=== PATIENT | female | born 1940 | race Caucasian/White ===

== ENCOUNTER → 2020-08-30 | Outpatient (CLI) | payer MEDICARE ==
[~2020-08-30] MED LIST: ASP81CT PO; LISINOPRIL PO; LOVASTATIN PO; MECL25TA56 PO
[2020-08-30 10:16] LABS: BASOPHILS # (AUTO) 0.1 10^3/uL (0.0-0.1); BASOPHILS % (AUTO) 1 % (0-10); EOSINOPHILS # (AUTO) 0.1 10^3/uL (0.0-0.3); EOSINOPHILS % (AUTO) 1 % (0-10); HEMATOCRIT 40 % (35-52); LYMPHOCYTES # (AUTO) 1.8 10^3/uL (1.0-4.0); LYMPHOCYTES % (AUTO) 24 % (12-44); MEAN CORPUSCULAR HEMOGLOBIN 30 pg (25-34); MEAN CORPUSCULAR HGB CONC 33 g/dL (32-36); MEAN CORPUSCULAR VOLUME 93 fL (80-99); MONOCYTES # (AUTO) 0.5 10^3/uL (0.0-1.0); MONOCYTES % (AUTO) 6 % (0-12); NEUTROPHILS % (AUTO) 68 % (42-75); PLATELET COUNT 295 10^3/uL (130-400); WHITE BLOOD COUNT 7.3 10^3/uL (4.3-11.0)
[2020-08-30 10:37] LABS: ALANINE AMINOTRANSFERASE 23 U/L (0-55); ALKALINE PHOSPHATASE 72 U/L (40-136); BILIRUBIN,TOTAL 0.4 MG/DL (0.1-1.0); BUN/CREATININE RATIO 21; CALCIUM 8.8 MG/DL (8.5-10.1); CARBON DIOXIDE 22 MMOL/L (21-32); CHLORIDE 105 MMOL/L (98-107); CREATININE SERUM 0.73 MG/DL (0.60-1.30); GFR ESTIMATED > 60; GLUCOSE 97 MG/DL (70-105); POTASSIUM 4.2 MMOL/L (3.6-5.0); SODIUM 139 MMOL/L (135-145)
[2020-08-30 10:39] LABS: ERYTHROCYTE SEDIMENTATION RATE 16 MM/HR (0-30)
--- NOTE | 2020-08-30 10:45 | Diagnostic Imaging Report ---
INDICATION: SOB, DIZZINESS, LOCALIZED EDEMA, MITRAL VALVE DISORDERS, HUPERLIPIDEMIA COMPARISON: 04/19/2010 FINDINGS: Frontal, lateral, and apical lordotic views of the chest demonstrate normal heart size and pulmonary vascularity. The lungs are clear. There are no signs of infiltrate, pleural effusions or pneumothoraces. The visualized osseous structures show no acute abnormalities. IMPRESSION: 1. No acute process. No signs of infiltrates, effusions or pneumothoraces. Dictated by: Dictated on workstation # [id number]
== END ==
LOC: RAD 09:54
PROVIDERS: ATTEND Nurse Practitioner Family
DX: I34.1 Nonrheumatic mitral (valve) prolapse (principal); R63.5 Abnormal weight gain; I10 Essential (primary) hypertension; G60.3 Idiopathic progressive neuropathy; E78.49 Other hyperlipidemia; R60.0 Localized edema
CPT/HCPCS: 36415; 71047; 80053; 83880; 85025; 85652

== ENCOUNTER 2021-02-07 15:25 | Outpatient (RCR) | payer MEDICARE | END 2021-03-11 | disposition home or self-care (01) | PROVIDERS: ATTEND Internal Medicine | DX: R26.89 Other abnormalities of gait and mobility (principal); I11.9 Hypertensive heart disease without heart failure; G62.9 Polyneuropathy, unspecified; I10 Essential (primary) hypertension; H91.90 Unspecified hearing loss, unspecified ear ==

== ENCOUNTER 2021-05-03 16:13 | Emergency (ER) | payer MEDICARE ==
[~2021-05-03] VITALS: Ht 152.4 cm; Wt 63.9 kg
--- NOTE | 2021-05-03 16:34 | ED Respiratory ---
General Chief Complaint: Respiratory Problems Stated Complaint: TROUBLE BREATHING,POSS BLOOD CLOT Source: patient Exam Limitations: no limitations History of Present Illness Date Seen by Provider: May 03, 2021 Time Seen by Provider: 16:32 Initial Comments To ER by private vehicle by family with reports of shortness of breath for sever al months. She is had both Covid shots and a booster. No fevers or chills. No cough. 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 Mcduffie out of [facility] checked a D-dimer and found it to be high at 3.8 so referred her to the emergency room for angio chest. She has Lasix twice daily for her CHF. She has been compliant with this. Timing/Duration: constant Prior Episodes/Possible Cause: no prior episodes Associated Symptoms: shortness of breath Allergies and Home Medications Allergies Coded Allergies: metoclopramide (Unverified Allergy, Mild, 03/14/16) prochlorperazine (Unverified Allergy, Mild, 03/14/16) HIGH ANXIETY REACTION Patient Home Medication List Home Medication List Reviewed: Yes Aspirin (Aspirin 81 Mg Chew Tab) 81 Mg Chew, 81 MG PO DAILY, (Reported) Entered as Reported by: MICKEY ALMONTE on 04/19/101405 [Lisinopril] , 10 MG PO DAILY, (Reported) Entered as Reported by: MICKEY ALMONTE on 04/19/101405 [Lovastatin] , 80 MG PO HS, (Reported) Entered as Reported by: MICKEY ALMONTE on 04/19/101405 Review of Systems Review of Systems Constitutional: see HPI EENTM: see HPI Respiratory: see HPI, dyspnea on exertion, short of breath Genitourinary: no symptoms reported Musculoskeletal: no symptoms reported Past Kzvdvbv-Oqrred-Xdjrrs Hx Immunizations Up To Date Tetanus Booster (TDap): Unknown Past Medical History Hysterectomy, Orthopedic High Cholesterol, Hypertension Chronic Constipation Tinnitis Physical Exam Capillary Refill : Height: 5'2" Weight: 139lbs. oz. 63.139344ts; BMI Method:Stated General Appearance: WD/WN, no apparent distress Eyes: Bilateral Eye Normal Inspection, Bilateral Eye PERRL, Bilateral Eye EOMI Respiratory: lungs clear, normal breath sounds, no respiratory distress, no accessory muscle use, other (Lungs are clear with good air movement. No wheezing. Her oxygen is 97% on room air. Heart rate is 95.) Cardiovascular: regular rate, rhythm Gastrointestinal: normal bowel sounds, non tender Extremities: normal range of motion, non-tender Neurologic/Psychiatric: alert, normal mood/affect, oriented x 3 Skin: normal color, warm/dry Progress/Results/Core Measures Suspected Sepsis SIRS Temperature: Pulse: Respiratory Rate: Laboratory Tests 05/03/21 16:40: White Blood Count 9.0 Blood Pressure / Mean: Laboratory Tests 05/03/21 16:40: Creatinine 1.19, Platelet Count 374 Results/Orders Lab Results Laboratory Tests Test 05/03/21 16:40 Range/Units White Blood Count 9.0 4.3-11.0 10^3/uL Red Blood Count 4.19 3.80-5.11 10^6/uL Hemoglobin 12.8 11.5-16.0 g/dL Hematocrit 38 35-52 % Mean Corpuscular Volume 90 80-99 fL Mean Corpuscular Hemoglobin 31 25-34 pg Mean Corpuscular Hemoglobin Concent 34 32-36 g/dL Red Cell Distribution Width 14.2 10.0-14.5 % Platelet Count 374 130-400 10^3/uL Mean Platelet Volume 9.1 9.0-12.2 fL Immature Granulocyte % (Auto) 0 % Neutrophils (%) (Auto) 74 42-75 % Lymphocytes (%) (Auto) 20 12-44 % Monocytes (%) (Auto) 6 0-12 % Eosinophils (%) (Auto) 0 0-10 % Basophils (%) (Auto) 0 0-10 % Neutrophils # (Auto) 6.7 1.8-7.8 X 10^3 Lymphocytes # (Auto) 1.8 1.0-4.0 X 10^3 Monocytes # (Auto) 0.6 0.0-1.0 X 10^3 Eosinophils # (Auto) 0.0 0.0-0.3 10^3/uL Basophils # (Auto) 0.0 0.0-0.1 10^3/uL Immature Granulocyte # (Auto) 0.0 0.0-0.1 10^3/uL Sodium Level 138 135-145 MMOL/L Potassium Level 3.4 L 3.6-5.0 MMOL/L Chloride Level 101 98-107 MMOL/L Carbon Dioxide Level 20 L 21-32 MMOL/L Anion Gap 17 H 5-14 MMOL/L Blood Urea Nitrogen 32 H 7-18 MG/DL Creatinine 1.19 0.60-1.30 MG/DL Estimat Glomerular Filtration Rate 43 BUN/Creatinine Ratio 27 Glucose Level 162 H 70-105 MG/DL Calcium Level 9.4 8.5-10.1 MG/DL B-Type Natriuretic Peptide 15.9 <100.0 PG/ML My Orders Orders - LENO URBAN APRN Cbc With Automated Diff (05/03/21 16:20) Basic Metabolic Panel (05/03/21 16:20) Bnp Sabine (05/03/21 16:20) Ekg Tracing (05/03/21 16:20) Ct Angio Chest W (05/03/21 16:20) Iohexol Injection (Omnipaque 350 Mg/Ml 1 (05/03/21 17:15) Received Contrast (Hold Metformin- Contr (05/03/21 17:15) Ns (Ivpb) (Sodium Chloride 0.9% Ivpb Bag (05/03/21 17:15) Ns Iv 500 Ml (Sodium Chloride 0.9%) (05/03/21 17:30) Medications Given in ED Current Medications Medications Dose Ordered Sig/Heri Route Start Time Stop Time Status Last Admin Dose Admin Iohexol 100 ml ONCE ONCE IV 05/03/21 17:15 05/03/21 17:16 DC 05/03/21 17:27 60 ML Sodium Chloride 100 ml ONCE ONCE IV 05/03/21 17:15 05/03/21 17:16 DC 05/03/21 17:27 80 ML Vital Signs/I&O Capillary Refill : Departure Communication (Admissions) I did notify her packaging sales representative Dr. Jones that there was no pulmonary embolism. No further recommendations, he will see her in the clinic next week. Impression Primary Impression: Chronic dyspnea Disposition: 01 HOME, SELF-CARE Condition: Stable Departure-Patient Inst. Decision time for Depature: 17:49 Referrals: HAILEY GARCIA MD (PCP) Primary Care Physician AYLEEN URIARTE MD (Family) Primary Care Physician Patient Instructions: Shortness of Breath (Dyspnea) Add. Discharge Instructions: 1. Return to ER for any concerns. Follow-up with Dr. Mcduffie All discharge instructions reviewed with patient and/or family. Voiced und erstanding. LENO URBAN APRN May 03, 2021 16:34
[2021-05-03 16:51] LABS: BASOPHILS % (AUTO) 0 % (0-10); EOSINOPHILS % (AUTO) 0 % (0-10); HEMATOCRIT 38 % (35-52); HEMOGLOBIN 12.8 g/dL (11.5-16.0); LYMPHOCYTES # (AUTO) 1.8 X 10^3 (1.0-4.0); LYMPHOCYTES % (AUTO) 20 % (12-44); MEAN CORPUSCULAR HEMOGLOBIN 31 pg (25-34); MEAN CORPUSCULAR HGB CONC 34 g/dL (32-36); MEAN CORPUSCULAR VOLUME 90 fL (80-99); MEAN PLATELET VOLUME 9.1 fL (9.0-12.2); MONOCYTES # (AUTO) 0.6 X 10^3 (0.0-1.0); MONOCYTES % (AUTO) 6 % (0-12); NEUTROPHILS # (AUTO) 6.7 X 10^3 (1.8-7.8); NEUTROPHILS % (AUTO) 74 % (42-75); PLATELET COUNT 374 10^3/uL (130-400)
[2021-05-03 16:57] LABS: POTASSIUM 3.4 MMOL/L (3.6-5.0)
[2021-05-03 16:58] LABS: CALCIUM 9.4 MG/DL (8.5-10.1)
[2021-05-03 17:03] LABS: CREATININE SERUM 1.19 MG/DL (0.60-1.30)
[2021-05-03] MEDS ORDERED: NS 100 ML (IVPB) BAG IV ONE (17:15)
[2021-05-03] MEDS ORDERED: IOHEXOL 350 MG/ML 100 ML (OMNIPAQUE 350) VIAL IV ONE (17:15)
[2021-05-03] MEDS ORDERED: HOLD METFORMIN - RECEIVED CONTRAST 20 ML VIAL IV SCH (17:15)
[2021-05-03] MEDS ORDERED: NS IV 500 ML 500 ML IV SCH (17:30)
--- NOTE | 2021-05-03 17:45 | Diagnostic Imaging Report ---
EXAMINATION: CT angiography of the chest. TECHNIQUE: Contrast enhanced thin section helical images were obtained through the chest with intravenous contrast timed for the optimal opacification of the arterial structures per CTA protocol. Post-processing, reconstructions and interpretation of angiographic images of the vessels was performed. 3D MIP reconstructions were performed and reviewed. All CT scans use one or more of the following dose optimizing techniques: automated exposure control, MA and/or KvP adjustment based on patient size and exam type or iterative reconstruction. HISTORY: Shortness of breath. COMPARISON: None available. FINDINGS: Vascular: There are no filling defects seen within the pulmonary arteries. The thoracic aorta is normal in caliber. There are vascular calcifications of the aorta and coronary vessels. Thyroid: The thyroid is normal. Mediastinum: Heart size is normal without significant pericardial effusion. No suspicious lymphadenopathy. Lungs and airways: The lungs are clear without consolidation, pleural effusion, or pneumothorax. There are background emphysematous changes of the lungs. There is scarring within the lung apices. The airways are normal. Upper abdomen: The subphrenic structures are normal. Musculoskeletal: Degenerative changes of the spine without suspicious osseous lesion or compression fracture. IMPRESSION: 1. No findings of pulmonary embolus or other acute abnormality in the chest. 2. COPD. Dictated by: Dictated on workstation # [id number]
[2021-05-03 18:29] VITALS: BP 117/62
== END 2021-05-03 18:29 | disposition home or self-care (01) ==
LOC: EDUNIT# 16:13 → ER 16:17
DX: R06.00 Dyspnea, unspecified (principal); I10 Essential (primary) hypertension; E78.00 Pure hypercholesterolemia, unspecified; Z79.82 Long term (current) use of aspirin; Z79.899 Other long term (current) drug therapy
CPT/HCPCS: 36415; 71275; 80048; 83880; 85025; 93005

== ENCOUNTER 2021-05-30 11:49 | Emergency (ER) | payer MEDICARE ==
[2021-05-30 12:15] VITALS: BP 124/74
[2021-05-30] MEDS ORDERED: NS IV 1000 ML 1,000 ML IV SCH (12:15)
[2021-05-30] MEDS ORDERED: CEFEPIME INJECTION 1,000 MG in NS (IVPB) 50 ML IV ONE (12:15)
[2021-05-30] MEDS ORDERED: VANCOMYCIN INJECTION 1,000 MG in NS (IVPB) 250 ML IV ONE (12:15)
[2021-05-30] MEDS ORDERED: NS IV 500 ML 500 ML IV ONE (12:15)
--- NOTE | 2021-05-30 14:13 | ED Fall/Injury ---
General Chief Complaint: Trauma-Non Activation Stated Complaint: LOWER BACK PAIN, FELL Nursing Triage Note: PT AMB TO ER WITH WALKER WITH FAMILY WITH C/O A FALL LAST NIGHT AROUND 2200. PT WAS IN THE KITCHEN FIXING SOMETHING TO EAT WHEN SHE LOST HER BALANCE AND FELL STRAIGHT ON HER BACK. PT ALSO SAYING PAIN RADIATING TO R SIDE. PT STATES SHE HAS BAD BALANCE DUE TO NEUROPATHY Source: patient Exam Limitations: no limitations History of Present Illness Date Seen by Provider: May 30, 2021 Time Seen by Provider: 13:15 Initial Comments Patient to the ER by private conveyance with her qtsmcfzc-bl-ufz chief complaint that yesterday evening around 10 she had 1 hand on the bar and had let go of her walker and fell. She has bad neuropathy and cannot feel her legs very well at baseline. She says her caught her head and shoulder so she did not strike the floor with her head but she did strike the bottom of a trash can against her right ribs. She is having pain persist in her right ribs. She received 2 Tylenol last night by her uosxztqy-ye-dlr. She is not had anything since then. She has a history of heart disease and is on aspirin but no blood thinners. She is not on Plavix. 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 She is not having any pain in her head or neck. She is not having any dysuria or hematuria. She denies any recent illness. Allergies and Home Medications Allergies Coded Allergies: metoclopramide (Unverified Allergy, Mild, 03/14/16) prochlorperazine (Unverified Allergy, Mild, 03/14/16) HIGH ANXIETY REACTION Patient Home Medication List Home Medication List Reviewed: Yes Aspirin (Aspirin 81 Mg Chew Tab) 81 Mg Chew, 81 MG PO DAILY, (Reported) Entered as Reported by: MICKEY ALMONTE on 04/19/101405 [Lisinopril] , 10 MG PO DAILY, (Reported) Entered as Reported by: MICKEY ALMONTE on 04/19/101405 [Lovastatin] , 80 MG PO HS, (Reported) Entered as Reported by: MICKEY ALMONTE on 04/19/101405 Review of Systems Review of Systems Constitutional: No chills, No diaphoresis Eyes: Denies Blindness, Denies Blurred Vision Ears, Nose, Mouth, Throat: denies ear pain, denies ear discharge Respiratory: No cough, No short of breath Cardiovascular: No edema, No palpitations Musculoskeletal: No back pain, No joint pain Skin: see HPI; No pruritus, No rash All Other Systems Reviewed Negative Unless Noted: Yes Past Scsfhnt-Mpwbke-Ynjbxh Hx Patient Social History Tobacco Use?: No Smoking Status: Former Smoker Substance use?: No Alcohol Use?: No Pt feels they are or have been: No Immunizations Up To Date Tetanus Booster (TDap): Unknown Influenza Vaccine Up-to-Date: Yes; Up-to-Date First/Initial COVID19 Vaccinat: MAY 2020 Second COVID19 Vaccination Juan: JUN 2020 Past Medical History Hysterectomy, Orthopedic High Cholesterol, Hypertension Chronic Constipation Tinnitis Physical Exam Vital Signs Vital Signs - First Documented 05/30/21 12:15 Temp 36.1 Pulse 79 Resp 20 B/P (MAP) 124/74 (91) Pulse Ox 99 O2 Delivery Room Air Capillary Refill : Height, Weight, BMI Height: 5'2" Weight: 139lbs. oz. 63.081872cb; 27.00 BMI Method:Stated General Appearance: WD/WN, mild distress, other (Anxious) HEENT: PERRL/EOMI, TMs normal, pharynx normal Neck: full range of motion, supple, normal inspection Cardiovascular: normal peripheral pulses, regular rate, rhythm Respiratory: lungs clear, normal breath sounds, no respiratory distress, no accessory muscle use, other (Right mid axillary line radiating back to the posterior portion of the lower ribs are tender to palpation without step-off or crepitus. No ecchymoses or laceration.) Peripheral Pulses: 2+ Dorsalis Pedis (R), 2+ Left Dors-Pedis (L) Gastrointestinal: normal bowel sounds, non tender, soft Back: normal inspection, no vertebral tenderness (No step-off. She has scoliosis and kyphosis.) Extremities: normal inspection, normal capillary refill Neurologic/Psychiatric: roller man II-XII nml as tested, no motor/sensory deficits, alert, normal mood/affect, oriented x 3 Skin: normal color, warm/dry Progress/Results/Core Measures Results/Orders Lab Results Laboratory Tests Test 05/30/21 14:13 Range/Units Urine Color YELLOW Urine Clarity CLEAR Urine pH 8.0 5-9 Urine Specific Boyd 1.010 L 1.016-1.022 Urine Protein NEGATIVE NEGATIVE Urine Glucose (UA) NEGATIVE NEGATIVE Urine Ketones TRACE H NEGATIVE Urine Nitrite NEGATIVE NEGATIVE Urine Bilirubin NEGATIVE NEGATIVE Urine Urobilinogen 0.2 < = 1.0 MG/DL Urine Leukocyte Esterase 2+ H NEGATIVE Urine RBC (Auto) NEGATIVE NEGATIVE Urine RBC NONE /HPF Urine WBC 2-5 /HPF Urine Squamous Epithelial Cells 2-5 /HPF Urine Crystals NONE /LPF Urine Bacteria TRACE /HPF Urine Casts NONE /LPF Urine Mucus NEGATIVE /LPF Urine Culture Indicated NO My Orders Orders - MADHURI HERNANDEZ Ekg Tracing (05/30/21 12:09) Ns Iv 1000 Ml (Sodium Chloride 0.9%) (05/30/21 12:15) Cefepime Injection (Maxipime Injection) (05/30/21 12:15) Vancomycin Injection (Vancomycin Injecti (05/30/21 12:15) Ns Iv 500 Ml (Sodium Chloride 0.9%) (05/30/21 12:15) Ct Head/Cervical Spine Wo (05/30/21 13:21) Ribs, Right 2-3 Views (05/30/21 14:05) Hydrocodone/Apap 5/325 Tablet (Lortab 5 (05/30/21 14:15) Ua Culture If Indicated (05/30/21 14:07) Cbc With Automated Diff (05/30/21 14:07) Comprehensive Metabolic Panel (05/30/21 14:07) Medications Given in ED Current Medications Medications Dose Ordered Sig/Heri Route Start Time Stop Time Status Last Admin Dose Admin Acetaminophen/ Hydrocodone Bitart 1 ea ONCE ONCE PO 05/30/21 14:15 05/30/21 14:16 DC 05/30/21 14:15 1 EA Vital Signs/I&O 05/30/21 12:15 Temp 36.1 Pulse 79 Resp 20 B/P (MAP) 124/74 (91) Pulse Ox 99 O2 Delivery Room Air Blood Pressure Mean: 91 Progress Progress Note : Time: 14:11 Progress Note Right ribs [address] head and cervical spine. Initial ECG Impression Date: May 30, 2021 Initial ECG Impression Time: 13:47 Initial ECG Rate: 72 Initial ECG Rhythm: Normal Sinus Initial ECG Intervals: Normal Initial ECG Impression: Normal Comment Normal sinus rhythm without clinically relevant ST elevation or depression. Diagnostic Imaging Diagonstic Imaging: Xray Plain Films/CT/US/NM/MRI: chest (Right ribs) Comments [facility], [place] NAME: ASAD HARRELL [facility] REC#: [id number] PT STATUS: REG ER : 1940 PHYSICIAN: MADHURI HERNANDEZ MD ADMIT DATE: 05/30/21/ER Signed Date of Exam:05/30/21 RIBS, RIGHT 2-3 VIEWS INDICATION: Fall with right rib pain. TIME OF EXAM: 02:27 p.m. TECHNIQUE: Multiple views of the right ribs were obtained. FINDINGS: No displaced rib fracture is identified. No parenchymal contusion, effusion or pneumothorax is detected. IMPRESSION: No definite rib fracture identified. Dictated by: Dictated on workstation # [id number] Dict: 05/30/21 1426 Trans: 05/30/21 1600 [id number] [id number] Interpreted by: DEWAYNE HONG MD Electronically signed by: DEWAYNE OHNG MD 05/30/21 1600 Reviewed: Reviewed by Me Diagonstic Imaging: CT Plain Films/CT/US/NM/MRI: c-spine, head Comments [facility], [place] NAME: ASAD HARRELL [facility] REC#: [id number] PT STATUS: REG ER : 1940 PHYSICIAN: MADHURI HERNANDEZ MD ADMIT DATE: 05/30/21/ER Signed Date of Exam:05/30/21 CT HEAD/CERVICAL SPINE WO PROCEDURE: CT head and CT cervical spine without contrast. TECHNIQUE: Multiple contiguous axial images were obtained through the brain and cervical spine without the use of intravenous contrast. Sagittal and coronal reformations through the cervical spine were then performed. Auto Exposure Controls were utilized during the CT exam to meet ALARA standards for radiation dose reduction. INDICATION: Fall. COMPARISON: Correlation is made with head CT from 04/19/2010. CT HEAD: The ventricles and sulci are appropriate for the patient's age. No sulcal effacement or midline shift is identified. No acute intra-axial or extra-axial hemorrhage is detected. Cisterns are patent. Visualized paranasal sinuses are clear. IMPRESSION: No acute intracranial process is detected. CT CERVICAL SPINE: There is some straightening of the normal cervical lordotic curvature. Minimal retrolisthesis of C5 on C6 is noted. There is significant degenerative disc disease at C4-C5, C5-C6, and C6-C7 levels where there is marked disc space narrowing and marginal spurring. There is also multilevel facet arthropathy. Prevertebral tissues are within normal limits. No fractures are seen. Prevertebral tissues are within normal limits. Odontoid is intact. IMPRESSION: Cervical spondylosis. No acute bony abnormality is detected. Dictated by: Dictated on workstation # [id number] Dict: 05/30/21 1418 Trans: 05/30/21 1559 [id number] Interpreted by: DEWAYNE HNOG MD Electronically signed by: DEWAYNE HONG MD 05/30/21 1559 Reviewed: Reviewed by Me Departure Impression Primary Impression: Fall Qualified Codes: W19.XXXA - Unspecified fall, initial encounter Additional Impression: Traumatic ecchymosis of rib Qualified Codes: S20.20XA - Contusion of thorax, unspecified, initial encou nter Disposition: HOME, SELF-CARE Condition: Stable Departure-Patient Inst. Decision time for Depature: 16:35 Referrals: HAILEY GARCIA MD (PCP/Family) Primary Care Physician Patient Instructions: Bruised Rib Add. Discharge Instructions: Drink plenty fluids, Tylenol 1000 mg as necessary for pain. Hydrocodone 1 tablet every 6 hours necessary for severe breakthrough pain keeping her being functional. Hydrocodone will cause constipation as well as drowsiness and increased risk of falls. All discharge instructions reviewed with patient and/or family. Voiced understanding. Scripts Hydrocodone/Acetaminophen (Hydrocodone-Acetamin 5-325 mg) 1 Each Tablet 1 TAB PO Q6H PRN for PAIN-MODERATE (5-7), #12 TAB 0 Refills Prov: MADHURI HERNANDEZ 05/30/21 MADHURI HERNANDEZ May 30, 2021 14:13
[2021-05-30] MEDS ORDERED: HYDROcodone/APAP 5 MG/325 MG (LORTAB) TAB PO ONE (14:15)
[2021-05-30 14:17] LABS: BILIRUBIN,URINE NEGATIVE (NEGATIVE); CLARITY,URINE CLEAR; COLOR,URINE YELLOW; GLUCOSE, URINE (UA) NEGATIVE (NEGATIVE); KETONES,URINE TRACE (NEGATIVE); LEUKOCYTE ESTERASE ,URINE 2+ (NEGATIVE); NITRITE,URINE NEGATIVE (NEGATIVE); PROTEIN,URINE NEGATIVE (NEGATIVE)
[2021-05-30 14:27] LABS: BACTERIA,URINE TRACE /HPF
--- NOTE | 2021-05-30 14:28 | Diagnostic Imaging Report ---
PROCEDURE: CT head and CT cervical spine without contrast. TECHNIQUE: Multiple contiguous axial images were obtained through the brain and cervical spine without the use of intravenous contrast. Sagittal and coronal reformations through the cervical spine were then performed. Auto Exposure Controls were utilized during the CT exam to meet ALARA standards for radiation dose reduction. INDICATION: Fall. COMPARISON: Correlation is made with head CT from 04/19/2010. CT HEAD: The ventricles and sulci are appropriate for the patient's age. No sulcal effacement or midline shift is identified. No acute intra-axial or extra-axial hemorrhage is detected. Cisterns are patent. Visualized paranasal sinuses are clear. IMPRESSION: No acute intracranial process is detected. CT CERVICAL SPINE: There is some straightening of the normal cervical lordotic curvature. Minimal retrolisthesis of C5 on C6 is noted. There is significant degenerative disc disease at C4-C5, C5-C6, and C6-C7 levels where there is marked disc space narrowing and marginal spurring. There is also multilevel facet arthropathy. Prevertebral tissues are within normal limits. No fractures are seen. Prevertebral tissues are within normal limits. Odontoid is intact. IMPRESSION: Cervical spondylosis. No acute bony abnormality is detected. Dictated by: Dictated on workstation # [id number]
--- NOTE | 2021-05-30 14:31 | Diagnostic Imaging Report ---
INDICATION: Fall with right rib pain. TIME OF EXAM: 02:27 p.m. TECHNIQUE: Multiple views of the right ribs were obtained. FINDINGS: No displaced rib fracture is identified. No parenchymal contusion, effusion or pneumothorax is detected. IMPRESSION: No definite rib fracture identified. Dictated by: Dictated on workstation # [id number]
[2021-05-30] MEDS ORDERED: ACHD5005 PO (16:37)
== END 2021-05-30 17:05 | disposition home or self-care (01) ==
LOC: EDUNIT# 11:49 → ER 11:51
DX: S20.211A Contusion of right front wall of thorax, initial encounter (principal); I10 Essential (primary) hypertension; E78.00 Pure hypercholesterolemia, unspecified; Z87.891 Personal history of nicotine dependence; Z79.899 Other long term (current) drug therapy; Z86.79 Personal history of other diseases of the circulatory system; Z79.82 Long term (current) use of aspirin; W18.39XA Other fall on same level, initial encounter; Y92.89 Other specified places as the place of occurrence of the external cause
CPT/HCPCS: 70450; 71100; 72125; 81000

== ENCOUNTER 2022-03-02 13:05 | Observation (INO) | payer MEDICARE ==
[~2022-03-02] VITALS: Ht 152 cm; Wt 72.2 kg
[~2022-03-02 13:05] MED LIST changes: +ACHD5005 PO
--- NOTE | 2022-03-02 13:24 | ED General ---
General Chief Complaint: COVID19 Suspect/Confirmed Stated Complaint: AMS - COVID + Source of Information: Residential Records Exam Limitations: Other (dementia) History of Present Illness Date Seen by Provider: Mar 02, 2022 Time Seen by Provider: 13:18 Initial Comments Patient is an 81-year-old female who presents from a local long-term with a chief complaint of altered mental status. Patient reportedly has a history of dementia. Report from the long-term to ED RN is that the patient is "more altered" than normal. Patient herself can only state that she wants to "get up" and that she feels like she is falling. Otherwise she denies all review of systems. Patient was recently diagnosed with COVID on 02/26/2022. She was started on Paxlovid by her primary care physician. On my entry into the room the patient is resting comfortably no acute distress. Vital signs are stable. Room air oxygen saturations are 97%. Per review of medical record the patient has a history of hypertension, cardiovascular disease, hypercholesterolemia and depression/dementia. Review of systems unobtainable secondary to the patient's dementia. Timing/Duration: Other (Unknown onset of change in mental status) Allergies and Home Medications Allergies Coded Allergies: metoclopramide (Unverified Allergy, Mild, 03/14/16) prochlorperazine (Unverified Allergy, Mild, 03/14/16) HIGH ANXIETY REACTION Patient Home Medication List Home Medication List Reviewed: Yes Aspirin (Aspirin 81 Mg Chew Tab) 81 Mg Chew, 81 MG PO DAILY, (Reported) Entered as Reported by: MICKEY ALMONTE on 04/19/101405 Hydrocodone/Acetaminophen (Hydrocodone-Acetamin 5-325 mg) 1 Each Tablet, 1 TAB PO Q6H PRN for PAIN-MODERATE (5-7) Prescribed by: MADHURI HERNANDEZ on 05/30/21 1637 [Lisinopril] , 10 MG PO DAILY, (Reported) Entered as Reported by: MICKEY ALMONTE on 04/19/10 140 [Lovastatin] , 80 MG PO HS, (Reported) Entered as Reported by: MICKEY ALMONTE on 04/19/101405 Review of Systems Review of Systems Constitutional: see HPI Unable to obtain review of systems secondary to the patient's history of dementia and apparent worsening in her mental status Past Vvyhlxq-Btyujf-Kcuqbr Hx Patient Social History Tobacco Use?: No Use of E-Cig and/or Vaping dev: No Substance use?: No Alcohol Use?: No Pt feels they are or have been: No Immunizations Up To Date Tetanus Booster (TDap): Unknown Influenza Vaccine Up-to-Date: Yes; Up-to-Date First/Initial COVID19 Vaccinat: MAY 2020 Second COVID19 Vaccination Juan: JUN 2020 Third COVID19 Vaccination Date: APR 2021 COVID19 Vaccine Assembler For Puller Over Hand: ZAHEER Past Medical History Surgery/Hospitalization HX: DEMENTIA, HTN, HIGH CHOLESTEROLM, ANXIETY, DEPRESSION Hysterectomy, Orthopedic High Cholesterol, Hypertension Chronic Constipation Tinnitis Physical Exam Vital Signs Vital Signs - First Documented Capillary Refill : Height, Weight, BMI Height: 5'2" Weight: 139lbs. oz. 63.455317yw; 27.00 BMI Method:Stated General Appearance: No Apparent Distress, WD/WN Eyes: Bilateral Eye Normal Inspection, Bilateral Eye PERRL, Bilateral Eye EOMI HEENT: PERRL/EOMI, Other (dry oral mucosa) Neck: Normal Inspection Respiratory: Lungs Clear, Normal Breath Sounds, No Accessory Muscle Use, No Respiratory Distress, Other (97% on RA) Cardiovascular: Regular Rate, Rhythm, Normal Peripheral Pulses Gastrointestinal: Normal Bowel Sounds, Non Tender, Soft Extremity: Normal Capillary Refill, Normal Inspection, Normal Range of Motion, Non Tender, No Calf Tenderness Neurologic/Psychiatric: Alert, No Motor/Sensory Deficits, Normal Mood/Affect Skin: Normal Color, Warm/Dry Progress/Results/Core Measures Suspected Sepsis SIRS Temperature: Pulse: Respiratory Rate: Laboratory Tests 03/02/22 13:10: White Blood Count 10.5 Blood Pressure / Mean: Laboratory Tests 03/02/22 13:10: Creatinine 1.29, Platelet Count 365, Total Bilirubin 0.7 Results/Orders Lab Results Laboratory Tests Test 03/02/22 13:10 03/02/22 13:37 03/02/22 14:53 Range/Units White Blood Count 10.5 4.3-11.0 10^3/uL Red Blood Count 4.41 3.80-5.11 10^6/uL Hemoglobin 13.6 11.5-16.0 g/dL Hematocrit 41 35-52 % Mean Corpuscular Volume 92 80-99 fL Mean Corpuscular Hemoglobin 31 25-34 pg Mean Corpuscular Hemoglobin Concent 34 32-36 g/dL Red Cell Distribution Width 14.4 10.0-14.5 % Platelet Count 365 130-400 10^3/uL Mean Platelet Volume 9.4 9.0-12.2 fL Immature Granulocyte % (Auto) 0 % Neutrophils (%) (Auto) 86 H 42-75 % Lymphocytes (%) (Auto) 10 L 12-44 % Monocytes (%) (Auto) 4 0-12 % Eosinophils (%) (Auto) 0 0-10 % Basophils (%) (Auto) 0 0-10 % Neutrophils # (Auto) 9.1 H 1.8-7.8 10^3/uL Lymphocytes # (Auto) 1.0 1.0-4.0 10^3/uL Monocytes # (Auto) 0.4 0.0-1.0 10^3/uL Eosinophils # (Auto) 0.0 0.0-0.3 10^3/uL Basophils # (Auto) 0.0 0.0-0.1 10^3/uL Immature Granulocyte # (Auto) 0.0 0.0-0.1 10^3/uL Sodium Level 140 135-145 MMOL/L Potassium Level 4.9 3.6-5.0 MMOL/L Chloride Level 105 98-107 MMOL/L Carbon Dioxide Level 20 L 21-32 MMOL/L Anion Gap 15 H 5-14 MMOL/L Blood Urea Nitrogen 32 H 7-18 MG/DL Creatinine 1.29 0.60-1.30 MG/DL Estimat Glomerular Filtration Rate 41 BUN/Creatinine Ratio 25 Glucose Level 124 H 70-105 MG/DL Calcium Level 9.5 8.5-10.1 MG/DL Corrected Calcium 9.3 8.5-10.1 MG/DL Total Bilirubin 0.7 0.1-1.0 MG/DL Aspartate Amino Transf (AST/SGOT) 27 5-34 U/L Alanine Aminotransferase (ALT/SGPT) 21 0-55 U/L Alkaline Phosphatase 84 40-136 U/L Total Protein 7.5 6.4-8.2 GM/DL Albumin 4.3 3.2-4.5 GM/DL Urine Color YELLOW Urine Clarity CLEAR Urine pH 6.0 5-9 Urine Specific [place] >=1.030 1.016-1.022 Urine Protein NEGATIVE NEGATIVE Urine Glucose (UA) NEGATIVE NEGATIVE Urine Ketones TRACE H NEGATIVE Urine Nitrite NEGATIVE NEGATIVE Urine Bilirubin NEGATIVE NEGATIVE Urine Urobilinogen 0.2 < = 1.0 MG/DL Urine Leukocyte Esterase NEGATIVE NEGATIVE Urine RBC (Auto) TRACE-I H NEGATIVE Urine RBC 0-2 /HPF Urine WBC RARE /HPF Urine Squamous Epithelial Cells 0-2 /HPF Urine Crystals NONE /LPF Urine Bacteria TRACE /HPF Urine Casts PRESENT /LPF Urine Hyaline Casts 0-2 H /LPF Urine Mucus SMALL H /LPF Urine Culture Indicated NO SARS-CoV-2 RNA (RT-PCR) Detected H Not Detecte My Orders Orders - BIPIN BAHENA MD Ed Iv/Invasive Line Start (03/02/22 13:20) Cbc With Automated Diff (03/02/22 13:20) Comprehensive Metabolic Panel (03/02/22 13:20) Ua Culture If Indicated (03/02/22 13:20) Chest 1 View, Ap/Pa Only (03/02/22 13:20) Covid 19 Inhouse Test (03/02/22 14:53) Isolation Central Supply Req (03/02/22 14:53) Acetaminophen Tablet (Tylenol Tablet) (03/02/22 15:00) Medications Given in ED Current Medications Medications Dose Ordered Sig/Heri Route Start Time Stop Time Status Last Admin Dose Admin Acetaminophen 1,000 mg ONCE ONCE PO 03/02/22 15:00 03/02/22 15:01 DC 03/02/22 15:19 1,000 MG Vital Signs/I&O 03/02/22 03/02/22 13:11 13:11 Temp 38.0 Pulse 89 Resp 14 B/P (MAP) 137/71 (93) Pulse Ox 96 O2 Delivery Room Air Room Air Capillary Refill : Progress Note #1: Time: 14:57 Progress Note Further history from daughter who is at the bedside, her mother has fallen 2 or 3 times over the course of the last for 5 days. She was so weak last evening that it took 3 caregivers to try to get her up and into the bathroom. The daughter has been out of town but got back last evening and today she found her mother so weak that she could not get her up to the toilet either. She was so confused that she was telling the daughter she needed to go urinate and she was actually sitting on the toilet at the time. Daughter states that she is much more confused than usual I explained to the daughter that her labs were all very reassuring and within normal limits. Her vital signs have been perfect. She does not have a urinary tract infection and no concerns on basic laboratory studies. She is somewhat confused with a history of dementia. She has been on Paxlovid since last week. We will retest her for COVID today and if it appears that she is negative today then we may consider talking to Dr. Mera and putting her on ARU. Progress Note #2: Time: 15:28 Progress Note Discussed the case with Dr. Mera, she will consider an ARU admission tomorrow. We will put her in observation to Dr. Flores on fourth floor this afternoon. Generalized weakness and COVID. We will continue home meds. Departure Communication (Admissions) Time/Spoke to Admitting Phy: 15:[address] Flores Time/Spoke to Consulting Phy: 15:[address] Mera Impression Primary Impression: Generalized weakness Additional Impressions: Pneumonia due to COVID-19 virus Dementia Qualified Codes: F03.90 - Unspecified dementia, unspecified severity, without behavioral disturbance, psychotic disturbance, mood disturbance, and anxiety Disposition: ADMITTED INPATIENT Condition: Stable Admissions Decision to Admit Reason: Admit from ER (General) Decision to Admit/Date: Mar 02, 2022 Time/Decision to Admit Time: 15:30 Departure-Patient Inst. Referrals: HAILEY GARCIA MD (PCP/Family) Primary Care Physician BIPIN BAHENA MD Mar 02, 2022 13:24
[2022-03-02 13:36] LABS: BASOPHILS % (AUTO) 0 % (0-10); EOSINOPHILS % (AUTO) 0 % (0-10); HEMATOCRIT 41 % (35-52); HEMOGLOBIN 13.6 g/dL (11.5-16.0); LYMPHOCYTES % (AUTO) 10 % (12-44); MEAN CORPUSCULAR HEMOGLOBIN 31 pg (25-34); MEAN CORPUSCULAR HGB CONC 34 g/dL (32-36); MEAN CORPUSCULAR VOLUME 92 fL (80-99); MEAN PLATELET VOLUME 9.4 fL (9.0-12.2); MONOCYTES # (AUTO) 0.4 10^3/uL (0.0-1.0); MONOCYTES % (AUTO) 4 % (0-12); NEUTROPHILS # (AUTO) 9.1 10^3/uL (1.8-7.8); NEUTROPHILS % (AUTO) 86 % (42-75); PLATELET COUNT 365 10^3/uL (130-400); WHITE BLOOD COUNT 10.5 10^3/uL (4.3-11.0)
[2022-03-02 13:43] LABS: BILIRUBIN,URINE NEGATIVE (NEGATIVE); CLARITY,URINE CLEAR; COLOR,URINE YELLOW; GLUCOSE, URINE (UA) NEGATIVE (NEGATIVE); KETONES,URINE TRACE (NEGATIVE); LEUKOCYTE ESTERASE ,URINE NEGATIVE (NEGATIVE); NITRITE,URINE NEGATIVE (NEGATIVE); PROTEIN,URINE NEGATIVE (NEGATIVE)
[2022-03-02 13:49] LABS: BACTERIA,URINE TRACE /HPF; RBC,URINE 0-2 /HPF; SQUAMOUS EPITHELIAL CELL,UR 0-2 /HPF; WBC,URINE RARE /HPF
[2022-03-02 13:50] LABS: HYALINE CASTS, URINE 0-2 /LPF
[2022-03-02 14:04] LABS: ALBUMIN 4.3 GM/DL (3.2-4.5); POTASSIUM 4.9 MMOL/L (3.6-5.0)
[2022-03-02 14:05] LABS: CALCIUM 9.5 MG/DL (8.5-10.1)
[2022-03-02 14:06] LABS: TOTAL PROTEIN 7.5 GM/DL (6.4-8.2)
[2022-03-02 14:08] LABS: BILIRUBIN,TOTAL 0.7 MG/DL (0.1-1.0)
--- NOTE | 2022-03-02 14:08 | Diagnostic Imaging Report ---
EXAM: CHEST 1 VIEW, AP/PA ONLY INDICATION: Altered mental status. COVID. COMPARISON: None. FINDINGS: Normal heart size and central pulmonary vascularity. Subtle airspace opacity in the right lung base. No pleural effusion or pneumothorax. No acute osseous findings. IMPRESSION: Subtle airspace opacity in the right lung base suspicious for pneumonitis. Recommend followup to resolution. Dictated by: Dictated on workstation # [id number]
[2022-03-02 14:10] LABS: CREATININE SERUM 1.29 MG/DL (0.60-1.30)
[2022-03-02] MEDS ORDERED: ACETAMINOPHEN 500 MG TAB (TYLENOL) PO ONE (15:00)
[2022-03-02 17:00] VITALS: BP 167/80
[2022-03-02 17:10] VITALS: BP 137/71
[2022-03-02] MEDS ORDERED: RT-ALBUTEROL HFA 8.5 GM INHALER IH PRN (17:15)
[2022-03-02] MEDS ORDERED: LORazepam 0.5 MG (ATIVAN) TABLET PO PRN (18:15)
[2022-03-02] MEDS ORDERED: LORazepam 0.5 MG (ATIVAN) TABLET ONE (18:23)
[2022-03-02 19:16] VITALS: BP 177/82
[2022-03-02] MEDS: busPIRone 15 MG (BUSPAR) TABLET PO SCH (22:29)
[2022-03-02] MEDS: AtorvaSTATin TABLET 10 MG TABLET PO SCH (22:30)
[2022-03-02] MEDS: LORazepam 0.5 MG (ATIVAN) TABLET PO PRN (22:31)
[2022-03-02] MEDS: DONEPEZIL 10 MG (ARICEPT) TAB PO SCH (22:31)
[2022-03-02] MEDS: CATHETER FLUSH 10 ML SYR IVP SCH (22:31)
[2022-03-03 00:06] VITALS: BP 134/77
[2022-03-03 03:31] VITALS: BP 159/74
[2022-03-03] MEDS: CATHETER FLUSH 10 ML SYR IVP SCH ×3 (05:17→19:27)
[2022-03-03 08:44] VITALS: BP 124/71
[2022-03-03] MEDS: LOSARTAN 25 MG (COZAAR) TAB PO SCH (09:15)
[2022-03-03] MEDS: ASPIRIN E.C. 81 MG (ECOTRIN) TAB PO SCH (09:15)
[2022-03-03] MEDS: FLUoxetine HCL 20 MG (PROzac) CAP PO SCH (09:15)
[2022-03-03] MEDS: SPIRONOLACTONE 25 MG (ALDACTONE) TAB PO SCH (09:15)
[2022-03-03] MEDS: busPIRone 15 MG (BUSPAR) TABLET PO SCH ×3 (09:15→19:25)
[2022-03-03] MEDS ORDERED: NIRM1TAB PO (10:32)
[2022-03-03] MEDS ORDERED: LOSA25TA41 PO (10:33)
[2022-03-03] MEDS ORDERED: PRAV20TA3 PO (10:34)
[2022-03-03] MEDS ORDERED: DONE10TA41 PO (10:36)
[2022-03-03] MEDS ORDERED: FLUO20CA48 PO (10:36)
[2022-03-03] MEDS ORDERED: BUSP15TA60 PO (10:37)
[2022-03-03] MEDS ORDERED: SPIR25TA5 PO (10:37)
[2022-03-03] MEDS ORDERED: ASPI-1238 PO (10:38)
[2022-03-03] MEDS ORDERED: CHOL200052 PO (10:39)
[2022-03-03] MEDS ORDERED: MAGN250T13 PO (10:40)
[2022-03-03] MEDS ORDERED: MULT400T5 PO (10:41)
[2022-03-03] MEDS ORDERED: OMEG100032 PO (10:42)
[2022-03-03] MEDS ORDERED: MELA5TAB14 PO (10:42)
[2022-03-03] MEDS ORDERED: ACET325T38 PO ×2 (10:44→10:47)
[2022-03-03] MEDS ORDERED: CALC500T7 PO (10:45)
[2022-03-03] MEDS ORDERED: NITR0.4T39 SL (10:46)
[2022-03-03] MEDS ORDERED: POLY17PO6 PO (10:46)
[2022-03-03] MEDS ORDERED: FLUT9.9S NS (10:48)
--- NOTE | 2022-03-03 11:29 | Physical Therapy Evaluation ---
PT Evaluation-General Medical Diagnosis Admission Date Mar 02, 2022 at 13:28 Medical Diagnosis: covid, falls Onset Date: Mar 02, 2022 Therapy Diagnosis Therapy Diagnosis: impaired mobility Height/Weight Height (Feet): 5 Height (Inches): 2 Weight (Pounds): 139 Precautions Precautions/Isolations: Contact Isolation, Droplet Isolation, Fall Prevention Referral Physician: Mya Reason for Referral: Evaluation/Treatment Medical History Additional Medical History ast Medical History Surgery/Hospitalization HX: DEMENTIA, HTN, HIGH CHOLESTEROLM, ANXIETY, DEPRESSION Hysterectomy, Orthopedic High Cholesterol, Hypertension Chronic Constipation Tinnitis Reviewed History: Yes Social History Home: Snf Prior Prior Level of Function SCALE: Activities may be completed with or without assistive devices. 0-Tocpoptogw-xhknfhy completes the activity by him/herself with no assistance from a helper. 5-Set-up or Clean-up Assistance-helper sets up or cleans up; patient completes activity. Lane assists only prior to or following the activity. 4-Supervision or Touching Assistance-helper provides verbal cues and/or touching/steadying and/or contact guard assistance as patient completes activity. Assistance may be provided throughout the activity or intermittently. 3-Partial/Moderate Assistance-helper does LESS THAN HALF the effort. Lane lifts, holds or supports trunk or limbs, but provides less than half the effort. 2-Substantial/Maximal Assistance-helper does MORE THAN HALF the effort. Lane lifts or holds trunk or limbs and provides more than half the effort. 9-Sjwitekgy-fpvbjf does ALL the effort. Patient does none of the effort to complete the activity. Or, the assistance of 2 or more helpers is required for the patient to complete the activity. If activity was not attempted, code reason: 7-Patient Refused. 9-Not Applicable-not attempted and the patient did not perform the activity before the current illness, exacerbation or injury. 10-Not Attempted due to Environmental Limitations-(lack of equipment, weather restraints, etc.). 88-Not Attempted due to Medical Conditions or Safety Concerns. Bed Mobility: 3 Transfers (B,C,W/C): 3 Gait: 3 Indoor Mobility (Ambulation): Needed Some Help Prior Devices Use: Walker PT Evaluation-Current Subjective Patient in bed pre tx, agrees to PT, has no complaints of pain. Patient states she needs to use the commode. Pt/Family Goals none stated Objective Patient Orientation: Person, Confused ROM/Strength ROM Lower Extremities WNL Sensory Hearing: Functional Sensation Right Lower Extremit: Impaired Sensation Left Lower Extremity: Impaired Transfers Roll Left to Right (QC): 3 Lying to Sitting/Side of Bed(Q: 3 Sit to Stand (QC): 2 Chair/Nfw-bo-Wdawd Xfer(QC): 2 Patient sits to the side of the bed with mod assist, needs assist to maintain a sitting position, is retropulsive, stands with max assist, OT manages brief and patient is transferred to [facility]. She is retropulsive during transfer and she cannot take any steps even with cues for direction. When done, she stands with max assist, OT cleans and manages brief and patient is transferred to recliner, she is severely retropulsive even with sitting and assist of 2 is needed to get her to lean forward and assist of 2 to scoot patient back into recliner. Balance Sitting Static: Poor Sitting Dynamic: Poor Standing Static: Poor Standing Dynamic: Poor Assessment/Needs Patient in recliner post tx with nurse call, phone, tray, all needs met, legs on pillow for heel pressure relief. Patient has impaired mobility, strength, endurance, balance. Max assist for transfers and is retropulsive, high fall risk. Rehab Potential: Guarded PT Community Board Member Goals Community Board Member Goals PT Community Board Member Goals Time Frame: Mar 10, 2022 Roll Left & Right (QC): 4 Sit to Lying (QC): 4 Lying-Sitting on Side/Bed(QC): 4 Sit to Stand (QC): 3 Chair/Rnx-ke-Lklzd Xfer(QC): 3 Walk 10 feet (QC): 3 PT Plan Problem List Problem List: Activity Tolerance, Functional Strength, Safety, Balance, Gait, Transfer, Bed Mobility, ROM Treatment/Plan Treatment Plan: Continue Plan of Care Treatment Plan: Bed Mobility, Education, Functional Activity Alan, Functional Strength, Gait, Safety, Therapeutic Exercise, Transfers Treatment Duration: Mar 10, 2022 Frequency: 6 times per week Estimated Hrs Per Day: .25 hour per day Patient and/or Family Agrees t: Yes Safety Risks/Education Patient Education: Transfer Techniques, Correct Positioning, Safety Issues Teaching Recipient: Patient Teaching Methods: Demonstration, Discussion Response to Teaching: Reinforcement Needed Discharge Recommendations Plan Patient will perform bed mobility and transfer training, balance and endurance training, functional strengthening, stair training, gait training, and education, to improve functional mobility and independence at home. Therapy Discharge Recommendati: Other, See Comments (NH) Time/GCodes Time In: 1100 Time Out: 1115 Total Billed Treatment Time: 15 Total Billed Treatment 1 visit VIDYA Altman' HORTENCIA INFANTE PT Mar 03, 2022 11:29
--- NOTE | 2022-03-03 11:45 | Occupational Therapy Eval ---
OT Evaluation-General/PLF Medical Diagnosis Admission Date Mar 02, 2022 at 13:28 Medical Diagnosis: covid, falls Onset Date: Mar 02, 2022 Therapy Diagnosis Therapy Diagnosis: decreased ADL status Height/Weight Height (Feet): 5 Height (Inches): 2 Weight (Pounds): 139 Precautions Precautions/Isolations: Contact Isolation, Droplet Isolation, Fall Prevention Referral Physician: Mya Referral Reason: Evaluation/Treatment Medical History Additional Medical History DEMENTIA, HTN, HIGH CHOLESTEROLM, ANXIETY, DEPRESSION Hysterectomy, Orthopedic High Cholesterol, Hypertension Chronic Constipation Tinnitis Current History ED from [facility] c/o AMS. Pt recently tested positive for COVID-19 Social History Home: Long-Term ADL-Prior Level of Function SCALE: Activities may be completed with or without assistive devices. 1-Ubykbpqzwz-snaecym completes the activity by him/herself with no assistance from a helper. 5-Set-up or Clean-up Assistance-helper sets up or cleans up; patient completes activity. Canon assists only prior to or following the activity. 4-Supervision or Touching Assistance-helper provides verbal cues and/or touching/steadying and/or contact guard assistance as patient completes activity. Assistance may be provided throughout the activity or intermittently. 3-Partial/Moderate Assistance-helper does LESS THAN HALF the effort. Canon li fts, holds or supports trunk or limbs, but provides less than half the effort. 2-Substantial/Maximal Assistance-helper does MORE THAN HALF the effort. [place] lifts or holds trunk or limbs and provides more than half the effort. 5-Hzmldhhss-qfwgar does ALL the effort. Patient does none of the effort to complete the activity. Or, the assistance of 2 or more helpers is required for the patient to complete the activity. If activity was not attempted, code reason: 7-Patient Refused. 9-Not Applicable-not attempted and the patient did not perform the activity before the current illness, exacerbation or injury. 10-Not Attempted due to Environmental Limitations-(lack of equipment, weather restraints, etc.). 88-Not Attempted due to Medical Conditions or Safety Concerns. ADL PLOF Comments Per family report, pt required some assistance with mobility and ADLs at [facility]. Family reports someone typically assists pt with ambulating into bathroom and to/from dining room. Self Care: Needed Some Help Functional Cognition: Needed Some Help OT Current Status Subjective Pt in bed, agreeable to OT Tx. Pt requests to use toilet Mental Status/Objective Patient Orientation: Person, Confused Attachments: Other-See Comments (Hardik) Current Upper Extremity ROM WFL during ADLS Upper Extremity Strength grossly 3/5 ADL-Treatment Eating (QC): 7 (Pt declined eating breakfast.) Lower Body Dressing (QC): 1 (2 person assist required for pant hike) Toileting Hygiene (QC): 1 (2 person assist, and assist all parts.) Other Treatments Pt in bed, transferred supine to sit EOB, mod A. Pt required assistance to maintain sitting position, as she was retropulsive. Sit to stand with max A, assist x2 for toileting (1 for stand and 1 to manage clothes/hygiene). Pt retropulsive during transfer, unable to take any steps even with cues. Pt completed toileting, then sit to stand from [facility] with max A, SPT to recliner. Pt retropulsive sitting in recliner, assist x2 required to get pt to lean forward and assist x2 to scoot back in recliner. Post tx, pt in recliner, call light in reach and all needs met. Education OT Patient Education: Correct positioning, Modified ADL techniques, Progress toward Goal/Update tx plan, Purpose of tx/functional activities, Rehab process Teaching Recipient: Patient Teaching Methods: Discussion Response to Teaching: Reinforcement Needed OT Topology Professor Goals Longterm Goals Time Frame: Mar 14, 2022 Eating (QC): 4 Oral Hygiene (QC): 4 Toileting Hygiene (QC): 3 Shower/Bathe Self (QC): 3 Upper Body Dressing (QC): 3 Lower Body Dressing (QC): 2 On/Off Footwear (QC): 2 Additional Goals: 1-Demonstrate ADL Tasks, 2-Verbalize Understanding, 3- ImproveStrength/Alan 1=Demonstrate adherence to instructed precautions during ADL tasks. 2=Patient will verbalize/demonstrate understanding of assistive devices/ariela fications for ADL. 3=Patient will improve strength/tolerance for activity to enable patient to perform ADL's. OT Education/Plan Problem List/Assessment Assessment: Decreased Activ Tolerance, Decreased Safety Aware, Decreased UE Strength, Dependent Transfers, Impaired Bed Mobility, Impaired Cognition, Impaired Funct Balance, Impaired I ADL's, Impaired Self-Care Skills Discharge Recommendations Plan/Recommendations: Continue POC Treatment Plan/Plan of Care Patient would benefit from OT for education, treatment and training to promote independence in ADL's, mobility, safety and/or upper extremity function for ADL's. Plan of Care: ADL Retraining, Functional Mobility, Group Exercise/Act as Ind, UE Funct Exercise/Act Treatment Duration: Mar 14, 2022 Frequency: 3 times per week (3-5 times per week) Rehab Potential: Guarded Time/GCodes Start Time: 11:00 Stop Time: 11:16 Total Time Billed (hr/min): 16 Billed Treatment Time 1, SYDNEE HUYNH OT Mar 03, 2022 11:44
[2022-03-03 12:00] VITALS: BP 131/61
--- NOTE | 2022-03-03 15:19 | Diagnostic Imaging Report ---
INDICATION: Covid positive. Generalized weakness. EXAMINATION: CT brain without contrast on 03/03/2022. COMPARISON: 05/30/2021. FINDINGS: There is no hemorrhage or infarct. There is no mass, mass effect, or midline shift. No hydrocephalus. Minimal age-appropriate atrophy is noted. The calvarium is intact. 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 The mastoid air cells are clear. IMPRESSION: 1. Chronic findings with no superimposed acute intracranial process. 2. Not mentioned in the body of the report, there is a soft tissue prominence along the left lateral parietal scalp towards the vertex which is nonspecific but new since the previous imaging, possibly a hematoma. Correlate clinically. Dictated by: Dictated on workstation # [id number]
[2022-03-03] MEDS: LORazepam 0.5 MG (ATIVAN) TABLET PO PRN ×2 (15:22→19:25)
[2022-03-03 17:00] VITALS: BP 126/60
[2022-03-03] MEDS ORDERED: ENOXAPARIN 40 MG/0.4 ML (LOVENOX) SYR SC SCH (17:30)
--- NOTE | 2022-03-03 17:34 | History & Physical-Hospitalist ---
History of Present Illness HPI/Chief Complaint Juana Irvin is an 81 year old female with PMH HTN, HLD, dementia, anxiety, depression, who presented with weakness. She is a poor historian due to her dementia. She was recently diagnosed with COVID and received a course of Paxlovid. It is difficult to get information from her due to perseveration. She repeatedly tells me she is weak. She also asks for help moving up in the bed. Source: patient, RN/MD Exam Limitations: clinical condition Date Seen 03/03/22 Time Seen by a Provider: 10:55 Attending Physician Jake Arroyo MD PCP Admitting Physician: Usha Flores MD Attending Physician: Milagros Mcdonnell MD Referring Physician Date of Admission Mar 02, 2022 at 13:28 Home Medications & Allergies Home Medications Reviewed patient Home Medication Reconciliation performed by pharmacy medication reconciliations mix technician and/or nursing. Patients Allergies have been reviewed. Allergies Allergies Coded Allergies metoclopramide (Unverified Allergy, Mild, 03/14/16) prochlorperazine (Unverified Allergy, Mild, 03/14/16) HIGH ANXIETY REACTION Past Tmahpmm-Otxpiw-Igdgil Hx Patient Social History Tobacco Use?: No Smoking Status: Never a Smoker Use of E-Cig and/or Vaping dev: No Substance use?: No Alcohol Use?: No Pt feels they are or have been: Unable to obtain Immunizations Up To Date Date of Influenza Vaccine: Feb 06, 2022 First/Initial COVID19 Vaccinat: MAY 2020 Second COVID19 Vaccination Juan: JUN 2020 Tetanus Booster (TDap): Unknown Date of Pneumonia Vaccine: Mar 11, 2016 Current Status Advance Directives: Yes Advance Directive Location: Copy placed in chart Communicates: Verbally Primary Language: Andorran Preferred Spoken Language: Andorran Is interpretation needed?: No Sensory deficits: Vision impairment Past Medical History Surgeries: Hysterectomy, Orthopedic High Cholesterol, Hypertension Chronic Constipation Tinnitis Family Medical History No Pertinent Family Hx Review of Systems Constitutional: see HPI Physical Exam Physical Exam Vital Signs Vital Signs - First Documented 03/02/22 17:10 FiO2 21 Capillary Refill : Less Than 3 Seconds Height, Weight, BMI Height: 5'2" Weight: 139lbs. oz. [id number]; 31.25 BMI Method:Stated General Appearance: No Apparent Distress, Obese HEENT: PERRL/EOMI, Pharynx Normal Neck: Normal Inspection, Supple Respiratory: Lungs Clear, No Respiratory Distress Cardiovascular: Regular Rate, Rhythm, No Murmur Gastrointestinal: Normal Bowel Sounds, Non Tender, Soft Extremity: Normal Inspection, Pedal Edema Neurologic/Psychiatric: Alert, Disoriented (oriented to person, place, city, month, year), Motor Weakness Skin: Normal Color, Warm/Dry Results Results/Procedures Labs Laboratory Tests 03/02/22 13:10 Patient resulted labs reviewed. Imaging: Reviewed Imaging Films, Reviewed Imaging Report Assessment/Plan Admission Diagnosis COVID-19 Admission Status: Observation Assessment and Plan COVID-19 Fall Debility Dementia HTN HLD Anxiety Depression s/p Paxlovid PT/OT IRU evaluated, denied SW consulted, assisting with discharge planning CT head with no acute intracranial abnormalities, left parietal hematoma Continue home meds DVT prophylaxis: Lovenox Diagnosis/Problems Diagnosis/Problems (1) COVID-19 Status: Acute (2) Fall from ground level Status: Acute (3) Debility Status: Acute (4) HTN (hypertension) Status: Chronic (5) HLD (hyperlipidemia) Status: Chronic (6) Anxiety Status: Chronic (7) Depression Status: Chronic (8) Dementia Status: Chronic Qualifiers: Dementia type: unspecified type Dementia severity: unspecified severity Dementia behavioral or psychological symptom: without behavioral, psychotic, or mood disturbance or anxiety Qualified Codes: F03.90 - Unspecified dementia, unspecified severity, without behavioral disturbance, psychotic disturbance, mood disturbance, and anxiety MILAGROS MCDONNELL MD Mar 03, 2022 17:34
[2022-03-03] MEDS: ENOXAPARIN INJECTION 30 MG/0.3 ML SYR SC SCH (18:06)
[2022-03-03 19:11] VITALS: BP 137/62
[2022-03-03] MEDS: DONEPEZIL 10 MG (ARICEPT) TAB PO SCH (19:26)
[2022-03-03] MEDS: AtorvaSTATin TABLET 10 MG TABLET PO SCH (19:26)
[2022-03-04 00:37] VITALS: BP 121/57
[2022-03-04] MEDS: LORazepam 0.5 MG (ATIVAN) TABLET PO PRN (01:49)
[2022-03-04] MEDS: CATHETER FLUSH 10 ML SYR IVP SCH ×3 (04:41→19:50)
[2022-03-04 04:53] VITALS: BP 119/73
[2022-03-04 08:00] VITALS: BP 145/80
[2022-03-04] MEDS: ASPIRIN E.C. 81 MG (ECOTRIN) TAB PO SCH (08:28)
[2022-03-04] MEDS: busPIRone 15 MG (BUSPAR) TABLET PO SCH ×3 (08:28→19:49)
[2022-03-04] MEDS: SPIRONOLACTONE 25 MG (ALDACTONE) TAB PO SCH (08:28)
[2022-03-04] MEDS: LOSARTAN 25 MG (COZAAR) TAB PO SCH (08:28)
[2022-03-04] MEDS: FLUoxetine HCL 20 MG (PROzac) CAP PO SCH (08:29)
[2022-03-04] MEDS: LORazepam INJ 2 MG/ML (ATIVAN) VIAL IVP PRN ×3 (08:29→19:47)
[2022-03-04] MEDS: NS IV 1000 ML 1,000 ML IV SCH ×2 (08:40→18:00)
--- NOTE | 2022-03-04 08:40 | Occupational Ther Daily Note ---
OT Current Status-Daily Note Subjective Pt alert, lying in bed. Pt pleasantly confused. No c/o pain. Mental Status/Objective Patient Orientation: Person, Confused Attachments: IV ADL-Treatment Max A for supine to EOB. Min A to sit EOB due to retropulsion. Max A to don/ doff upper body clothing. Retropulsion with standing and ambulation. Max A to stand from EOB using FWW. Pt unable to motor plan SPT from EOB to BSC, assist given to complete SPT then physical/verbal cues to bend waist to sit onto BSC. Pt able to void on BSC. Assist x1 to stand while 2nd person assist to manipulate clothing and cleanse after voiding. Pt required assistance to advance R/L foot to ambulate to recliner while 2nd person assisted with wt shifting to allow B LE advancement. Pt then required physical/verbal cues to bend at waist to sit in recliner. After session, pt sitting in recliner with call light/phone in reach. Safety measures in place. All needs met. Therapy Code Descriptions/Definitions Functional [place] Measure: 0=Not Assessed/NA 4=Minimal Assistance 1=Total Assistance 5=Supervision or Setup 2=Maximal Assistance 6=Modified [place] 3=Moderate Assistance 7=Complete IndependenceSCALE: Activities may be completed with or without assistive devices. 3-Awvgztzbsz-qsrhfzk completes the activity by him/herself with no assistance from a helper. 5-Set-up or Clean-up Assistance-helper sets up or cleans up; patient completes activity. [place] assists only prior to or following the activity. 4-Supervision or Touching Assistance-helper provides verbal cues and/or touching/steadying and/or contact guard assistance as patient completes activity. Assistance may be provided throughout the activity or intermittently. 3-Partial/Moderate Assistance-helper does LESS THAN HALF the effort. [place] lifts, holds or supports trunk or limbs, but provides less than half the effort. 2-Substantial/Maximal Assistance-helper does MORE THAN HALF the effort. [place] lifts or holds trunk or limbs and provides more than half the effort. 2-Ypievwtpm-tnubaq does ALL the effort. Patient does none of the effort to complete the activity. Or, the assistance of 2 or more helpers is required for the patient to complete the activity. If activity was not attempted, code reason: 7-Patient Refused. 9-Not Applicable-not attempted and the patient did not perform the activity before the current illness, exacerbation or injury. 10-Not Attempted due to Environmental Limitations-(lack of equipment, weather restraints, etc.). 88-Not Attempted due to Medical Conditions or Safety Concerns. Upper Body Dressing (QC): 2 Lower Body Dressing (QC): 1 On/Off Footwear: 2 Toileting Hygiene (QC): 1 Toilet Transfer (QC): 2 OT Jail Goals Jail Goals Time Frame: Mar 14, 2022 Eating (QC): 4 Oral Hygiene (QC): 4 Toileting Hygiene (QC): 3 Shower/Bathe Self (QC): 3 Upper Body Dressing (QC): 3 Lower Body Dressing (QC): 2 On/Off Footwear (QC): 2 Additional Goals: 1-Demonstrate ADL Tasks, 2-Verbalize Understanding, 3-ImproveStrength/Alan 1=Demonstrate adherence to instructed precautions during ADL tasks. 2=Patient will verbalize/demonstrate understanding of assistive devices/modifications for ADL. 3=Patient will improve strength/tolerance for activity to enable patient to perform ADL's. OT Education/Plan Problem List/Assessment Assessment: Decreased Activ Tolerance, Decreased Safety Aware, Impaired Bed Mobility, Impaired Cognition, Impaired Coordination, Impaired Funct Balance, Impaired Self-Care Skills Discharge Recommendations Plan/Recommendations: Continue POC Treatment Plan/Plan of Care Patient would benefit from OT for education, treatment and training to promote independence in ADL's, mobility, safety and/or upper extremity function for ADL's. Plan of Care: ADL Retraining, Functional Mobility, Group Exercise/Act as Ind, UE Funct Exercise/Act Treatment Duration: Mar 14, 2022 Frequency: 3 times per week (3-5 times per week) Rehab Potential: Guarded Time/GCodes Start Time: 07:35 Stop Time: 08:00 Total Time Billed (hr/min): 25 Billed Treatment Time 1 visit-ADL 2 (25 min) GUSTABO RIVERO Mar 04, 2022 08:40
--- NOTE | 2022-03-04 10:16 | Physical Therapy Daily Note ---
PT Daily Note-Current Subjective Patient more alert on this date. Pain Section J - Health Conditions 1. Rarely or not at all 2. Occasionally 3. Frequently 4. Almost constantly 8. Unable to answer Pain Effect on Sleep: 1 Pain Interference with Therapy: 1 Pain Interference w/Day-to-Day: 1 Mental Status Patient Orientation: Confused Transfers SCALE: Activities may be completed with or without assistive devices. 5-Tfhujlnqpj-jjcfbsk completes the activity by him/herself with no assistance from a helper. 5-Set-up or Clean-up Assistance-helper sets up or cleans up; patient completes activity. [place] assists only prior to or following the activity. 4-Supervision or Touching Assistance-helper provides verbal cues and/or touching/steadying and/or contact guard assistance as patient completes activity. Assistance may be provided throughout the activity or intermittently. 3-Partial/Moderate Assistance-helper does LESS THAN HALF the effort. [place] lifts, holds or supports trunk or limbs, but provides less than half the effort. 2-Substantial/Maximal Assistance-helper does MORE THAN HALF the effort. [place] lifts or holds trunk or limbs and provides more than half the effort. 0-Nwondikif-nhrmws does ALL the effort. Patient does none of the effort to complete the activity. Or, the assistance of 2 or more helpers is required for the patient to complete the activity. If activity was not attempted, code reason: 7-Patient Refused. 9-Not Applicable-not attempted and the patient did not perform the activity before the current illness, exacerbation or injury. 10-Not Attempted due to Environmental Limitations-(lack of equipment, weather restraints, etc.). 88-Not Attempted due to Medical Conditions or Safety Concerns. Lying to Sitting/Side of Bed(Q: 3 Sit to Stand (QC): 3 Chair/Nkf-un-Kpewr Xfer(QC): 3 Toilet Transfer (QC): 3 patient unable to initiate bilateral LE movement to ambulate/dependent assist to cleanse and change patient. Assessment PT/OT assisted patient with toileting and ambulating due to patient not initiating bilateral LE movement requiring OT to move LE's as PT address balance and mobility with use of bait belt. PT Machine Operator Transplanter Goals Machine Operator Transplanter Goals PT Machine Operator Transplanter Goals Time Frame: Mar 10, 2022 Roll Left & Right (QC): 4 Sit to Lying (QC): 4 Lying-Sitting on Side/Bed(QC): 4 Sit to Stand (QC): 3 Chair/Wpf-rm-Dyzal Xfer(QC): 3 Walk 10 feet (QC): 3 PT Plan Treatment/Plan Treatment Plan: Continue Plan of Care Treatment Plan: Bed Mobility, Education, Functional Activity Alan, Functional Strength, Gait, Safety, Therapeutic Exercise, Transfers Treatment Duration: Mar 10, 2022 Frequency: 6 times per week Estimated Hrs Per Day: .25 hour per day Patient and/or Family Agrees t: Yes Time Time In: 735 Time Out: 758 Total Billed Treatment Time: 23 Total Billed Treatment 1 visit FA x 2 23 min ANNY VAZQUEZ PT Mar 04, 2022 10:16
[2022-03-04] MEDS ORDERED: morphine INJ 10 MG/ML 1ML (SYR OR VIAL) IVP PRN (11:15)
[2022-03-04 12:15] VITALS: BP 142/72
[2022-03-04] MEDS ORDERED: morphine INJ 4 MG/ML 1 ML (VIAL/SYRINGE) IV PRN (13:45)
[2022-03-04 16:11] VITALS: BP 137/73
[2022-03-04] MEDS: ENOXAPARIN INJECTION 30 MG/0.3 ML SYR SC SCH (18:00)
--- NOTE | 2022-03-04 19:17 | Progress Note - Hospitalist ---
Subjective HPI/CC On Admission Date Seen by Provider: Mar 04, 2022 Time Seen by Provider: 10:50 Juana Irvin is an 81 year old female with PMH HTN, HLD, dementia, anxiety, depression, who presented with weakness. She is a poor historian due to her dementia. She was recently diagnosed with COVID and received a course of Paxlovid. It is difficult to get information from her due to perseveration. She repeatedly tells me she is weak. She also asks for help moving up in the bed. Subjective/Events-last exam She is confused. Her daughter is present. We discussed her diagnosis and prognosis. We discussed her likely progression of dementia related to COVID infection. Objective Exam Vital Signs Vital Signs Date Time Temp Pulse Resp B/P (MAP) Pulse Ox O2 Delivery O2 Flow Rate FiO2 03/04/22 16:11 36.4 90 20 137/73 (94) Room Air 03/04/22 12:15 91 03/02/22 17:10 21 Capillary Refill : Less Than 3 Seconds General Appearance: Mild Distress (uncomfortable), Obese Respiratory: Lungs Clear, No Respiratory Distress Cardiovascular: Regular Rate, Rhythm, No Murmur Gastrointestinal: Normal Bowel Sounds, Soft Extremity: Normal Inspection, No Pedal Edema Neurologic/Psychiatric: Alert, Disoriented, Motor Weakness (moving all extremities, 4/5 strength upper extremities, 3/5 strength lower extremities) Results/Procedures Lab Patient resulted labs reviewed. Imaging: Reviewed Imaging Films, Reviewed Imaging Report Assessment/Plan Assessment and Plan Assess & Plan/Chief Complaint COVID-19 Fall Debility Advanced dementia HTN HLD Anxiety Depression Poor prognosis s/p Paxlovid CT head with no acute intracranial abnormalities, left parietal hematoma UA without evidence of UTI Continue home meds PT/OT SW sent referral to [facility], await response DVT prophylaxis: Lovenox Diagnosis/Problems Diagnosis/Problems (1) COVID-19 Status: Acute (2) Fall from ground level Status: Acute (3) Debility Status: Acute (4) HTN (hypertension) Status: Chronic (5) HLD (hyperlipidemia) Status: Chronic (6) Anxiety Status: Chronic (7) Depression Status: Chronic (8) Dementia Status: Chronic Qualifiers: Dementia type: unspecified type Dementia severity: unspecified severity Dementia behavioral or psychological symptom: without behavioral, psychotic, or mood disturbance or anxiety Qualified Codes: F03.90 - Unspecified dementia, unspecified severity, without behavioral disturbance, psychotic disturbance, mood disturbance, and anxiety (9) Obesity Status: Chronic (10) Poor prognosis Status: Acute MILAGROS MCDONNELL MD Mar 04, 2022 19:17
[2022-03-04] MEDS: AtorvaSTATin TABLET 10 MG TABLET PO SCH (19:48)
[2022-03-04 19:49] VITALS: BP 126/68
[2022-03-04] MEDS: DONEPEZIL 10 MG (ARICEPT) TAB PO SCH (19:49)
[2022-03-04] MEDS: WATER (STERILE) FOR INJ 10 ML BTL INJ SCH (22:02)
[2022-03-04] MEDS: ZIPRASIDONE 20 MG INJ (GEODON) VIAL IM PRN (22:02)
[2022-03-05 00:35] VITALS: BP 154/79
[2022-03-05] MEDS: CATHETER FLUSH 10 ML SYR IVP SCH ×3 (05:46→19:21)
[2022-03-05] MEDS: NS IV 1000 ML 1,000 ML IV SCH ×2 (06:42→19:17)
[2022-03-05 08:30] VITALS: BP 154/65
[2022-03-05] MEDS: ASPIRIN E.C. 81 MG (ECOTRIN) TAB PO SCH (08:32)
[2022-03-05] MEDS: LOSARTAN 25 MG (COZAAR) TAB PO SCH (08:32)
[2022-03-05] MEDS: SPIRONOLACTONE 25 MG (ALDACTONE) TAB PO SCH (08:32)
[2022-03-05] MEDS: busPIRone 15 MG (BUSPAR) TABLET PO SCH ×3 (08:32→19:18)
[2022-03-05] MEDS: FLUoxetine HCL 20 MG (PROzac) CAP PO SCH (08:32)
--- NOTE | 2022-03-05 09:07 | Occupational Ther Daily Note ---
OT Current Status-Daily Note Subjective Pt sleeping in bed. Woke easily to name. Pt oriented x1, is following simple 1-step directions. Mental Status/Objective Patient Orientation: Person, Confused Attachments: IV ADL-Treatment Pt stated that she needed to urinate. Mod A for supine to EOB. Mod A for sitting EOB due to retropulsion. Mod A for standing with FWW due to retropulsion. Max A for SPT from EOB to BSC using FWW. Max A for toileting. Max A for SPT from BSC to recliner. Pt able to initiate foot advancement with assist for wt shifting. After session, pt sitting in recliner with call light/phone in reach. Safety measures in place. All needs met. Reported position to nrsg. Therapy Code Descriptions/Definitions Functional [place] Measure: 0=Not Assessed/NA 4=Minimal Assistance 1=Total Assistance 5=Supervision or Setup 2=Maximal Assistance 6=Modified [place] 3=Moderate Assistance 7=Complete IndependenceSCALE: Activities may be completed with or without assistive devices. 8-Btuwytfvhn-hrolqht completes the activity by him/herself with no assistance from a helper. 5-Set-up or Clean-up Assistance-helper sets up or cleans up; patient completes activity. [place] assists only prior to or following the activity. 4-Supervision or Touching Assistance-helper provides verbal cues and/or touching/steadying and/or contact guard assistance as patient completes activity. Assistance may be provided throughout the activity or intermittently. 3-Partial/Moderate Assistance-helper does LESS THAN HALF the effort. [place] lifts, holds or supports trunk or limbs, but provides less than half the effort. 2-Substantial/Maximal Assistance-helper does MORE THAN HALF the effort. [place] lifts or holds trunk or limbs and provides more than half the effort. 4-Dmaoprive-cbqebs does ALL the effort. Patient does none of the effort to complete the activity. Or, the assistance of 2 or more helpers is required for the patient to complete the activity. If activity was not attempted, code reason: 7-Patient Refused. 9-Not Applicable-not attempted and the patient did not perform the activity before the current illness, exacerbation or injury. 10-Not Attempted due to Environmental Limitations-(lack of equipment, weather restraints, etc.). 88-Not Attempted due to Medical Conditions or Safety Concerns. OT Contact Officer Goals Contact Officer Goals Time Frame: Mar 14, 2022 Eating (QC): 4 Oral Hygiene (QC): 4 Toileting Hygiene (QC): 3 Shower/Bathe Self (QC): 3 Upper Body Dressing (QC): 3 Lower Body Dressing (QC): 2 On/Off Footwear (QC): 2 Additional Goals: 1-Demonstrate ADL Tasks, 2-Verbalize Understanding, 3- ImproveStrength/Alan 1=Demonstrate adherence to instructed precautions during ADL tasks. 2=Patient will verbalize/demonstrate understanding of assistive devices/modifications for ADL. 3=Patient will improve strength/tolerance for activity to enable patient to perform ADL's. OT Education/Plan Problem List/Assessment Assessment: Decreased Activ Tolerance, Decreased Safety Aware, Decreased UE Strength, Dependent Transfers, Impaired Bed Mobility, Impaired Cognition, Impaired Coordination, Impaired Funct Balance, Impaired I ADL's, Impaired Self- Care Skills Discharge Recommendations Plan/Recommendations: Continue POC Treatment Plan/Plan of Care Patient would benefit from OT for education, treatment and training to promote independence in ADL's, mobility, safety and/or upper extremity function for ADL's. Plan of Care: ADL Retraining, Functional Mobility, Group Exercise/Act as Ind, UE Funct Exercise/Act Treatment Duration: Mar 14, 2022 Frequency: 3 times per week (3-5 times per week) Rehab Potential: Guarded Time/GCodes Start Time: 07:25 Stop Time: 08:00 Total Time Billed (hr/min): 35 Billed Treatment Time 1 visit-ADL 2 (35 min) GUSTABO RIVERO Mar 05, 2022 09:07
[2022-03-05 11:18] VITALS: BP 154/65
[2022-03-05] MEDS: ACETAMINOPHEN 325 MG TABLET PO PRN (12:45)
[2022-03-05] MEDS: LORazepam 0.5 MG (ATIVAN) TABLET PO PRN (13:51)
--- NOTE | 2022-03-05 14:04 | Physical Therapy Daily Note ---
PT Daily Note-Current Subjective Pt slightly L sidelying on pillow upon arrival. Daughter is presnt and pt reports needing to move due to feeling uncomfortable. Pain Comment: Pt reports feeling generally uncomfortable but doesn't rate or specify. Section J - Health Conditions 1. Rarely or not at all 2. Occasionally 3. Frequently 4. Almost constantly 8. Unable to answer Pain Effect on Sleep: 1 Pain Interference with Therapy: 1 Pain Interference w/Day-to-Day: 1 Mental Status Patient Orientation: Person, Confused Attachments: IV Transfers SCALE: Activities may be completed with or without assistive devices. 0-Xnypdvwzub-isfvtsd completes the activity by him/herself with no assistance from a helper. 5-Set-up or Clean-up Assistance-helper sets up or cleans up; patient completes activity. [place] assists only prior to or following the activity. 4-Supervision or Touching Assistance-helper provides verbal cues and/or touching/steadying and/or contact guard assistance as patient completes activity. Assistance may be provided throughout the activity or intermittently. 3-Partial/Moderate Assistance-helper does LESS THAN HALF the effort. [place] lifts, holds or supports trunk or limbs, but provides less than half the effort. 2-Substantial/Maximal Assistance-helper does MORE THAN HALF the effort. [place] lifts or holds trunk or limbs and provides more than half the effort. 4-Edocgwhqj-kzwmiw does ALL the effort. Patient does none of the effort to complete the activity. Or, the assistance of 2 or more helpers is required for the patient to complete the activity. If activity was not attempted, code reason: 7-Patient Refused. 9-Not Applicable-not attempted and the patient did not perform the activity before the current illness, exacerbation or injury. 10-Not Attempted due to Environmental Limitations-(lack of equipment, weather restraints, etc.). 88-Not Attempted due to Medical Conditions or Safety Concerns. Lying to Sitting/Side of Bed(Q: 3 Sit to Stand (QC): 3 Weight Bearing Full Weight Bearing Full Weight Bearing Treatments [employer] ASSOCIATE attempts to reposition pt by rolling and increasing pillow under pt. Pt reports continued discomfort. [employer]ATE suggests TF to recliner. Pt attempts to TF to EOB and needs assist as well as standing. Pt is not able to lift B LE. Pt sits back at EOB and Nurse assists [employer] ASS[employer]IATE w/TF to recliner. Pt is repositioned to comfort with call light in hand. Assessment Current Status: Poor Progress Pt is confused and decreased activity tolerance. Daughter advises pt reports needing to change position constantly. PT [place] Goals [place] Goals PT Senior Care Goals Time Frame: Mar 10, 2022 Roll Left & Right (QC): 4 Sit to Lying (QC): 4 Lying-Sitting on Side/Bed(QC): 4 Sit to Stand (QC): 3 Chair/Bvw-rm-Ezzxo Xfer(QC): 3 Walk 10 feet (QC): 3 PT Plan Problem List Problem List: Activity Tolerance, Functional Strength, Safety, Balance, Gait, Transfer Treatment/Plan Treatment Plan: Continue Plan of Care Treatment Plan: Bed Mobility, Education, Functional Activity Alan, Functional Strength, Gait, Safety, Therapeutic Exercise, Transfers Treatment Duration: Mar 10, 2022 Frequency: 6 times per week Estimated Hrs Per Day: .25 hour per day Patient and/or Family Agrees t: Yes Safety Risks/Education Patient Education: Gait Training, Transfer Techniques, Correct Positioning, Sa fety Issues Teaching Recipient: Patient, Family Teaching Methods: Discussion Response to Teaching: Reinforcement Needed Time Time In: 1325 Time Out: 1350 Total Billed Treatment Time: 25 Total Billed Treatment 1, FA x2 (25m) MIKAYLA GONZALES PTA Mar 05, 2022 14:04
[2022-03-05 15:47] VITALS: BP 151/73
--- NOTE | 2022-03-05 16:54 | Progress Note - Hospitalist ---
Subjective HPI/CC On Admission Date Seen by Provider: Mar 05, 2022 Time Seen by Provider: 10:20 Juana Irvin is an 81 year old female with PMH HTN, HLD, dementia, anxiety, depression, who presented with weakness. She is a poor historian due to her dementia. She was recently diagnosed with COVID and received a course of Paxlovid. It is difficult to get information from her due to perseveration. She repeatedly tells me she is weak. She also asks for help moving up in the bed. Subjective/Events-last exam She remains confused. She appears uncomfortable. Objective Exam Vital Signs Vital Signs Date Time Temp Pulse Resp B/P (MAP) Pulse Ox O2 Delivery O2 Flow Rate FiO2 03/05/22 15:47 36.8 71 20 151/73 (99) 96 Room Air 03/05/22 11:18 21 Capillary Refill : Less Than 3 Seconds General Appearance: Chronically ill, Mild Distress (uncomfortable) Respiratory: Lungs Clear, No Respiratory Distress Cardiovascular: Regular Rate, Rhythm, No Murmur Gastrointestinal: Normal Bowel Sounds, Soft Extremity: Normal Inspection, No Pedal Edema Neurologic/Psychiatric: Alert, Disoriented Results/Procedures Lab Patient resulted labs reviewed. Assessment/Plan Assessment and Plan Assess & Plan/Chief Complaint COVID-19 Fall Debility Advanced dementia HTN HLD Anxiety Depression Poor prognosis s/p Paxlovid CT head with no acute intracranial abnormalities, left parietal hematoma UA without evidence of UTI Continue home meds PT/OT SW sent referral to [facility], likely discharge on Thursday DVT prophylaxis: Lovenox Diagnosis/Problems Diagnosis/Problems (1) COVID-19 Status: Acute (2) Fall from ground level Status: Acute (3) Debility Status: Acute (4) HTN (hypertension) Status: Chronic (5) HLD (hyperlipidemia) Status: Chronic (6) Anxiety Status: Chronic (7) Depression Status: Chronic (8) Dementia Status: Chronic Qualifiers: Dementia type: unspecified type Dementia severity: unspecified severity Dementia behavioral or psychological symptom: without behavioral, psychotic, or mood disturbance or anxiety Qualified Codes: F03.90 - Unspecified dementia, unspecified severity, without behavioral disturbance, psychotic disturbance, mood disturbance, and anxiety (9) Obesity Status: Chronic (10) Poor prognosis Status: Acute MILAGROS MCDONNELL MD Mar 05, 2022 16:54
[2022-03-05] MEDS: ENOXAPARIN INJECTION 30 MG/0.3 ML SYR SC SCH (17:12)
[2022-03-05] MEDS: AtorvaSTATin TABLET 10 MG TABLET PO SCH (19:17)
[2022-03-05] MEDS: LORazepam INJ 2 MG/ML (ATIVAN) VIAL IVP PRN (19:18)
[2022-03-05] MEDS: DONEPEZIL 10 MG (ARICEPT) TAB PO SCH (19:18)
[2022-03-05] MEDS: WATER (STERILE) FOR INJ 10 ML BTL INJ SCH (21:18)
[2022-03-05] MEDS: ZIPRASIDONE 20 MG INJ (GEODON) VIAL IM PRN (21:18)
[2022-03-06] VITALS: BP 150/77
[2022-03-06] MEDS: CATHETER FLUSH 10 ML SYR IVP SCH ×3 (06:51→20:16)
[2022-03-06] MEDS: NS IV 1000 ML 1,000 ML IV SCH ×2 (06:58→20:15)
[2022-03-06 08:00] VITALS: BP 169/71
--- NOTE | 2022-03-06 08:21 | Occupational Ther Daily Note ---
OT Current Status-Daily Note Subjective Pt alert, lying in bed. Pt agrees to therapy. Pt oriented to person. No c/o pain. Mental Status/Objective Patient Orientation: Person, Confused Attachments: IV ADL-Treatment Max A for supine to EOB. MaxA initially to sit EOB due to retropulsion then after multiple attempts pt able to sit EOB SBA. Retropulsion with standing and ambulation. Max A to stand from EOB using FWW. Pt unable to motor plan SPT from EOB to BSC, assist given to complete SPT then physical/verbal cues to bend waist to sit onto BSC. Pt able to void on BSC. Assist x1 to stand while 2nd person assist to manipulate clothing and cleanse after voiding. Pt required assistance to advance R/L foot to ambulate to recliner while 2nd person assisted with wt shifting to allow B LE advancement. Pt then required physical/verbal cues to bend at waist to sit in recliner. After session, pt sitting in recliner with call light/phone in reach. Safety measures in place. All needs met. Therapy Code Descriptions/Definitions Functional Nance Measure: 0=Not Assessed/NA 4=Minimal Assistance 1=Total Assistance 5=Supervision or Setup 2=Maximal Assistance 6=Modified Nance 3=Moderate Assistance 7=Complete IndependenceSCALE: Activities may be completed with or without assistive devices. 8-Tdvwozzwnm-qqcwxmt completes the activity by him/herself with no assistance from a helper. 5-Set-up or Clean-up Assistance-helper sets up or cleans up; patient completes activity. [place] assists only prior to or following the activity. 4-Supervision or Touching Assistance-helper provides verbal cues and/or touching/steadying and/or contact guard assistance as patient completes activity. Assistance may be provided throughout the activity or intermittently. 3-Partial/Moderate Assistance-helper does LESS THAN HALF the effort. [place] lifts, holds or supports trunk or limbs, but provides less than half the effort. 2-Substantial/Maximal Assistance-helper does MORE THAN HALF the effort. [place] lifts or holds trunk or limbs and provides more than half the effort. 0-Flpcfcxtj-ucpghp does ALL the effort. Patient does none of the effort to complete the activity. Or, the assistance of 2 or more helpers is required for the patient to complete the activity. If activity was not attempted, code reason: 7-Patient Refused. 9-Not Applicable-not attempted and the patient did not perform the activity before the current illness, exacerbation or injury. 10-Not Attempted due to Environmental Limitations-(lack of equipment, weather restraints, etc.). 88-Not Attempted due to Medical Conditions or Safety Concerns. Lower Body Dressing (QC): 1 On/Off Footwear: 2 (Pt able to follow simple directions to lift feet while FRANCISCO donned/doffed socks.) Toileting Hygiene (QC): 1 OT Care Home Goals Care Home Goals Time Frame: Mar 14, 2022 Eating (QC): 4 Oral Hygiene (QC): 4 Toileting Hygiene (QC): 3 Shower/Bathe Self (QC): 3 Upper Body Dressing (QC): 3 Lower Body Dressing (QC): 2 On/Off Footwear (QC): 2 Additional Goals: 1-Demonstrate ADL Tasks, 2-Verbalize Understanding, 3- ImproveStrength/Alan 1=Demonstrate adherence to instructed precautions during ADL tasks. 2=Patient will verbalize/demonstrate understanding of assistive devices/modifications for ADL. 3=Patient will improve strength/tolerance for activity to enable patient to perform ADL's. OT Education/Plan Problem List/Assessment Assessment: Decreased Activ Tolerance, Decreased Safety Aware, Impaired Bed Mobility, Impaired Cognition, Impaired Coordination, Impaired Funct Balance, Impaired I ADL's, Impaired Self-Care Skills Discharge Recommendations Plan/Recommendations: Continue POC Treatment Plan/Plan of Care Patient would benefit from OT for education, treatment and training to promote independence in ADL's, mobility, safety and/or upper extremity function for ADL's. Plan of Care: ADL Retraining, Functional Mobility, Group Exercise/Act as Ind, UE Funct Exercise/Act Treatment Duration: Mar 14, 2022 Frequency: 3 times per week (3-5 times per week) Rehab Potential: Guarded Time/GCodes Start Time: 07:25 Stop Time: 07:50 Total Time Billed (hr/min): 25 Billed Treatment Time 1 visit-ADL 2 (25 min) GUSTABO RIVERO Mar 06, 2022 08:21
[2022-03-06] MEDS: FLUoxetine HCL 20 MG (PROzac) CAP PO SCH (08:52)
[2022-03-06] MEDS: LOSARTAN 25 MG (COZAAR) TAB PO SCH (08:52)
[2022-03-06] MEDS: SPIRONOLACTONE 25 MG (ALDACTONE) TAB PO SCH (08:52)
[2022-03-06] MEDS: ASPIRIN E.C. 81 MG (ECOTRIN) TAB PO SCH (08:52)
[2022-03-06] MEDS: busPIRone 15 MG (BUSPAR) TABLET PO SCH ×3 (08:52→20:16)
--- NOTE | 2022-03-06 09:32 | Physical Therapy Daily Note ---
PT Daily Note-Current Subjective Patient agrees to PT. States she needs to use the restroom. Patient was shivering due to having a sheet only on with no blanket on bed. Nursing notified. Pain Section J - Health Conditions 1. Rarely or not at all 2. Occasionally 3. Frequently 4. Almost constantly 8. Unable to answer Pain Effect on Sleep: 1 Pain Interference with Therapy: 1 Pain Interference w/Day-to-Day: 1 Mental Status Patient Orientation: Confused Transfers SCALE: Activities may be completed with or without assistive devices. 4-Yqmhhnvwsw-qwoywrn completes the activity by him/herself with no assistance from a helper. 5-Set-up or Clean-up Assistance-helper sets up or cleans up; patient completes activity. [place] assists only prior to or following the activity. 4-Supervision or Touching Assistance-helper provides verbal cues and/or touching/steadying and/or contact guard assistance as patient completes activity. Assistance may be provided throughout the activity or intermittently. 3-Partial/Moderate Assistance-helper does LESS THAN HALF the effort. [place] lift s, holds or supports trunk or limbs, but provides less than half the effort. 2-Substantial/Maximal Assistance-helper does MORE THAN HALF the effort. [place] lifts or holds trunk or limbs and provides more than half the effort. 5-Kifudkvqh-dtjxky does ALL the effort. Patient does none of the effort to complete the activity. Or, the assistance of 2 or more helpers is required for the patient to complete the activity. If activity was not attempted, code reason: 7-Patient Refused. 9-Not Applicable-not attempted and the patient did not perform the activity before the current illness, exacerbation or injury. 10-Not Attempted due to Environmental Limitations-(lack of equipment, weather restraints, etc.). 88-Not Attempted due to Medical Conditions or Safety Concerns. Lying to Sitting/Side of Bed(Q: 1 Sit to Stand (QC): 2 Chair/Rmi-qb-Mtbfd Xfer(QC): 2 Toilet Transfer (QC): 2 (dependent assist to stand and cleanse patient.) Patient had difficulty with maintaining sitting EOB due to confusion/weakness requiring dependent assist. After several minutes, patient was able to maintain sitting EOB SBA Weight Bearing Full Weight Bearing Full Weight Bearing Exercises Seated Therapy Exercises: Ankle pumps, Long arc quads Seated Reps: 12 Assessment Patient is up in recliner with chair alarm activated. PT to continue to increase activity as tolerated by patient. PT Correction Goals Correction Goals PT Singer Back Tender Goals Time Frame: Mar 10, 2022 Roll Left & Right (QC): 4 Sit to Lying (QC): 4 Lying-Sitting on Side/Bed(QC): 4 Sit to Stand (QC): 3 Chair/Xrr-zk-Vmvqd Xfer(QC): 3 Walk 10 feet (QC): 3 PT Plan Treatment/Plan Treatment Plan: Continue Plan of Care Treatment Plan: Bed Mobility, Education, Functional Activity Alan, Functional Strength, Gait, Safety, Therapeutic Exercise, Transfers Treatment Duration: Mar 10, 2022 Frequency: 6 times per week Estimated Hrs Per Day: .25 hour per day Patient and/or Family Agrees t: Yes Time Time In: 725 Time Out: 750 Total Billed Treatment Time: 25 Total Billed Treatment 1 visit FA x 2 25 min ANNY VAZQUEZ PT Mar 06, 2022 09:32
--- NOTE | 2022-03-06 15:05 | Progress Note - Hospitalist ---
Subjective HPI/CC On Admission Date Seen by Provider: Mar 06, 2022 Time Seen by Provider: 09:50 Juana Irvin is an 81 year old female with PMH HTN, HLD, dementia, anxiety, depression, who presented with weakness. She is a poor historian due to her dementia. She was recently diagnosed with COVID and received a course of Paxlovid. It is difficult to get information from her due to perseveration. She repeatedly tells me she is weak. She also asks for help moving up in the bed. Subjective/Events-last exam She is sitting in her chair. She already worked with therapy. She denies pain. She is not short of breath. She has no complaints. Objective Exam Vital Signs Vital Signs Date Time Temp Pulse Resp B/P (MAP) Pulse Ox O2 Delivery O2 Flow Rate FiO2 03/06/22 08:00 Room Air 03/06/22 08:00 36.4 73 18 169/71 (103) 95 03/05/22 11:18 21 Capillary Refill : Less Than 3 Seconds General Appearance: No Apparent Distress, Obese Respiratory: Lungs Clear, No Respiratory Distress Cardiovascular: Regular Rate, Rhythm, No Murmur Gastrointestinal: Normal Bowel Sounds, Soft Extremity: Normal Inspection, No Pedal Edema Neurologic/Psychiatric: Alert, Disoriented Results/Procedures Lab Patient resulted labs reviewed. Assessment/Plan Assessment and Plan Assess & Plan/Chief Complaint COVID-19 Fall Debility Advanced dementia HTN HLD Anxiety Depression Poor prognosis s/p Paxlovid, out of isolation today CT head with no acute intracranial abnormalities, left parietal hematoma UA without evidence of UTI Continue home meds PT/OT SW sent referral to [facility], likely discharge on Thursday DVT prophylaxis: Lovenox Diagnosis/Problems Diagnosis/Problems (1) COVID-19 Status: Acute (2) Fall from ground level Status: Acute (3) Debility Status: Acute (4) HTN (hypertension) Status: Chronic (5) HLD (hyperlipidemia) Status: Chronic (6) Anxiety Status: Chronic (7) Depression Status: Chronic (8) Dementia Status: Chronic Qualifiers: Dementia type: unspecified type Dementia severity: unspecified severity Dementia behavioral or psychological symptom: without behavioral, psychotic, or mood disturbance or anxiety Qualified Codes: F03.90 - Unspecified dementia, unspecified severity, without behavioral disturbance, psychotic disturbance, mood disturbance, and anxiety (9) Obesity Status: Chronic (10) Poor prognosis Status: Acute MILAGROS MCDONNELL MD Mar 06, 2022 15:05
[2022-03-06 16:11] VITALS: BP 149/76
[2022-03-06] MEDS: ENOXAPARIN INJECTION 30 MG/0.3 ML SYR SC SCH (17:17)
[2022-03-06] MEDS: DONEPEZIL 10 MG (ARICEPT) TAB PO SCH (20:16)
[2022-03-06] MEDS: AtorvaSTATin TABLET 10 MG TABLET PO SCH (20:16)
[2022-03-06 23:07] VITALS: BP 164/72
[2022-03-06] MEDS: LORazepam 0.5 MG (ATIVAN) TABLET PO PRN (23:57)
[2022-03-07] MEDS: CATHETER FLUSH 10 ML SYR IVP SCH ×2 (04:05→12:19)
[2022-03-07 08:18] VITALS: BP 172/79
[2022-03-07 08:27] VITALS: BP 169/77
[2022-03-07] MEDS: busPIRone 15 MG (BUSPAR) TABLET PO SCH ×2 (08:28→12:18)
[2022-03-07] MEDS: ASPIRIN E.C. 81 MG (ECOTRIN) TAB PO SCH (08:28)
[2022-03-07] MEDS: LOSARTAN 25 MG (COZAAR) TAB PO SCH (08:29)
[2022-03-07] MEDS: FLUoxetine HCL 20 MG (PROzac) CAP PO SCH (08:29)
[2022-03-07] MEDS: SPIRONOLACTONE 25 MG (ALDACTONE) TAB PO SCH (08:29)
[2022-03-07] MEDS: ACETAMINOPHEN 325 MG TABLET PO PRN (08:33)
[2022-03-07] MEDS: LORazepam 0.5 MG (ATIVAN) TABLET PO PRN (08:33)
[2022-03-07] MEDS ORDERED: MELA5TAB14 PO (10:13)
[2022-03-07] MEDS ORDERED: DONE10TA41 PO (10:13)
[2022-03-07] MEDS ORDERED: SPIR25TA5 PO (10:13)
[2022-03-07] MEDS ORDERED: NITR0.4T39 SL (10:13)
[2022-03-07] MEDS ORDERED: CALC500T7 PO (10:13)
[2022-03-07] MEDS ORDERED: BUSP15TA60 PO (10:13)
[2022-03-07] MEDS ORDERED: POLY17PO6 PO (10:13)
[2022-03-07] MEDS ORDERED: ASPI-1238 PO (10:13)
[2022-03-07] MEDS ORDERED: MAGN250T13 PO (10:13)
[2022-03-07] MEDS ORDERED: MULT400T5 PO (10:13)
[2022-03-07] MEDS ORDERED: FLUT9.9S NS (10:13)
[2022-03-07] MEDS ORDERED: FLUO20CA48 PO (10:13)
[2022-03-07] MEDS ORDERED: LOSA25TA41 PO (10:13)
[2022-03-07] MEDS ORDERED: OMEG100032 PO (10:13)
[2022-03-07] MEDS ORDERED: CHOL200052 PO (10:13)
[2022-03-07] MEDS ORDERED: ACET325T38 PO ×2 (10:13)
[2022-03-07] MEDS ORDERED: PRAV20TA3 PO (10:13)
--- NOTE | 2022-03-07 10:15 | Discharge Inst-Skilled Nursing ---
Discharge Inst-Skilled NF Reconcile Patient Problems Problems Reviewed?: Yes Patient Instructions Patient Instructions: Take medications as prescribed. You are being set up with therapy. Follow up with Dr. Land. Return with worsening weakness, shortness of breath, or if you feel like you are getting worse. Consult/Follow Up/Orders Follow Up Appt.: next longterm rounds Skilled NF Admit to: [facility] Certification (SNF) I certify that SNF services are required to be given on an inpatient basis because of the above named patient's need for care home care on a continuing basis for the conditions(s) for which he/she was receiving inpatient hospital services prior to his/her transfer to the SNF. [facility] Facility Order: Nursing Services, Field Administrative Assistant-Evaluate & Treat, Physical Therapy-Evaluate & Treat, Speech Language-Evaluate & Treat Oxygen Delivery Method: Room Air Discharge Diet: No Restrictions Daily Activity as Tolerated: Yes Resuscitation Status: Do Not Resuscitate New & Resume Previous Orders Aida Mcdonnell Mar 07, 2022 10:13 AIDA MCDONNELL MD Mar 07, 2022 10:15
[2022-03-07] MEDS: NS IV 1000 ML 1,000 ML IV SCH (12:19)
[2022-03-07] MEDS: ENOXAPARIN INJECTION 30 MG/0.3 ML SYR SC SCH (12:19)
[2022-03-07 13:40] VITALS: BP 169/77
== END 2022-03-07 10:15 ==
LOC: EDUNIT# 13:05 → ER 13:05 → 4TH 13:28 → UNDOADMOB 13:28 → 4TH 16:45 → UNDODISOB 03-07 10:15
PROVIDERS: ADMIT Family Medicine; ATTEND Internal Medicine
DX: U07.1 COVID-19 (principal); J18.9 Pneumonia, unspecified organism; Z66 Do not resuscitate; Z91.81 History of falling; E78.00 Pure hypercholesterolemia, unspecified; F32.A Depression, unspecified; F41.9 Anxiety disorder, unspecified; F03.90 Unspecified dementia, unspecified severity, without behavioral disturbance, psychotic disturbance, mood disturbance, and anxiety; H54.7 Unspecified visual loss; E66.9 Obesity, unspecified; Z68.31 Body mass index [BMI] 31.0-31.9, adult; Z79.82 Long term (current) use of aspirin; Z88.8 Allergy status to other drugs, medicaments and biological substances
CPT/HCPCS: 36415; 70450; 71045; 80053; 81000; 85025; 87636; 96361; 96372; 96375; 96376; G0378

== ENCOUNTER → 2022-04-02 | Outpatient (CLI) | payer MEDICARE ==
[~2022-04-02] MED LIST changes: +ACET325T38 PO; +ASPI-1238 PO; +BUSP15TA60 PO; +CALC500T7 PO; +CHOL200052 PO; +DONE10TA41 PO; +FLUO20CA48 PO; +FLUT9.9S NS; +LOSA25TA41 PO; +MAGN250T13 PO; +MELA5TAB14 PO; +MULT400T5 PO; +NIRM1TAB PO; +NITR0.4T39 SL; +OMEG100032 PO; +POLY17PO6 PO; +PRAV20TA3 PO; +SPIR25TA5 PO
[2022-04-02 18:06] LABS: HEMATOCRIT 27 % (35-52); HEMOGLOBIN 8.9 g/dL (11.5-16.0); MEAN CORPUSCULAR HEMOGLOBIN 31 pg (25-34); MEAN CORPUSCULAR HGB CONC 33 g/dL (32-36); MEAN CORPUSCULAR VOLUME 95 fL (80-99); MEAN PLATELET VOLUME 9.3 fL (9.0-12.2); PLATELET COUNT 346 10^3/uL (130-400)
[2022-04-02 18:34] LABS: BUN/CREATININE RATIO 26; CARBON DIOXIDE 18 MMOL/L (21-32); CHLORIDE 108 MMOL/L (98-107); CREATININE SERUM 0.94 MG/DL (0.60-1.30); GFR ESTIMATED 60; POTASSIUM 4.4 MMOL/L (3.6-5.0); SODIUM 140 MMOL/L (135-145)
[2022-04-02 18:35] LABS: ALANINE AMINOTRANSFERASE 19 U/L (0-55); ALBUMIN 3.6 GM/DL (3.2-4.5); ALKALINE PHOSPHATASE 81 U/L (40-136); BILIRUBIN,TOTAL < 0.2 MG/DL (0.1-1.0); CALCIUM 8.7 MG/DL (8.5-10.1); GLUCOSE 164 MG/DL (70-105)
== END ==
PROVIDERS: ATTEND Family Medicine
DX: I25.9 Chronic ischemic heart disease, unspecified (principal)
CPT/HCPCS: 80053; 85027

== ENCOUNTER 2022-04-06 15:09 | Emergency (ER) | payer MEDICARE ==
[~2022-04-06] VITALS: Ht 152.4 cm; Wt 65.8 kg
--- NOTE | 2022-04-06 15:25 | ED General ---
General Chief Complaint: Abdominal/GI Problems Stated Complaint: ABD PAIN Nursing Triage Note: Patient brought to the ED via EMS from [facility] for chief complaint of abdominal/epigastric pain, leaning to the right, and altered mental status. Source of Information: Patient, EMS History of Present Illness Date Seen by Provider: Apr 06, 2022 Time Seen by Provider: 15:09 Initial Comments 82-year-old female brought in by EMS from [facility] due to complaint of left lower chest wall pain and they felt she was more confused than usual. Patient denies having any fever, chills, nausea, vomiting, headache, abdominal pain. She denies any fall. She is slow to answer questions. Family reports she has been more weak in the last few days so they thought she was bleeding internally because she had recent drop in hemoglobin from 11 to 8. She had Covid 19 infection about 1 month ago and then had UTI a few weeks ago. She was admitted to [facility] for Covid and for the UTI she went to [place]. When her medical issues were addressed for UTI at [place] she was admitted to behavioral health unit to help with her medications. Family reports she has been more weak in last few days and they have been having to hold her up on the toilet because she leans over so badly. Timing/Duration: 3-4 Days Severity: Moderate Associated Systoms: Chest Pain (left anterior lower chest wall pain), Cough; No Diaphoresis, No Fever/Chills, No Headaches; Loss of Appetite, Malaise; No Nausea/Vomiting, No Rash, No Seizure, No Shortness of Air, No Syncope; Weakness (general) Allergies and Home Medications Allergies Coded Allergies: metoclopramide (Unverified Allergy, Mild, 03/14/16) prochlorperazine (Unverified Allergy, Mild, 03/14/16) HIGH ANXIETY REACTION Patient Home Medication List Home Medication List Reviewed: Yes Acetaminophen (Tylenol) 325 Mg Tablet, 650 MG PO HS Prescribed by: MILAGROS MCDONNELL on 03/07/22 1013 Acetaminophen (Tylenol) 325 Mg Tablet, 650 MG PO Q6H PRN for PAIN-MILD (1-4) Prescribed by: MILAGROS MCDONNELL on 03/07/22 1013 Aspirin (Aspirin EC) 81 Mg Tablet.dr, 81 MG PO DAILY Prescribed by: MILAGROS MCDONNELL on 03/07/22 1013 Buspirone HCl (Buspirone HCl) 15 Mg Tablet, 15 MG PO TID Prescribed by: MILAGROS MCDONNELL on 03/07/22 1013 Calcium Carbonate (Tums) 200 Mg Calcium (500 Mg) Tab.chew, 200 MG PO UD PRN for HEART BURN Prescribed by: MILAGROS MCDONNELL on 03/07/22 1013 Cephalexin (Cephalexin) 500 Mg Capsule, 500 MG PO TID Prescribed by: JAYDEN TORRE on 04/06/22 1647 Cholecalciferol (Vitamin D3) (Vitamin D3) 50 Mcg (2000 Unit) Tablet, 50 MCG PO DAILY Prescribed by: MILAGROS MCDONNELL on 03/07/22 1013 Donepezil HCl (Donepezil HCl) 10 Mg Tablet, 10 MG PO DAILY Prescribed by: MILAGROS MCDONNELL on 03/07/22 1013 Fluoxetine HCl (Fluoxetine HCl) 20 Mg Capsule, 20 MG PO DAILY Prescribed by: MILAGROS MCDONNELL on 03/07/22 1013 Fluticasone Propionate (Flonase Allergy Relief) 50 Mcg/Actuation [place].susp, 2 SPRAY NS DAILY PRN for ALLERGIES Prescribed by: MILAGROS MCDONNELL on 03/07/22 1013 Losartan Potassium (Losartan Potassium) 25 Mg Tablet, 12.5 MG PO DAILY Prescribed by: MILAGROS MCDONNELL on 03/07/22 1013 Magnesium Oxide (Magnesium) 250 Mg Tablet, 250 MG PO DAILY Prescribed by: MILAGROS MCDONNELL on 03/07/22 1013 Melatonin (Melatonin) 5 Mg Tablet, 5 MG PO HS Prescribed by: MILAGROS MCDONNELL on 03/07/22 1013 Multivitamin with Folic Acid (One Daily Multivitamin Tablet) 400 Mcg Tablet, 400 MCG PO DAILY Prescribed by: MILAGROS MCDONNELL on 03/07/22 1013 Nitroglycerin (Nitroglycerin) 0.4 Mg Tab.subl, 0.4 MG SL UD PRN for CHEST PAIN Prescribed by: MILAGROS MCDONNELL on 03/07/22 1013 [place]-3/Dha/Epa/Fish Oil (Fish Oil 1,000 mg Softgel) 1,000 Mg (120 Mg-180 Mg) Capsule, 1,000 MG PO DAILY Prescribed by: MILAGROS MCDONNELL on 03/07/22 1013 Polyethylene Glycol 3350 (Miralax) 17 Gram Powd.pack, 17 GM PO DAILY PRN for CONSTIPATION-1ST LINE Prescribed by: MILAGROS MCDONNELL on 03/07/22 1013 Pravastatin Sodium (Pravastatin Sodium) 20 Mg Tablet, 20 MG PO DAILY Prescribed by: MILAGROS MCDONNELL on 03/07/22 1013 Spironolactone (Spironolactone) 25 Mg Tablet, 25 MG PO DAILY Prescribed by: MILAGROS MCDONNELL on 03/07/22 1013 Discontinued Medications Cephalexin (Cephalexin) 500 Mg Tablet, 500 MG PO QID Prescribed by: JAYDEN TORRE on 04/06/22 1647 Review of Systems Review of Systems Constitutional: No chills, No fever EENTM: no symptoms reported Respiratory: see HPI Cardiovascular: see HPI Gastrointestinal: No nausea, No vomiting Genitourinary: No dysuria Musculoskeletal: no symptoms reported Skin: No rash Psychiatric/Neurological: See HPI; Denies Headache Past Lyvrbex-Pugrit-Kpmbvq Hx Patient Social History Tobacco Use?: No Use of E-Cig and/or Vaping dev: No Substance use?: No Alcohol Use?: No Immunizations Up To Date Tetanus Booster (TDap): Unknown First/Initial COVID19 Vaccinat: MAY 2020 Second COVID19 Vaccination Juan: JUN 2020 Third COVID19 Vaccination Date: APR 2021 Past Medical History Surgery/Hospitalization HX: DEMENTIA, HTN, HIGH CHOLESTEROLM, ANXIETY, DEPRESSION Hysterectomy, Orthopedic High Cholesterol, Hypertension Chronic Constipation Tinnitis Family Medical History No Pertinent Family Hx Physical Exam Vital Signs Vital Signs - First Documented 04/06/22 15:20 Temp 36.7 Pulse 84 Resp 17 B/P (MAP) 149/50 (83) Pulse Ox 94 O2 Delivery Room Air Capillary Refill : Less Than 3 Seconds Height, Weight, BMI Height: 5'2" Weight: 139lbs. oz. [id number]; 28.00 BMI Method:Stated General Appearance: No Apparent Distress, Chronically ill HEENT: PERRL/EOMI; No Moist Mucous Membranes (slightly dry mucus membranes) Neck: Full Range of Motion, Normal Inspection, Non Tender, Supple Respiratory: No Chest Non Tender (tender to palpation left lower anterior ribs. 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 Norm as Tested Skin: Normal Color, Warm/Dry Progress/Results/Core Measures Suspected Sepsis SIRS Temperature: Pulse: 84 Respiratory Rate: 17 Laboratory Tests 04/06/22 15:15: White Blood Count 8.7 Blood Pressure 149 /50 Mean: 83 Laboratory Tests 04/06/22 15:15: Creatinine 0.91, INR Comment 1.0, Platelet Count 309, Total Bilirubin 0.2 Results/Orders Lab Results Laboratory Tests Test 04/06/22 15:15 04/06/22 15:50 Range/Units White Blood Count 8.7 4.3-11.0 10^3/uL Red Blood Count 3.00 L 3.80-5.11 10^6/uL Hemoglobin 9.3 L 11.5-16.0 g/dL Hematocrit 29 L 35-52 % Mean Corpuscular Volume 96 80-99 fL Mean Corpuscular Hemoglobin 31 25-34 pg Mean Corpuscular Hemoglobin Concent 32 32-36 g/dL Red Cell Distribution Width 15.5 H 10.0-14.5 % Platelet Count 309 130-400 10^3/uL Mean Platelet Volume 8.7 L 9.0-12.2 fL Immature Granulocyte % (Auto) 1 % Neutrophils (%) (Auto) 72 42-75 % Lymphocytes (%) (Auto) 17 12-44 % Monocytes (%) (Auto) 7 0-12 % Eosinophils (%) (Auto) 3 0-10 % Basophils (%) (Auto) 1 0-10 % Neutrophils # (Auto) 6.2 1.8-7.8 10^3/uL Lymphocytes # (Auto) 1.5 1.0-4.0 10^3/uL Monocytes # (Auto) 0.6 0.0-1.0 10^3/uL Eosinophils # (Auto) 0.2 0.0-0.3 10^3/uL Basophils # (Auto) 0.0 0.0-0.1 10^3/uL Immature Granulocyte # (Auto) 0.1 0.0-0.1 10^3/uL Prothrombin Time 14.0 12.2-14.7 SEC INR Comment 1.0 0.8-1.4 Activated Partial Thromboplast Time 26 24-35 SEC Sodium Level 143 135-145 MMOL/L Potassium Level 3.8 3.6-5.0 MMOL/L Chloride Level 110 H 98-107 MMOL/L Carbon Dioxide Level 18 L 21-32 MMOL/L Anion Gap 15 H 5-14 MMOL/L Blood Urea Nitrogen 21 H 7-18 MG/DL Creatinine 0.91 0.60-1.30 MG/DL Estimat Glomerular Filtration Rate 62 BUN/Creatinine Ratio 23 Glucose Level 150 H 70-105 MG/DL Calcium Level 8.7 8.5-10.1 MG/DL Corrected Calcium 8.9 8.5-10.1 MG/DL Magnesium Level 2.0 1.6-2.4 MG/DL Total Bilirubin 0.2 0.1-1.0 MG/DL Aspartate Amino Transf (AST/SGOT) 17 5-34 U/L Alanine Aminotransferase (ALT/SGPT) 20 0-55 U/L Alkaline Phosphatase 97 40-136 U/L Troponin I < 0.30 <0.30 NG/ML Pro-B-Type Natriuretic Peptide 141.6 <450.0 PG/ML Total Protein 7.1 6.4-8.2 GM/DL Albumin 3.8 3.2-4.5 GM/DL Lipase 48 8-78 U/L Influenza Type A (RT-PCR) Not Detected Not Detecte Influenza Type B (RT-PCR) Not Detected Not Detecte SARS-CoV-2 RNA (RT-PCR) Not Detected Not Detecte Urine Color YELLOW Urine Clarity CLEAR Urine pH 6.0 5-9 Urine Specific Jesse 1.015 L 1.016-1.022 Urine Protein NEGATIVE NEGATIVE Urine Glucose (UA) NEGATIVE NEGATIVE Urine Ketones NEGATIVE NEGATIVE Urine Nitrite NEGATIVE NEGATIVE Urine Bilirubin NEGATIVE NEGATIVE Urine Urobilinogen 0.2 < = 1.0 MG/DL Urine Leukocyte Esterase NEGATIVE NEGATIVE Urine RBC (Auto) TRACE-I H NEGATIVE Urine RBC 2-5 H /HPF Urine WBC 0-2 /HPF Urine Squamous Epithelial Cells NONE /HPF Urine Crystals NONE /LPF Urine Bacteria FEW H /HPF Urine Casts NONE /LPF Urine Mucus LARGE H /LPF Urine Yeast FEW H /HPF Urine Culture Indicated YES My Orders Orders - JAYDEN TORRE MD Cbc With Automated Diff (04/06/22 15:21) Magnesium (04/06/22 15:21) Chest 1 View Ap/Pa Only (04/06/22 15:21) Ekg Tracing (04/06/22 15:21) Comprehensive Metabolic Panel (04/06/22 15:21) Protime With Inr (04/06/22 15:21) Partial Thromboplastin Time (04/06/22 15:21) O2 (04/06/22 15:21) Monitor-Rhythm Ecg Trace Only (04/06/22 15:21) Ed Iv/Invasive Line Start (04/06/22 15:21) Lipase (04/06/22 15:21) Troponin I Fs (04/06/22 15:21) Probnp Fs (04/06/22 15:21) Ua Culture If Indicated (04/06/22 15:21) Covid 19 Inhouse Test (04/06/22 15:21) Ct Head Wo (04/06/22 15:21) Influenza A And B By Pcr (04/06/22 15:21) Straight Cath For Spec.-Adult (04/06/22 15:48) Urine Culture (04/06/22 15:50) Ceftriaxone 1 Gm Pre-Mix (Rocephin 1 Gm (04/06/22 16:45) Vital Signs/I&O 04/06/22 04/06/22 15:20 17:00 Temp 36.7 Pulse 84 88 Resp 17 24 B/P (MAP) 149/50 (83) 120/57 Pulse Ox 94 95 O2 Delivery Room Air Room Air Capillary Refill : Less Than 3 Seconds Blood Pressure Mean: 83 Progress Note #1: Progress Note Obtain basic labs and urine to look for infection or electrolyte imbalance. Nasal swab for Covid and Inflenza testing. CXR to look for infection, rib injury, effusion, mass. CT head to look for stroke, bleeding, mass. Progress Note #2: Time: 15:53 Progress Note CBC shows chronic anemia with hemoglobin of 9.3. The family reports that aside from 8 that she was most recently checked out. Chemistry panel does not show acute significant abnormality. Glucose is slightly elevated to 150. Her swab to check for COVID and influenza were both negative. Troponin I is less than 0.3. Electrocardiogram does not show any acute ischemic changes and appears stable from May 2021. Obtain UA with straight cath. Awaiting radiology testing. Progress Note #3: Time: 16:[address] head without contrast shows no acute process. No intracranial hemorrhage, mass, midline shift. She has diffuse atrophy. CXR shows raised right hemidiaphragm but no acute infiltrate or effusion. Awaiting UA obtained by straight cath. Progress Note #4: Time: 16:27 Progress Note UA has some bacteria and mucus present. Culture was reflexed. Will order antibiotics and have the medical lodge encourage fluids. Check with pcp if not improving. Chest wall pain may be from her leaning to side. No definite injury or effusion or infiltrate on imaging. Stressed importance of working with pcp ECG Initial ECG Impression Date: Apr 06, 2022 Initial ECG Impression Time: 15:29 Initial ECG Rate: 88 Initial ECG Rhythm: Normal Sinus Initial ECG Comparisson: Unchanged (May 2021) Comment On my independent review and interpretation her electrocardiogram shows sinus rhythm with a heart rate of 88 bpm. SC interval 124 ms. There is a left axis deviation. QT interval 403 ms with a QTc interval 448 ms. There is no acute ST elevation. Overall appears similar to tracing from May 2021. Diagnostic Imaging Diagonstic Imaging: Xray Plain Films/CT/US/NM/MRI: chest Comments NAME: ASAD HARRELL MED REC#: [id number] PT STATUS: REG ER : 1940 PHYSICIAN: JAYDEN TORRE MD ADMIT DATE: 04/06/22/ER FS Signed Date of Exam:04/06/22 CHEST 1 VIEW AP/PA ONLY EXAMINATION: Chest 1 view. HISTORY: Cough, left chest wall pain. COMPARISON: None available. FINDINGS: Heart size and pulmonary vasculature are normal. There is elevation of the right hemidiaphragm. Mild bibasilar atelectasis. No focal consolidation, pleural effusion or pneumothorax. The osseous structures are intact. IMPRESSION: No acute radiographic abnormality in the chest. Dictated by: Dictated on workstation # [id number] Dict: 04/06/22 1553 Trans: 04/06/22 1602 [facility] [id number] Interpreted by: MARIA ELENA KING DO Electronically signed by: MARIA ELENA KIGN DO 04/06/221601 Reviewed: Reviewed by Me Diagonstic Imaging: CT Plain Films/CT/US/NM/MRI: head Comments [facility], [place] NAME: ASAD HARRELL [facility] REC#: [id number] PT STATUS: REG ER : 1940 PHYSICIAN: JAYDEN TORRE MD ADMIT DATE: 04/06/22/ER FS Signed Date of Exam:04/06/22 CT HEAD WO EXAMINATION: CT head without contrast. TECHNIQUE: Multiple contiguous axial images were obtained through the brain without the use of intravenous contrast. All CT scans use one or more of the following dose optimizing techniques: automated exposure control, MA and/or KvP adjustment based on patient size and exam type or iterative reconstruction. HISTORY: Altered mental status. COMPARISON: 03/03/2022. FINDINGS: The recio-white matter differentiation is normal. No mass effect or midline shift. The ventricles are normal in size and configuration. Basilar cisterns are patent. There is no intra-axial or extra-axial fluid collection. There is no intracranial hemorrhage. The orbits are normal. There is bilateral paranasal sinus mucosal disease. Mastoid air cells are clear. No soft tissue abnormality is seen. No osseus lesion or fracture is seen. IMPRESSION: No acute intracranial abnormality. Dictated by: Dictated on workstation # [id number] Dict: 04/06/22 1553 Trans: 04/06/22 1601 [facility] [id number] Interpreted by: MARYBETH MARIEE MD Electronically signed by: MARYBETH MARIEE MD 04/06/22 1601 Reviewed: Reviewed by Me Departure Impression Primary Impression: Cystitis without hematuria Additional Impressions: General weakness Chronic anemia Left-sided chest wall pain Disposition: HOME, SELF-CARE Condition: Stable Departure-Patient Inst. Decision time for Depature: 16:28 Referrals: MARILIN TERRY MD (PCP/Family) Primary Care Physician Patient Instructions: Weakness ED, Urinary Tract Infection, Adult ED Add. Discharge Instructions: Encourage fluids and hydration. Take antibiotic for UTI. Check with clinic if not improving in next few days. All discharge instructions reviewed with patient and/or family. Voiced understanding. Scripts Cephalexin (Cephalexin) 500 Mg Capsule 500 MG PO TID for UTI for 7 Days, #21 CAP 0 Refills Prov: JAYDEN TORRE MD 04/06/22 JAYDEN TORRE MD Apr 06, 2022 15:25
[2022-04-06 15:27] LABS: BASOPHILS % (AUTO) 1 % (0-10); EOSINOPHILS # (AUTO) 0.2 10^3/uL (0.0-0.3); EOSINOPHILS % (AUTO) 3 % (0-10); HEMATOCRIT 29 % (35-52); HEMOGLOBIN 9.3 g/dL (11.5-16.0); LYMPHOCYTES # (AUTO) 1.5 10^3/uL (1.0-4.0); LYMPHOCYTES % (AUTO) 17 % (12-44); MEAN CORPUSCULAR HEMOGLOBIN 31 pg (25-34); MEAN CORPUSCULAR HGB CONC 32 g/dL (32-36); MEAN CORPUSCULAR VOLUME 96 fL (80-99); MEAN PLATELET VOLUME 8.7 fL (9.0-12.2); MONOCYTES # (AUTO) 0.6 10^3/uL (0.0-1.0); MONOCYTES % (AUTO) 7 % (0-12); NEUTROPHILS # (AUTO) 6.2 10^3/uL (1.8-7.8); NEUTROPHILS % (AUTO) 72 % (42-75); PLATELET COUNT 309 10^3/uL (130-400); WHITE BLOOD COUNT 8.7 10^3/uL (4.3-11.0)
[2022-04-06 15:48] LABS: ALBUMIN 3.8 GM/DL (3.2-4.5); BILIRUBIN,TOTAL 0.2 MG/DL (0.1-1.0); CALCIUM 8.7 MG/DL (8.5-10.1); CREATININE SERUM 0.91 MG/DL (0.60-1.30); POTASSIUM 3.8 MMOL/L (3.6-5.0); TOTAL PROTEIN 7.1 GM/DL (6.4-8.2)
--- NOTE | 2022-04-06 15:58 | Diagnostic Imaging Report ---
EXAMINATION: Chest 1 view. HISTORY: Cough, left chest wall pain. COMPARISON: None available. FINDINGS: Heart size and pulmonary vasculature are normal. There is elevation of the right hemidiaphragm. Mild bibasilar atelectasis. No focal consolidation, pleural effusion or pneumothorax. The osseous structures are intact. IMPRESSION: No acute radiographic abnormality in the chest. Dictated by: Dictated on workstation # [id number]
--- NOTE | 2022-04-06 16:00 | Diagnostic Imaging Report ---
EXAMINATION: CT head without contrast. TECHNIQUE: Multiple contiguous axial images were obtained through the brain without the use of intravenous contrast. All CT scans use one or more of the following dose optimizing techniques: automated exposure control, MA and/or KvP adjustment based on patient size and exam type or iterative reconstruction. HISTORY: Altered mental status. COMPARISON: 03/03/2022. FINDINGS: The recio-white matter differentiation is normal. No mass effect or midline shift. The ventricles are normal in size and configuration. Basilar cisterns are patent. There is no intra-axial or extra-axial fluid collection. There is no intracranial hemorrhage. The orbits are normal. There is bilateral paranasal sinus mucosal disease. Mastoid air cells are clear. No soft tissue abnormality is seen. No osseus lesion or fracture is seen. IMPRESSION: No acute intracranial abnormality. Dictated by: Dictated on workstation # [id number]
[2022-04-06 16:01] LABS: BILIRUBIN,URINE NEGATIVE (NEGATIVE); CLARITY,URINE CLEAR; COLOR,URINE YELLOW; GLUCOSE, URINE (UA) NEGATIVE (NEGATIVE); KETONES,URINE NEGATIVE (NEGATIVE); LEUKOCYTE ESTERASE ,URINE NEGATIVE (NEGATIVE); NITRITE,URINE NEGATIVE (NEGATIVE); PROTEIN,URINE NEGATIVE (NEGATIVE)
[2022-04-06 16:06] LABS: WBC,URINE 0-2 /HPF
[2022-04-06 16:07] LABS: BACTERIA,URINE FEW /HPF; YEAST,URINE FEW /HPF
[2022-04-06] MEDS ORDERED: cefTRIAXone 1 GM PRE-MIX 50 ML IV STA (16:45)
[2022-04-06] MEDS ORDERED: CEPH500C PO (16:47)
[2022-04-06] MEDS ORDERED: CEPH500T PO (16:47)
[2022-04-06 17:00] VITALS: BP 120/57
== END 2022-04-06 17:00 | disposition home or self-care (01) ==
LOC: EDUNIT# 15:09 → ER FS 15:10
DX: R07.89 Other chest pain (principal); N30.90 Cystitis, unspecified without hematuria; D64.9 Anemia, unspecified; R53.1 Weakness; R60.0 Localized edema; Z20.822 Contact with and (suspected) exposure to COVID-19; Z86.16 Personal history of COVID-19
CPT/HCPCS: 36415; 51701; 70450; 71045; 80053; 81000; 83690; 83735; 83880; 84484; 85025; 85610; 85730; 87088; 87636; 93005; 93041

== ENCOUNTER 2022-04-07 13:18 | Inpatient (IN) | payer MEDICARE ==
[~2022-04-07] VITALS: Ht 152.4 cm; Wt 83.6 kg
[~2022-04-07 13:18] MED LIST changes: +CEPH500C PO; +CEPH500T PO
--- NOTE | 2022-04-07 13:54 | Diagnostic Imaging Report ---
INDICATION: Shortness of breath. COMPARISON: 04/06/2022 and 03/02/2022. FINDINGS: Unchanged from the most recent exam is elevation of the right diaphragm, patchy nodular interstitial type infiltrates involving the right greater than left lung, and right medial basilar infrahilar atelectasis. These findings are all new from the radiograph of one month ago. IMPRESSION: Unchanged right greater than left nodular interstitial infiltrates and basilar atelectasis when compared to yesterday's study. Dictated by: Dictated on workstation # [id number]
--- NOTE | 2022-04-07 14:09 | ED Cough/URI ---
General Chief Complaint: Respiratory Problems Stated Complaint: LOW O2; AMS Nursing Triage Note: Patient presents to the ED via EMS from [facility] with c/o shortness of breath. Patient was seen in the ED yesterday and treated for UTI. [facility] staff report that patient was c/o shortness of breath and had oxygen saturation of 91%. EMS report patient O2 sat at 98% on room air after duoneb treatment. Upon arrival patient appears anxious and states, "I can't catch my breath." Source: patient Exam Limitations: no limitations History of Present Illness Date Seen by Provider: Apr 07, 2022 Time Seen by Provider: 13:00 Initial Comments Patient is a 83 yo halfway female who presents with SOB and hypoxia with O2 saturation of 80's who improved to 99 percent. No fever, chills, cough, sore throat or chest pain. No leg pain or swelling. Timing/Duration: just prior to arrival Severity/Quality: dry cough Prior Episodes/Possible Cause: other Modifying Factors: Improves With Other Associated Symptoms: other Allergies and Home Medications Allergies Coded Allergies: metoclopramide (Unverified Allergy, Mild, 03/14/16) prochlorperazine (Unverified Allergy, Mild, 03/14/16) HIGH ANXIETY REACTION Patient Home Medication List Home Medication List Reviewed: Yes Acetaminophen (Tylenol) 325 Mg Tablet, 650 MG PO HS Prescribed by: MILAGROS MCDONNELL on 03/07/22 1013 Acetaminophen (Tylenol) 325 Mg Tablet, 650 MG PO Q6H PRN for PAIN-MILD (1-4) Prescribed by: MILAGROS MCDONNELL on 03/07/22 1013 Aspirin (Aspirin EC) 81 Mg Tablet.dr, 81 MG PO DAILY Prescribed by: MILAGROS MCDONNELL on 03/07/22 1013 Buspirone HCl (Buspirone HCl) 15 Mg Tablet, 15 MG PO TID Prescribed by: MILAGROS MCDONNELL on 03/07/22 1013 Calcium Carbonate (Tums) 200 Mg Calcium (500 Mg) Tab.chew, 200 MG PO UD PRN for HEART BURN Prescribed by: MILAGROS MCDONNELL on 03/07/22 1013 Cephalexin (Cephalexin) 500 Mg Capsule, 500 MG PO TID Prescribed by: JAYDEN TORRE on 04/06/22 7203 Cholecalciferol (Vitamin D3) (Vitamin D3) 50 Mcg (2000 Unit) Tablet, 50 MCG PO DAILY Prescribed by: MILAGROS MCDONNELL on 03/07/22 1013 Donepezil HCl (Donepezil HCl) 10 Mg Tablet, 10 MG PO DAILY Prescribed by: MILAGROS MCDONNELL on 03/07/22 101 Fluoxetine HCl (Fluoxetine HCl) 20 Mg Capsule, 20 MG PO DAILY Prescribed by: MILAGROS MCDONNELL on 03/07/22 101 Fluticasone Propionate (Flonase Allergy Relief) 50 Mcg/Actuation [place].susp, 2 SPRAY NS DAILY PRN for ALLERGIES Prescribed by: MILAGROS MCDONNELL on 03/07/22 101 Losartan Potassium (Losartan Potassium) 25 Mg Tablet, 12.5 MG PO DAILY Prescribed by: MILAGROS MCDONNELL on 03/07/22 101 Magnesium Oxide (Magnesium) 250 Mg Tablet, 250 MG PO DAILY Prescribed by: MILAGROS MCDONNELL on 03/07/22 101 Melatonin (Melatonin) 5 Mg Tablet, 5 MG PO HS Prescribed by: MILAGROS MCDONNELL on 03/07/22 101 Multivitamin with Folic Acid (One Daily Multivitamin Tablet) 400 Mcg Tablet, 400 MCG PO DAILY Prescribed by: MILAGROS MCDONNELL on 03/07/22 101 Nitroglycerin (Nitroglycerin) 0.4 Mg Tab.subl, 0.4 MG SL UD PRN for CHEST PAIN Prescribed by: MILAGROS MCDONNELL on 03/07/22 101 [place]-3/Dha/Epa/Fish Oil (Fish Oil 1,000 mg Softgel) 1,000 Mg (120 Mg-180 Mg) Capsule, 1,000 MG PO DAILY Prescribed by: MILAGROS MCDONNELL on 03/07/22 101 Polyethylene Glycol 3350 (Miralax) 17 Gram Powd.pack, 17 GM PO DAILY PRN for CONSTIPATION-1ST LINE Prescribed by: MILAGROS MCDONNELL on 03/07/22 101 Pravastatin Sodium (Pravastatin Sodium) 20 Mg Tablet, 20 MG PO DAILY Prescribed by: MILAGROS MCDONNELL on 03/07/22 101 Spironolactone (Spironolactone) 25 Mg Tablet, 25 MG PO DAILY Prescribed by: MILAGROS MCDONNELL on 03/07/22 1013 Discontinued Medications Cephalexin (Cephalexin) 500 Mg Tablet, 500 MG PO QID Prescribed by: JAYDEN TORRE on 04/06/22 1647 Review of Systems Review of Systems Constitutional: see HPI EENTM: see HPI Respiratory: see HPI Cardiovascular: see HPI Gastrointestinal: see HPI Genitourinary: see HPI : No Musculoskeletal: see HPI Skin: see HPI Psychiatric/Neurological: See HPI Hematologic/Lymphatic: See HPI Immunological/Allergic: see HPI All Other Systems Reviewed Negative Unless Noted: No Past Fffbdzj-Nexqem-Cduefv Hx Patient Social History Tobacco Use?: No Use of E-Cig and/or Vaping dev: No Substance use?: No Alcohol Use?: No Immunizations Up To Date Tetanus Booster (TDap): Unknown First/Initial COVID19 Vaccinat: MAY 2020 Second COVID19 Vaccination Juan: JUN 2020 Third COVID19 Vaccination Date: APR 2021 Past Medical History Surgery/Hospitalization HX: DEMENTIA, HTN, HIGH CHOLESTEROLM, ANXIETY, DEPRESSION Hysterectomy, Orthopedic High Cholesterol, Hypertension Chronic Constipation Tinnitis Family Medical History No Pertinent Family Hx Physical Exam Vital Signs - First Documented 04/07/22 13:20 Temp 36.7 Pulse 105 Resp 22 B/P (MAP) 145/58 (87) Pulse Ox 97 O2 Delivery Room Air Capillary Refill : Less Than 3 Seconds Height: 5'2" Weight: 139lbs. oz. 63.919079gg; 28.00 BMI Method:Stated General Appearance: WD/WN, no apparent distress Eyes: Bilateral Eye Normal Inspection, Bilateral Eye PERRL, Bilateral Eye EOMI HEENT: PERRL/EOMI, TMs normal, pharynx normal Neck: full range of motion, supple Respiratory: decreased breath sounds, wheezing Cardiovascular: normal peripheral pulses, regular rate, rhythm, no edema Gastrointestinal: soft Extremities: no pedal edema, no calf tenderness Neurologic/Psychiatric: normal mood/affect, oriented x 3 Skin: warm/dry Focused Exam Sepsis Stage: Ruled Out Lactate Level 04/07/22 14:00: Lactic Acid Level 2.44*H 04/07/22 16:24: Lactic Acid Level 2.98*H 04/07/22 18:20: Lactic Acid Level 2.03*H Lactic Acid Level Laboratory Tests Test 04/07/22 14:00 04/07/22 16:24 04/07/22 18:20 Lactic Acid Level 2.44 MMOL/L (0.50-2.00) *H 2.98 MMOL/L (0.50-2.00) *H 2.03 MMOL/L (0.50-2.00) *H Progress/Results/Core Measures Suspected Sepsis SIRS Temperature: Pulse: 105 Respiratory Rate: 22 Laboratory Tests 04/07/22 14:19: White Blood Count 10.5 Blood Pressure 145 /58 Mean: 87 04/07/22 14:00: Lactic Acid Level 2.44*H 04/07/22 16:24: Lactic Acid Level 2.98*H 04/07/22 18:20: Lactic Acid Level 2.03*H Laboratory Tests 04/07/22 14:00: Creatinine 0.83, Total Bilirubin 0.2 04/07/22 14:19: Platelet Count 305 04/07/22 14:37: INR Comment 1.0 Results/Orders Lab Results Laboratory Tests Test 04/07/22 14:00 04/07/22 14:03 04/07/22 14:19 04/07/22 14:37 Range/Units Sodium Level 143 135-145 MMOL/L Potassium Level 4.0 3.6-5.0 MMOL/L Chloride Level 110 H 98-107 MMOL/L Carbon Dioxide Level 17 L 21-32 MMOL/L Anion Gap 16 H 5-14 MMOL/L Blood Urea Nitrogen 17 7-18 MG/DL Creatinine 0.83 0.60-1.30 MG/DL Estimat Glomerular Filtration Rate 69 BUN/Creatinine Ratio 20 Glucose Level 112 H 70-105 MG/DL Lactic Acid Level 2.44 *H 0.50-2.00 MMOL/L Calcium Level 8.6 8.5-10.1 MG/DL Corrected Calcium 8.6 8.5-10.1 MG/DL Total Bilirubin 0.2 0.1-1.0 MG/DL Aspartate Amino Transf (AST/SGOT) 20 5-34 U/L Alanine Aminotransferase (ALT/SGPT) 21 0-55 U/L Alkaline Phosphatase 91 40-136 U/L Pro-B-Type Natriuretic Peptide 284.0 <450.0 PG/ML Total Protein 7.0 6.4-8.2 GM/DL Albumin 4.0 3.2-4.5 GM/DL Influenza Type A (RT-PCR) Not Detected Not Detecte Influenza Type B (RT-PCR) Not Detected Not Detecte SARS-CoV-2 RNA (RT-PCR) Not Detected Not Detecte White Blood Count 10.5 4.3-11.0 10^3/uL Red Blood Count 2.93 L 3.80-5.11 10^6/uL Hemoglobin 9.2 L 11.5-16.0 g/dL Hematocrit 28 L 35-52 % Mean Corpuscular Volume 97 80-99 fL Mean Corpuscular Hemoglobin 31 25-34 pg Mean Corpuscular Hemoglobin Concent 32 32-36 g/dL Red Cell Distribution Width 15.7 H 10.0-14.5 % Platelet Count 305 130-400 10^3/uL Mean Platelet Volume 8.7 L 9.0-12.2 fL Immature Granulocyte % (Auto) 1 % Neutrophils (%) (Auto) 75 42-75 % Lymphocytes (%) (Auto) 14 12-44 % Monocytes (%) (Auto) 8 0-12 % Eosinophils (%) (Auto) 2 0-10 % Basophils (%) (Auto) 0 0-10 % Neutrophils # (Auto) 7.9 H 1.8-7.8 10^3/uL Lymphocytes # (Auto) 1.5 1.0-4.0 10^3/uL Monocytes # (Auto) 0.9 0.0-1.0 10^3/uL Eosinophils # (Auto) 0.2 0.0-0.3 10^3/uL Basophils # (Auto) 0.0 0.0-0.1 10^3/uL Immature Granulocyte # (Auto) 0.1 0.0-0.1 10^3/uL Prothrombin Time 13.8 12.2-14.7 SEC INR Comment 1.0 0.8-1.4 Activated Partial Thromboplast Time 28 24-35 SEC D-Dimer >= 20.00 H 0.00-0.49 UG/ML Test 04/07/22 16:14 04/07/22 16:24 04/07/22 18:20 Range/Units Urine Color YELLOW Urine Clarity CLEAR Urine pH 6.0 5-9 Urine Specific [place] 1.010 L 1.016-1.022 Urine Protein NEGATIVE NEGATIVE Urine Glucose (UA) NEGATIVE NEGATIVE Urine Ketones NEGATIVE NEGATIVE Urine Nitrite NEGATIVE NEGATIVE Urine Bilirubin NEGATIVE NEGATIVE Urine Urobilinogen 0.2 < = 1.0 MG/DL Urine Leukocyte Esterase TRACE H NEGATIVE Urine RBC (Auto) TRACE-I H NEGATIVE Urine RBC 0-2 /HPF Urine WBC 5-10 H /HPF Urine Squamous Epithelial Cells 0-2 /HPF Urine Crystals NONE /LPF Urine Bacteria TRACE /HPF Urine Casts NONE /LPF Urine Mucus NEGATIVE /LPF Urine Culture Indicated CULTURE PENDING Lactic Acid Level 2.98 *H 2.03 *H 0.50-2.00 MMOL/L My Orders Orders - LC DE LOS SANTOS DO Cbc With Automated Diff (04/07/22 13:29) Comprehensive Metabolic Panel (04/07/22 13:29) Blood Culture (04/07/22 13:29) Sputum Culture (04/07/22 13:29) Urinalysis (04/07/22 13:29) Urine Culture (04/07/22 13:29) Protime With Inr (04/07/22 13:29) Partial Thromboplastin Time (04/07/22 13:29) Chest 1 View Ap/Pa Only (04/07/22 13:29) Ed Iv/Invasive Line Start (04/07/22 13:29) Ed Iv/Invasive Line Start (04/07/22 13:29) Vital Signs Adult Sepsis Patie Q15M (04/07/22 13:29) O2 (04/07/22 13:29) Remove Rings In Anticipation O (04/07/22 13:29) Lactic Acid Analyzer (04/07/22 13:29) Fibrin Degradation Products (04/07/22 13:29) Probnp Fs (04/07/22 13:29) Covid 19 Inhouse Test (04/07/22 13:29) Influenza A And B By Pcr (04/07/22 13:29) Isolation Central Supply Req (04/07/22 13:29) Ns Iv 1000 Ml (Sodium Chloride 0.9%) (04/07/22 15:15) Iohexol Injection (Omnipaque 350 Mg/Ml 1 (04/07/22 17:30) Received Contrast (Hold Metformin- Contr (04/07/22 17:30) Sodium Chloride Flush (Catheter Flush Sy (04/07/22 17:30) Ns (Ivpb) (Sodium Chloride 0.9% Ivpb Bag (04/07/22 17:30) Ct Tami Chest/Noang Abd-Pelv W (04/07/22 17:03) Heparin Drip Full (04/07/22 19:00) Heparin Bolus Full 80 Units/Kg (04/07/22 19:00) Medications Given in ED Current Medications Medications Dose Ordered Sig/Heri Route Start Time Stop Time Status Last Admin Dose Admin Iohexol 150 ml ONCE ONCE IV 04/07/22 17:30 04/07/22 17:31 DC 04/07/22 18:06 100 ML Sodium Chloride 10 ml NEEDED PRN IV 04/07/22 17:30 04/07/22 18:07 10 ML Sodium Chloride 100 ml ONCE ONCE IV 04/07/22 17:30 04/07/22 17:31 DC 04/07/22 18:07 100 ML Vital Signs/I&O 04/07/22 13:20 Temp 36.7 Pulse 105 Resp 22 B/P (MAP) 145/58 (87) Pulse Ox 97 O2 Delivery Room Air Capillary Refill : Less Than 3 Seconds Blood Pressure Mean: 87 Departure Communication (Admissions) CAR: NAD per radiology report. CTA chest: Moderate to high clot burden in lobar pulmonary arteries with findings of right heart strain per radiology report Patient with findings of moderate to large burden pulmonary emboli with heart strain. Dr. Mera to admit. Case discussed in detail with Dr. Crawford on-call for e-ICU. Recommendations for full heparinization without current indication for thrombolytic use and ICU admission Impression Primary Impression: Acute hypoxemic respiratory failure Additional Impressions: Pulmonary emboli Right-sided heart failure Disposition: ADMITTED INPATIENT Condition: Critical Admissions Decision to Admit Reason: Admit from ER (General) Decision to Admit/Date: Apr 07, 2022 Time/Decision to Admit Time: 18:58 Transfer Method of Transfer: EMS Departure-Patient Inst. Referrals: MARILIN TERRY MD (PCP) Primary Care Physician LC DE LOS SANTOS DO Apr 07, 2022 14:09
[2022-04-07 14:39] LABS: BASOPHILS % (AUTO) 0 % (0-10); EOSINOPHILS # (AUTO) 0.2 10^3/uL (0.0-0.3); EOSINOPHILS % (AUTO) 2 % (0-10); HEMATOCRIT 28 % (35-52); HEMOGLOBIN 9.2 g/dL (11.5-16.0); LYMPHOCYTES # (AUTO) 1.5 10^3/uL (1.0-4.0); LYMPHOCYTES % (AUTO) 14 % (12-44); MEAN CORPUSCULAR HEMOGLOBIN 31 pg (25-34); MEAN CORPUSCULAR HGB CONC 32 g/dL (32-36); MEAN CORPUSCULAR VOLUME 97 fL (80-99); MEAN PLATELET VOLUME 8.7 fL (9.0-12.2); MONOCYTES # (AUTO) 0.9 10^3/uL (0.0-1.0); MONOCYTES % (AUTO) 8 % (0-12); NEUTROPHILS # (AUTO) 7.9 10^3/uL (1.8-7.8); NEUTROPHILS % (AUTO) 75 % (42-75); PLATELET COUNT 305 10^3/uL (130-400); WHITE BLOOD COUNT 10.5 10^3/uL (4.3-11.0)
[2022-04-07 14:55] LABS: BILIRUBIN,TOTAL 0.2 MG/DL (0.1-1.0); CALCIUM 8.6 MG/DL (8.5-10.1); CREATININE SERUM 0.83 MG/DL (0.60-1.30)
[2022-04-07] MEDS ORDERED: NS IV 1000 ML 1,000 ML IV SCH ×2 (15:15→19:00)
[2022-04-07 15:31] LABS: PARTIAL THROMBOPLASTIN TIME 28 SEC (24-35); PROTHROMBIN TIME PATIENT 13.8 SEC (12.2-14.7)
[2022-04-07 15:55] LABS: FIBRIN DEGRADATION PRODUCTS >= 20.00 UG/ML (0.00-0.49)
[2022-04-07 16:46] LABS: BILIRUBIN,URINE NEGATIVE (NEGATIVE); CLARITY,URINE CLEAR; COLOR,URINE YELLOW; GLUCOSE, URINE (UA) NEGATIVE (NEGATIVE); KETONES,URINE NEGATIVE (NEGATIVE); LEUKOCYTE ESTERASE ,URINE TRACE (NEGATIVE); NITRITE,URINE NEGATIVE (NEGATIVE); PROTEIN,URINE NEGATIVE (NEGATIVE)
[2022-04-07 17:06] LABS: RBC,URINE 0-2 /HPF
[2022-04-07 17:07] LABS: BACTERIA,URINE TRACE /HPF; SQUAMOUS EPITHELIAL CELL,UR 0-2 /HPF
[2022-04-07] MEDS ORDERED: NS 100 ML (IVPB) BAG IV ONE (17:30)
[2022-04-07] MEDS ORDERED: IOHEXOL 350 MG/ML 150 ML (OMNIPAQUE 350) VIAL IV ONE (17:30)
[2022-04-07] MEDS ORDERED: HOLD METFORMIN - RECEIVED CONTRAST 20 ML VIAL IV SCH (17:30)
[2022-04-07] MEDS ORDERED: CATHETER FLUSH 10 ML SYR IV PRN (17:30)
--- NOTE | 2022-04-07 18:43 | Diagnostic Imaging Report ---
INDICATION: Left upper quadrant pain and shortness of air. EXAM: CTA chest, abdomen and pelvis TECHNIQUE: Thin axial sections through the chest, abdomen and pelvis are obtained following intravenous contrast bolus. Multiplanar MIP images were reconstructed and reviewed. All CT scans use one or more of the following dose optimizing techniques: automated exposure control, MA and/or KvP adjustment based on patient size and exam type or iterative reconstruction. FINDINGS: CTA CHEST: There is a moderate burden of acute pulmonary emboli involving both the right and left lungs. The pulmonary emboli are most abundant at the distal branch point of the left main pulmonary artery extending into the left upper and lower lobar and segmental pulmonary arteries. Right lower lobe segmental pulmonary emboli are present. Mild flattening of the intraventricular septum and dilation of the right ventricle raise the possibility of right ventricular strain. Normal-caliber thoracic aorta without dissection. No intrathoracic lymphadenopathy. Thyroid is normal. Mild centrilobular and paraseptal emphysema. No pneumonia or edema. There are no suspicious pulmonary nodules. No worrisome focal osseous lesions in the chest. CT ABDOMEN AND PELVIS: No free intraperitoneal air or fluid. The liver and spleen are normal. Cholelithiasis without features of acute cholecystitis. Pancreas is normal. No adrenal mass. Kidneys enhance normally without mass lesion or obstruction. Urinary bladder is normally filled. Hysterectomy. No adnexal mass. Colonic diverticulosis without diverticulitis. Normal-caliber abdominal aorta without dissection. Large paraesophageal hiatal hernia is noted. No abdominal or pelvic lymphadenopathy. No worrisome focal osseous lesions. IMPRESSION: 1. Zfcwxopk-to-egxkw burden of acute bilateral pulmonary emboli. There is suggestion of right ventricular strain. 2. No pulmonary infarct. 3. No acute abnormality in the abdomen or pelvis 4. No features of malignancy in the chest, abdomen or pelvis. Findings of pulmonary emboli were called to Dr. Serrano by Dr. Cohen at 06:30 p.m. on 04/07/2022. Dictated by: Dictated on workstation # [id number]
[2022-04-07] MEDS ORDERED: HEParin DRIP 25000 UNIT/500ML 500 ML IV ONE ×2 (19:00→22:34)
[2022-04-07] MEDS ORDERED: HEParin 1000 UNIT/ML (10ML VIAL) FOR BOLUS IV ONE (19:00)
[2022-04-07] MEDS ORDERED: LORazepam INJ 2 MG/ML (ATIVAN) VIAL ONE (19:56)
[2022-04-07] MEDS ORDERED: LORazepam INJ 2 MG/ML (ATIVAN) VIAL IVP ONE (20:00)
--- NOTE | 2022-04-07 22:00 | Tele-ICU Consult ---
History of Present Illness History of Present Illness Date Seen by Provider: Apr 07, 2022 Time Seen by Provider: 21:54 History of Present Illness 82 yo come to ED with drop in SpO2 to 80's, increased HR, RR and CTA which showed "There is a moderate burden of acute pulmonary emboli involving both the right and left lungs. The pulmonary emboli are most abundant at the distal branch point of the left main pulmonary artery extending into the left upper and lower lobar and segmental pulmonary arteries. Right lower lobe segmental pulmonary emboli are present. Mild flattening of the intraventricular septum and dilation of the right ventricle raise the possibility of right ventricular strain. d dimer is > 20 The patient is not hypotensive, After I spoke to ED attending we made plan to start on pt on IV heparin as BP was ok Allergies and Home Medications Allergies Coded Allergies: metoclopramide (Unverified Allergy, Mild, 03/14/16) prochlorperazine (Unverified Allergy, Mild, 03/14/16) HIGH ANXIETY REACTION Home Medications Acetaminophen 325 Mg Tablet, 650 MG PO HS TAKES 2 (325MG) TAB Prescribed by: MILAGROS MCDONNELL on 03/07/22 1013 Acetaminophen 325 Mg Tablet, 650 MG PO Q6H PRN for PAIN-MILD (1-4) TAKES 2 (325MG) TAB Prescribed by: MILAGROS MCDONNELL on 03/07/22 1013 Aspirin 81 Mg Tablet.dr, 81 MG PO DAILY Prescribed by: MILAGROS MCDONNELL on 03/07/22 1013 Buspirone HCl 15 Mg Tablet, 15 MG PO TID Prescribed by: MILAGROS MCDONNELL on 03/07/22 1013 Calcium Carbonate 200 Mg Calcium (500 Mg) Tab.chew, 200 MG PO UD PRN for HEART BURN Prescribed by: MILAGROS MCDONNELL on 03/07/22 1013 Cephalexin 500 Mg Capsule, 500 MG PO TID Prescribed by: JAYDEN TORRE on 04/06/22 1647 Cholecalciferol (Vitamin D3) 50 Mcg (2000 Unit) Tablet, 50 MCG PO DAILY Prescribed by: MILAGROS MCDONNELL on 03/07/22 1013 Donepezil HCl 10 Mg Tablet, 10 MG PO DAILY Prescribed by: MILAGROS MCDONNELL on 03/07/22 1013 Fluoxetine HCl 20 Mg Capsule, 20 MG PO DAILY Prescribed by: MILAGROS MCDONNELL on 03/07/22 1013 Fluticasone Propionate 50 Mcg/Actuation [place].susp, 2 SPRAY NS DAILY PRN for ALLERGIES Prescribed by: MILAGROS MCDONNELL on 03/07/22 1013 Losartan Potassium 25 Mg Tablet, 12.5 MG PO DAILY TAKES 1/2 OF (25MG) TAB Prescribed by: MILAGROS MCDONNELL on 03/07/22 101 Magnesium Oxide 250 Mg Tablet, 250 MG PO DAILY Prescribed by: MILAGROS MCDONNELL on 03/07/22 1013 Melatonin 5 Mg Tablet, 5 MG PO HS Prescribed by: MILAGROS MCDONNELL on 03/07/22 1013 Multivitamin with Folic Acid 400 Mcg Tablet, 400 MCG PO DAILY Prescribed by: MILAGROS MCDONNELL on 03/07/22 1013 Nitroglycerin 0.4 Mg Tab.subl, 0.4 MG SL UD PRN for CHEST PAIN Prescribed by: MILAGROS MCDONNELL on 03/07/22 1013 [place]-3/Dha/Epa/Fish Oil 1,000 Mg (120 Mg-180 Mg) Capsule, 1,000 MG PO DAILY Prescribed by: MILAGROS MCDONNELL on 03/07/22 101 Polyethylene Glycol 3350 17 Gram Powd.pack, 17 GM PO DAILY PRN for CONSTIPATION- 1ST LINE Prescribed by: MILAGROS MCDONNELL on 03/07/22 1013 Pravastatin Sodium 20 Mg Tablet, 20 MG PO DAILY Prescribed by: MILAGROS MCDONNELL on 03/07/22 1013 Spironolactone 25 Mg Tablet, 25 MG PO DAILY Prescribed by: MILAGROS MCDONNELL on 03/07/22 1013 Past Medical/Social/Family Hx Patient Social History Tobacco Use?: No Use of E-Cig and/or Vaping dev: No Substance use?: No Alcohol Use?: No Immunizations Up To Date First/Initial COVID19 Vaccinat: MAY 2020 Second COVID19 Vaccination Juan: JUN 2020 Tetanus Booster (TDap): Unknown Date of Pneumonia Vaccine: Mar 11, 2016 Current Status Advance Directives: Yes Primary Language: Haitian Preferred Spoken Language: Haitian Review of Systems Constitutional: see HPI Respiratory: see HPI, wheezing Focused Exam Lactate Level 04/07/22 14:00: Lactic Acid Level 2.44*H 04/07/22 16:24: Lactic Acid Level 2.98*H 04/07/22 18:20: Lactic Acid Level 2.03*H Height, Weight, BMI Height: 5'2" Weight: 139lbs. oz. 63.260048rw; 28.00 BMI Method:Stated Lactic Acid Level Laboratory Tests Test 04/07/22 18:20 Lactic Acid Level 2.03 MMOL/L (0.50-2.00) *H Exam Exam Patient acknowledged, consented, and participated in this virtual visit which was conducted using real time audio/video Vital Signs Date Time Temp Pulse Resp B/P (MAP) Pulse Ox O2 Delivery O2 Flow Rate FiO2 04/07/22 20:45 36.2 120 28 129/80 93 Nasal Cannula 5.00 5.00 04/07/22 13:20 89 Nasal Cannula 5.00 04/07/22 13:20 36.7 105 22 145/58 (87) 97 Room Air Height & Weight Height: 5'2" Weight: 139lbs. oz. 63.161706vj; 28.00 BMI Method:Stated General Appearance: Anxious, Moderate Distress Respiratory: Decreased Breath Sounds, Wheezing Cardiovascular: Tachycardia Capillary Refill: Less Than 3 Seconds Gastrointestinal: normal bowel sounds, non tender, soft Extremity: Pedal Edema (+2 leg edema) Neurologic/Psychiatric: Alert, Oriented x3 Results Lab Laboratory Tests 04/07/22 14:00 04/07/22 14:19 Assessment/Plan Assessment/Plan Large clot burden, with suggestion of RV strain but BP is good, will continue on IV heparin, rather than lytic therapy, check PTT @ 1 am, Pt is full code after discussion with family, If mental status changes, SpO2 < 90, BP drops, would intubate, spoke at length with project inspector: Critically Ill Patient Time spent with patient (mins): 25 AMBER SANTANA MD Apr 07, 2022 22:00
[2022-04-07] MEDS ORDERED: HYDROmorphone 2 MG/ML VIAL (DILAUDID) IV PRN (22:30)
[2022-04-07] MEDS ORDERED: MELATONIN 3 MG TABLET PO PRN (22:30)
[2022-04-07] MEDS ORDERED: BISACODYL 10 MG SUPP (DULCOLAX) PR PRN (22:30)
[2022-04-07] MEDS ORDERED: polyethylene glycoL POWDER 17 GM (MIRALAX) PACK PO PRN (22:30)
[2022-04-07] MEDS ORDERED: diphenhydrAMINE 50 MG/ML INJ (BENADRYL) IVP PRN (22:30)
[2022-04-07] MEDS ORDERED: NS IV 500 ML 500 ML IV PRN (22:30)
[2022-04-07] MEDS ORDERED: ACETAMINOPHEN 325 MG TABLET PO PRN (22:30)
[2022-04-07] MEDS ORDERED: ONDANSETRON 4 MG/2 ML (SDV) Z0FRAN IV PRN (22:30)
[2022-04-07] MEDS ORDERED: diphenhydrAMINE 25 MG TAB (BENADRYL) PO PRN (22:30)
[2022-04-07] MEDS ORDERED: ONDANSETRON 4 MG (ZOFRAN) ORAL DISSOLVE TAB PO PRN (22:30)
[2022-04-07] MEDS ORDERED: ANTACID SUSP 30 ML UDC (MYLANTA) PO PRN (22:30)
[2022-04-07 22:56] VITALS: BP 145/58
[2022-04-07] MEDS: HEParin DRIP 25000 UNIT/500ML 500 ML IV SCH (23:00)
[2022-04-07] MEDS ORDERED: RT-ALBUTEROL SULF 2.5 MG/3 ML PRE-MIX VIAL INH SCH (23:15)
[2022-04-07] MEDS ORDERED: NS IV 1000 ML 1,000 ML ONE (23:29)
[2022-04-07] MEDS: NS IV 1000 ML 1,000 ML IV SCH (23:31)
[2022-04-07] MEDS: NOREPINEPHRINE 8 MG/250 ML 250 ML IV SCH (23:51)
[2022-04-08 04:36] LABS: ABG OXYGEN SATURATION 47 % (94-100); ABG PCO2 34 MMHG (35-45); ABG PH 7.37 (7.37-7.43); ABG TCO2 20.3 MMOL/L (21.0-31.0)
[2022-04-08 04:37] LABS: ALLENS TEST YES-POS; INSPIRED O2 5L; PATIENT TEMP 37; VENTILATOR NO
[2022-04-08 04:42] LABS: ABG PO2 28 MMHG (79-93)
[2022-04-08 05:00] LABS: BASOPHILS % (AUTO) 0 % (0-10); EOSINOPHILS # (AUTO) 0.2 10^3/uL (0.0-0.3); EOSINOPHILS % (AUTO) 2 % (0-10); HEMATOCRIT 25 % (35-52); HEMOGLOBIN 7.8 g/dL (11.5-16.0); LYMPHOCYTES # (AUTO) 1.7 10^3/uL (1.0-4.0); LYMPHOCYTES % (AUTO) 18 % (12-44); MEAN CORPUSCULAR HEMOGLOBIN 31 pg (25-34); MEAN CORPUSCULAR HGB CONC 32 g/dL (32-36); MEAN CORPUSCULAR VOLUME 97 fL (80-99); MONOCYTES # (AUTO) 0.8 10^3/uL (0.0-1.0); MONOCYTES % (AUTO) 8 % (0-12); NEUTROPHILS # (AUTO) 6.8 10^3/uL (1.8-7.8); NEUTROPHILS % (AUTO) 71 % (42-75); PLATELET COUNT 297 10^3/uL (130-400); WHITE BLOOD COUNT 9.6 10^3/uL (4.3-11.0)
[2022-04-08 05:16] LABS: ALBUMIN 3.2 GM/DL (3.2-4.5); BILIRUBIN,TOTAL 0.4 MG/DL (0.1-1.0); CALCIUM 8.3 MG/DL (8.5-10.1); CREATININE SERUM 0.72 MG/DL (0.60-1.30); MAGNESIUM 1.9 MG/DL (1.6-2.4); PHOSPHORUS 3.4 MG/DL (2.3-4.7); POTASSIUM 3.9 MMOL/L (3.6-5.0)
[2022-04-08] MEDS: MAGNESIUM 1 GM/100 ML IVPB 100 ML IV SCH (05:39)
[2022-04-08] MEDS: POTASSIUM CL 10MEQ/50ML IVPB 50 ML IV SCH (05:39)
[2022-04-08] MEDS: KCL 20 MEQ TAB (K-DUR) PO SCH (05:40)
[2022-04-08] MEDS: inSUlin ASPART (NovoLOG) 1 UNIT/0.01 ML (CHARGE PER UNIT) SC SCH ×4 (06:18→20:41)
[2022-04-08] MEDS: RT-ALBUTEROL SULF 2.5 MG/3 ML PRE-MIX VIAL INH SCH ×4 (07:53→18:37)
--- NOTE | 2022-04-08 08:43 | Tele-ICU Progress Note ---
Subjective Date Seen by a Provider: Apr 08, 2022 Subjective/Events-last exam This virtual visit was conducted using real time audio/video. Thank you for asking us to see this patient for respiratory insufficiency due to B PEs Recent events: PMH: htn., HL., Dem., Covid 02/2022. PE: VSS. O2 sat 95% on 5 LPM. HEENT: No obvious masses, adenopathy or JVD. Chest: clear to auscultation, diminished. CV: RRR S1 S2 No murmur or added sounds. Abd: Non-tender. Bowel sounds Y. : Unremarkable. [place] Y. 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 No obvious focal findings. Extremities: 102+ edema. Capillary refill < 3 seconds. Skin: unremarkable. Results: Elevated lact 2.03, better, PTT 88. Decreased Hb 7.8.. B.37/34/28? on 5 L.. CXR: Poor quality. Available chart/ vitals / labs / images reviewed. Video assessment done using teleICU camera, rest of exam as per RN. A/P: Respiratory insufficiency: Continue present management with Heparin, O2, PRN albut. Monitor for increasing oxygenation needs and/or need for intubation. Critical Care: critically ill patient. Cont. SSI Discussed with RN Jacquie. Asked RN to reach out to eICU if any questions or concerns later. Time spent with patient/coordination of care with other health professionals (mins): 20 Sepsis Event Evaluation Height, Weight, BMI Height: 5'2" Weight: 139lbs. oz. 63.539312ox; 32.80 BMI Method:Stated Focused Exam Lactate Level 04/07/22 14:00: Lactic Acid Level 2.44*H 04/07/22 16:24: Lactic Acid Level 2.98*H 04/07/22 18:20: Lactic Acid Level 2.03*H Exam Exam Patient acknowledged, consented, and participated in this virtual visit which was conducted using real time audio/video Vital Signs Date Time Temp Pulse Resp B/P (MAP) Pulse Ox O2 Delivery O2 Flow Rate FiO2 04/08/22 08:00 98 21 129/72 (91) 93 Nasal Cannula 6.00 04/08/22 07:53 94 Nasal Cannula 6.00 04/08/22 07:00 98 29 130/69 (89) 94 Nasal Cannula 6.00 11/29/22 07:00 98 04/08/22 06:00 99 26 123/71 (88) 93 Nasal Cannula 6.00 04/08/22 05:00 93 28 115/67 (83) 95 Nasal Cannula 6.00 04/08/22 04:00 102 31 123/73 (90) 98 Nasal Cannula 6.00 04/08/22 04:00 95 Nasal Cannula 6.00 04/08/22 04:00 36.4 95 Nasal Cannula 6.00 04/08/22 03:00 102 24 92/53 (66) 96 Nasal Cannula 6.00 04/08/22 02:00 102 26 119/58 (78) 96 Nasal Cannula 6.00 04/08/22 01:00 105 04/08/22 01:00 105 14 140/67 (91) 93 Nasal Cannula 6.00 04/08/22 00:00 107 28 120/82 (95) 95 Nasal Cannula 6.00 04/08/22 00:00 36.8 96 Nasal Cannula 6.00 04/08/22 00:00 96 Nasal Cannula 6.00 04/07/22 23:51 105 145/58 04/07/22 23:00 106 25 125/73 (90) 96 Nasal Cannula 6.00 04/07/22 22:56 36.7 105 97 21 04/07/22 22:45 106 117/74 (88) 97 Nasal Cannula 6.00 04/07/22 22:30 108 20 126/95 (105) 95 Nasal Cannula 6.00 04/07/22 22:15 107 123/82 (96) 96 Nasal Cannula 6.00 04/07/22 22:00 92 Nasal Cannula 6.00 04/07/22 22:00 105 12 118/67 (84) 95 Nasal Cannula 6.00 04/07/22 21:45 109 26 120/75 (90) 94 Nasal Cannula 6.00 04/07/22 21:38 111 04/07/22 20:45 36.2 120 28 129/80 93 Nasal Cannula 5.00 5.00 04/07/22 13:20 89 Nasal Cannula 5.00 04/07/22 13:20 36.7 105 22 145/58 (87) 97 Room Air I & O 04/08/22 07:00 Intake Total 1232 ml Output Total 450 ml Balance 782 ml Height & Weight Height: 5'2" Weight: 139lbs. oz. 63.393326ut; 32.80 BMI Method:Stated General Appearance: Anxious, Moderate Distress Respiratory: Decreased Breath Sounds, Wheezing Cardiovascular: Tachycardia Capillary Refill: Less Than 3 Seconds Gastrointestinal: normal bowel sounds, non tender, soft Extremity: Pedal Edema (+2 leg edema) Neurologic/Psychiatric: Alert, Oriented x3 Results Lab Laboratory Tests 04/07/22 14:00 04/07/22 14:19 04/08/22 04:33 Assessment/Plan Assessment/Plan See free text. Critical Care: Critically Ill Patient JULIAN BAIRES MD Apr 08, 2022 08:43
[2022-04-08] MEDS: DOCUSATE SODIUM 100 MG (COLACE) CAP PO SCH ×2 (09:00→20:51)
[2022-04-08 09:47] LABS: ABG OXYGEN SATURATION 96 % (94-100); ABG PCO2 25 MMHG (35-45); ABG PH 7.43 (7.37-7.43); ABG PO2 74 MMHG (79-93); ABG TCO2 17.3 MMOL/L (21.0-31.0)
[2022-04-08 09:52] LABS: ALLENS TEST POSITIVE; INSPIRED O2 5 L; PATIENT TEMP 36.7; VENTILATOR NO
--- NOTE | 2022-04-08 10:50 | History & Physical-Hospitalist ---
MATAWEN 04/08/22 1050: History of Present Illness HPI/Chief Complaint Patient is an 82-year-old female with a history of HTN, HLD, and dementia who presented to the ED on 04/07 with chief complaint of shortness of breath. Patient was seen the day before in the ED and treated for a UTI. Staff at [facility] report that the patient was complaining of not being able to catch her breath and that her O2 saturation was at 91%. Per EMS, this improved to 98% after receiving a breathing treatment. D-Dimer was measured at over 20. CT showed a moderate to large burden of acute b/l pulmonary emboli with right ventricular strain. The patient was started on heparin and admitted to the ICU. The patient has maintained oxygen saturation in the 90s with 6L via NC. During the encounter, the patient was anxious and stated that she felt like she could not catch her breath. The patient also states that she feels very weak and that she has had difficulty moving around due to this weakness. The patient also reports having an intermittent sharp pain in her left flank that she states has been going on for some time. She has b/l lower extremity edema which she says has been occurring over the past five months. The patient has no other complaints. Source: patient, RN/MD, RN notes reviewed Exam Limitations: no limitations Date Seen 04/08/22 Attending Physician Junior Nayak MD PCP Admitting Physician: Deborah Mera DO Attending Physician: Deborah Mera DO Referring Physician Date of Admission Apr 07, 2022 at 21:27 Home Medications & Allergies Home Medications Reviewed patient Home Medication Reconciliation performed by pharmacy medication reconciliations inorganic chemical technician and/or nursing. Patients Allergies have been reviewed. Allergies Allergies Coded Allergies metoclopramide (Unverified Allergy, Mild, 03/14/16) prochlorperazine (Unverified Allergy, Mild, 03/14/16) HIGH ANXIETY REACTION Past Qvvttzq-Ujsqei-Hfphfe Hx Patient Social History Tobacco Use?: No Smoking Status: Former Smoker Use of E-Cig and/or Vaping dev: No Substance use?: No Alcohol Use?: No Pt feels they are or have been: No Immunizations Up To Date Date of Influenza Vaccine: Feb 06, 2022 First/Initial COVID19 Vaccinat: MAY 2020 Second COVID19 Vaccination Juan: JUN 2020 Tetanus Booster (TDap): Unknown Date of Pneumonia Vaccine: Mar 11, 2016 Current Status Advance Directives: Yes Advance Directive Location: Family to bring in copy Primary Language: Tuvaluan Preferred Spoken Language: Tuvaluan Is interpretation needed?: No Sensory deficits: Vision impairment Implanted or Applied Medical D: Stents Past Medical History Surgeries: Hysterectomy, Orthopedic High Cholesterol, Hypertension Chronic Constipation Tinnitis Family Medical History No Pertinent Family Hx Review of Systems Constitutional: No chills, No fever; weakness EENTM: No hearing loss, No blurred vision, No double vision, No vision loss Respiratory: cough (dry); No hemoptysis, No phlegm; short of breath Cardiovascular: No chest pain, No palpitations Gastrointestinal: No abdominal pain, No nausea, No vomiting Genitourinary: No discharge, No hematuria Musculoskeletal: No back pain, No joint swelling Skin: No change in color, No change in hair/nails Psychiatric/Neurological: Anxiety, Depressed Physical Exam Physical Exam Vital Signs Vital Signs - First Documented 04/07/22 04/07/22 13:20 22:56 Temp 36.7 Pulse 105 Resp 22 B/P (MAP) 145/58 (87) Pulse Ox 97 O2 Delivery Room Air O2 Flow Rate 5.00 FiO2 21 Capillary Refill : Less Than 3 Seconds Height, Weight, BMI Height: 5'2" Weight: 139lbs. oz. [id number]; 32.80 BMI Method:Stated General Appearance: No Apparent Distress, WD/WN, Anxious HEENT: PERRL/EOMI Neck: Non Tender, Supple Respiratory: No Accessory Muscle Use, No Respiratory Distress, Decreased Breath Sounds Cardiovascular: Regular Rate, Rhythm, No Murmur, Normal Peripheral Pulses Gastrointestinal: Non Tender, Soft Rectal: Deferred Back: No CVA Tenderness, No Vertebral Tenderness Extremity: Non Tender, No Calf Tenderness, Pedal Edema (b/l) Neurologic/Psychiatric: Alert, Oriented x3 Skin: Normal Color, Warm/Dry Lymphatic: No Adenopathy Results Results/Procedures Labs Laboratory Tests 04/07/22 14:00 04/07/22 14:19 04/08/22 04:33 Patient resulted labs reviewed. Assessment/Plan Admission Diagnosis Acute respiratory failure Admission Status: Inpatient Order (span 2 midnights) Reason for Inpatient Admission: Acute respiratory failure Assessment and Plan Acute respiratory failure with hypoxia Pulmonary embolism HTN HLD Dementia Anxiety Depression Anemia UTI Continue oxygen Continue heparin Monitor hg, transfuse if needed Continue IV fluids Continue albuterol Start home meds Continue antibiotics Clinical Quality Measures DVT/VTE Risk/Contraindication: Contraindications-Mechi: Other *list below* Other: possible DVT [place] DEBORAH MERA DO 04/09/22 0458: History of Present Illness HPI/Chief Complaint CC: Acute respiratory failure due to saddle pulmonary emboli HPI: This is an 82 yr old female jail pt who is known to me from the [facility] unit. She presented to the ICU after [place] ER evaluation found to have saddle pulmonary emboli in need of Heparin drip with right heart strain so an echocardiogram was ordered. She does have significant dementia and anxiety so we'll restart her home medication once reconciled. She is requiring oxygen. Source: patient, RN/MD, RN notes reviewed Exam Limitations: no limitations Time Seen by a Provider: 10:00 Past Rdlvdwe-Ggipni-Zcrdlp Hx Patient Social History Marrital Status: single Employed/Student: retired Review of Systems Constitutional: see HPI Respiratory: dyspnea on exertion Cardiovascular: chest pain Physical Exam Physical Exam General Appearance: No Apparent Distress, Anxious, Chronically ill Respiratory: No Accessory Muscle Use, No Respiratory Distress, Decreased Breath Sounds Neurologic/Psychiatric: Alert, Disoriented Assessment/Plan Admission Diagnosis Acute respiratory failure Saddle PE Dementia plan: Hep gtts Home meds Admission Status: Inpatient Order (span 2 midnights) Reason for Inpatient Admission: saddle pe Supervisory-Addendum Brief Verification & Attestation Participated in pt care: history, MDM, physical Personally performed: exam, history, MDM, supervision of care Care discussed with: Medical Student Procedures: n/a Results interpretation: Verified all documentation Verification and Attestation of Medical Student E/M Service A medical student performed and documented this service in my presence. I reviewed and verified all information documented by the medical student and made modifications to such information, when appropriate. I personally performed the physical exam and medical decision making. Deborah Mera, Apr 09, 2022,04:58 WEN AUGUST Apr 08, 2022 10:50 DEBORAH MERA DO Apr 09, 2022 04:58
[2022-04-08] MEDS ORDERED: QUET25TA PO (15:21)
[2022-04-08] MEDS ORDERED: MELA3TAB39 PO (15:21)
[2022-04-08] MEDS ORDERED: SPIR25TA PO (15:21)
[2022-04-08] MEDS ORDERED: ACET-2267 PO (15:21)
[2022-04-08] MEDS ORDERED: LOSA25TA41 PO (15:21)
[2022-04-08] MEDS ORDERED: PRAV20TA3 PO (15:21)
[2022-04-08] MEDS ORDERED: FLUO20TA28 PO (15:21)
[2022-04-08] MEDS ORDERED: GABA-486 PO (15:21)
[2022-04-08] MEDS ORDERED: BUSP15TA60 PO (15:21)
[2022-04-08] MEDS ORDERED: ASPI-999 PO (15:21)
[2022-04-08] MEDS: NOREPINEPHRINE 8 MG/250 ML 250 ML IV SCH (16:37)
[2022-04-08] MEDS: NS IV 1000 ML 1,000 ML IV SCH (16:37)
[2022-04-08] MEDS: DexMEDEtomidine 250 ML DRIP 250 ML IV SCH (19:22)
[2022-04-08] MEDS: AtorvaSTATin TABLET 10 MG TABLET PO SCH (20:51)
[2022-04-08] MEDS: ACETAMINOPHEN 500 MG TAB (TYLENOL) PO SCH (20:51)
[2022-04-08] MEDS: QUEtiapine 25 MG (SEROquel) TAB IMMEDIATE RELEASE PO SCH (20:51)
[2022-04-08] MEDS: busPIRone 15 MG (BUSPAR) TABLET PO SCH (20:52)
[2022-04-08] MEDS: MELATONIN 3 MG TABLET PO SCH (20:52)
[2022-04-08] MEDS: GABAPENTIN 100 MG (NEURONTIN) CAP PO SCH (20:52)
[2022-04-08] MEDS ORDERED: NON-FORMULARY MEDICATION 1 EA EA (Pravastatin Sodium 20 MG) PO SCH (21:00)
[2022-04-09] MEDS ORDERED: NS IV 1000 ML 1,000 ML IV SCH (00:45)
[2022-04-09] MEDS ORDERED: NS IV 500 ML 500 ML IV SCH ×2 (00:45→04:15)
[2022-04-09] MEDS ORDERED: NS IV 1000 ML 1,000 ML ONE (01:07)
[2022-04-09] MEDS ORDERED: NS IV 500 ML 500 ML ONE (04:19)
[2022-04-09] MEDS: RT-ALBUTEROL SULF 2.5 MG/3 ML PRE-MIX VIAL INH PRN (04:23)
[2022-04-09 05:35] LABS: BASOPHILS % (AUTO) 0 % (0-10); EOSINOPHILS # (AUTO) 0.4 10^3/uL (0.0-0.3); EOSINOPHILS % (AUTO) 4 % (0-10); HEMATOCRIT 24 % (35-52); HEMOGLOBIN 7.7 g/dL (11.5-16.0); LYMPHOCYTES # (AUTO) 1.4 10^3/uL (1.0-4.0); LYMPHOCYTES % (AUTO) 15 % (12-44); MEAN CORPUSCULAR HEMOGLOBIN 31 pg (25-34); MEAN CORPUSCULAR HGB CONC 32 g/dL (32-36); MEAN CORPUSCULAR VOLUME 98 fL (80-99); MEAN PLATELET VOLUME 9.2 fL (9.0-12.2); MONOCYTES # (AUTO) 0.8 10^3/uL (0.0-1.0); MONOCYTES % (AUTO) 8 % (0-12); NEUTROPHILS % (AUTO) 73 % (42-75); PLATELET COUNT 286 10^3/uL (130-400); WHITE BLOOD COUNT 9.6 10^3/uL (4.3-11.0)
[2022-04-09 06:02] LABS: ALBUMIN 3.1 GM/DL (3.2-4.5); BILIRUBIN,TOTAL 0.4 MG/DL (0.1-1.0); CREATININE SERUM 0.68 MG/DL (0.60-1.30); MAGNESIUM 1.9 MG/DL (1.6-2.4); PHOSPHORUS 4.2 MG/DL (2.3-4.7); POTASSIUM 3.8 MMOL/L (3.6-5.0); TOTAL PROTEIN 5.8 GM/DL (6.4-8.2)
[2022-04-09] MEDS: KCL 20 MEQ TAB (K-DUR) PO SCH (06:43)
[2022-04-09] MEDS: POTASSIUM CL 10MEQ/50ML IVPB 50 ML IV SCH (06:43)
[2022-04-09] MEDS: MAGNESIUM 1 GM/100 ML IVPB 100 ML IV SCH (06:43)
[2022-04-09] MEDS: inSUlin ASPART (NovoLOG) 1 UNIT/0.01 ML (CHARGE PER UNIT) SC SCH ×4 (06:44→20:33)
[2022-04-09] MEDS: RT-ALBUTEROL SULF 2.5 MG/3 ML PRE-MIX VIAL INH SCH ×3 (07:52→20:50)
--- NOTE | 2022-04-09 08:31 | Tele-ICU Progress Note ---
Subjective Date Seen by a Provider: Apr 09, 2022 Subjective/Events-last exam This virtual visit was conducted using real time audio/video. Thank you for asking us to see this patient for respiratory insufficiency due to B PEs Recent events: on Precedex briefly. PMH: htn., HL., Dem., Covid 02/2022. PE: Comfortable. VSS. O2 sat 98% on 5 LPM. HEENT: No obvious masses, adenopathy or JVD. Chest: clear to auscultation, diminished. CV: RRR S1 S2 No murmur or added sounds. Abd: Non-tender. Bowel sounds Y. : Unremarkable. Whyte Y. TECHNICAL INSPECTOR/psychiatric: Grossly intact. No obvious focal findings. Extremities: 102+ edema. Capillary refill < 3 seconds. Skin: unremarkable. Results: Elevated lact 2.03, better. PTT 88. Decreased Hb 7.7. B.43 /25/74 on 5 L.. CXR: Poor quality. Available chart/ vitals / labs / images reviewed. Video assessment done using teleICU camera, rest of exam as per RN. A/P: Respiratory insufficiency: Continue present management with Heparin, O2, PRN albut.PRN Precedex. Monitor for increasing oxygenation needs and/or need for intubation. Critical Care: critically ill patient. Cont. SSI Heparin, ASA, buspar, neurontin, cozaar, statin,aldact. Discussed with RN CJ. Asked RN to reach out to eICU if any questions or concerns later. Time spent with patient/coordination of care with other health professionals (mins):18 Sepsis Event Sepsis Event Evaluation Height, Weight, BMI Height: 5'2" Weight: 139lbs. oz. 63.587210io; 32.80 BMI Method:Stated Focused Exam Lactate Level 04/07/22 14:00: Lactic Acid Level 2.44*H 04/07/22 16:24: Lactic Acid Level 2.98*H 04/07/22 18:20: Lactic Acid Level 2.03*H Exam Exam Patient acknowledged, consented, and participated in this virtual visit which was conducted using real time audio/video Vital Signs Date Time Temp Pulse Resp B/P (MAP) Pulse Ox O2 Delivery O2 Flow Rate FiO2 04/09/22 07:58 36.9 04/09/22 07:53 97 Nasal Cannula 5.00 04/09/22 07:00 87 04/09/22 06:00 79 27 107/61 (76) 100 Nasal Cannula 5.00 04/09/22 05:00 90 62 105/49 (67) 99 Nasal Cannula 5.00 04/09/22 04:23 99 Nasal Cannula 6.00 04/09/22 04:18 36.5 04/09/22 04:00 85 45 83/51 (62) 100 Nasal Cannula 5.00 04/09/22 04:00 100 Nasal Cannula 5.00 04/09/22 03:00 78 19 83/45 (58) 100 Nasal Cannula 5.00 04/09/22 02:00 83 28 115/60 (78) 97 Nasal Cannula 5.00 04/09/22 01:00 92 113/63 (80) 99 Nasal Cannula 5.00 04/09/22 01:00 81 04/09/22 00:00 95 Nasal Cannula 5.00 04/09/22 00:00 74 92/56 (68) 97 Nasal Cannula 5.00 04/08/22 23:56 80 89/56 04/08/22 23:42 36.2 04/08/22 23:00 79 89/56 (67) 98 Nasal Cannula 5.00 04/08/22 22:00 81 91/56 (68) 90 Nasal Cannula 5.00 04/08/22 21:00 85 97 Nasal Cannula 5.00 04/08/22 20:00 98 104/57 (73) 100 Nasal Cannula 5.00 04/08/22 20:00 93 Nasal Cannula 5.00 04/08/22 19:46 36.7 04/08/22 19:22 116 176/101 04/08/22 19:00 102 55 111/50 (70) 91 Nasal Cannula 5.00 04/08/22 19:00 104 04/08/22 18:50 96 Nasal Cannula 4.00 04/08/22 18:37 99 Nasal Cannula 6.00 04/08/22 18:00 99 22 118/83 (95) 95 Nasal Cannula 5.00 04/08/22 17:00 94 27 116/68 (84) 99 Nasal Cannula 5.00 04/08/22 16:00 36.7 04/08/22 16:00 93 25 116/60 (78) 96 Nasal Cannula 5.00 04/08/22 15:00 96 21 104/91 (95) 98 Nasal Cannula 5.00 04/08/22 15:00 Nasal Cannula 5.00 04/08/22 14:59 Nasal Cannula 5.00 04/08/22 14:48 98 Nasal Cannula 10.00 04/08/22 14:20 Nasal Cannula 10.00 04/08/22 14:00 93 29 100/50 (67) 97 Nasal Cannula 4.00 04/08/22 13:00 102 29 121/60 (80) 96 Nasal Cannula 4.00 04/08/22 13:00 90 04/08/22 12:00 36.5 04/08/22 12:00 94 25 100/59 (73) 95 Nasal Cannula 6.00 04/08/22 11:30 Nasal Cannula 4.00 04/08/22 11:08 94 Nasal Cannula 4.00 04/08/22 11:01 96 Nasal Cannula 6.00 04/08/22 11:00 91 22 111/65 (80) 95 Nasal Cannula 6.00 04/08/22 10:00 98 13 114/56 (75) 96 Nasal Cannula 6.00 04/08/22 09:00 107 22 140/65 (90) 94 Nasal Cannula 6.00 I & O 04/09/22 07:00 Intake Total 2530 ml Output Total 1175 ml Balance 1355 ml Height & Weight Height: 5'2" Weight: 139lbs. oz. 63.360351yv; 32.80 BMI Method:Stated General Appearance: No Apparent Distress, Anxious, Chronically ill HEENT: PERRL/EOMI Neck: Non Tender, Supple Respiratory: No Accessory Muscle Use, No Respiratory Distress, Decreased Breath Sounds Cardiovascular: Regular Rate, Rhythm, No Murmur, Normal Peripheral Pulses Capillary Refill: Less Than 3 Seconds Gastrointestinal: normal bowel sounds, non tender, soft Extremity: Non Tender, No Calf Tenderness, Pedal Edema (b/l) Neurologic/Psychiatric: Alert, Disoriented Skin: Normal Color, Warm/Dry Lymphatic: No Adenopathy Results Lab Laboratory Tests 04/07/22 14:00 04/07/22 14:19 04/08/22 04:33 04/09/22 04:39 Assessment/Plan Assessment/Plan See free text Critical Care: Critically Ill Patient JULIAN BAIRES MD Apr 09, 2022 08:31
--- NOTE | 2022-04-09 08:39 | Diagnostic Imaging Report ---
PROCEDURE: US Venous Lower Ext Yuri. TECHNIQUE: Multiple real-time grayscale images were obtained over the lower extremities in various projections, bilaterally. Additional duplex Doppler and color Doppler images were also obtained. INDICATION: Lower extremity swelling. COMPARISON: None. FINDINGS: Partially occlusive thrombus is visualized within the right common femoral artery, which demonstrates partial compressibility. The right profunda femoris and superficial femoral veins demonstrate normal compressibility and color Doppler filling. Partially occlusive deep vein thrombus is seen in the right popliteal vein and calf vessels of the right lower extremity. The left common femoral, profunda femoris, and proximal portions of the left superficial femoral veins are patent with normal compressibility and color Doppler filling. There is occlusive deep vein thrombus within the distal left superficial femoral vein with extension into the left popliteal vein and calf vessels of the left lower extremity. IMPRESSION: 1. Occlusive deep vein thrombus within the distal left superficial femoral vein with extension into the left popliteal vein and calf vessels of the left lower extremity. 2. Partially occlusive deep vein thrombus within the right common femoral vein, right popliteal vein, and calf vessels of the right lower extremity. Results were given to the patient's nurse by the white work cleaner immediately following the exam. Dictated by: Dictated on workstation # [id number]
[2022-04-09 09:10] LABS: ABG OXYGEN SATURATION 97 % (94-100); ABG PCO2 28 MMHG (35-45); ABG PH 7.38 (7.37-7.43); ABG PO2 73 MMHG (79-93)
[2022-04-09] MEDS: NS IV 1000 ML 1,000 ML IV SCH (09:14)
[2022-04-09] MEDS: DOCUSATE SODIUM 100 MG (COLACE) CAP PO SCH ×2 (09:15→20:28)
[2022-04-09] MEDS: ACETAMINOPHEN 500 MG TAB (TYLENOL) PO SCH ×3 (09:15→20:28)
[2022-04-09] MEDS: FLUoxetine HCL 20 MG (PROzac) CAP PO SCH (09:15)
[2022-04-09] MEDS: QUEtiapine 25 MG (SEROquel) TAB IMMEDIATE RELEASE PO SCH ×3 (09:15→20:28)
[2022-04-09] MEDS: SPIRONOLACTONE 25 MG (ALDACTONE) TAB PO SCH (09:15)
[2022-04-09] MEDS: ASPIRIN 81 MG CHEW (CHILDREN'S ASA) PO SCH (09:15)
[2022-04-09] MEDS: LOSARTAN 25 MG (COZAAR) TAB PO SCH (09:15)
[2022-04-09] MEDS: busPIRone 15 MG (BUSPAR) TABLET PO SCH ×3 (09:15→20:28)
[2022-04-09] MEDS: GABAPENTIN 100 MG (NEURONTIN) CAP PO SCH ×3 (09:15→20:28)
[2022-04-09 09:18] LABS: ALLENS TEST YES-POS; INSPIRED O2 5L; PATIENT TEMP 36.9; VENTILATOR NO
--- NOTE | 2022-04-09 09:28 | Progress Note - Hospitalist ---
Subjective HPI/CC On Admission Date Seen by Provider: Apr 09, 2022 Time Seen by Provider: 09:30 CC: Acute respiratory failure due to saddle pulmonary emboli HPI: This is an 82 yr old female [facility] pt who is known to me from the [facility] unit. She presented to the ICU after [place] ER evaluation found to have saddle pulmonary emboli in need of Heparin drip with right heart strain so an echocardiogram was ordered. She does have significant dementia and anxiety so we'll restart her home medication once reconciled. She is requiring oxygen. Subjective/Events-last exam Pt is doing about the same Wheezing is noted PT and OT will be ordered Bilateral DVT confirmed on venous ultrasound Checked meds and labs Review of Systems General: Fatigue, Malaise Pulmonary: Dyspnea Neurological: Confusion Focused Exam Lactate Level 04/07/22 14:00: Lactic Acid Level 2.44*H 04/07/22 16:24: Lactic Acid Level 2.98*H 04/07/22 18:20: Lactic Acid Level 2.03*H Objective Exam Vital Signs Vital Signs Date Time Temp Pulse Resp B/P (MAP) Pulse Ox O2 Delivery O2 Flow Rate FiO2 04/10/22 04:00 99 Nasal Cannula 5.00 04/10/22 02:02 82 107/55 04/10/22 00:54 37.1 04/09/22 20:00 26 04/07/22 22:56 21 Capillary Refill : Less Than 3 Seconds General Appearance: No Apparent Distress, WD/WN, Chronically ill Respiratory: No Accessory Muscle Use, No Respiratory Distress, Decreased Breath Sounds, Wheezing Cardiovascular: Regular Rate, Rhythm Neurologic/Psychiatric: Alert, Oriented x3, Disoriented Results/Procedures Lab Laboratory Tests 04/10/22 04:30 Patient resulted labs reviewed. Assessment/Plan Assessment and Plan Assess & Plan/Chief Complaint Acute respiratory failure with hypoxia Pulmonary embolism saddle type remains on hep gtts Bilateral lower extremity DVT's HTN HLD Dementia Anxiety Depression Anemia Continue oxygen Continue heparin Monitor hg, transfuse if needed Continue IV fluids Continue albuterol Start home meds Critical Care Critically Ill Patient Clinical Quality Measures DVT/VTE Risk/Contraindication: Contraindications-Mechi: Other *list below* Other: possible DVT SMITA MONTES DO Apr 09, 2022 09:28
[2022-04-09] MEDS: NOREPINEPHRINE 8 MG/250 ML 250 ML IV SCH (09:30)
--- NOTE | 2022-04-09 09:58 | Consultation-Cardiology ---
HPI-Cardiology Cardiology Consultation: Date of Consultation 04/09/22 Time Seen by a Provider: 10:00 Date of Admission 04-07-22 Attending Physician Junior Nayak MD Admitting Physician Admitting Physician: Deborah Crane DO Attending Physician: Deborah Crane DO Consulting Physician Monet Pa MD HPI: Chief Complaint: Pulmonary Embolism Ms. Irvin is an 82 yr old female admitted to ICU 1 from the ED with pulmonary embolism. She is unable to provide any information. She is lethargic this morning and has dementia. She awakens easily, but does not answer any questions. Information has been obtained from a review of the chart. Review of Systems-Cardiology Review of Systems : No Other comments Unable to obtain All Other Systems Reviewed Negative Unless Noted: No [id number]-[id number]-[id number] Hx Patient Social History Marrital Status: single Employed/Student: retired Smoking Status: Former Smoker Have you traveled recently?: No Alcohol Use?: No Pt feels they are or have been: No Immunizations Up To Date Tetanus Booster (TDap): Unknown Date of Pneumonia Vaccine: Mar 11, 2016 Date of Influenza Vaccine: Feb 06, 2022 Past Medical History PMH As described under Assessment. Family Medical History Family Medical History: Unable to obtain Allergies and Home Medications Allergies Coded Allergies: metoclopramide (Unverified Allergy, Mild, 03/14/16) prochlorperazine (Unverified Allergy, Mild, 03/14/16) HIGH ANXIETY REACTION Patient Home Medication List Acetaminophen (Tylenol Extra Strength) 500 Mg Tablet, 500 MG PO TID, (Reported) Entered as Reported by: ABDIRASHID PICHARDO on 04/08/221520 Last Action: Continued Aspirin (Aspirin) 81 Mg Tab.chew, 81 MG PO DAILY, (Reported) Entered as Reported by: ABDIRASHID PICHARDO on 04/08/221520 Last Action: Continued Buspirone HCl (Buspirone HCl) 15 Mg Tablet, 15 MG PO TID, (Reported) Entered as Reported by: ABDIRASHID PICHARDO on 04/08/221520 Last Action: Continued Fluoxetine HCl (Fluoxetine HCl) 20 Mg Tablet, 20 MG PO DAILY, (Reported) Entered as Reported by: ABDIRASHID PICHARDO on 04/08/221520 Last Action: Continued Gabapentin (Gabapentin) 100 Mg Capsule, 100 MG PO TID, (Reported) Entered as Reported by: ABDIRASHID PICHARDO on 04/08/221520 Last Action: Continued Losartan Potassium (Losartan Potassium) 25 Mg Tablet, 25 MG PO DAILY, (Reported) Entered as Reported by: ABDIRASHID PICHARDO on 04/08/221520 Last Action: Continued Melatonin (Melatonin) 3 Mg Tablet, 6 MG PO HS, (Reported) Entered as Reported by: ABDIRASHID PICHARDO on 04/08/221520 Last Action: Continued Pravastatin Sodium (Pravastatin Sodium) 20 Mg Tablet, 20 MG PO HS, (Reported) Entered as Reported by: ABDIRASHID PICHARDO on 04/08/221520 Last Action: Converted Quetiapine Fumarate (Seroquel) 25 Mg Tablet, 50 MG PO TID, (Reported) Entered as Reported by: ABDIRASHID PICHARDO on 04/08/221520 Last Action: Continued Spironolactone (Aldactone) 25 Mg Tablet, 25 MG PO DAILY, (Reported) Entered as Reported by: ABDIRASHID PICHARDO on 04/08/221520 Last Action: Continued Discontinued Medications Acetaminophen (Tylenol) 325 Mg Tablet, 650 MG PO HS Discontinued Reason: No Longer Taking Prescribed by: MILAGROS MCDONNELL on 03/07/221012 Last Action: Discontinued Aspirin (Aspirin EC) 81 Mg Tablet.dr, 81 MG PO DAILY Discontinued Reason: No Longer Taking Prescribed by: MILAGROS MCDONNELL on 03/07/221012 Last Action: Discontinued Buspirone HCl (Buspirone HCl) 15 Mg Tablet, 15 MG PO TID Discontinued Reason: No Longer Taking Prescribed by: MILAGROS MCDONNELL on 03/07/221012 Last Action: Discontinued Calcium Carbonate (Tums) 200 Mg Calcium (500 Mg) Tab.chew, 200 MG PO UD PRN for HEART BURN Discontinued Reason: No Longer Taking Prescribed by: MILAGROS MCDONNELL on 03/07/221012 Last Action: Discontinued Cephalexin (Cephalexin) 500 Mg Tablet, 500 MG PO QID Prescribed by: JAYDEN TORRE on 04/06/221646 Cephalexin (Cephalexin) 500 Mg Capsule, 500 MG PO TID Discontinued Reason: No Longer Taking Prescribed by: JAYDEN TORRE on 04/06/221646 Last Action: Discontinued Cholecalciferol (Vitamin D3) (Vitamin D3) 50 Mcg (2000 Unit) Tablet, 50 MCG PO DAILY Discontinued Reason: No Longer Taking Prescribed by: MILAGROS MCDONNELL on 03/07/221012 Last Action: Discontinued Donepezil HCl (Donepezil HCl) 10 Mg Tablet, 10 MG PO DAILY Discontinued Reason: No Longer Taking Prescribed by: MILAGROS MCDONNELL on 03/07/221012 Last Action: Discontinued Fluoxetine HCl (Fluoxetine HCl) 20 Mg Capsule, 20 MG PO DAILY Discontinued Reason: No Longer Taking Prescribed by: MILAGROS MCDONNELL on 03/07/221012 Last Action: Discontinued Fluticasone Propionate (Flonase Allergy Relief) 50 Mcg/Actuation [place].susp, 2 SPRAY NS DAILY PRN for ALLERGIES Discontinued Reason: No Longer Taking Prescribed by: MILAGROS MCDONNELL on 03/07/221012 Last Action: Discontinued Losartan Potassium (Losartan Potassium) 25 Mg Tablet, 12.5 MG PO DAILY Discontinued Reason: No Longer Taking Prescribed by: MILAGROS MCDONNELL on 03/07/221012 Last Action: Discontinued Magnesium Oxide (Magnesium) 250 Mg Tablet, 250 MG PO DAILY Discontinued Reason: No Longer Taking Prescribed by: MILAGROS MCDONNELL on 03/07/221012 Last Action: Discontinued Melatonin (Melatonin) 5 Mg Tablet, 5 MG PO HS Discontinued Reason: No Longer Taking Prescribed by: MILAGROS MCDONNELL on 03/07/221012 Last Action: Discontinued Multivitamin with Folic Acid (One Daily Multivitamin Tablet) 400 Mcg Tablet, 400 MCG PO DAILY Discontinued Reason: No Longer Taking Prescribed by: MILAGROS MCDONNELL on 03/07/221012 Last Action: Discontinued Nitroglycerin (Nitroglycerin) 0.4 Mg Tab.subl, 0.4 MG SL UD PRN for CHEST PAIN Discontinued Reason: No Longer Taking Prescribed by: MILAGROS MCDONNELL on 03/07/221012 Last Action: Discontinued [place]-3/Dha/Epa/Fish Oil (Fish Oil 1,000 mg Softgel) 1,000 Mg (120 Mg-180 Mg) Capsule, 1,000 MG PO DAILY Discontinued Reason: No Longer Taking Prescribed by: MILAGROS MCDONNELL on 03/07/221012 Last Action: Discontinued Polyethylene Glycol 3350 (Miralax) 17 Gram Powd.pack, 17 GM PO DAILY PRN for CONSTIPATION-1ST LINE Discontinued Reason: No Longer Taking Prescribed by: MILAGROS MCDONNELL on 03/07/221012 Last Action: Discontinued Pravastatin Sodium (Pravastatin Sodium) 20 Mg Tablet, 20 MG PO DAILY Discontinued Reason: No Longer Taking Prescribed by: MILAGROS MCDONNELL on 03/07/22 1013 Last Action: Discontinued Spironolactone (Spironolactone) 25 Mg Tablet, 25 MG PO DAILY Discontinued Reason: No Longer Taking Prescribed by: MILAGROS MCDONNELL on 03/07/22 1013 Last Action: Discontinued Physical Exam-Cardiology Physical Exam Vital Signs/I&O 04/09/22 04/09/22 04/09/22 04/09/22 20:00 20:00 20:50 21:00 Pulse 93 99 Resp 26 B/P (MAP) 126/67 (86) 130/52 (78) Pulse Ox 99 99 97 97 O2 Delivery Nasal Cannula Nasal Cannula Nasal Cannula Nasal Cannula O2 Flow Rate 5.00 5.00 5.00 5.00 04/09/22 04/09/22 04/10/22 04/10/22 22:00 23:00 00:00 00:00 Pulse 96 90 91 B/P (MAP) 94/49 (64) 103/57 (72) 96/52 (67) Pulse Ox 98 98 98 98 O2 Delivery Nasal Cannula Nasal Cannula Nasal Cannula Nasal Cannula O2 Flow Rate 5.00 5.00 5.00 5.00 04/10/22 04/10/22 04/10/22 04/10/22 00:54 01:00 01:00 02:00 Temp 37.1 Pulse 86 90 86 B/P (MAP) 104/65 (78) 107/55 (72) Pulse Ox 98 98 O2 Delivery Nasal Cannula Nasal Cannula O2 Flow Rate 5.00 5.00 04/10/22 04/10/22 04/10/22 04/10/22 02:02 03:00 04:00 04:00 Temp 37.0 Pulse 82 85 B/P (MAP) 107/55 112/62 (79) Pulse Ox 97 99 O2 Delivery Nasal Cannula Nasal Cannula O2 Flow Rate 5.00 5.00 04/10/22 04/10/22 04/10/22 04:00 05:00 06:00 Pulse 89 95 80 Resp 33 B/P (MAP) 101/59 (73) 109/54 (72) 107/64 (78) Pulse Ox 99 97 100 O2 Delivery Nasal Cannula Nasal Cannula Nasal Cannula O2 Flow Rate 5.00 5.00 5.00 04/10/22 00:00 Intake Total 640 ml Output Total 2025 ml Balance -1385 ml Capillary Refill : Less Than 3 Seconds Constitutional: other (Lethargic; opens eyes to coversation, but does not answer questions) HEENT: hard of hearing Neck: No carotid bruit; carotid pulses are 2 + bilaterally Respiratory: No accessory muscle use, No respiratory distress; chest expansion is symmetric, chest is bilaterally symmetric, other (fair air entry) Cardiovascular: regular rate-rhythm; No JVD; S1 and S2 Gastrointestinal: soft; No guarding; audible bowel sounds Extremities: other (mild bilat LE swelling) Neurologic/Psychiatric: other (moves extremities) Skin: No rash on exposed areas, No ulcerations on exposed areas Data Review Labs Laboratory Tests 04/09/22 09:07: Blood Gas Puncture Site RT RAD, Blood Gas Patient Temperature 36.9, Arterial Blood pH 7.38, Arterial Blood Partial Pressure CO2 28L, Arterial Blood Partial Pressure O2 73L, Arterial Blood HCO3 16*L, Arterial Blood Total CO2 17.0L, Arterial Blood Oxygen Saturation 97, Arterial Blood Base Excess -8.0L, Dae Test YES-POS, Blood Gas Ventilator Setting NO, Blood Gas Inspired Oxygen 5L 04/09/22 10:47: Glucometer 132H 04/09/22 16:53: Glucometer 108 04/09/22 20:32: Glucometer 87 04/10/22 04:30: White Blood Count 8.5, Red Blood Count 2.37L, Hemoglobin 7.3L, Hematocrit 23L, Mean Corpuscular Volume 98, Mean Corpuscular Hemoglobin 31, Mean Corpuscular Hemoglobin Concent 32, Red Cell Distribution Width 15.5H, Platelet Count 329, Mean Platelet Volume 8.9L, Immature Granulocyte % (Auto) 0, Neutrophils (%) (Auto) 70, Lymphocytes (%) (Auto) 17, Monocytes (%) (Auto) 8, Eosinophils (%) (Auto) 4, Basophils (%) (Auto) 0, Neutrophils # (Auto) 5.9, Lymphocytes # (Auto) 1.5, Monocytes # (Auto) 0.7, Eosinophils # (Auto) 0.4H, Basophils # (Auto) 0.0, Immature Granulocyte # (Auto) 0.0, Prothrombin Time 14.8H, INR Comment 1.1, Activated Partial Thromboplast Time 64H, Sodium Level 141, Potassium Level 3.9, Chloride Level 117H, Carbon Dioxide Level 14L, Anion Gap 10, Blood Urea Nitrogen 12, Creatinine 0.71, Estimat Glomerular Filtration Rate 84, BUN/Creatinine Ratio 17, Glucose Level 100, Calcium Level 8.4L, Corrected Calcium 9.3, Phosphorus Level 4.1, Magnesium Level 1.8, Total Bilirubin 0.3, Aspartate Amino Transf (AST/SGOT) 24, Alanine Aminotransferase (ALT/SGPT) 29, Alkaline Phosphatase 62, Total Protein 5.7L, Albumin 2.9L Microbiology 04/08/22 MRSA Screen - Final, Complete MRSA not isolated 04/07/22 Urine Culture - Final, Complete NO GROWTH 04/07/22 Blood Culture - Preliminary, Resulted Staphylococcus aureus Radiology NAME: ASAD IRVIN [facility] REC#: [id number] PT STATUS: ADM IN : 1940 PHYSICIAN: DEBORAH CRANE DO ADMIT DATE: 04/07/22/ICU Signed Date of Exam:04/09/22 US VENOUS LOWER EXT KELLEY PROCEDURE: US Venous Lower Ext Kelley. TECHNIQUE: Multiple real-time grayscale images were obtained over the lower extremities in various projections, bilaterally. Additional duplex Doppler and color Doppler images were also obtained. INDICATION: Lower extremity swelling. COMPARISON: None. FINDINGS: Partially occlusive thrombus is visualized within the right common femoral artery, which demonstrates partial compressibility. The right profunda femoris and superficial femoral veins demonstrate normal compressibility and color Doppler filling. Partially occlusive deep vein thrombus is seen in the right popliteal vein and calf vessels of the right lower extremity. The left common femoral, profunda femoris, and proximal portions of the left superficial femoral veins are patent with normal compressibility and color Doppler filling. There is occlusive deep vein thrombus within the distal left superficial femoral vein with extension into the left popliteal vein and calf vessels of the left lower extremity. IMPRESSION: 1. Occlusive deep vein thrombus within the distal left superficial femoral vein with extension into the left popliteal vein and calf vessels of the left lower extremity. 2. Partially occlusive deep vein thrombus within the right common femoral vein, right popliteal vein, and calf vessels of the right lower extremity. Results were given to the patient's nurse by the paper and pulp [employer] worker immediately following the exam. Dictated by: Dictated on workstation # [id number] NAME: ASAD IRVIN [facility] REC#: [id number] PT STATUS: REG ER : 1940 PHYSICIAN: LC SERRANO DO ADMIT DATE: 04/07/22/ER FS Signed Date of Exam:04/07/22 CT CONNIE CHEST/NOANG ABD-PELV W INDICATION: Left upper quadrant pain and shortness of air. EXAM: CTA chest, abdomen and pelvis TECHNIQUE: Thin axial sections through the chest, abdomen and pelvis are obtained following intravenous contrast bolus. Multiplanar MIP images were reconstructed and reviewed. All CT scans use one or more of the following dose optimizing techniques: automated exposure control, MA and/or KvP adjustment based on patient size and exam type or iterative reconstruction. FINDINGS: CTA CHEST: There is a moderate burden of acute pulmonary emboli involving both the right and left lungs. The pulmonary emboli are most abundant at the distal branch point of the left main pulmonary artery extending into the left upper and lower lobar and segmental pulmonary arteries. Right lower lobe segmental pulmonary emboli are present. Mild flattening of the intraventricular septum and dilation of the right ventricle raise the possibility of right ventricular strain. Normal-caliber thoracic aorta without dissection. No intrathoracic lymphadenopathy. Thyroid is normal. Mild centrilobular and paraseptal emphysema. No pneumonia or edema. There are no suspicious pulmonary nodules. No worrisome focal osseous lesions in the chest. CT ABDOMEN AND PELVIS: No free intraperitoneal air or fluid. The liver and spleen are normal. Cholelithiasis without features of acute cholecystitis. Pancreas is normal. No adrenal mass. Kidneys enhance normally without mass lesion or obstruction. Urinary bladder is normally filled. Hysterectomy. No adnexal mass. Colonic diverticulosis without diverticulitis. Normal-caliber abdominal aorta without dissection. Large paraesophageal hiatal hernia is noted. No abdominal or pelvic lymphadenopathy. No worrisome focal osseous lesions. IMPRESSION: 1. Lspnolfx-xx-xjrxv burden of acute bilateral pulmonary emboli. There is suggestion of right ventricular strain. 2. No pulmonary infarct. 3. No acute abnormality in the abdomen or pelvis 4. No features of malignancy in the chest, abdomen or pelvis. Findings of pulmonary emboli were called to Dr. Serrano by Dr. Cross at 06:30 p.m. on 04/07/2022. Dictated by: Dictated on workstation # [id number] Dict: 04/07/221823 Trans: 04/07/221927 [id number] Interpreted by: CAT CROSS MD Electronically signed by: CAT CROSS MD 04/07/221927 ECG Impression ECG Initial ECG Rhythm: Normal Sinus A/P-Cardiology Assessment/Admission Diagnosis Pulmonary embolism - Hhazhwiy-ab-ukkhb burden of acute bilateral pulmonary emboli. Evidence of right heart strain DVT - Occlusive deep vein thrombus within the distal left superficial femoral vein with extension into the left popliteal vein and calf vessels of the left lower extremity. Partially occlusive deep vein thrombus within the right common femoral vein, right popliteal vein, and calf vessels of the right lower extremity UTI with sepsis - management per medical services Echocardiogram of 04-08-22 showed LVEF 60-65%. AoV sclerosis. Mod TR. PASP 50-55 mmHg HTN HLD Dementia Discussion and Recomendations Pulmonary embolism with extensive DVT - currently on anticoagulation with Heparin Managment of UTI with sepsis is per medical sevices CT reports right heart strain - Echocardiogram has been done Anemia - management per medical services Monitor lab Replace electrolytes Further recs will be based on her hospital course Clinical Quality Measures DVT/VTE Risk/Contraindication: Contraindications-Mechi: Other *list below* Other: possible DVT ELIU HILARIO Apr 09, 2022 09:58
--- NOTE | 2022-04-09 11:32 | Physical Therapy Evaluation ---
PT Evaluation-General Medical Diagnosis Admission Date Apr 07, 2022 at 21:27 Medical Diagnosis: acute hypoxemic respiratory failure Onset Date: Apr 07, 2022 Therapy Diagnosis Therapy Diagnosis: Debility Height/Weight Height (Feet): 5 Height (Inches): 2 Weight (Pounds): 139 Precautions Precautions/Isolations: Fall Prevention, Standard Precautions Referral Physician: Samaria Reason for Referral: Evaluation/Treatment Medical History Pertinent Medical History: Dementia, HTN Additional Medical History Surgery/Hospitalization HX: DEMENTIA, HTN, HIGH CHOLESTEROLM, ANXIETY, DEPRESSION Hysterectomy, Orthopedic High Cholesterol, Hypertension Chronic Constipation Tinnitis Current History Pulmonary emboli Right-sided heart failure Reviewed History: Yes Social History Home: Assisted Living Entry Into Home: Level Entry Prior Prior Level of Function SCALE: Activities may be completed with or without assistive devices. 4-Pqdkwuraju-ncdlmvl completes the activity by him/herself with no assistance from a helper. 5-Set-up or Clean-up Assistance-helper sets up or cleans up; patient completes activity. Somers assists only prior to or following the activity. 4-Supervision or Touching Assistance-helper provides verbal cues and/or touching/steadying and/or contact guard assistance as patient completes activity. Assistance may be provided throughout the activity or intermittently. 3-Partial/Moderate Assistance-helper does LESS THAN HALF the effort. Somers lifts, holds or supports trunk or limbs, but provides less than half the effort. 2-Substantial/Maximal Assistance-helper does MORE THAN HALF the effort. Somers lifts or holds trunk or limbs and provides more than half the effort. 6-Wbjwikwqt-ykknms does ALL the effort. Patient does none of the effort to complete the activity. Or, the assistance of 2 or more helpers is required for the patient to complete the activity. If activity was not attempted, code reason: 7-Patient Refused. 9-Not Applicable-not attempted and the patient did not perform the activity before the current illness, exacerbation or injury. 10-Not Attempted due to Environmental Limitations-(lack of equipment, weather restraints, etc.). 88-Not Attempted due to Medical Conditions or Safety Concerns. Bed Mobility: 3 Transfers (B,C,W/C): 3 Gait: 3 Indoor Mobility (Ambulation): Needed Some Help Prior Devices Use: Walker PT Evaluation-Current Subjective Patient in bed pre-tx with family in room, reports pain in LLQ abdomen, agrees to PT. Pt/Family Goals none stated Objective Patient Orientation: Person, Place Attachments: Oxygen, Whyte Catheter, IV patient very tired ROM/Strength ROM Lower Extremities WNL Integumentary/Posture Bladder Incontinence: Whyte Cath Sensory Vision: Functional Hearing: Functional Transfers Roll Left to Right (QC): 1 Sit to Lying (QC): 1 Lying to Sitting/Side of Bed(Q: 1 Patient extremely sleep/ drowsy and is dependent with bed mobility requiring 2 therapists Balance Sitting Static: Poor (patient unable to remain sitting upright without full support from therapist) Sitting Dynamic: Poor (patient unable to remain sitting upright without full support from therapist) Assessment/Needs Patient extremely sleepy/drowsy, was able to sit patient at EOB but needed verbal cueing to take deep breaths in order to get her O2 back into the 90s as it dropped into low 80s going lying<->sitting. Patient in bed post-tx with family in room, tray, nurse call, phone, all needs met. Patient could only tolerate about 3 min of sitting before needing to lay back down. Rehab Potential: Fair PT Skilled Nursing Goals Membership Solicitor Goals PT Skilled Nursing Goals Time Frame: Apr 16, 2022 Roll Left & Right (QC): 3 (Zachariah) Sit to Lying (QC): 3 (Zachariah) Lying-Sitting on Side/Bed(QC): 3 (Zachariah) Sit to Stand (QC): 3 (Mod A) Chair/Jyt-bj-Uqdth Xfer(QC): 3 (Mod A) Toilet Transfer (QC): 3 (Mod A) PT Plan Problem List Problem List: Activity Tolerance, Functional Strength, Safety, Balance, Gait, Transfer, Bed Mobility, ROM Treatment/Plan Treatment Plan: Continue Plan of Care Treatment Plan: Bed Mobility, Education, Functional Activity Alan, Functional Strength, Gait, Safety, Therapeutic Exercise, Transfers Treatment Duration: Apr 16, 2022 Frequency: 6 times per week Estimated Hrs Per Day: .25 hour per day Patient and/or Family Agrees t: Yes Safety Risks/Education Patient Education: Correct Positioning, Safety Issues Teaching Recipient: Patient Teaching Methods: Demonstration, Discussion Response to Teaching: Reinforcement Needed Discharge Recommendations Plan Patient will perform bed mobility and transfer training, balance and functional strengthening in order to return to assisted living safely. Therapy Discharge Recommendati: Scheduled Assistance, Assisted Living, Other, See Comments (NH), Home & Family, Post Acute PT Time Time In: 1058 Time Out: 1108 DATE: Apr 09, 2022 Total Billed Treatment Time: 10 Total Billed Treatment 1 visit [facility] PT Apr 09, 2022 11:32
--- NOTE | 2022-04-09 11:37 | Occupational Therapy Eval ---
OT Evaluation-General/PLF Medical Diagnosis Admission Date Apr 07, 2022 at 21:27 Medical Diagnosis: Acute hypoxemic respiratory failure Onset Date: Apr 07, 2022 Therapy Diagnosis Therapy Diagnosis: reduced adl status Height/Weight Height (Feet): 5 Height (Inches): 2 Weight (Pounds): 139 Precautions Precautions/Isolations: Fall Prevention, Standard Precautions Referral Physician: Samaria Referral Reason: Evaluation/Treatment Medical History Pertinent Medical History: Dementia, HTN Current History Pt presents from [facility] w/AMS. Found to have bilateral pulmonary emboli and R sided heart failure. Per son, pt recently had Covid 19 ~1 month ago and has continued to decline quickly since. Prior to covid, pt was still needing assistance with all adls and transfers. She ambulated only short distances within room/bathroom with walker, shuffle type gait and hand held assist from spouse. Reviewed History: Yes Social History Home: Longterm ADL-Prior Level of Function SCALE: Activities may be completed with or without assistive devices. 0-Yzewvfgwpp-mxgespz completes the activity by him/herself with no assistance from a helper. 5-Set-up or Clean-up Assistance-helper sets up or cleans up; patient completes activity. Perkins assists only prior to or following the activity. 4-Supervision or Touching Assistance-helper provides verbal cues and/or touching/steadying and/or contact guard assistance as patient completes activity. Assistance may be provided throughout the activity or intermittently. 3-Partial/Moderate Assistance-helper does LESS THAN HALF the effort. Perkins lifts, holds or supports trunk or limbs, but provides less than half the effort. 2-Substantial/Maximal Assistance-helper does MORE THAN HALF the effort. Perkins lifts or holds trunk or limbs and provides more than half the effort. 1-Zjuzvzijh-wnoudr does ALL the effort. Patient does none of the effort to complete the activity. Or, the assistance of 2 or more helpers is required for the patient to complete the activity. If activity was not attempted, code reason: 7-Patient Refused. 9-Not Applicable-not attempted and the patient did not perform the activity before the current illness, exacerbation or injury. 10-Not Attempted due to Environmental Limitations-(lack of equipment, weather restraints, etc.). 88-Not Attempted due to Medical Conditions or Safety Concerns. OT Current Status Subjective Pt pointed to abdomen and reports pain, unable to give numerical value. Appearance Pt returned to supine in bed, all needs within reach, family in the room. Mental Status/Objective Patient Orientation: Person, Confused Attachments: Whyte Catheter, IV, SCD's, Telemetry Current Hand Dominance: Right Upper Extremity ROM Bilateral shoulders ~150 degrees, secondary to weakness. Upper Extremity Strength Very debilitated ADL-Treatment Lower Body Dressing (QC): 1 On/Off Footwear (QC): 1 Toileting Hygiene (QC): 1 Pt requires assist x2 to sit EOB. Oxygen desat to 78% once in sitting, improves quickly post cues for PLB. Mod a to maintain upright posture in sitting. Pt only able to tolerate sitting for a few minutes before needing to return to supine. At this time, pt would be dependent for LB dressing/footwear/bathing due to poor sitting balance and endurance. Education OT Patient Education: Correct positioning, Purpose of tx/functional activities, Safety issues, Transfer techniques Teaching Recipient: Patient, Family Teaching Methods: Discussion Response to Teaching: Verbalize Understanding, Reinforcement Needed OT [facility] Manager Goals Penitentiary Goals Time Frame: Apr 30, 2022 Eating (QC): 5 Oral Hygiene (QC): 4 Toileting Hygiene (QC): 3 Shower/Bathe Self (QC): 3 Upper Body Dressing (QC): 3 Lower Body Dressing (QC): 3 On/Off Footwear (QC): 3 Additional Goals: 1-Demonstrate ADL Tasks, 2-Verbalize Understanding, 3-ImproveStrength/Alan 1=Demonstrate adherence to instructed precautions during ADL tasks. 2=Patient will verbalize/demonstrate understanding of assistive devices/modifications for ADL. 3=Patient will improve strength/tolerance for activity to enable patient to perform ADL's. OT Education/Plan Problem List/Assessment Assessment: Decreased Activ Tolerance, Decreased Safety Aware, Decreased UE Strength, Dependent Transfers, Edema, Impaired Bed Mobility, Impaired Cognition, Impaired Funct Balance, Impaired I ADL's, Impaired Self-Care Skills, Restricted Funct UE ROM Discharge Recommendations Plan/Recommendations: Continue POC Target Placement return to assisted living with continued assistance Treatment Plan/Plan of Care Treatment,Training & Education: Yes Patient would benefit from OT for education, treatment and training to promote independence in ADL's, mobility, safety and/or upper extremity function for ADL's. Plan of Care: ADL Retraining, Caregiver Training, Cognitive Retraining, Functional Mobility, Group Exercise/Act as Ind, UE Funct Exercise/Act, W/C Management Training Treatment Duration: Apr 30, 2022 Frequency: 3 times per week (3-5x/week ) Estimated Hrs Per Day: .25 hour per day Agreement: Yes Rehab Potential: Poor Time Start Time: 10:57 Stop Time: 11:08 DATE: Apr 09, 2022 Total Time Billed (hr/min): 11 Billed Treatment Time 1 visit Romelia De La Torre OT Apr 09, 2022 11:37
[2022-04-09] MEDS: HEParin DRIP 25000 UNIT/500ML 500 ML IV SCH (16:40)
--- NOTE | 2022-04-09 17:12 | Consultation-Cardiology ---
HPI-Cardiology Cardiology Consultation: Date of Consultation 04/09/22 Time Seen by a Provider: 13:10 Date of Admission Attending Physician Junior Nayak MD Admitting Physician Admitting Physician: Deborah Mera DO Attending Physician: Deborah Mera DO Consulting Physician BRI BEARDEN MD, MA, FACP, FACC, FSCAI, CCDS HPI: Chief Complaint: Pulmonary Embolism Ms. Irvin is an 82 yr old female admitted to ICU 1 from the ED with pulmonary embolism. She is unable to provide any information. She is lethargic this morning and has dementia. She awakens easily, but does not answer any questions. Information has been obtained from a review of the chart. Review of Systems-Cardiology Review of Systems Constitutional: other (She is verbally unresponsive and unable to provide any ROS) : No All Other Systems Reviewed Negative Unless Noted: No MDG-Gwipqi-Hrdmui Hx Patient Social History Marrital Status: single Employed/Student: retired Smoking Status: Former Smoker Have you traveled recently?: No Alcohol Use?: No Pt feels they are or have been: No Immunizations Up To Date Tetanus Booster (TDap): Unknown Date of Pneumonia Vaccine: Mar 11, 2016 Date of Influenza Vaccine: Feb 06, 2022 Past Medical History PMH As described under Assessment. Family Medical History Family Medical History: Unable to obtain Allergies and Home Medications Allergies Coded Allergies: metoclopramide (Unverified Allergy, Mild, 03/14/16) prochlorperazine (Unverified Allergy, Mild, 03/14/16) HIGH ANXIETY REACTION Patient Home Medication List Home Medication List Reviewed: Yes Acetaminophen (Tylenol Extra Strength) 500 Mg Tablet, 500 MG PO TID, (Reported) Entered as Reported by: ABDIRASHID PICHARDO on 04/08/221520 Last Action: Continued Aspirin (Aspirin) 81 Mg Tab.chew, 81 MG PO DAILY, (Reported) Entered as Reported by: ABDIRASHID PICHARDO on 04/08/221520 Last Action: Continued Buspirone HCl (Buspirone HCl) 15 Mg Tablet, 15 MG PO TID, (Reported) Entered as Reported by: ABDIRASHID PICHARDO on 04/08/221520 Last Action: Continued Fluoxetine HCl (Fluoxetine HCl) 20 Mg Tablet, 20 MG PO DAILY, (Reported) Entered as Reported by: ABDIRASHID PICHARDO on 04/08/221520 Last Action: Continued Gabapentin (Gabapentin) 100 Mg Capsule, 100 MG PO TID, (Reported) Entered as Reported by: ABDIRASHID PICHARDO on 04/08/221520 Last Action: Continued Losartan Potassium (Losartan Potassium) 25 Mg Tablet, 25 MG PO DAILY, (Reported) Entered as Reported by: ABDIRASHID PICHARDO on 04/08/221520 Last Action: Continued Melatonin (Melatonin) 3 Mg Tablet, 6 MG PO HS, (Reported) Entered as Reported by: ABDIRASHID PICHARDO on 04/08/221520 Last Action: Continued Pravastatin Sodium (Pravastatin Sodium) 20 Mg Tablet, 20 MG PO HS, (Reported) Entered as Reported by: ABDIRASHID PICHARDO on 04/08/221520 Last Action: Converted Quetiapine Fumarate (Seroquel) 25 Mg Tablet, 50 MG PO TID, (Reported) Entered as Reported by: ABDIRASHID PICHARDO on 04/08/221520 Last Action: Continued Spironolactone (Aldactone) 25 Mg Tablet, 25 MG PO DAILY, (Reported) Entered as Reported by: ABDIRASHID PICHARDO on 04/08/221520 Last Action: Continued Discontinued Medications Acetaminophen (Tylenol) 325 Mg Tablet, 650 MG PO HS Discontinued Reason: No Longer Taking Prescribed by: MILAGROS MCDONNELL on 03/07/221012 Last Action: Discontinued Aspirin (Aspirin EC) 81 Mg Tablet.dr, 81 MG PO DAILY Discontinued Reason: No Longer Taking Prescribed by: MILAGROS MCDONNELL on 03/07/221012 Last Action: Discontinued Buspirone HCl (Buspirone HCl) 15 Mg Tablet, 15 MG PO TID Discontinued Reason: No Longer Taking Prescribed by: MILAGROS MCDONNELL on 03/07/221012 Last Action: Discontinued Calcium Carbonate (Tums) 200 Mg Calcium (500 Mg) Tab.chew, 200 MG PO UD PRN for HEART BURN Discontinued Reason: No Longer Taking Prescribed by: MILAGROS MCDONNELL on 03/07/221012 Last Action: Discontinued Cephalexin (Cephalexin) 500 Mg Tablet, 500 MG PO QID Prescribed by: JAYDEN TORRE on 04/06/221646 Cephalexin (Cephalexin) 500 Mg Capsule, 500 MG PO TID Discontinued Reason: No Longer Taking Prescribed by: JAYDEN TORRE on 11/27/22 1647 Last Action: Discontinued Cholecalciferol (Vitamin D3) (Vitamin D3) 50 Mcg (2000 Unit) Tablet, 50 MCG PO DAILY Discontinued Reason: No Longer Taking Prescribed by: MILAGROS MCDONNELL on 03/07/221012 Last Action: Discontinued Donepezil HCl (Donepezil HCl) 10 Mg Tablet, 10 MG PO DAILY Discontinued Reason: No Longer Taking Prescribed by: MILAGROS MCDONNELL on 03/07/221012 Last Action: Discontinued Fluoxetine HCl (Fluoxetine HCl) 20 Mg Capsule, 20 MG PO DAILY Discontinued Reason: No Longer Taking Prescribed by: MILAGROS MCDONNELL on 03/07/221012 Last Action: Discontinued Fluticasone Propionate (Flonase Allergy Relief) 50 Mcg/Actuation Jackson.susp, 2 SPRAY NS DAILY PRN for ALLERGIES Discontinued Reason: No Longer Taking Prescribed by: MILAGROS MCDONNELL on 03/07/221012 Last Action: Discontinued Losartan Potassium (Losartan Potassium) 25 Mg Tablet, 12.5 MG PO DAILY Discontinued Reason: No Longer Taking Prescribed by: MILAGROS MCDONNELL on 03/07/221012 Last Action: Discontinued Magnesium Oxide (Magnesium) 250 Mg Tablet, 250 MG PO DAILY Discontinued Reason: No Longer Taking Prescribed by: MILAGROS MCDONNELL on 03/07/221012 Last Action: Discontinued Melatonin (Melatonin) 5 Mg Tablet, 5 MG PO HS Discontinued Reason: No Longer Taking Prescribed by: MILAGROS MCDONNELL on 03/07/221012 Last Action: Discontinued Multivitamin with Folic Acid (One Daily Multivitamin Tablet) 400 Mcg Tablet, 400 MCG PO DAILY Discontinued Reason: No Longer Taking Prescribed by: MILAGROS MCDONNELL on 03/07/221012 Last Action: Discontinued Nitroglycerin (Nitroglycerin) 0.4 Mg Tab.subl, 0.4 MG SL UD PRN for CHEST PAIN Discontinued Reason: No Longer Taking Prescribed by: MILAGROS MCDONNELL on 03/07/221012 Last Action: Discontinued Jackson-3/Dha/Epa/Fish Oil (Fish Oil 1,000 mg Softgel) 1,000 Mg (120 Mg-180 Mg) Capsule, 1,000 MG PO DAILY Discontinued Reason: No Longer Taking Prescribed by: MILAGROS MCDONNELL on 03/07/221012 Last Action: Discontinued Polyethylene Glycol 3350 (Miralax) 17 Gram Powd.pack, 17 GM PO DAILY PRN for CONSTIPATION-1ST LINE Discontinued Reason: No Longer Taking Prescribed by: MILAGROS MCDONNELL on 03/07/221012 Last Action: Discontinued Pravastatin Sodium (Pravastatin Sodium) 20 Mg Tablet, 20 MG PO DAILY Discontinued Reason: No Longer Taking Prescribed by: MILAGROS MCDONNELL on 03/07/223 Last Action: Discontinued Spironolactone (Spironolactone) 25 Mg Tablet, 25 MG PO DAILY Discontinued Reason: No Longer Taking Prescribed by: MILAGROS MCDONNELL on 03/07/221012 Last Action: Discontinued Physical Exam-Cardiology Physical Exam Vital Signs/I&O 04/09/22 04/09/22 04/09/22 04/09/22 06:00 07:00 07:00 07:53 Pulse 79 80 87 Resp 27 27 B/P (MAP) 107/61 (76) 112/67 (82) Pulse Ox 100 97 97 O2 Delivery Nasal Cannula Nasal Cannula Nasal Cannula O2 Flow Rate 5.00 5.00 5.00 04/09/22 04/09/22 04/09/22 04/09/22 07:58 08:00 08:00 09:00 Temp 36.9 Pulse 74 84 Resp 33 45 B/P (MAP) 124/71 (88) 123/70 (87) Pulse Ox 100 98 98 O2 Delivery Nasal Cannula Nasal Cannula Nasal Cannula O2 Flow Rate 5.00 5.00 5.00 04/09/22 04/09/22 04/09/22 04/09/22 10:00 11:00 12:00 12:00 Pulse 92 86 80 Resp 39 30 25 B/P (MAP) 105/65 (78) 102/59 (73) 110/64 (79) Pulse Ox 98 98 100 100 O2 Delivery Nasal Cannula Nasal Cannula Nasal Cannula Nasal Cannula O2 Flow Rate 5.00 5.00 5.00 5.00 04/09/22 04/09/22 04/09/22 04/09/22 13:00 13:00 14:00 15:00 Pulse 78 84 79 80 Resp 46 46 B/P (MAP) 103/64 (77) 107/71 (83) 100/56 (71) Pulse Ox 99 100 100 O2 Delivery Nasal Cannula Nasal Cannula Nasal Cannula O2 Flow Rate 5.00 5.00 5.00 04/09/22 04/09/22 15:38 16:00 Pulse 97 B/P (MAP) 130/67 (88) Pulse Ox 98 97 O2 Delivery Nasal Cannula Nasal Cannula O2 Flow Rate 5.00 5.00 04/09/22 00:00 Intake Total 940 ml Output Total 1000 ml Balance -60 ml Capillary Refill : Less Than 3 Seconds Constitutional: other (Lethargic; opens eyes to coversation, but does not answer questions) HEENT: hard of hearing Neck: No carotid bruit; carotid pulses are 2 + bilaterally Respiratory: No accessory muscle use, No respiratory distress; chest expansion is symmetric, chest is bilaterally symmetric, other (fair air entry) Cardiovascular: regular rate-rhythm; No JVD; S1 and S2 Gastrointestinal: soft; No guarding; audible bowel sounds Extremities: other (mild bilat LE swelling) Neurologic/Psychiatric: other (moves extremities) Skin: No rash on exposed areas, No ulcerations on exposed areas Data Review Labs Laboratory Tests 04/08/22 20:09: Glucometer 119H 04/09/22 04:39: White Blood Count 9.6, Red Blood Count 2.48L, Hemoglobin 7.7L, Hematocrit 24L, Mean Corpuscular Volume 98, Mean Corpuscular Hemoglobin 31, Mean Corpuscular Hemoglobin Concent 32, Red Cell Distribution Width 15.5H, Platelet Count 286, Mean Platelet Volume 9.2, Immature Granulocyte % (Auto) 0, Neutrophils (%) (Auto) 73, Lymphocytes (%) (Auto) 15, Monocytes (%) (Auto) 8, Eosinophils (%) (Auto) 4, Basophils (%) (Auto) 0, Neutrophils # (Auto) 7.0, Lymphocytes # (Auto) 1.4, Monocytes # (Auto) 0.8, Eosinophils # (Auto) 0.4H, Basophils # (Auto) 0.0, Immature Granulocyte # (Auto) 0.0, Activated Partial Thromboplast Time 80H, Sodium Level 141, Potassium Level 3.8, Chloride Level 115H, Carbon Dioxide Level 14L, Anion Gap 12, Blood Urea Nitrogen 10, Creatinine 0.68, Estimat Glomerular Filtration Rate 86, BUN/Creatinine Ratio 15, Glucose Level 97, Calcium Level 8.0L, Corrected Calcium 8.7, Phosphorus Level 4.2, Magnesium Level 1.9, Total Bilirubin 0.4, Aspartate Amino Transf (AST/SGOT) 25, Alanine Aminotransferase (ALT/SGPT) 27, Alkaline Phosphatase 68, Total Protein 5.8L, Albumin 3.1L 04/09/22 09:07: Blood Gas Puncture Site RT RAD, Blood Gas Patient Temperature 36.9, Arterial Blood pH 7.38, Arterial Blood Partial Pressure CO2 28L, Arterial Blood Partial Pressure O2 73L, Arterial Blood HCO3 16*L, Arterial Blood Total CO2 17.0L, Arterial Blood Oxygen Saturation 97, Arterial Blood Base Excess -8.0L, Dae Test YES-POS, Blood Gas Ventilator Setting NO, Blood Gas Inspired Oxygen 5L 04/09/22 10:47: Glucometer 132H 04/09/22 16:53: Glucometer 108 Microbiology 04/08/22 MRSA Screen - Final, Complete MRSA not isolated 04/07/22 Urine Culture - Final, Complete NO GROWTH 04/07/22 Blood Culture - Preliminary, Resulted Staphylococcus aureus A/P-Cardiology Assessment/Admission Diagnosis Pulmonary embolism - Sxhpxljk-fx-xtldo burden of acute bilateral pulmonary emboli. Evidence of right heart strain DVT - Occlusive deep vein thrombus within the distal left superficial femoral vein with extension into the left popliteal vein and calf vessels of the left lower extremity. Partially occlusive deep vein thrombus within the right common femoral vein, right popliteal vein, and calf vessels of the right lower extremity UTI with sepsis - management per medical services Echocardiogram of 04-08-22 showed LVEF 60-65%. AoV sclerosis. Mod TR. PASP 50-55 mmHg HTN HLD Dementia Discussion and Recomendations Pulmonary embolism with extensive DVT - currently on anticoagulation with Heparin Managment of UTI with sepsis is per medical sevices CT reports right heart strain - Echocardiogram has been done Anemia - management per medical services Monitor lab Replace electrolytes Further recs will be based on her hospital course Clinical Quality Measures DVT/VTE Risk/Contraindication: Contraindications-Mechi: Other *list below* Other: possible DVT BRI PINZON MD FACP [facility] CCDS Apr 09, 2022 17:12
[2022-04-09] MEDS: MELATONIN 3 MG TABLET PO SCH (20:28)
[2022-04-09] MEDS: AtorvaSTATin TABLET 10 MG TABLET PO SCH (20:29)
[2022-04-10] MEDS: NS IV 1000 ML 1,000 ML IV SCH ×2 (02:01→17:10)
[2022-04-10] MEDS: NOREPINEPHRINE 8 MG/250 ML 250 ML IV SCH ×2 (02:02→20:30)
[2022-04-10 04:36] LABS: BASOPHILS % (AUTO) 0 % (0-10); EOSINOPHILS # (AUTO) 0.4 10^3/uL (0.0-0.3); EOSINOPHILS % (AUTO) 4 % (0-10); HEMATOCRIT 23 % (35-52); HEMOGLOBIN 7.3 g/dL (11.5-16.0); LYMPHOCYTES # (AUTO) 1.5 10^3/uL (1.0-4.0); LYMPHOCYTES % (AUTO) 17 % (12-44); MEAN CORPUSCULAR HEMOGLOBIN 31 pg (25-34); MEAN CORPUSCULAR HGB CONC 32 g/dL (32-36); MEAN CORPUSCULAR VOLUME 98 fL (80-99); MEAN PLATELET VOLUME 8.9 fL (9.0-12.2); MONOCYTES # (AUTO) 0.7 10^3/uL (0.0-1.0); MONOCYTES % (AUTO) 8 % (0-12); NEUTROPHILS # (AUTO) 5.9 10^3/uL (1.8-7.8); NEUTROPHILS % (AUTO) 70 % (42-75); PLATELET COUNT 329 10^3/uL (130-400); WHITE BLOOD COUNT 8.5 10^3/uL (4.3-11.0)
[2022-04-10 04:53] LABS: INR 1.1 (0.8-1.4); PROTHROMBIN TIME PATIENT 14.8 SEC (12.2-14.7)
[2022-04-10 04:58] LABS: ALBUMIN 2.9 GM/DL (3.2-4.5); POTASSIUM 3.9 MMOL/L (3.6-5.0)
[2022-04-10 05:00] LABS: CALCIUM 8.4 MG/DL (8.5-10.1)
[2022-04-10 05:01] LABS: TOTAL PROTEIN 5.7 GM/DL (6.4-8.2)
[2022-04-10 05:02] LABS: BILIRUBIN,TOTAL 0.3 MG/DL (0.1-1.0)
[2022-04-10 05:04] LABS: CREATININE SERUM 0.71 MG/DL (0.60-1.30); PHOSPHORUS 4.1 MG/DL (2.3-4.7)
[2022-04-10 05:07] LABS: MAGNESIUM 1.8 MG/DL (1.6-2.4)
[2022-04-10] MEDS: HEParin 1000 UNIT/ML (10ML VIAL) FOR BOLUS IV SCH ×2 (05:28→12:49)
[2022-04-10] MEDS: MAGNESIUM 1 GM/100 ML IVPB 100 ML IV SCH (05:41)
[2022-04-10] MEDS: POTASSIUM CL 10MEQ/50ML IVPB 50 ML IV SCH (05:41)
[2022-04-10] MEDS: KCL 20 MEQ TAB (K-DUR) PO SCH (05:42)
[2022-04-10] MEDS: inSUlin ASPART (NovoLOG) 1 UNIT/0.01 ML (CHARGE PER UNIT) SC SCH ×4 (05:43→20:40)
[2022-04-10] MEDS ORDERED: NS IV 500 ML 500 ML IV SCH (07:00)
[2022-04-10] MEDS: GABAPENTIN 100 MG (NEURONTIN) CAP PO SCH ×3 (08:00→20:48)
[2022-04-10] MEDS: ASPIRIN 81 MG CHEW (CHILDREN'S ASA) PO SCH (08:00)
[2022-04-10] MEDS: DOCUSATE SODIUM 100 MG (COLACE) CAP PO SCH ×2 (08:00→20:48)
[2022-04-10] MEDS: busPIRone 15 MG (BUSPAR) TABLET PO SCH ×3 (08:00→20:48)
[2022-04-10] MEDS: LOSARTAN 25 MG (COZAAR) TAB PO SCH (08:01)
[2022-04-10] MEDS: ACETAMINOPHEN 500 MG TAB (TYLENOL) PO SCH ×3 (08:01→20:48)
[2022-04-10] MEDS: SPIRONOLACTONE 25 MG (ALDACTONE) TAB PO SCH (08:01)
[2022-04-10] MEDS: FLUoxetine HCL 20 MG (PROzac) CAP PO SCH (08:01)
[2022-04-10] MEDS: QUEtiapine 25 MG (SEROquel) TAB IMMEDIATE RELEASE PO SCH ×3 (08:01→20:47)
--- NOTE | 2022-04-10 08:34 | Progress Note - Cardiology ---
Cardiology SOAP Progress Note Subjective: Sitting up at the [facility] Confused Objective: I&O/Vital Signs 04/10/22 04/10/22 04/10/22 04/11/22 23:00 23:44 23:50 00:00 Temp 36.7 Pulse 81 79 Resp 20 19 B/P (MAP) 95/54 (68) 99/56 (70) Pulse Ox 94 94 94 O2 Delivery Nasal Cannula Nasal Cannula Nasal Cannula O2 Flow Rate 2.00 2.00 2.00 04/11/22 04/11/22 04/11/22 04/11/22 01:00 01:00 02:00 03:00 Pulse 76 80 76 78 Resp 19 26 18 B/P (MAP) 96/61 (73) 106/78 (87) Pulse Ox 94 96 96 O2 Delivery Nasal Cannula Nasal Cannula Nasal Cannula O2 Flow Rate 2.00 2.00 2.00 04/11/22 04/11/22 04/11/22 04/11/22 04:00 04:00 05:00 06:00 Pulse 85 85 85 Resp 18 B/P (MAP) 124/74 (91) 119/68 (85) Pulse Ox 94 96 96 92 O2 Delivery Nasal Cannula Nasal Cannula Nasal Cannula Nasal Cannula O2 Flow Rate 2.00 2.00 2.00 2.00 04/11/22 04/11/22 04/11/22 04/11/22 07:00 07:00 08:00 08:00 Pulse 86 85 92 B/P (MAP) 134/80 (98) Pulse Ox 92 93 94 O2 Delivery Nasal Cannula Nasal Cannula Nasal Cannula O2 Flow Rate 2.00 2.00 2.00 04/11/22 04/11/22 09:00 10:00 Pulse 80 83 Resp 24 25 B/P (MAP) Pulse Ox 93 95 O2 Delivery Nasal Cannula Nasal Cannula O2 Flow Rate 2.00 2.00 04/10/22 23:59 Intake Total 1470 ml Output Total 2550 ml Balance -1080 ml Weight (Pounds): 139 Weight (Calculated Kilograms): 63.442505 Constitutional: other (Lethargic; opens eyes to coversation, but does not answer questions) Respiratory: No accessory muscle use, No respiratory distress; chest expansion is symmetric, chest is bilaterally symmetric, other (fair air entry) Cardiovascular: regular rate-rhythm; No JVD; S1 and S2 Gastrointestional: soft; No guarding; audible bowel sounds Extremities: other (mild bilat LE swelling) Neurologic/Psychiatric: other (moves extremities) Skin: No rash on exposed areas, No ulcerations on exposed areas Results/Procedures: Labs Laboratory Tests 04/10/22 11:36: Activated Partial Thromboplast Time 62H 04/10/22 15:16: Glucometer 89 04/10/22 19:27: Activated Partial Thromboplast Time 161*H, Hemoglobin 8.6L, Hematocrit 26L 04/10/22 20:12: Glucometer 112H 04/11/22 02:22: White Blood Count 7.9, Red Blood Count 2.69L, Hemoglobin 8.2L, Hematocrit 25L, Mean Corpuscular Volume 94, Mean Corpuscular Hemoglobin 31, Mean Corpuscular Hemoglobin Concent 33, Red Cell Distribution Width 16.6H, Platelet Count 328, Mean Platelet Volume 8.8L, Immature Granulocyte % (Auto) 1, Neutrophils (%) (Auto) 59, Lymphocytes (%) (Auto) 28, Monocytes (%) (Auto) 8, Eosinophils (%) (Auto) 4, Basophils (%) (Auto) 0, Neutrophils # (Auto) 4.7, Lymphocytes # (Auto) 2.2, Monocytes # (Auto) 0.6, Eosinophils # (Auto) 0.4H, Basophils # (Auto) 0.0, Immature Granulocyte # (Auto) 0.0, Prothrombin Time 14.7, INR Comment 1.1, Activated Partial Thromboplast Time 97H, Sodium Level 145, Potassium Level 3.8, Chloride Level 117H, Carbon Dioxide Level 15L, Anion Gap 13, Blood Urea Nitrogen 11, Creatinine 0.72, Estimat Glomerular Filtration Rate 82, BUN/Creatinine Ratio 15, Glucose Level 95, Calcium Level 8.3L, Corrected Calcium 9.3, Phosphorus Level 4.5, Magnesium Level 1.8, Total Bilirubin 0.5, Aspartate Amino Transf (AST/SGOT) 20, Alanine Aminotransferase (ALT/SGPT) 30, Alkaline Phosphatase 60, Total Protein 5.3L, Albumin 2.8L 04/11/22 03:55: Blood Gas Puncture Site LEFT RADIAL, Blood Gas Patient Temperature 37.0, Arterial Blood pH 7.41, Arterial Blood Partial Pressure CO2 28L, Arterial Blood Partial Pressure O2 62L, Arterial Blood HCO3 17*L, Arterial Blood Total CO2 18.2L, Arterial Blood Oxygen Saturation 94, Arterial Blood Base Excess -6.3L, Dae Test YES-POS, Blood Gas Ventilator Setting NO, Blood Gas Inspired Oxygen NA 04/11/22 08:25: Activated Partial Thromboplast Time 88H Microbiology 04/08/22 MRSA Screen - Final, Complete MRSA not isolated 04/07/22 Urine Culture - Final, Complete NO GROWTH 04/07/22 Blood Culture - Final, Complete Staphylococcus aureus A/P: Assessment: Pulmonary embolism - Asobugld-qz-wwukh burden of acute bilateral pulmonary emboli. Evidence of right heart strain - Echocardiogram of 04-08-22 showed LVEF 60-65%. AoV sclerosis. Mod TR. PASP 50-55 mmHg DVT - Occlusive deep vein thrombus within the distal left superficial femoral vein with extension into the left popliteal vein and calf vessels of the left lower extremity. Partially occlusive deep vein thrombus within the right common femoral vein, right popliteal vein, and calf vessels of the right lower extremity UTI with sepsis - management per medical services HTN HLD Dementia Plan: Pulmonary embolism with extensive DVT - currently on anticoagulation with Heparin - management per medical/eICU services Managment of UTI with sepsis is per medical sevices Anemia - management per medical services Monitor lab Replace electrolytes ELIU WHATLEY Apr 10, 2022 08:34
--- NOTE | 2022-04-10 09:08 | Tele-ICU Progress Note ---
Subjective Date Seen by a Provider: Apr 10, 2022 Subjective/Events-last exam This virtual visit was conducted using real time audio/video. Thank you for asking us to see this patient for respiratory insufficiency due to B PEs. Also B DVTs. Recent events:Lethargic without focal signs. PMH: htn., HL., Dem., Covid 02/2022. PE: Comfortable. VSS. O2 sat 98% on 5 LPM. HEENT: No obvious masses, adenopathy or JVD. Chest: clear to auscultation, diminished. CV: RRR S1 S2 No murmur or added sounds. Abd: Non-tender. Bowel sounds Y. : Unremarkable. Whyte Y. TELECOMMUNICATIONS PROFESSIONAL/psychiatric: Grossly intact. No obvious focal findings. Extremities: 102+ edema. Capillary refill < 3 seconds. Skin: unremarkable. Results: Elevated lact 2.03, better. PTT 64. Decreased Hb 7.3. B.38/28/73 on 5 L.. CXR: Poor quality. Available chart/ vitals / labs / images reviewed. Video assessment done using teleICU camera, rest of exam as per RN. A/P: Respiratory insufficiency: Continue present management with O2, PRN albut., PRN Precedex. Monitor for increasing oxygenation needs and/or need for intubation. ABG rechecking w leth. Critical Care: critically ill patient. Cont. SSI Heparin( dose increased), ASA, buspar, neurontin, cozaar, statin,aldact. To receive 1 Unit PRBCs. Discussed with RN CJ. Asked RN to reach out to eICU if any questions or concerns later. Time spent with patient/coordination of care with other health professionals (mins):18 Sepsis Event Evaluation Height, Weight, BMI Height: 5'2" Weight: 139lbs. oz. 63.459643jg; 32.80 BMI Method:Stated Focused Exam Lactate Level 04/07/22 14:00: Lactic Acid Level 2.44*H 04/07/22 16:24: Lactic Acid Level 2.98*H 04/07/22 18:20: Lactic Acid Level 2.03*H Exam Exam Patient acknowledged, consented, and participated in this virtual visit which was conducted using real time audio/video Vital Signs Date Time Temp Pulse Resp B/P (MAP) Pulse Ox O2 Delivery O2 Flow Rate FiO2 04/10/22 08:00 86 117/59 (78) 98 Nasal Cannula 5.00 04/10/22 08:00 36.9 04/10/22 07:00 85 04/10/22 07:00 80 103/73 (83) 99 Nasal Cannula 5.00 04/10/22 06:00 80 33 107/64 (78) 100 Nasal Cannula 5.00 04/10/22 05:00 95 109/54 (72) 97 Nasal Cannula 5.00 04/10/22 04:00 89 101/59 (73) 99 Nasal Cannula 5.00 04/10/22 04:00 37.0 04/10/22 04:00 99 Nasal Cannula 5.00 04/10/22 03:00 85 112/62 (79) 97 Nasal Cannula 5.00 04/10/22 02:02 82 107/55 04/10/22 02:00 86 107/55 (72) 98 Nasal Cannula 5.00 04/10/22 01:00 90 04/10/22 01:00 86 104/65 (78) 98 Nasal Cannula 5.00 04/10/22 00:54 37.1 04/10/22 00:00 91 96/52 (67) 98 Nasal Cannula 5.00 04/10/22 00:00 98 Nasal Cannula 5.00 04/09/22 23:00 90 103/57 (72) 98 Nasal Cannula 5.00 04/09/22 22:00 96 94/49 (64) 98 Nasal Cannula 5.00 04/09/22 21:00 99 130/52 (78) 97 Nasal Cannula 5.00 04/09/22 20:50 97 Nasal Cannula 5.00 04/09/22 20:00 99 Nasal Cannula 5.00 04/09/22 20:00 93 26 126/67 (86) 99 Nasal Cannula 5.00 04/09/22 19:29 36.5 04/09/22 19:00 90 04/09/22 19:00 97 114/61 (78) 99 Nasal Cannula 5.00 04/09/22 18:00 93 125/51 (75) 98 Nasal Cannula 5.00 04/09/22 17:00 93 103/73 (83) 98 Nasal Cannula 5.00 04/09/22 16:00 100 Nasal Cannula 5.00 04/09/22 16:00 36.6 04/09/22 16:00 97 130/67 (88) 97 Nasal Cannula 5.00 04/09/22 15:38 98 Nasal Cannula 5.00 04/09/22 15:00 80 100/56 (71) 100 Nasal Cannula 5.00 04/09/22 14:00 79 46 107/71 (83) 100 Nasal Cannula 5.00 04/09/22 13:00 84 46 103/64 (77) 99 Nasal Cannula 5.00 04/09/22 13:00 78 04/09/22 12:00 80 25 110/64 (79) 100 Nasal Cannula 5.00 04/09/22 12:00 100 Nasal Cannula 5.00 04/09/22 11:00 86 30 102/59 (73) 98 Nasal Cannula 5.00 04/09/22 10:00 92 39 105/65 (78) 98 Nasal Cannula 5.00 I & O 04/10/22 07:00 Intake Total 2340 ml Output Total 3075 ml Balance -735 ml Height & Weight Height: 5'2" Weight: 139lbs. oz. 63.253105cq; 32.80 BMI Method:Stated General Appearance: No Apparent Distress, WD/WN, Chronically ill HEENT: PERRL/EOMI Neck: Non Tender, Supple Respiratory: No Accessory Muscle Use, No Respiratory Distress, Decreased Breath Sounds, Wheezing Cardiovascular: Regular Rate, Rhythm Capillary Refill: Less Than 3 Seconds Gastrointestinal: normal bowel sounds, non tender, soft Extremity: Non Tender, No Calf Tenderness, Pedal Edema (b/l) Neurologic/Psychiatric: Alert, Oriented x3, Disoriented Skin: Normal Color, Warm/Dry Lymphatic: No Adenopathy Results Lab Laboratory Tests 04/09/22 04:39 04/10/22 04:30 Assessment/Plan Assessment/Plan See free text. Critical Care: Critically Ill Patient JULIAN BAIRES MD Apr 10, 2022 09:08
[2022-04-10 09:10] LABS: ABG BASE EXCESS -7.8 MMOL/L (-2.5-2.5); ABG OXYGEN SATURATION 98 % (94-100); ABG PCO2 26 MMHG (35-45); ABG PO2 71 MMHG (79-93); ABG TCO2 17.2 MMOL/L (21.0-31.0)
[2022-04-10 09:12] LABS: ALLENS TEST YES-POS
[2022-04-10 09:13] LABS: INSPIRED O2 5%; PATIENT TEMP 35.6; VENTILATOR NO
[2022-04-10] MEDS: RT-ALBUTEROL SULF 2.5 MG/3 ML PRE-MIX VIAL INH SCH (10:24)
--- NOTE | 2022-04-10 10:25 | Occupational Ther Daily Note ---
OT Current Status-Daily Note Subjective Pt on BSC on arrival with nurse and 2 techs. Pt very lethargic. Mental Status/Objective Patient Orientation: Confused, Eyes Open, Mumbles Attachments: Whyte Catheter, IV ADL-Treatment Pt on BSC on arrival. Assisted nursing staff with transferring pt from BSC to EOB. 2 person max assist for toilet hygiene and transfer. Dependent for bed mobility. Pt very lethargic. Opens eyes when addressed by name. In bed post tx. Phone/call light in reach. All needs met. Therapy Code Descriptions/Definitions Functional [place] Measure: 0=Not Assessed/NA 4=Minimal Assistance 1=Total Assistance 5=Supervision or Setup 2=Maximal Assistance 6=Modified [place] 3=Moderate Assistance 7=Complete IndependenceSCALE: Activities may be completed with or without assistive devices. 8-Luprubzmzb-kvnsbow completes the activity by him/herself with no assistance from a helper. 5-Set-up or Clean-up Assistance-helper sets up or cleans up; patient completes activity. [place] assists only prior to or following the activity. 4-Supervision or Touching Assistance-helper provides verbal cues and/or touching/steadying and/or contact guard assistance as patient completes activity. Assistance may be provided throughout the activity or intermittently. 3-Partial/Moderate Assistance-helper does LESS THAN HALF the effort. [place] lifts, holds or supports trunk or limbs, but provides less than half the effort. 2-Substantial/Maximal Assistance-helper does MORE THAN HALF the effort. [place] lifts or holds trunk or limbs and provides more than half the effort. 3-Quhejpebi-bueahw does ALL the effort. Patient does none of the effort to complete the activity. Or, the assistance of 2 or more helpers is required for the patient to complete the activity. If activity was not attempted, code reason: 7-Patient Refused. 9-Not Applicable-not attempted and the patient did not perform the activity before the current illness, exacerbation or injury. 10-Not Attempted due to Environmental Limitations-(lack of equipment, weather restraints, etc.). 88-Not Attempted due to Medical Conditions or Safety Concerns. Toileting Hygiene (QC): 1 Toilet Transfer (QC): 1 OT Chcf Goals Piano Case Maker Goals Time Frame: Apr 30, 2022 Eating (QC): 5 Oral Hygiene (QC): 4 Toileting Hygiene (QC): 3 Shower/Bathe Self (QC): 3 Upper Body Dressing (QC): 3 Lower Body Dressing (QC): 3 On/Off Footwear (QC): 3 Additional Goals: 1-Demonstrate ADL Tasks, 2-Verbalize Understanding, 3- ImproveStrength/Alan 1=Demonstrate adherence to instructed precautions during ADL tasks. 2=Patient will verbalize/demonstrate understanding of assistive devices/modifications for ADL. 3=Patient will improve strength/tolerance for activity to enable patient to perform ADL's. OT Education/Plan Problem List/Assessment Assessment: Decreased Activ Tolerance, Dependent Transfers, Impaired Bed Mobility, Impaired Cognition, Impaired I ADL's, Impaired Self-Care Skills Discharge Recommendations Plan/Recommendations: Continue POC Treatment Plan/Plan of Care Patient would benefit from OT for education, treatment and training to promote independence in ADL's, mobility, safety and/or upper extremity function for ADL's. Plan of Care: ADL Retraining, Caregiver Training, Cognitive Retraining, Functional Mobility, Group Exercise/Act as Ind, UE Funct Exercise/Act, W/C Management Training Treatment Duration: Apr 30, 2022 Frequency: 3 times per week (3-5x/week ) Estimated Hrs Per Day: .25 hour per day Agreement: Yes Rehab Potential: Poor Time Start Time: 08:38 Stop Time: 08:46 DATE: Apr 10, 2022 Total Time Billed (hr/min): 8 Billed Treatment Time 1 visit ADL (8 min) GUSTABO RIVERO Apr 10, 2022 10:25
--- NOTE | 2022-04-10 10:52 | Physical Therapy Daily Note ---
PT Daily Note-Current Subjective Patient agrees to PT. Pain Section J - Health Conditions 1. Rarely or not at all 2. Occasionally 3. Frequently 4. Almost constantly 8. Unable to answer Pain Effect on Sleep: 8 Pain Interference with Therapy: 8 Pain Interference w/Day-to-Day: 8 Mental Status Patient Orientation: Person Attachments: Oxygen, Whyte Catheter, IV Transfers SCALE: Activities may be completed with or without assistive devices. 4-Rdtpfrashy-mhypvst completes the activity by him/herself with no assistance from a helper. 5-Set-up or Clean-up Assistance-helper sets up or cleans up; patient completes activity. [place] assists only prior to or following the activity. 4-Supervision or Touching Assistance-helper provides verbal cues and/or touching/steadying and/or contact guard assistance as patient completes activity. Assistance may be provided throughout the activity or intermittently. 3-Partial/Moderate Assistance-helper does LESS THAN HALF the effort. [place] lifts, holds or supports trunk or limbs, but provides less than half the effort. 2-Substantial/Maximal Assistance-helper does MORE THAN HALF the effort. [place] lifts or holds trunk or limbs and provides more than half the effort. 2-Xehmfngdk-xpersr does ALL the effort. Patient does none of the effort to complete the activity. Or, the assistance of 2 or more helpers is required for the patient to complete the activity. If activity was not attempted, code reason: 7-Patient Refused. 9-Not Applicable-not attempted and the patient did not perform the activity before the current illness, exacerbation or injury. 10-Not Attempted due to Environmental Limitations-(lack of equipment, weather restraints, etc.). 88-Not Attempted due to Medical Conditions or Safety Concerns. Lying to Sitting/Side of Bed(Q: 3 Sit to Stand (QC): 3 Chair/Gbn-kz-Oydkf Xfer(QC): 3 Gait Training Distance: 10' Walk 10 feet (QC): 3 Gait Assistive Device: FWW Exercises Supine Ex: Ankle pumps, Quad Set, Heel Slides, Straight leg raise Supine Reps: 12 (AAROM) Seated Therapy Exercises: Long arc quads Seated Reps: 15 Assessment Patient up in recliner with needs met. Patient progressing with treatment plan and able to tolerate increase in activity on this date. PT Certified Pathology Assistant Goals Certified Pathology Assistant Goals PT Residential Goals Time Frame: Apr 16, 2022 Roll Left & Right (QC): 3 (Zachariah) Sit to Lying (QC): 3 (Zachariah) Lying-Sitting on Side/Bed(QC): 3 (Zachariah) Sit to Stand (QC): 3 (Mod A) Chair/Aiq-dk-Pfxzz Xfer(QC): 3 (Mod A) Toilet Transfer (QC): 3 (Mod A) PT Plan Treatment/Plan Treatment Plan: Continue Plan of Care Treatment Plan: Bed Mobility, Education, Functional Activity Alan, Functional Strength, Gait, Safety, Therapeutic Exercise, Transfers Treatment Duration: Apr 16, 2022 Frequency: 6 times per week Estimated Hrs Per Day: .25 hour per day Patient and/or Family Agrees t: Yes Time Time In: 735 Time Out: 759 DATE: Apr 10, 2022 Total Billed Treatment Time: 24 Total Billed Treatment 1 visit FA 10 min EX 14 min ANNY VAZQUEZ PT Apr 10, 2022 10:51
[2022-04-10 12:15] VITALS: BP 132/65
[2022-04-10] MEDS: HEParin DRIP 25000 UNIT/500ML 500 ML IV SCH (12:24)
[2022-04-10 12:30] VITALS: BP 105/43
--- NOTE | 2022-04-10 13:47 | Progress Note - Hospitalist ---
[facility] 04/10/22 1347: Subjective HPI/CC On Admission CC: Acute respiratory failure due to saddle pulmonary emboli HPI: This is an 82 yr old female detention pt who is known to me from the [facility] unit. She presented to the ICU after [place] ER evaluation found to have saddle pulmonary emboli in need of Heparin drip with right heart strain so an echocardiogram was ordered. She does have significant dementia and anxiety so we'll restart her home medication once reconciled. She is requiring oxygen. Subjective/Events-last exam 1 unit PRBC transfused this morning as hgb was 7.3 and she has multiple cardiac risk factors. Pt presents lying in bed comfortably, reportedly was sitting in chair this morning but became lethargic and moved back to bed. She reports feeling well without any pain today, denies SOB, CP. She has a wolff in place that is draining urine, denies BM but is passing gas. Seen by PT and OT today. Stool occult was negative. Review of Systems General: No Chills, No Night Sweats HEENT: No Head Aches, No Visual Changes Pulmonary: No Dyspnea, No Cough Cardiovascular: No: Chest Pain, Palpitations Gastrointestinal: No: Nausea, Vomiting Genitourinary: No Dysuria, No Frequency Musculoskeletal: No: neck pain, shoulder pain Neurological: No: Weakness, Numbness Focused Exam Lactate Level 04/07/22 14:00: Lactic Acid Level 2.44*H 04/07/22 16:24: Lactic Acid Level 2.98*H 04/07/22 18:20: Lactic Acid Level 2.03*H Objective Exam Vital Signs Vital Signs Date Time Temp Pulse Resp B/P (MAP) Pulse Ox O2 Delivery O2 Flow Rate FiO2 04/10/22 12:30 36.6 100 24 105/43 94 Nasal Cannula 2.00 04/07/22 22:56 21 Capillary Refill : Less Than 3 Seconds General Appearance: Anxious, Chronically ill HEENT: PERRL/EOMI, Pharynx Normal, Moist Mucous Membranes Neck: Non Tender, Supple Respiratory: Chest Non Tender, No Accessory Muscle Use, No Respiratory Distress, Wheezing (diffuse) Cardiovascular: Regular Rate, Rhythm, No Edema, No JVD Gastrointestinal: Normal Bowel Sounds, Non Tender, Soft Back: Normal Inspection, No CVA Tenderness Extremity: Normal Inspection, Non Tender Neurologic/Psychiatric: Alert, Oriented x3 Skin: Normal Color, Warm/Dry Results/Procedures Lab Laboratory Tests 04/10/22 04:30 Patient resulted labs reviewed. Assessment/Plan Assessment and Plan Assess & Plan/Chief Complaint Acute respiratory failure Saddle type pulmonary embolism Bilateral lower extremity DVT's HTN HLD Dementia Anxiety Anemia Continue oxygen Continue heparin drip Track and trend hgb, transfuse as needed to keep hgb above 8 given cardiac risk factors - 1 unit PRBC given today Continue albuterol, IVF and home meds Clinical Quality Measures DVT/VTE Risk/Contraindication: Contraindications-Mechi: Other *list below* Other: possible DVT DEBORAH MONTES DO 04/11/22 0449: Subjective HPI/CC On Admission Date Seen by Provider: Apr 10, 2022 Time Seen by Provider: 09:00 Subjective/Events-last exam Transfuse Keep in ICU due to wheezing Assessment/Plan Assessment and Plan Assess & Plan/Chief Complaint Supportive care Supervisory-Addendum Brief Verification & Attestation Participated in pt care: history, MDM, physical Personally performed: exam, history, MDM, supervision of care Care discussed with: Medical Student Procedures: n/a Results interpretation: Verified all documentation Verification and Attestation of Medical Student E/M Service A medical student performed and documented this service in my presence. I reviewed and verified all information documented by the medical student and made modifications to such information, when appropriate. I personally performed the physical exam and medical decision making. Deborah Crane Apr 11, 2022,04:48 ERENDIRA TRUONG Apr 10, 2022 13:47 DEBORAH CRANE DO Apr 11, 2022 04:49
[2022-04-10 14:10] VITALS: BP 97/40
[2022-04-10 14:33] VITALS: BP 100/69
[2022-04-10] MEDS: DexMEDEtomidine 250 ML DRIP 250 ML IV SCH (15:27)
--- NOTE | 2022-04-10 17:05 | Progress Note - Cardiology ---
Cardiology SOAP Progress Note Subjective: More responsive today Does not report cp or palp or shortness breath or n/v/d. Has gen weakness Objective: I&O/Vital Signs 04/10/22 04/10/22 04/10/22 04/10/22 06:00 07:00 07:00 08:00 Temp 36.9 Pulse 80 80 85 Resp 33 B/P (MAP) 107/64 (78) 103/73 (83) Pulse Ox 100 99 O2 Delivery Nasal Cannula Nasal Cannula O2 Flow Rate 5.00 5.00 04/10/22 04/10/22 04/10/22 04/10/22 08:00 09:00 10:00 10:24 Pulse 86 85 76 Resp 20 B/P (MAP) 117/59 (78) 117/53 (74) 96/62 (73) Pulse Ox 98 100 100 100 O2 Delivery Nasal Cannula Nasal Cannula Nasal Cannula Nasal Cannula O2 Flow Rate 5.00 5.00 5.00 5.00 04/10/22 04/10/22 04/10/22 04/10/22 10:26 11:00 12:00 12:08 Temp 36.6 Pulse 80 93 Resp 17 24 B/P (MAP) 108/43 (64) 132/65 (87) Pulse Ox 96 95 O2 Delivery Nasal Cannula Nasal Cannula Nasal Cannula O2 Flow Rate 2.00 2.00 2.00 04/10/22 04/10/22 04/10/22 04/10/22 12:15 12:30 13:00 13:00 Temp 36.5 36.6 Pulse 97 100 96 97 Resp 22 24 B/P (MAP) 132/65 105/43 86/34 (51) Pulse Ox 95 94 95 O2 Delivery Nasal Cannula Nasal Cannula Nasal Cannula O2 Flow Rate 2.00 2.00 2.00 04/10/22 04/10/22 04/10/22 04/10/22 14:00 14:10 14:33 15:00 Temp 36.6 36.2 Pulse 90 90 85 90 Resp 20 B/P (MAP) 97/40 (59) 100/69 132/69 (90) Pulse Ox 97 97 93 O2 Delivery Nasal Cannula Nasal Cannula Nasal Cannula O2 Flow Rate 2.00 2.00 2.00 04/10/22 04/10/22 04/10/22 15:27 15:48 16:00 Temp 36.7 Pulse 84 72 Resp 17 B/P (MAP) 132/69 81/45 (57) Pulse Ox 96 O2 Delivery Nasal Cannula O2 Flow Rate 2.00 04/10/22 00:00 Intake Total 640 ml Output Total 2025 ml Balance -1385 ml Weight (Pounds): 139 Weight (Calculated Kilograms): 63.924443 Constitutional: other (Ox2, more responsive today) Respiratory: No accessory muscle use, No respiratory distress; chest expansion is symmetric, chest is bilaterally symmetric, other (fair air entry) Cardiovascular: regular rate-rhythm; No JVD; S1 and S2 Gastrointestional: soft; No guarding; audible bowel sounds Extremities: other (mild bilat LE swelling) Neurologic/Psychiatric: other (moves extremities) Skin: No rash on exposed areas, No ulcerations on exposed areas Results/Procedures: Labs Laboratory Tests 04/09/22 20:32: Glucometer 87 04/10/22 04:30: White Blood Count 8.5, Red Blood Count 2.37L, Hemoglobin 7.3L, Hematocrit 23L, Mean Corpuscular Volume 98, Mean Corpuscular Hemoglobin 31, Mean Corpuscular Hemoglobin Concent 32, Red Cell Distribution Width 15.5H, Platelet Count 329, Mean Platelet Volume 8.9L, Immature Granulocyte % (Auto) 0, Neutrophils (%) (Auto) 70, Lymphocytes (%) (Auto) 17, Monocytes (%) (Auto) 8, Eosinophils (%) (Auto) 4, Basophils (%) (Auto) 0, Neutrophils # (Auto) 5.9, Lymphocytes # (Auto) 1.5, Monocytes # (Auto) 0.7, Eosinophils # (Auto) 0.4H, Basophils # (Auto) 0.0, Immature Granulocyte # (Auto) 0.0, Prothrombin Time 14.8H, INR Comment 1.1, Activated Partial Thromboplast Time 64H, Sodium Level 141, Potassium Level 3.9, Chloride Level 117H, Carbon Dioxide Level 14L, Anion Gap 10, Blood Urea Nitrogen 12, Creatinine 0.71, Estimat Glomerular Filtration Rate 84, BUN/Creatinine Ratio 17, Glucose Level 100, Calcium Level 8.4L, Corrected Calcium 9.3, Phosphorus Level 4.1, Magnesium Level 1.8, Total Bilirubin 0.3, Aspartate Amino Transf (AST/SGOT) 24, Alanine Aminotransferase (ALT/SGPT) 29, Alkaline Phosphatase 62, Total Protein 5.7L, Albumin 2.9L 04/10/22 08:44: Stool Occult Blood Immunoassay NEGATIVE 04/10/22 09:00: Blood Gas Puncture Site L RAD, Blood Gas Patient Temperature 35.6, Arterial Blood pH 7.40, Arterial Blood Partial Pressure CO2 26L, Arterial Blood Partial Pressure O2 71L, Arterial Blood HCO3 16*L, Arterial Blood Total CO2 17.2L, Arterial Blood Oxygen Saturation 98, Arterial Blood Base Excess -7.8L, Dae Test YES-POS, Blood Gas Ventilator Setting NO, Blood Gas Inspired Oxygen 5% 04/10/22 11:36: Activated Partial Thromboplast Time 62H 04/10/22 15:16: Glucometer 89 Microbiology 04/08/22 MRSA Screen - Final, Complete MRSA not isolated 04/07/22 Urine Culture - Final, Complete NO GROWTH 04/07/22 Blood Culture - Final, Complete Staphylococcus aureus Laboratory Tests 04/09/22 04:39 04/10/22 04:30 A/P: Assessment: Pulmonary embolism - [id number] burden of acute bilateral pulmonary emboli. Evidence of right heart strain - Echocardiogram of 04-08-22 showed LVEF 60-65%. AoV sclerosis. Mod TR. PASP 50-55 mmHg DVT - Occlusive deep vein thrombus within the distal left superficial femoral vein with extension into the left popliteal vein and calf vessels of the left lower extremity. Partially occlusive deep vein thrombus within the right common femoral vein, right popliteal vein, and calf vessels of the right lower extremity UTI with sepsis - management per medical services HTN HLD Dementia Plan: Pulmonary embolism with extensive DVT - currently on anticoagulation with Heparin - management per medical/eICU services Managment of UTI with sepsis is per Dr Mera Anemia - management per Dr Mera Monitor lab Replace electrolytes [facility] Apr 10, 2022 17:05
[2022-04-10] MEDS: RT-ALBUTEROL SULF 2.5 MG/3 ML PRE-MIX VIAL INH PRN (19:18)
[2022-04-10 19:37] LABS: HEMOGLOBIN 8.6 g/dL (11.5-16.0)
[2022-04-10] MEDS: AtorvaSTATin TABLET 10 MG TABLET PO SCH (20:47)
[2022-04-10] MEDS: MELATONIN 3 MG TABLET PO SCH (20:48)
[2022-04-11] MEDS: NS IV 1000 ML 1,000 ML IV SCH (00:58)
[2022-04-11 02:29] LABS: BASOPHILS % (AUTO) 0 % (0-10); EOSINOPHILS # (AUTO) 0.4 10^3/uL (0.0-0.3); EOSINOPHILS % (AUTO) 4 % (0-10); HEMATOCRIT 25 % (35-52); HEMOGLOBIN 8.2 g/dL (11.5-16.0); LYMPHOCYTES # (AUTO) 2.2 10^3/uL (1.0-4.0); LYMPHOCYTES % (AUTO) 28 % (12-44); MEAN CORPUSCULAR HEMOGLOBIN 31 pg (25-34); MEAN CORPUSCULAR HGB CONC 33 g/dL (32-36); MEAN CORPUSCULAR VOLUME 94 fL (80-99); MEAN PLATELET VOLUME 8.8 fL (9.0-12.2); MONOCYTES # (AUTO) 0.6 10^3/uL (0.0-1.0); MONOCYTES % (AUTO) 8 % (0-12); NEUTROPHILS # (AUTO) 4.7 10^3/uL (1.8-7.8); NEUTROPHILS % (AUTO) 59 % (42-75); PLATELET COUNT 328 10^3/uL (130-400); WHITE BLOOD COUNT 7.9 10^3/uL (4.3-11.0)
[2022-04-11 02:44] LABS: INR 1.1 (0.8-1.4); PROTHROMBIN TIME PATIENT 14.7 SEC (12.2-14.7)
[2022-04-11 02:52] LABS: ALBUMIN 2.8 GM/DL (3.2-4.5); BILIRUBIN,TOTAL 0.5 MG/DL (0.1-1.0); CALCIUM 8.3 MG/DL (8.5-10.1); CREATININE SERUM 0.72 MG/DL (0.60-1.30); MAGNESIUM 1.8 MG/DL (1.6-2.4); PHOSPHORUS 4.5 MG/DL (2.3-4.7); POTASSIUM 3.8 MMOL/L (3.6-5.0); TOTAL PROTEIN 5.3 GM/DL (6.4-8.2)
[2022-04-11 04:35] LABS: ABG BASE EXCESS -6.3 MMOL/L (-2.5-2.5); ABG OXYGEN SATURATION 94 % (94-100); ABG PCO2 28 MMHG (35-45); ABG PH 7.41 (7.37-7.43); ABG PO2 62 MMHG (79-93); ABG TCO2 18.2 MMOL/L (21.0-31.0)
[2022-04-11 04:38] LABS: ALLENS TEST YES-POS; VENTILATOR NO
[2022-04-11] MEDS: inSUlin ASPART (NovoLOG) 1 UNIT/0.01 ML (CHARGE PER UNIT) SC SCH ×4 (05:27→22:01)
[2022-04-11] MEDS: POTASSIUM CL 10MEQ/50ML IVPB 50 ML IV SCH (05:27)
[2022-04-11] MEDS: MAGNESIUM 1 GM/100 ML IVPB 100 ML IV SCH (05:27)
[2022-04-11] MEDS: KCL 20 MEQ TAB (K-DUR) PO SCH (05:27)
[2022-04-11] MEDS: ACETAMINOPHEN 500 MG TAB (TYLENOL) PO SCH ×3 (08:16→22:00)
[2022-04-11] MEDS: SPIRONOLACTONE 25 MG (ALDACTONE) TAB PO SCH (08:16)
[2022-04-11] MEDS: QUEtiapine 25 MG (SEROquel) TAB IMMEDIATE RELEASE PO SCH ×3 (08:17→22:00)
[2022-04-11] MEDS: busPIRone 15 MG (BUSPAR) TABLET PO SCH ×3 (08:17→22:01)
[2022-04-11] MEDS: ASPIRIN 81 MG CHEW (CHILDREN'S ASA) PO SCH (08:17)
[2022-04-11] MEDS: LOSARTAN 25 MG (COZAAR) TAB PO SCH (08:17)
[2022-04-11] MEDS: GABAPENTIN 100 MG (NEURONTIN) CAP PO SCH ×3 (08:17→22:01)
[2022-04-11] MEDS: FLUoxetine HCL 20 MG (PROzac) CAP PO SCH (08:17)
[2022-04-11] MEDS: DOCUSATE SODIUM 100 MG (COLACE) CAP PO SCH ×2 (08:17→22:01)
--- NOTE | 2022-04-11 08:30 | Tele-ICU Progress Note ---
Subjective Date Seen by a Provider: Apr 11, 2022 Time Seen by a Provider: 08:29 Subjective/Events-last exam On iv heparin for multiple pul emb, DVT in left SFV and right CFV, PTT today 88 No CP, some SOB and responded to Seroquel-more likely anxiety No bleeding Sepsis Event Evaluation Height, Weight, BMI Height: 5'2" Weight: 139lbs. oz. 63.680784zl; 35.99 BMI Method:Stated Exam Exam Patient acknowledged, consented, and participated in this virtual visit which was conducted using real time audio/video Vital Signs Date Time Temp Pulse Resp B/P (MAP) Pulse Ox O2 Delivery O2 Flow Rate FiO2 04/11/22 08:00 92 94 Nasal Cannula 2.00 04/11/22 07:00 85 04/11/22 07:00 86 134/80 (98) 92 Nasal Cannula 2.00 04/11/22 06:00 85 119/68 (85) 92 Nasal Cannula 2.00 04/11/22 05:00 85 124/74 (91) 96 Nasal Cannula 2.00 04/11/22 04:00 85 18 96 Nasal Cannula 2.00 04/11/22 04:00 94 Nasal Cannula 2.00 04/11/22 03:00 78 18 96 Nasal Cannula 2.00 04/11/22 02:00 76 26 106/78 (87) 96 Nasal Cannula 2.00 04/11/22 01:00 80 04/11/22 01:00 76 19 96/61 (73) 94 Nasal Cannula 2.00 04/11/22 00:00 79 19 99/56 (70) 94 Nasal Cannula 2.00 04/10/22 23:50 94 Nasal Cannula 2.00 04/10/22 23:44 36.7 04/10/22 23:00 81 20 95/54 (68) 94 Nasal Cannula 2.00 04/10/22 22:00 83 24 100/53 (69) 93 Nasal Cannula 2.00 04/10/22 21:00 84 26 114/67 (83) 96 Nasal Cannula 2.00 04/10/22 20:30 88 91/52 04/10/22 20:00 87 31 131/70 (90) 96 Nasal Cannula 2.00 04/10/22 20:00 96 Nasal Cannula 2.00 04/10/22 20:00 37.2 04/10/22 19:18 96 Nasal Cannula 2.00 04/10/22 19:00 88 04/10/22 19:00 92 31 136/68 (90) 97 Nasal Cannula 2.00 04/10/22 18:00 75 31 91/52 (65) 98 Nasal Cannula 2.00 04/10/22 17:00 64 17 69/35 (46) 96 Nasal Cannula 2.00 04/10/22 17:00 64 69/35 04/10/22 16:45 74 81/45 04/10/22 16:00 96 Nasal Cannula 2.00 04/10/22 16:00 72 83/38 04/10/22 16:00 72 17 81/45 (57) 96 Nasal Cannula 2.00 04/10/22 15:48 36.7 04/10/22 15:45 81 122/66 04/10/22 15:27 84 132/69 04/10/22 15:00 90 132/69 (90) 93 Nasal Cannula 2.00 04/10/22 14:33 36.2 85 20 100/69 Nasal Cannula 2.00 04/10/22 14:10 36.6 90 97 04/10/22 14:00 90 97/40 (59) 97 Nasal Cannula 2.00 04/10/22 13:00 97 04/10/22 13:00 96 86/34 (51) 95 Nasal Cannula 2.00 04/10/22 12:30 36.6 100 24 105/43 94 Nasal Cannula 2.00 04/10/22 12:15 36.5 97 22 132/65 95 Nasal Cannula 2.00 04/10/22 12:08 36.6 04/10/22 12:00 100 Nasal Cannula 2.00 04/10/22 12:00 93 24 132/65 (87) 95 Nasal Cannula 2.00 04/10/22 11:00 80 17 108/43 (64) 96 Nasal Cannula 2.00 04/10/22 10:26 Nasal Cannula 2.00 04/10/22 10:24 100 Nasal Cannula 5.00 04/10/22 10:00 76 20 96/62 (73) 100 Nasal Cannula 5.00 04/10/22 09:00 85 117/53 (74) 100 Nasal Cannula 5.00 I & O 04/11/22 07:00 Intake Total 2870 ml Output Total 3275 ml Balance -405 ml Height & Weight Height: 5'2" Weight: 139lbs. oz. 63.839433ti; 35.99 BMI Method:Stated General Appearance: Anxious, Chronically ill HEENT: PERRL/EOMI, Pharynx Normal, Moist Mucous Membranes Neck: Non Tender, Supple Respiratory: Chest Non Tender, No Accessory Muscle Use, No Respiratory Distress, Decreased Breath Sounds, Wheezing (diffuse) Cardiovascular: Regular Rate, Rhythm, No JVD Capillary Refill: Less Than 3 Seconds Gastrointestinal: normal bowel sounds, non tender, soft, other (no melena) Extremity: Normal Inspection, Non Tender, Pedal Edema (+2 leg edema in both legs) Neurologic/Psychiatric: Alert, Oriented x3 Skin: Normal Color, Warm/Dry Lymphatic: No Adenopathy Results Lab Laboratory Tests 04/10/22 04:30 04/10/22 19:27 04/11/22 02:22 Assessment/Plan Assessment/Plan Multiple pul emb with large clot burden, so for doing ok, will change advisor to OAC Critical Care: Critically Ill Patient Time spent with patient (mins): 25 AMBER SANTANA MD Apr 11, 2022 08:30
--- NOTE | 2022-04-11 10:14 | Physical Therapy Daily Note ---
PT Daily Note-Current Subjective Patient appears very anxious. Family present. Pain Section J - Health Conditions 1. Rarely or not at all 2. Occasionally 3. Frequently 4. Almost constantly 8. Unable to answer Pain Effect on Sleep: 8 Pain Interference with Therapy: 8 Pain Interference w/Day-to-Day: 8 Mental Status Patient Orientation: Confused Attachments: Oxygen, Ventilator, IV Transfers SCALE: Activities may be completed with or without assistive devices. 1-Foxxdelxdi-tvdgfqv completes the activity by him/herself with no assistance from a helper. 5-Set-up or Clean-up Assistance-helper sets up or cleans up; patient completes activity. [place] assists only prior to or following the activity. 4-Supervision or Touching Assistance-helper provides verbal cues and/or touching/steadying and/or contact guard assistance as patient completes activity. Assistance may be provided throughout the activity or intermittently. 3-Partial/Moderate Assistance-helper does LESS THAN HALF the effort. [place] lifts, holds or supports trunk or limbs, but provides less than half the effort. 2-Substantial/Maximal Assistance-helper does MORE THAN HALF the effort. [place] lifts or holds trunk or limbs and provides more than half the effort. 7-Vkvaxsvvu-vffbha does ALL the effort. Patient does none of the effort to complete the activity. Or, the assistance of 2 or more helpers is required for the patient to complete the activity. If activity was not attempted, code reason: 7-Patient Refused. 9-Not Applicable-not attempted and the patient did not perform the activity b efore the current illness, exacerbation or injury. 10-Not Attempted due to Environmental Limitations-(lack of equipment, weather restraints, etc.). 88-Not Attempted due to Medical Conditions or Safety Concerns. Lying to Sitting/Side of Bed(Q: 3 Sit to Stand (QC): 3 Chair/Tml-qn-Dlhew Xfer(QC): 3 Exercises Supine Ex: Heel Slides, Straight leg raise, Hip abd/add Supine Reps: 12 (AAROM) Seated Therapy Exercises: Ankle pumps, Long arc quads, Hip flexion Seated Reps: 12 (AAROM) Assessment Patient requires time to complete all functional tasks safely. Patient is up in recliner with needs met and family present. PT Global President Goals Retirement Goals PT Retirement Goals Time Frame: Apr 16, 2022 Roll Left & Right (QC): 3 (Zachariah) Sit to Lying (QC): 3 (Zachariah) Lying-Sitting on Side/Bed(QC): 3 (Zachariah) Sit to Stand (QC): 3 (Mod A) Chair/Ktp-wn-Liqvg Xfer(QC): 3 (Mod A) Toilet Transfer (QC): 3 (Mod A) PT Plan Treatment/Plan Treatment Plan: Continue Plan of Care Treatment Plan: Bed Mobility, Education, Functional Activity Alan, Functional Strength, Gait, Safety, Therapeutic Exercise, Transfers Treatment Duration: Apr 16, 2022 Frequency: 6 times per week Estimated Hrs Per Day: .25 hour per day Patient and/or Family Agrees t: Yes Time Time In: 830 Time Out: 853 DATE: Apr 11, 2022 Total Billed Treatment Time: 23 Total Billed Treatment 1 visit EX 12 min FA 11 min ANNY VAZQUEZ PT Apr 11, 2022 10:14
--- NOTE | 2022-04-11 10:42 | Progress Note - Cardiology ---
Cardiology SOAP Progress Note Subjective: Sitting up in a recliner at the bedside Confusion has improved No c/o CP or palpitations SOB has improved Objective: I&O/Vital Signs 04/13/22 04/14/22 04/14/22 04/14/22 23:46 03:39 04:19 08:00 Temp 36.5 36.6 36.6 Pulse 94 97 97 Resp 18 16 B/P (MAP) 106/55 (72) 132/64 (86) Pulse Ox 93 93 93 O2 Delivery Nasal Cannula Nasal Cannula Nasal Cannula O2 Flow Rate 2.50 2.50 2.00 04/14/22 08:00 Temp 37.0 Pulse 86 Resp 16 B/P (MAP) 140/71 (94) Pulse Ox 94 O2 Delivery Nasal Cannula O2 Flow Rate 3.00 04/14/22 00:00 Intake Total 810 ml Output Total 750 ml Balance 60 ml Weight (Pounds): 139 Weight (Calculated Kilograms): 63.642024 Constitutional: other (Ox2, more responsive today) Respiratory: No accessory muscle use, No respiratory distress; chest expansion is symmetric, chest is bilaterally symmetric, other (fair air entry) Cardiovascular: regular rate-rhythm; No JVD; S1 and S2 Gastrointestional: soft; No guarding; audible bowel sounds Extremities: other (mild bilat LE swelling) Neurologic/Psychiatric: other (moves extremities) Skin: No rash on exposed areas, No ulcerations on exposed areas Results/Procedures: Labs Laboratory Tests 04/13/22 11:06: Glucometer 127H 04/13/22 15:16: Glucometer 108 04/13/22 19:21: Glucometer 115H 04/14/22 05:20: White Blood Count 8.4, Red Blood Count 2.95L, Hemoglobin 8.9L, Hematocrit 28L, Mean Corpuscular Volume 95, Mean Corpuscular Hemoglobin 30, Mean Corpuscular Hemoglobin Concent 32, Red Cell Distribution Width 15.1H, Platelet Count 464H, Mean Platelet Volume 9.0, Immature Granulocyte % (Auto) 0, Neutrophils (%) (Auto) 69, Lymphocytes (%) (Auto) 18, Monocytes (%) (Auto) 8, Eosinophils (%) (Auto) 4, Basophils (%) (Auto) 0, Neutrophils # (Auto) 5.8, Lymphocytes # (Auto) 1.5, Monocytes # (Auto) 0.7, Eosinophils # (Auto) 0.4H, Basophils # (Auto) 0.0, Immature Granulocyte # (Auto) 0.0, Sodium Level 140, Potassium Level 4.0, Chloride Level 110H, Carbon Dioxide Level 19L, Anion Gap 11, Blood Urea Nitrogen 20H, Creatinine 0.83, Estimat Glomerular Filtration Rate 69, BUN/Creatinine Ratio 24, Glucose Level 98, Calcium Level 9.1, Corrected Calcium 9.8, Magnesium Level 1.8, Total Bilirubin 0.4, Aspartate Amino Transf (AST/SGOT) 30, Alanine Aminotransferase (ALT/SGPT) 43, Alkaline Phosphatase 78, Total Protein 6.3L, Albumin 3.1L 04/14/22 05:42: Glucometer 99 Microbiology 04/08/22 MRSA Screen - Final, Complete MRSA not isolated 04/07/22 Urine Culture - Final, Complete NO GROWTH 04/07/22 Blood Culture - Final, Complete Staphylococcus aureus A/P: Assessment: Pulmonary embolism - Hlmijrlh-ah-ciiov burden of acute bilateral pulmonary emboli. Evidence of right heart strain - Echocardiogram of 04-08-22 showed LVEF 60-65%. AoV sclerosis. Mod TR. PASP 50-55 mmHg DVT - Occlusive deep vein thrombus within the distal left superficial femoral vein with extension into the left popliteal vein and calf vessels of the left lower extremity. Partially occlusive deep vein thrombus within the right common femoral vein, right popliteal vein, and calf vessels of the right lower extremity UTI with sepsis - management per medical services HTN HLD Dementia Plan: Pulmonary embolism with extensive DVT - currently on anticoagulation with Heparin - management per medical/eICU services Managment of UTI with sepsis is per Dr Mera Anemia - management per Dr Mera Monitor lab Replace electrolytes ELIU WHATLEY Apr 11, 2022 10:42
[2022-04-11] MEDS ORDERED: ZIPRASIDONE 20 MG INJ (GEODON) VIAL IM PRN (11:00)
[2022-04-11] MEDS ORDERED: LORazepam INJ 2 MG/ML (ATIVAN) VIAL IVP PRN (11:00)
[2022-04-11] MEDS ORDERED: WATER (STERILE) FOR INJ 10 ML BTL INJ SCH (11:00)
[2022-04-11] MEDS: APIXABAN 5 MG (ELIQUIS) TABLET PO SCH ×2 (12:10→22:00)
--- NOTE | 2022-04-11 13:03 | Occupational Ther Daily Note ---
OT Current Status-Daily Note Subjective Pt in bed on arrival, alert. Agrees to therapy. c/o no pain. Pt appears more alert today. Mental Status/Objective Patient Orientation: Person, Place, Time, Situation Attachments: IV, Telemetry ADL-Treatment Pt agrees to complete oral care in bed. Pt requires set up/clean up and assistance to open toothpaste due to weakness. Pt cleans face by self with provided warm cloth. Pt adjusted in bed and made comfortable. Phone/call light in reach. All needs met. Therapy Code Descriptions/Definitions Functional [place] Measure: 0=Not Assessed/NA 4=Minimal Assistance 1=Total Assistance 5=Supervision or Setup 2=Maximal Assistance 6=Modified [place] 3=Moderate Assistance 7=Complete IndependenceSCALE: Activities may be completed with or without assistive devices. 2-Lhjfqiymyg-dljzbad completes the activity by him/herself with no assistance from a helper. 5-Set-up or Clean-up Assistance-helper sets up or cleans up; patient completes activity. [place] assists only prior to or following the activity. 4-Supervision or Touching Assistance-helper provides verbal cues and/or touching/steadying and/or contact guard assistance as patient completes activity. Assistance may be provided throughout the activity or intermittently. 3-Partial/Moderate Assistance-helper does LESS THAN HALF the effort. [place] lifts, holds or supports trunk or limbs, but provides less than half the effort. 2-Substantial/Maximal Assistance-helper does MORE THAN HALF the effort. [place] lifts or holds trunk or limbs and provides more than half the effort. 5-Onbglshaq-ocajzd does ALL the effort. Patient does none of the effort to complete the activity. Or, the assistance of 2 or more helpers is required for the patient to complete the activity. If activity was not attempted, code reason: 7-Patient Refused. 9-Not Applicable-not attempted and the patient did not perform the activity before the current illness, exacerbation or injury. 10-Not Attempted due to Environmental Limitations-(lack of equipment, weather restraints, etc.). 88-Not Attempted due to Medical Conditions or Safety Concerns. OT Clay Hoister Goals Nursing Home Goals Time Frame: Apr 30, 2022 Eating (QC): 5 Oral Hygiene (QC): 4 Toileting Hygiene (QC): 3 Shower/Bathe Self (QC): 3 Upper Body Dressing (QC): 3 Lower Body Dressing (QC): 3 On/Off Footwear (QC): 3 Additional Goals: 1-Demonstrate ADL Tasks, 2-Verbalize Understanding, 3- ImproveStrength/Alan 1=Demonstrate adherence to instructed precautions during ADL tasks. 2=Patient will verbalize/demonstrate understanding of assistive devices/modifications for ADL. 3=Patient will improve strength/tolerance for activity to enable patient to perform ADL's. OT Education/Plan Problem List/Assessment Assessment: Decreased Activ Tolerance, Impaired I ADL's, Impaired Self-Care Skills Discharge Recommendations Plan/Recommendations: Continue POC Treatment Plan/Plan of Care Patient would benefit from OT for education, treatment and training to promote independence in ADL's, mobility, safety and/or upper extremity function for ADL's. Plan of Care: ADL Retraining, Caregiver Training, Cognitive Retraining, Functional Mobility, Group Exercise/Act as Ind, UE Funct Exercise/Act, W/C Management Training Treatment Duration: Apr 30, 2022 Frequency: 3 times per week (3-5x/week ) Estimated Hrs Per Day: .25 hour per day Agreement: Yes Rehab Potential: Poor Time Start Time: 11:30 Stop Time: 11:44 DATE: Apr 11, 2022 Total Time Billed (hr/min): 14 Billed Treatment Time 1 visit ADL (14 min) GUSTABO RIVERO Apr 11, 2022 13:03
--- NOTE | 2022-04-11 13:29 | Progress Note - Hospitalist ---
[facility] 04/11/22 1329: Subjective HPI/CC On Admission CC: Acute respiratory failure due to saddle pulmonary emboli HPI: This is an 82 yr old female assisted pt who is known to me from the [facility] unit. She presented to the ICU after [place] [facility] evaluation found to have saddle pulmonary emboli in need of Heparin drip with right heart strain so an echocardiogram was ordered. She does have significant dementia and anxiety so we'll restart her home medication once reconciled. She is requiring oxygen. Subjective/Events-last exam Today she has no new complaints. Nurses report pt was agitated overnight and given medication to help with anxiety this morning. Pt is lethargic in the morning after being moved between bed and chair. Her qxpirtqv-rs-ent, Silvia, is at her bedside and Dr. Mera speaks with her extensively about patient for 15 minutes. A bed is open at [facility] in [place] and her family is preparing her room for pt arrival upon discharge. Review of Systems General: No Chills, No Night Sweats; Fatigue HEENT: No Head Aches, No Visual Changes Pulmonary: No Cough, No Pleuritic Chest Pain Cardiovascular: No: Chest Pain, Palpitations Gastrointestinal: No: Nausea, Vomiting, Abdominal Pain Genitourinary: No Dysuria, No Frequency Musculoskeletal: No: neck pain, shoulder pain Neurological: No: Numbness, Incoordination Objective Exam Vital Signs Vital Signs Date Time Temp Pulse Resp B/P (MAP) Pulse Ox O2 Delivery O2 Flow Rate FiO2 04/11/22 12:00 36.8 04/11/22 11:00 85 96 Nasal Cannula 2.00 04/11/22 10:00 25 04/07/22 22:56 21 Capillary Refill : Less Than 3 Seconds General Appearance: No Apparent Distress, WD/WN HEENT: PERRL/EOMI, Pharynx Normal, Moist Mucous Membranes Neck: Full Range of Motion, Normal Inspection, Non Tender, Supple Respiratory: Chest Non Tender, Normal Breath Sounds, No Accessory Muscle Use, No Respiratory Distress, Wheezing (improved ) Cardiovascular: Regular Rate, Rhythm, No Edema, No Gallop, No JVD, No Murmur, Normal Peripheral Pulses Gastrointestinal: Normal Bowel Sounds, Non Tender, Soft Rectal: Deferred Back: Normal Inspection, No CVA Tenderness Extremity: Normal Capillary Refill, Normal Inspection, Non Tender, No Calf Tenderness, Swelling (1+ pitting edema b/l lower extremities) Neurologic/Psychiatric: Alert, Oriented x3, No Motor/Sensory Deficits, Normal Mood/Affect Skin: Normal Color, Warm/Dry Lymphatic: No Adenopathy Results/Procedures Lab Laboratory Tests 04/10/22 19:27 04/11/22 02:22 Patient resulted labs reviewed. Assessment/Plan Assessment and Plan Assess & Plan/Chief Complaint Acute respiratory failure Saddle type pulmonary embolism Bilateral lower extremity DVT's HTN HLD Dementia Anxiety Anemia Stop heparin drip and start OAC- Eliquis 10 mg BID for one week then plan to decrease to 5mg BID Track and trend hgb, transfuse as needed to keep hgb above 8 given cardiac risk factors - 1 unit PRBC given yesterday Continue albuterol, IVF and home meds Transfer to 4th floor given improved status and exam Room at /[facility] upon discharge Clinical Quality Measures DVT/VTE Risk/Contraindication: Contraindications-Mechi: Other *list below* Other: possible DVT B.L SMITA MERA DO 04/12/22 0625: Subjective HPI/CC On Admission Date Seen by Provider: Apr 11, 2022 Time Seen by Provider: 10:00 Subjective/Events-last exam Pt is doing a lot better Eliquis will be started at 10 mg BID and Heparin drip will be stopped Transferring to 4th floor Supervisory-Addendum Brief Verification & Attestation Participated in pt care: history, MDM, physical Personally performed: exam, history, MDM, supervision of care Care discussed with: Medical Student Procedures: n/a Results interpretation: Verified all documentation Verification and Attestation of Medical Student E/M Service A medical student performed and documented this service in my presence. I reviewed and verified all information documented by the medical student and made modifications to such information, when appropriate. I personally performed the physical exam and medical decision making. Smita Mera Apr 12, 2022,06:24 ERENDIRA TRUONG Apr 11, 2022 13:29 SMITA MERA DO Apr 12, 2022 06:25
[2022-04-11 14:40] VITALS: BP 136/72
[2022-04-11 15:16] VITALS: BP 162/70
--- NOTE | 2022-04-11 16:28 | Progress Note - Cardiology ---
Cardiology SOAP Progress Note Subjective: No cp or palp or syncope Mod shortness of breath Gen weakness and malaise No n/v/d Objective: I&O/Vital Signs 04/11/22 04/11/22 04/11/22 04/11/22 05:00 06:00 07:00 07:00 Pulse 85 85 86 85 B/P (MAP) 124/74 (91) 119/68 (85) 134/80 (98) Pulse Ox 96 92 92 O2 Delivery Nasal Cannula Nasal Cannula Nasal Cannula O2 Flow Rate 2.00 2.00 2.00 04/11/22 04/11/22 04/11/22 04/11/22 08:00 08:00 08:00 09:00 Temp 37.1 Pulse 92 80 Resp 24 B/P (MAP) Pulse Ox 93 94 93 O2 Delivery Nasal Cannula Nasal Cannula Nasal Cannula O2 Flow Rate 2.00 2.00 2.00 04/11/22 04/11/22 04/11/22 04/11/22 10:00 11:00 12:00 13:00 Temp 36.8 Pulse 83 85 94 Resp 25 B/P (MAP) Pulse Ox 95 96 O2 Delivery Nasal Cannula Nasal Cannula O2 Flow Rate 2.00 2.00 04/11/22 04/11/22 14:40 15:16 Temp 36.4 36.3 Pulse 94 93 Resp 18 22 B/P (MAP) 136/72 (93) 162/70 (100) Pulse Ox 92 88 O2 Delivery Nasal Cannula Nasal Cannula O2 Flow Rate 2.00 2.00 2.00 04/11/22 00:00 Intake Total 1470 ml Output Total 2550 ml Balance -1080 ml Weight (Pounds): 139 Weight (Calculated Kilograms): 63.990004 Constitutional: AAO x 3, other (appropriately responsive) Respiratory: No accessory muscle use, No respiratory distress; chest expansion is symmetric, chest is bilaterally symmetric, other (fair air entry) Cardiovascular: regular rate-rhythm; No JVD; S1 and S2 Gastrointestional: soft; No guarding; audible bowel sounds Extremities: other (mild bilat LE swelling) Neurologic/Psychiatric: other (moves extremities equally) Skin: No rash on exposed areas, No ulcerations on exposed areas Results/Procedures: Labs Laboratory Tests 04/10/22 19:27: Hemoglobin 8.6L, Hematocrit 26L, Activated Partial Thromboplast Time 161*H 04/10/22 20:12: Glucometer 112H 04/11/22 02:22: Hemoglobin 8.2L, Hematocrit 25L, Activated Partial Thromboplast Time 97H, White Blood Count 7.9, Red Blood Count 2.69L, Mean Corpuscular Volume 94, Mean Corpuscular Hemoglobin 31, Mean Corpuscular Hemoglobin Concent 33, Red Cell Distribution Width 16.6H, Platelet Count 328, Mean Platelet Volume 8.8L, Immature Granulocyte % (Auto) 1, Neutrophils (%) (Auto) 59, Lymphocytes (%) (Auto) 28, Monocytes (%) (Auto) 8, Eosinophils (%) (Auto) 4, Basophils (%) (Auto) 0, Neutrophils # (Auto) 4.7, Lymphocytes # (Auto) 2.2, Monocytes # (Auto) 0.6, Eosinophils # (Auto) 0.4H, Basophils # (Auto) 0.0, Immature Granulocyte # (Auto) 0.0, Prothrombin Time 14.7, INR Comment 1.1, Sodium Level 145, Potassium Level 3.8, Chloride Level 117H, Carbon Dioxide Level 15L, Anion Gap 13, Blood Urea Nitrogen 11, Creatinine 0.72, Estimat Glomerular Filtration Rate 82, BUN/Creatinine Ratio 15, Glucose Level 95, Calcium Level 8.3L, Corrected Calcium 9.3, Phosphorus Level 4.5, Magnesium Level 1.8, Total Bilirubin 0.5, Aspartate Amino Transf (AST/SGOT) 20, Alanine Aminotransferase (ALT/SGPT) 30, Alkaline P hosphatase 60, Total Protein 5.3L, Albumin 2.8L 04/11/22 03:55: Blood Gas Puncture Site LEFT RADIAL, Blood Gas Patient Temperature 37.0, Arterial Blood pH 7.41, Arterial Blood Partial Pressure CO2 28L, Arterial Blood Partial Pressure O2 62L, Arterial Blood HCO3 17*L, Arterial Blood Total CO2 18.2L, Arterial Blood Oxygen Saturation 94, Arterial Blood Base Excess -6.3L, Dae Test YES-POS, Blood Gas Ventilator Setting NO, Blood Gas Inspired Oxygen NA 04/11/22 08:25: Activated Partial Thromboplast Time 88H 04/11/22 11:19: Glucometer 88 04/11/22 13:11: Lab Scanned Report Transfusion Reaction Form 04/11/22 16:07: Glucometer 81 Microbiology 04/08/22 MRSA Screen - Final, Complete MRSA not isolated 04/07/22 Urine Culture - Final, Complete NO GROWTH 04/07/22 Blood Culture - Final, Complete Staphylococcus aureus Laboratory Tests 04/10/22 04:30 04/10/22 19:27 04/11/22 02:22 A/P: Assessment: Pulmonary embolism - Esygosdq-fo-cstut burden of acute bilateral pulmonary emboli. Evidence of right heart strain - Echocardiogram of 04-08-22 showed LVEF 60-65%. AoV sclerosis. Mod TR. PASP 50-55 mmHg DVT - Occlusive deep vein thrombus within the distal left superficial femoral vein with extension into the left popliteal vein and calf vessels of the left lower extremity. Partially occlusive deep vein thrombus within the right common fem oral vein, right popliteal vein, and calf vessels of the right lower extremity UTI with sepsis - management per medical services HTN HLD Dementia Plan: Pulmonary embolism with extensive DVT - currently on anticoagulation with apixaban - management per medical/eICU services Managment of UTI with sepsis is per Dr Mera Anemia - management per Dr Mera Monitor lab Replace electrolytes BRI BEARDEN MD FACP [facility] Apr 11, 2022 16:28
[2022-04-11 19:04] VITALS: BP 154/66
[2022-04-11] MEDS: AtorvaSTATin TABLET 10 MG TABLET PO SCH (22:00)
[2022-04-11] MEDS: MELATONIN 3 MG TABLET PO SCH (22:01)
[2022-04-11 23:44] VITALS: BP 152/69
[2022-04-12 03:50] VITALS: BP 164/81
[2022-04-12] MEDS: RT-ALBUTEROL SULF 2.5 MG/3 ML PRE-MIX VIAL INH PRN ×2 (04:10→20:12)
[2022-04-12] MEDS: inSUlin ASPART (NovoLOG) 1 UNIT/0.01 ML (CHARGE PER UNIT) SC SCH ×4 (05:39→21:00)
[2022-04-12 06:35] LABS: BASOPHILS % (AUTO) 0 % (0-10); EOSINOPHILS # (AUTO) 0.3 10^3/uL (0.0-0.3); EOSINOPHILS % (AUTO) 3 % (0-10); HEMATOCRIT 26 % (35-52); HEMOGLOBIN 8.4 g/dL (11.5-16.0); LYMPHOCYTES # (AUTO) 1.4 10^3/uL (1.0-4.0); LYMPHOCYTES % (AUTO) 15 % (12-44); MEAN CORPUSCULAR HEMOGLOBIN 31 pg (25-34); MEAN CORPUSCULAR HGB CONC 33 g/dL (32-36); MEAN CORPUSCULAR VOLUME 94 fL (80-99); MEAN PLATELET VOLUME 9.2 fL (9.0-12.2); MONOCYTES # (AUTO) 0.7 10^3/uL (0.0-1.0); MONOCYTES % (AUTO) 8 % (0-12); NEUTROPHILS # (AUTO) 6.8 10^3/uL (1.8-7.8); NEUTROPHILS % (AUTO) 74 % (42-75); PLATELET COUNT 435 10^3/uL (130-400); WHITE BLOOD COUNT 9.2 10^3/uL (4.3-11.0)
--- NOTE | 2022-04-12 06:40 | Progress Note - Hospitalist ---
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 She presented to the ICU after [place] ER evaluation found to have saddle pulmonary emboli in need of Heparin drip with right heart strain so an echocardiogram was ordered. She does have significant dementia and anxiety so we'll restart her home medication once reconciled. She is requiring oxygen. Subjective/Events-last exam Patient doing about the same Currently sleeping Appears to be very chronically ill Prognosis appears to be very poor Taking Eliquis 10 mg twice daily Review of Systems General: Fatigue Neurological: Confusion Objective Exam Vital Signs Vital Signs Date Time Temp Pulse Resp B/P (MAP) Pulse Ox O2 Delivery O2 Flow Rate FiO2 04/13/22 04:03 37.0 85 20 148/83 (104) 94 Nasal Cannula 2.00 04/07/22 22:56 21 Capillary Refill : Less Than 3 Seconds General Appearance: No Apparent Distress, Chronically ill Respiratory: Lungs Clear, Normal Breath Sounds Cardiovascular: Regular Rate, Rhythm Results/Procedures Lab Laboratory Tests 04/12/22 05:36 Patient resulted labs reviewed. Assessment/Plan Assessment and Plan Assess & Plan/Chief Complaint Supportive care Acute respiratory failure Saddle type pulmonary embolism Bilateral lower extremity DVT's HTN HLD Dementia Anxiety Anemia StartedOAC- Eliquis 10 mg BID for one week then plan to decrease to 5mg BID Track and trend hgb, transfuse as needed to keep hgb above 8 given cardiac risk factors - 1 unit PRBC given Thur Continue albuterol, Hep-Lock IVF and home meds Transferred to 4th floor given improved status and exam Room at /[facility] upon discharge Critical Care Critically Ill Patient Clinical Quality Measures DVT/VTE Risk/Contraindication: Contraindications-Mechi: Other *list below* Other: possible DVT SMITA MONTES DO Apr 12, 2022 06:39
[2022-04-12 07:00] LABS: ALBUMIN 3.1 GM/DL (3.2-4.5); BILIRUBIN,TOTAL 0.4 MG/DL (0.1-1.0); CREATININE SERUM 0.7 MG/DL (0.60-1.30); MAGNESIUM 1.8 MG/DL (1.6-2.4); POTASSIUM 3.6 MMOL/L (3.6-5.0); TOTAL PROTEIN 6.2 GM/DL (6.4-8.2)
[2022-04-12 07:03] VITALS: BP 124/65
[2022-04-12] MEDS: SPIRONOLACTONE 25 MG (ALDACTONE) TAB PO SCH (08:55)
[2022-04-12] MEDS: busPIRone 15 MG (BUSPAR) TABLET PO SCH ×3 (08:56→20:07)
[2022-04-12] MEDS: GABAPENTIN 100 MG (NEURONTIN) CAP PO SCH ×3 (08:56→20:07)
[2022-04-12] MEDS: ASPIRIN 81 MG CHEW (CHILDREN'S ASA) PO SCH (08:56)
[2022-04-12] MEDS: ACETAMINOPHEN 500 MG TAB (TYLENOL) PO SCH ×3 (08:56→20:07)
[2022-04-12] MEDS: QUEtiapine 25 MG (SEROquel) TAB IMMEDIATE RELEASE PO SCH ×3 (08:56→20:06)
[2022-04-12] MEDS: DOCUSATE SODIUM 100 MG (COLACE) CAP PO SCH ×2 (08:56→20:07)
[2022-04-12] MEDS: FLUoxetine HCL 20 MG (PROzac) CAP PO SCH (08:56)
[2022-04-12] MEDS: LOSARTAN 25 MG (COZAAR) TAB PO SCH (08:56)
[2022-04-12] MEDS: APIXABAN 5 MG (ELIQUIS) TABLET PO SCH ×2 (08:56→20:06)
[2022-04-12 11:12] VITALS: BP 135/74
--- NOTE | 2022-04-12 12:12 | Physical Therapy Daily Note ---
PT Daily Note-Current Subjective Pt agreeable to exercise. When asked about out of bed activity she declined reporting she does not walk at home. Pain Section J - Health Conditions 1. Rarely or not at all 2. Occasionally 3. Frequently 4. Almost constantly 8. Unable to answer Pain Effect on Sleep: 8 Pain Interference with Therapy: 8 Pain Interference w/Day-to-Day: 8 Transfers SCALE: Activities may be completed with or without assistive devices. 1-Btalknkslo-hmzrztn completes the activity by him/herself with no assistance from a helper. 5-Set-up or Clean-up Assistance-helper sets up or cleans up; patient completes activity. [place] assists only prior to or following the activity. 4-Supervision or Touching Assistance-helper provides verbal cues and/or touching/steadying and/or contact guard assistance as patient completes activity. Assistance may be provided throughout the activity or intermittently. 3-Partial/Moderate Assistance-helper does LESS THAN HALF the effort. [place] lifts, holds or supports trunk or limbs, but provides less than half the effort. 2-Substantial/Maximal Assistance-helper does MORE THAN HALF the effort. [place] lifts or holds trunk or limbs and provides more than half the effort. 6-Rlmectodi-mjancd does ALL the effort. Patient does none of the effort to complete the activity. Or, the assistance of 2 or more helpers is required for the patient to complete the activity. If activity was not attempted, code reason: 7-Patient Refused. 9-Not Applicable-not attempted and the patient did not perform the activity before the current illness, exacerbation or injury. 10-Not Attempted due to Environmental Limitations-(lack of equipment, weather restraints, etc.). 88-Not Attempted due to Medical Conditions or Safety Concerns. Exercises Supine Ex: Ankle pumps, Quad Set, Glut sets, Heel Slides, Short Arc Quads, Hip abd/add Supine Reps: 15 Assessment Current Status: Fair Progress Pt has limited LE mobility and strength, which per subjective report is long standing. PT Emt I/85 Goals Retirement Goals PT Emt I/85 Goals Time Frame: Apr 16, 2022 Roll Left & Right (QC): 3 (Zachariah) Sit to Lying (QC): 3 (Zachariah) Lying-Sitting on Side/Bed(QC): 3 (Zachariah) Sit to Stand (QC): 3 (Mod A) Chair/Yyr-zh-Arujo Xfer(QC): 3 (Mod A) Toilet Transfer (QC): 3 (Mod A) PT Plan Treatment/Plan Treatment Plan: Continue Plan of Care Treatment Plan: Bed Mobility, Education, Functional Activity Alan, Functional Strength, Gait, Safety, Therapeutic Exercise, Transfers Treatment Duration: Apr 16, 2022 Frequency: 6 times per week Estimated Hrs Per Day: .25 hour per day Patient and/or Family Agrees t: Yes Time Time In: 955 Time Out: 1005 DATE: Apr 12, 2022 Total Billed Treatment Time: 10 Total Billed Treatment visit, exercise 10 min JACINTA GARCIA PT Apr 12, 2022 12:12
--- NOTE | 2022-04-12 13:14 | Progress Note - Cardiology ---
Cardiology SOAP Progress Note Subjective: Notes gen malaise but improving No focal weakness No cp or palp or syncope No swelling No n/v/d Objective: I&O/Vital Signs 04/12/22 04/12/22 04/12/22 04/12/22 03:50 07:03 08:00 08:48 Temp 37.2 36.6 Pulse 96 98 Resp 20 20 B/P (MAP) 164/81 (108) 124/65 (84) Pulse Ox 94 94 94 O2 Delivery Nasal Cannula Nasal Cannula Nasal Cannula Nasal Cannula O2 Flow Rate 2.00 2.00 2.00 2.00 2.00 04/12/22 11:12 Temp 36.6 Pulse 103 Resp 18 B/P (MAP) 135/74 (94) Pulse Ox 94 O2 Delivery Nasal Cannula O2 Flow Rate 2.00 04/12/22 00:00 Intake Total 440 ml Output Total 1725 ml Balance -1285 ml Weight (Pounds): 139 Weight (Calculated Kilograms): 63.661385 Constitutional: AAO x 3, other (appropriately responsive) Respiratory: No accessory muscle use, No respiratory distress; chest expansion is symmetric, chest is bilaterally symmetric, other (fair air entry) Cardiovascular: regular rate-rhythm; No JVD; S1 and S2 Gastrointestional: soft; No guarding; audible bowel sounds Extremities: other (mild bilat LE swelling) Neurologic/Psychiatric: other (moves extremities equally) Skin: No rash on exposed areas, No ulcerations on exposed areas Results/Procedures: Labs Laboratory Tests 04/11/22 13:11: Lab Scanned Report Transfusion Reaction Form 04/11/22 16:07: Glucometer 81 04/12/22 05:36: Glucometer 98, White Blood Count 9.2, Red Blood Count 2.73L, Hemoglobin 8.4L, Hematocrit 26L, Mean Corpuscular Volume 94, Mean Corpuscular Hemoglobin 31, Mean Corpuscular Hemoglobin Concent 33, Red Cell Distribution Width 15.9H, Platelet Count 435H, Mean Platelet Volume 9.2, Immature Granulocyte % (Auto) 0, Neutrophils (%) (Auto) 74, Lymphocytes (%) (Auto) 15, Monocytes (%) (Auto) 8, Eosinophils (%) (Auto) 3, Basophils (%) (Auto) 0, Neutrophils # (Auto) 6.8, Lymphocytes # (Auto) 1.4, Monocytes # (Auto) 0.7, Eosinophils # (Auto) 0.3, Basophils # (Auto) 0.0, Immature Granulocyte # (Auto) 0.0, Sodium Level 142, Potassium Level 3.6, Chloride Level 113H, Carbon Dioxide Level 18L, Anion Gap 11, Blood Urea Nitrogen 10, Creatinine 0.70, Estimat Glomerular Filtration Rate 85, BUN/Creatinine Ratio 14, Glucose Level 93, Calcium Level 9.0, Corrected Calcium 9.7, Magnesium Level 1.8, Total Bilirubin 0.4, Aspartate Amino Transf (AST/SGOT) 24, Alanine Aminotransferase (ALT/SGPT) 34, Alkaline Phosphatase 72, Total Protein 6.2L, Albumin 3.1L 04/12/22 10:53: Glucometer 101 Microbiology 04/08/22 MRSA Screen - Final, Complete MRSA not isolated 04/07/22 Urine Culture - Final, Complete NO GROWTH 04/07/22 Blood Culture - Final, Complete Staphylococcus aureus Laboratory Tests 04/10/22 19:27 04/11/22 02:22 04/12/22 05:36 Procedures Laboratory Tests 04/10/22 19:27 04/11/22 02:22 04/12/22 05:36 A/P: Assessment: Pulmonary embolism - Gilycrsj-wr-pdhog burden of acute bilateral pulmonary emboli. Evidence of right heart strain - Echocardiogram of 04-08-22 showed LVEF 60-65%. AoV sclerosis. Mod TR. PASP 50-55 mmHg DVT - Occlusive deep vein thrombus within the distal left superficial femoral vein with extension into the left popliteal vein and calf vessels of the left lower extremity. Partially occlusive deep vein thrombus within the right common femoral vein, right popliteal vein, and calf vessels of the right lower extremity UTI with sepsis - management per medical services HTN HLD Dementia Plan: Pulmonary embolism with extensive DVT - currently on anticoagulation with apixaban - management per medical/eICU services Managment of UTI with sepsis is per Dr Mera Anemia - management per Dr Mera Monitor BRI De La Paz MD [facility] CCDS Apr 12, 2022 13:14
[2022-04-12 16:00] VITALS: BP 137/75
[2022-04-12 19:55] VITALS: BP 144/83
[2022-04-12] MEDS: AtorvaSTATin TABLET 10 MG TABLET PO SCH (20:06)
[2022-04-12] MEDS: MELATONIN 3 MG TABLET PO SCH (20:07)
[2022-04-13] VITALS (7 sets, daily range): BP systolic 100–148; BP diastolic 55–84
[2022-04-13] MEDS: inSUlin ASPART (NovoLOG) 1 UNIT/0.01 ML (CHARGE PER UNIT) SC SCH ×4 (06:00→21:18)
--- NOTE | 2022-04-13 06:05 | Progress Note - Hospitalist ---
Subjective HPI/CC On Admission Date Seen by Provider: Apr 13, 2022 Time Seen by Provider: 11:30 CC: Acute respiratory failure due to saddle pulmonary emboli HPI: This is an 82 yr old female detention pt who is known to me from the [facility] unit. She presented to the ICU after [place] ER evaluation found to have saddle pulmonary emboli in need of Heparin drip with right heart strain so an echocardiogram was ordered. She does have significant dementia and anxiety so we'll restart her home medication once reconciled. She is requiring oxygen. Subjective/Events-last exam Doing well Alert today Very declined and son at bedside. Review of Systems General: Fatigue, Malaise Neurological: Confusion Objective Exam Vital Signs Vital Signs Date Time Temp Pulse Resp B/P (MAP) Pulse Ox O2 Delivery O2 Flow Rate FiO2 04/13/22 15:42 36.6 96 19 125/84 (98) 93 Nasal Cannula 2.00 04/07/22 22:56 21 Capillary Refill : Less Than 3 Seconds General Appearance: No Apparent Distress, WD/WN, Chronically ill Respiratory: Lungs Clear, Normal Breath Sounds Cardiovascular: Regular Rate, Rhythm Neurologic/Psychiatric: Alert, Disoriented Results/Procedures Lab Laboratory Tests 04/13/22 05:30 Patient resulted labs reviewed. Assessment/Plan Assessment and Plan Assess & Plan/Chief Complaint Supportive care Acute respiratory failure Saddle type pulmonary embolism Bilateral lower extremity DVT's HTN HLD Dementia Anxiety Anemia StartedOAC- Eliquis 10 mg BID for one week then plan to decrease to 5mg BID Track and trend hgb, transfuse as needed to keep hgb above 8 given cardiac risk factors - 1 unit PRBC given Thur Continue albuterol, Hep-Lock IVF and home meds Transferred to 4th floor given improved status and exam Room at /[facility] upon discharge Critical Care Critically Ill Patient Clinical Quality Measures DVT/VTE Risk/Contraindication: Contraindications-Mechi: Other *list below* Other: possible DVT SMITA MONTES DO Apr 13, 2022 06:05
[2022-04-13 06:51] LABS: BASOPHILS % (AUTO) 0 % (0-10); EOSINOPHILS # (AUTO) 0.4 10^3/uL (0.0-0.3); EOSINOPHILS % (AUTO) 4 % (0-10); HEMATOCRIT 29 % (35-52); HEMOGLOBIN 9.4 g/dL (11.5-16.0); LYMPHOCYTES # (AUTO) 1.3 10^3/uL (1.0-4.0); LYMPHOCYTES % (AUTO) 15 % (12-44); MEAN CORPUSCULAR HEMOGLOBIN 31 pg (25-34); MEAN CORPUSCULAR HGB CONC 33 g/dL (32-36); MEAN CORPUSCULAR VOLUME 94 fL (80-99); MEAN PLATELET VOLUME 9.1 fL (9.0-12.2); MONOCYTES # (AUTO) 0.8 10^3/uL (0.0-1.0); MONOCYTES % (AUTO) 8 % (0-12); NEUTROPHILS # (AUTO) 6.5 10^3/uL (1.8-7.8); NEUTROPHILS % (AUTO) 72 % (42-75); PLATELET COUNT 440 10^3/uL (130-400)
[2022-04-13 06:52] LABS: ALBUMIN 3.1 GM/DL (3.2-4.5)
[2022-04-13 06:53] LABS: CALCIUM 8.8 MG/DL (8.5-10.1)
[2022-04-13 06:55] LABS: TOTAL PROTEIN 6.3 GM/DL (6.4-8.2)
[2022-04-13 06:56] LABS: BILIRUBIN,TOTAL 0.5 MG/DL (0.1-1.0)
[2022-04-13 06:58] LABS: CREATININE SERUM 0.68 MG/DL (0.60-1.30)
[2022-04-13 07:01] LABS: MAGNESIUM 1.7 MG/DL (1.6-2.4)
[2022-04-13] MEDS: DOCUSATE SODIUM 100 MG (COLACE) CAP PO SCH ×2 (08:50→21:18)
[2022-04-13] MEDS: GABAPENTIN 100 MG (NEURONTIN) CAP PO SCH ×3 (08:50→21:17)
[2022-04-13] MEDS: ASPIRIN 81 MG CHEW (CHILDREN'S ASA) PO SCH (08:50)
[2022-04-13] MEDS: ACETAMINOPHEN 500 MG TAB (TYLENOL) PO SCH ×3 (08:51→21:18)
[2022-04-13] MEDS: busPIRone 15 MG (BUSPAR) TABLET PO SCH ×3 (08:51→22:11)
[2022-04-13] MEDS: QUEtiapine 25 MG (SEROquel) TAB IMMEDIATE RELEASE PO SCH ×3 (08:51→22:11)
[2022-04-13] MEDS: SODIUM BICARBONATE 650 MG TABLET PO SCH ×3 (08:51→21:18)
[2022-04-13] MEDS: LOSARTAN 25 MG (COZAAR) TAB PO SCH (08:51)
[2022-04-13] MEDS: SPIRONOLACTONE 25 MG (ALDACTONE) TAB PO SCH (08:51)
[2022-04-13] MEDS: APIXABAN 5 MG (ELIQUIS) TABLET PO SCH ×2 (08:51→21:18)
[2022-04-13] MEDS: FLUoxetine HCL 20 MG (PROzac) CAP PO SCH (08:51)
--- NOTE | 2022-04-13 19:07 | Progress Note - Cardiology ---
Cardiology SOAP Progress Note Subjective: No cp or palp or syncope No shortness of breath at rest Gen weakness improving No n/v/d Does not report any focal weakness Objective: I&O/Vital Signs 04/13/22 04/13/22 04/13/22 04/13/22 07:27 08:00 10:48 11:39 Temp 36.6 36.8 Pulse 76 80 Resp 18 18 B/P (MAP) 143/71 (95) 100/56 (71) Pulse Ox 95 95 95 95 O2 Delivery Nasal Cannula Nasal Cannula Nasal Cannula Nasal Cannula O2 Flow Rate 2.00 2.00 2.00 2.00 04/13/22 15:42 Temp 36.6 Pulse 96 Resp 19 B/P (MAP) 125/84 (98) Pulse Ox 93 O2 Delivery Nasal Cannula O2 Flow Rate 2.00 04/13/22 00:00 Intake Total 1540 ml Output Total 1560 ml Balance -20 ml Weight (Pounds): 139 Weight (Calculated Kilograms): 63.019403 Constitutional: AAO x 3, other (appropriately responsive) Respiratory: No accessory muscle use, No respiratory distress; chest expansion is symmetric, chest is bilaterally symmetric, other (fair air entry) Cardiovascular: regular rate-rhythm; No JVD; S1 and S2 Gastrointestional: soft; No guarding; audible bowel sounds Extremities: other (mild bilat LE swelling) Neurologic/Psychiatric: other (moves extremities equally) Skin: No rash on exposed areas, No ulcerations on exposed areas Results/Procedures: Labs Laboratory Tests 04/12/22 20:46: Glucometer 97 04/13/22 05:30: White Blood Count 9.0, Red Blood Count 3.04L, Hemoglobin 9.4L, Hematocrit 29L, Mean Corpuscular Volume 94, Mean Corpuscular Hemoglobin 31, Mean Corpuscular H emoglobin Concent 33, Red Cell Distribution Width 15.5H, Platelet Count 440H, Mean Platelet Volume 9.1, Immature Granulocyte % (Auto) 0, Neutrophils (%) (Auto ) 72, Lymphocytes (%) (Auto) 15, Monocytes (%) (Auto) 8, Eosinophils (%) (Auto) 4, Basophils (%) (Auto) 0, Neutrophils # (Auto) 6.5, Lymphocytes # (Auto) 1.3, Monocytes # (Auto) 0.8, Eosinophils # (Auto) 0.4H, Basophils # (Auto) 0.0, Immature Granulocyte # (Auto) 0.0, Sodium Level 139, Potassium Level 4.0, Chloride Level 109H, Carbon Dioxide Level 17L, Anion Gap 13, Blood Urea Nitrogen 10, Creatinine 0.68, Estimat Glomerular Filtration Rate 86, BUN/Creatinine Ratio 15, Glucose Level 79, Calcium Level 8.8, Corrected Calcium 9.5, Magnesium Level 1.7, Total Bilirubin 0.5, Aspartate Amino Transf (AST/SGOT) 25, Alanine Aminotransferase (ALT/SGPT) 30, Alkaline Phosphatase 76, Total Protein 6.3L, Albumin 3.1L 04/13/22 05:44: Glucometer 91 04/13/22 11:06: Glucometer 127H 04/13/22 15:16: Glucometer 108 Microbiology 04/08/22 MRSA Screen - Final, Complete MRSA not isolated 04/07/22 Urine Culture - Final, Complete NO GROWTH 04/07/22 Blood Culture - Final, Complete Staphylococcus aureus Laboratory Tests 04/12/22 05:36 04/13/22 05:30 A/P: Assessment: Pulmonary embolism - Zmiiwzvu-nm-kksys burden of acute bilateral pulmonary emboli. Evidence of right heart strain - Echocardiogram of 04-08-22 showed LVEF 60-65%. AoV sclerosis. Mod TR. PASP 50-55 mmHg DVT - Occlusive deep vein thrombus within the distal left superficial femoral vein w ith extension into the left popliteal vein and calf vessels of the left lower extremity. Partially occlusive deep vein thrombus within the right common femoral vein, right popliteal vein, and calf vessels of the right lower extremity UTI with sepsis - management per medical services HTN HLD Dementia Plan: Pulmonary embolism with extensive DVT - currently on anticoagulation with apixaban - management per medical/eICU services Managment of UTI with sepsis is per Dr Mera Anemia - management per Dr Mera Monitor lab Ok for d/c from cardiac standpoint BRI BEARDEN MD [facility]S Apr 13, 2022 19:07
[2022-04-13] MEDS: MELATONIN 3 MG TABLET PO SCH (21:17)
[2022-04-13] MEDS: AtorvaSTATin TABLET 10 MG TABLET PO SCH (21:18)
[2022-04-13] MEDS: RT-ALBUTEROL SULF 2.5 MG/3 ML PRE-MIX VIAL INH PRN (22:11)
[2022-04-14 03:39] VITALS: BP 132/64
[2022-04-14 04:19] VITALS: BP 132/64
[2022-04-14] MEDS: inSUlin ASPART (NovoLOG) 1 UNIT/0.01 ML (CHARGE PER UNIT) SC SCH ×2 (05:50→11:25)
[2022-04-14 05:54] LABS: BASOPHILS % (AUTO) 0 % (0-10); EOSINOPHILS # (AUTO) 0.4 10^3/uL (0.0-0.3); EOSINOPHILS % (AUTO) 4 % (0-10); HEMATOCRIT 28 % (35-52); HEMOGLOBIN 8.9 g/dL (11.5-16.0); LYMPHOCYTES # (AUTO) 1.5 10^3/uL (1.0-4.0); LYMPHOCYTES % (AUTO) 18 % (12-44); MEAN CORPUSCULAR HEMOGLOBIN 30 pg (25-34); MEAN CORPUSCULAR HGB CONC 32 g/dL (32-36); MEAN CORPUSCULAR VOLUME 95 fL (80-99); MONOCYTES # (AUTO) 0.7 10^3/uL (0.0-1.0); MONOCYTES % (AUTO) 8 % (0-12); NEUTROPHILS # (AUTO) 5.8 10^3/uL (1.8-7.8); NEUTROPHILS % (AUTO) 69 % (42-75); PLATELET COUNT 464 10^3/uL (130-400); WHITE BLOOD COUNT 8.4 10^3/uL (4.3-11.0)
[2022-04-14 06:07] LABS: ALBUMIN 3.1 GM/DL (3.2-4.5); BILIRUBIN,TOTAL 0.4 MG/DL (0.1-1.0); CALCIUM 9.1 MG/DL (8.5-10.1); CREATININE SERUM 0.83 MG/DL (0.60-1.30); MAGNESIUM 1.8 MG/DL (1.6-2.4); TOTAL PROTEIN 6.3 GM/DL (6.4-8.2)
[2022-04-14 08:00] VITALS: BP 140/71
[2022-04-14] MEDS: SODIUM BICARBONATE 650 MG TABLET PO SCH ×2 (08:28→12:05)
[2022-04-14] MEDS: FLUoxetine HCL 20 MG (PROzac) CAP PO SCH (08:28)
[2022-04-14] MEDS: ASPIRIN 81 MG CHEW (CHILDREN'S ASA) PO SCH (08:29)
[2022-04-14] MEDS: GABAPENTIN 100 MG (NEURONTIN) CAP PO SCH ×2 (08:29→12:04)
[2022-04-14] MEDS: LOSARTAN 25 MG (COZAAR) TAB PO SCH (08:29)
[2022-04-14] MEDS: ACETAMINOPHEN 500 MG TAB (TYLENOL) PO SCH ×2 (08:29→12:05)
[2022-04-14] MEDS: busPIRone 15 MG (BUSPAR) TABLET PO SCH ×2 (08:29→12:05)
[2022-04-14] MEDS: SPIRONOLACTONE 25 MG (ALDACTONE) TAB PO SCH (08:29)
[2022-04-14] MEDS: QUEtiapine 25 MG (SEROquel) TAB IMMEDIATE RELEASE PO SCH ×2 (08:29→12:05)
[2022-04-14] MEDS: DOCUSATE SODIUM 100 MG (COLACE) CAP PO SCH (08:29)
[2022-04-14] MEDS: APIXABAN 5 MG (ELIQUIS) TABLET PO SCH (08:31)
--- NOTE | 2022-04-14 10:14 | Occupational Ther Daily Note ---
OT Current Status-Daily Note Subjective Pt in bed, lethargic. Agrees to therapy. c/o no pain. Pt opens eyes when addressed and is hard to keep awake. Mental Status/Objective Patient Orientation: Person, Place, Time, Situation Attachments: Oxygen ADL-Treatment Pt's breakfast arrived just prior to arrival. Assist provided to cut meat and open containers. Pts eyes are closed and she keeps falling asleep while eating. Pt will answer questions and open eyes when addressed. Pt ate 25% of food and said she was done. She was able to use silverware and bring food to mouth independently. In bed post tx with phone/call light in reach. All needs met. Therapy Code Descriptions/Definitions Functional [place] Measure: 0=Not Assessed/NA 4=Minimal Assistance 1=Total Assistance 5=Supervision or Setup 2=Maximal Assistance 6=Modified [place] 3=Moderate Assistance 7=Complete IndependenceSCALE: Activities may be completed with or without assistive devices. 5-Jzuhjbpcqd-hnakvhw completes the activity by him/herself with no assistance from a helper. 5-Set-up or Clean-up Assistance-helper sets up or cleans up; patient completes activity. [place] assists only prior to or following the activity. 4-Supervision or Touching Assistance-helper provides verbal cues and/or touching/steadying and/or contact guard assistance as patient completes activity. Assistance may be provided throughout the activity or intermittently. 3-Partial/Moderate Assistance-helper does LESS THAN HALF the effort. [place] lifts, holds or supports trunk or limbs, but provides less than half the effort. 2-Substantial/Maximal Assistance-helper does MORE THAN HALF the effort. [place] lifts or holds trunk or limbs and provides more than half the effort. 2-Peuyhxkfc-afodge does ALL the effort. Patient does none of the effort to complete the activity. Or, the assistance of 2 or more helpers is required for the patient to complete the activity. If activity was not attempted, code reason: 7-Patient Refused. 9-Not Applicable-not attempted and the patient did not perform the activity before the current illness, exacerbation or injury. 10-Not Attempted due to Environmental Limitations-(lack of equipment, weather restraints, etc.). 88-Not Attempted due to Medical Conditions or Safety Concerns. Eating (QC): 3 OT Industrial Psychology Teacher Goals Fpc Goals Time Frame: Apr 30, 2022 Eating (QC): 5 Oral Hygiene (QC): 4 Toileting Hygiene (QC): 3 Shower/Bathe Self (QC): 3 Upper Body Dressing (QC): 3 Lower Body Dressing (QC): 3 On/Off Footwear (QC): 3 Additional Goals: 1-Demonstrate ADL Tasks, 2-Verbalize Understanding, 3-ImproveStrength/Alan 1=Demonstrate adherence to instructed precautions during ADL tasks. 2=Patient will verbalize/demonstrate understanding of assistive devices/modifications for ADL. 3=Patient will improve strength/tolerance for activity to enable patient to perform ADL's. OT Education/Plan Problem List/Assessment Assessment: Decreased Activ Tolerance, Impaired I ADL's, Impaired Self-Care Skills Discharge Recommendations Plan/Recommendations: Continue POC Treatment Plan/Plan of Care Patient would benefit from OT for education, treatment and training to promote independence in ADL's, mobility, safety and/or upper extremity function for ADL's. Plan of Care: ADL Retraining, Caregiver Training, Cognitive Retraining, Functional Mobility, Group Exercise/Act as Ind, UE Funct Exercise/Act, W/C Management Training Treatment Duration: Apr 30, 2022 Frequency: 3 times per week (3-5x/week ) Estimated Hrs Per Day: .25 hour per day Agreement: Yes Rehab Potential: Poor Time Start Time: 09:35 Stop Time: 09:43 DATE: Apr 14, 2022 Total Time Billed (hr/min): 8 Billed Treatment Time 1 visit ADL (8 min) GUSTABO RIVERO Apr 14, 2022 10:14
--- NOTE | 2022-04-14 10:23 | Physical Therapy Progress Note ---
Therapy Progress Note Patient very lethargic and not safe for OOB activity at this time. Will attempt later today is time permits. 1 visit ANNY VAZQUEZ PT Apr 14, 2022 10:23
--- NOTE | 2022-04-14 10:28 | Progress Note - Cardiology ---
Cardiology SOAP Progress Note Subjective: Sitting up in bed Oriented x 2 No c/o CP or SOB Objective: I&O/Vital Signs 04/13/22 04/14/22 04/14/22 04/14/22 23:46 03:39 04:19 08:00 Temp 36.5 36.6 36.6 Pulse 94 97 97 Resp 18 16 B/P (MAP) 106/55 (72) 132/64 (86) Pulse Ox 93 93 93 O2 Delivery Nasal Cannula Nasal Cannula Nasal Cannula O2 Flow Rate 2.50 2.50 2.00 04/14/22 08:00 Temp 37.0 Pulse 86 Resp 16 B/P (MAP) 140/71 (94) Pulse Ox 94 O2 Delivery Nasal Cannula O2 Flow Rate 3.00 04/14/22 00:00 Intake Total 810 ml Output Total 750 ml Balance 60 ml Weight (Pounds): 139 Weight (Calculated Kilograms): 63.513163 Constitutional: No AAO x 3 (Oriented to self and place); other (appropriately responsive) Respiratory: No accessory muscle use, No respiratory distress; chest expansion is symmetric, chest is bilaterally symmetric, other (fair air entry) Cardiovascular: regular rate-rhythm; No JVD; S1 and S2 Gastrointestional: soft; No guarding; audible bowel sounds Extremities: no lower extremity edema bilateral Neurologic/Psychiatric: other (moves extremities equally) Skin: No rash on exposed areas, No ulcerations on exposed areas Results/Procedures: Labs Laboratory Tests 04/13/22 11:06: Glucometer 127H 04/13/22 15:16: Glucometer 108 04/13/22 19:21: Glucometer 115H 04/14/22 05:20: White Blood Count 8.4, Red Blood Count 2.95L, Hemoglobin 8.9L, Hematocrit 28L, Mean Corpuscular Volume 95, Mean Corpuscular Hemoglobin 30, Mean Corpuscular Hemoglobin Concent 32, Red Cell Distribution Width 15.1H, Platelet Count 464H, Mean Platelet Volume 9.0, Immature Granulocyte % (Auto) 0, Neutrophils (%) (Auto) 69, Lymphocytes (%) (Auto) 18, Monocytes (%) (Auto) 8, Eosinophils (%) (Auto) 4, Basophils (%) (Auto) 0, Neutrophils # (Auto) 5.8, Lymphocytes # (Auto) 1.5, Monocytes # (Auto) 0.7, Eosinophils # (Auto) 0.4H, Basophils # (Auto) 0.0, Immature Granulocyte # (Auto) 0.0, Sodium Level 140, Potassium Level 4.0, Chloride Level 110H, Carbon Dioxide Level 19L, Anion Gap 11, Blood Urea Nitrogen 20H, Creatinine 0.83, Estimat Glomerular Filtration Rate 69, BUN/Creatinine Ratio 24, Glucose Level 98, Calcium Level 9.1, Corrected Calcium 9.8, Magnesium Level 1.8, Total Bilirubin 0.4, Aspartate Amino Transf (AST/SGOT) 30, Alanine Aminotransferase (ALT/SGPT) 43, Alkaline Phosphatase 78, Total Protein 6.3L, Albumin 3.1L 04/14/22 05:42: Glucometer 99 Microbiology 04/08/22 MRSA Screen - Final, Complete MRSA not isolated 04/07/22 Urine Culture - Final, Complete NO GROWTH 04/07/22 Blood Culture - Final, Complete Staphylococcus aureus Laboratory Tests 04/13/22 05:30 04/14/22 05:20 A/P: Assessment: Pulmonary embolism - Vymwcjvl-jc-hstza burden of acute bilateral pulmonary emboli. Evidence of right heart strain - Echocardiogram of 04-08-22 showed LVEF 60-65%. AoV sclerosis. Mod TR. PASP 50-55 mmHg DVT - Occlusive deep vein thrombus within the distal left superficial femoral vein with extension into the left popliteal vein and calf vessels of the left lower extremity. Partially occlusive deep vein thrombus within the right common femoral vein, right popliteal vein, and calf vessels of the right lower extremity UTI with sepsis - management per medical services HTN HLD Dementia Plan: Pulmonary embolism with extensive DVT - currently on anticoagulation with apixaban - management per medical services Managment of UTI with sepsis is per Dr Mera Anemia - management per Dr Mera Monitor lab Ok for d/c from cardiac standpoint ELIU WHATLEY Apr 14, 2022 10:28
[2022-04-14] MEDS ORDERED: APIX5TAB PO (10:40)
--- NOTE | 2022-04-14 10:40 | Discharge Summary ---
Diagnosis/Chief Complaint Date of Admission Apr 07, 2022 at 21:27 Date of Discharge Discharge Date: Apr 14, 2022 Discharge Diagnosis Acute respiratory failure Saddle type pulmonary embolism Bilateral lower extremity DVT's HTN HLD Dementia Anxiety Anemia StartedOAC- Eliquis 10 mg BID for one week then plan to decrease to 5mg BID Track and trend hgb, transfuse as needed to keep hgb above 8 given cardiac risk factors - 1 unit PRBC given Thur Continue albuterol, Hep-Lock IVF and home meds Transferred to 4th floor given improved status and exam Room at /[facility] upon discharge Discharge Summary Discharge Physical Examination Allergies: Coded Allergies: patel (Verified Allergy, Intermediate, Diarrhea, 04/13/22) egg (Verified Allergy, Intermediate, Diarrhea, 04/13/22) metoclopramide (Unverified Allergy, Mild, 03/14/16) prochlorperazine (Unverified Allergy, Mild, 03/14/16) HIGH ANXIETY REACTION Vitals & I&Os Vital Signs Date Time Temp Pulse Resp B/P (MAP) Pulse Ox O2 Delivery O2 Flow Rate FiO2 04/14/22 12:24 36.7 98 18 119/59 93 High Flow N/C 2.00 General Appearance: Alert, Cooperative Respiratory: Clear to Auscultation Cardiovascular: Regular Rate Hospital Course Was the Problem List Reviewed?: Yes Patient is an 82-year-old female [facility] pt with a history of HTN, HLD, and dementia who is known to Dr. Mera from the [facility] unit. She presented to the [place] ED from [facility] on 04/07 with chief complaint of shortness of breath. Patient was seen the day before in the ED and treated for a UTI. On 04/07, D- Dimer was measured at over [address] showed a moderate to large burden saddle pulmonary emboli with right ventricular strain. The patient was transferred to [place] ICU where she was started on a heparin drip. Echocardiogram on 04/08/22 showed LVEF 60-65%, AoV sclerosis, mod TR, PASP 50-55 mmHg. She was also found to have bilateral DVTs on lower extremity ultrasound. Her hemoglobin fell to 7.3 and she was given 1 unit PRBC on 04/10. Hgb subsequently increased to 8.6 and was 8.9 upon discharge. It was decided to keep her hgb above 8 given her cardiac risk factors. On 04/12, heparin drip was stopped and she was started on OAC with Eliquis and has taken 3 days of 10 mg BID. Continue 10 mg BID Eliquis for a total of 7 days and then plan to decrease to 5mg BID Eliquis. She does have significant dementia and anxiety so was maintained on her home medications. She is requiring oxygen and will be discharged to [facility] on supplemental oxygen via nasal cannula. ERENDIRA TRUONG Labs (last 24 hrs) Laboratory Tests 04/07/22 14:00: Sodium Level 143, Potassium Level 4.0, Chloride Level 110H, Carbon Dioxide Level 17L, Anion Gap 16H, Blood Urea Nitrogen 17, Creatinine 0.83, Estimat Glomerular Filtration Rate 69, BUN/Creatinine Ratio 20, Glucose Level 112H, Lactic Acid Level 2.44*H, Calcium Level 8.6, Corrected Calcium 8.6, Total Bilirubin 0.2, Aspartate Amino Transf (AST/SGOT) 20, Alanine Aminotransferase (ALT/SGPT) 21, Alkaline Phosphatase 91, Pro-B-Type Natriuretic Peptide 284.0, Total Protein 7.0, Albumin 4.0 04/07/22 14:03: Influenza Type A (RT-PCR) Not Detected, Influenza Type B (RT-PCR) Not Detected, SARS-CoV-2 RNA (RT-PCR) Not Detected 04/07/22 14:19: White Blood Count 10.5, Red Blood Count 2.93L, Hemoglobin 9.2L, Hematocrit 28L, Mean Corpuscular Volume 97, Mean Corpuscular Hemoglobin 31, Mean Corpuscular Hemoglobin Concent 32, Red Cell Distribution Width 15.7H, Platelet Count 305, Mean Platelet Volume 8.7L, Immature Granulocyte % (Auto) 1, Neutrophils (%) (Auto) 75, Lymphocytes (%) (Auto) 14, Monocytes (%) (Auto) 8, Eosinophils (%) (Auto) 2, Basophils (%) (Auto) 0, Neutrophils # (Auto) 7.9H, Lymphocytes # (Auto) 1.5, Monocytes # (Auto) 0.9, Eosinophils # (Auto) 0.2, Basophils # (Auto) 0.0, Immature Granulocyte # (Auto) 0.1 04/07/22 14:37: Prothrombin Time 13.8, INR Comment 1.0, Activated Partial Thromboplast Time 28, D-Dimer >= 20.00H 04/07/22 16:14: Urine Color YELLOW, Urine Clarity CLEAR, Urine pH 6.0, Urine Specific [place] 1.010L, Urine Protein NEGATIVE, Urine Glucose (UA) NEGATIVE, Urine Ketones NEGATIVE, Urine Nitrite NEGATIVE, Urine Bilirubin NEGATIVE, Urine Urobilinogen 0.2, Urine Leukocyte Esterase TRACEH, Urine RBC (Auto) TRACE-IH, Urine RBC 0-2, Urine WBC 5-10H, Urine Squamous Epithelial Cells 0-2, Urine Crystals NONE, Urine Bacteria TRACE, Urine Casts NONE, Urine Mucus NEGATIVE, Urine Culture Indicated CULTURE PENDING 04/07/22 16:24: Lactic Acid Level 2.98*H 04/07/22 18:20: Lactic Acid Level 2.03*H 04/08/22 01:03: Activated Partial Thromboplast Time 88H 04/08/22 04:30: Blood Gas Puncture Site RR, Blood Gas Patient Temperature 37, Arterial Blood pH 7.37, Arterial Blood Partial Pressure CO2 34L, Arterial Blood Partial Pressure O2 28*L, Arterial Blood HCO3 19L, Arterial Blood Total CO2 20.3L, Arterial Blood Oxygen Saturation 47L, Arterial Blood Base Excess -5.0L, Dae Test YES-POS, Blood Gas Ventilator Setting NO, Blood Gas Inspired Oxygen 5L 04/08/22 04:33: White Blood Count 9.6, Red Blood Count 2.53L, Hemoglobin 7.8L, Hematocrit 25L, Mean Corpuscular Volume 97, Mean Corpuscular Hemoglobin 31, Mean Corpuscular Hemoglobin Concent 32, Red Cell Distribution Width 15.6H, Platelet Count 297, Mean Platelet Volume 9.0, Immature Granulocyte % (Auto) 1, Neutrophils (%) (Auto) 71, Lymphocytes (%) (Auto) 18, Monocytes (%) (Auto) 8, Eosinophils (%) (Auto) 2, Basophils (%) (Auto) 0, Neutrophils # (Auto) 6.8, Lymphocytes # (Auto) 1.7, Monocytes # (Auto) 0.8, Eosinophils # (Auto) 0.2, Basophils # (Auto) 0.0, Immature Granulocyte # (Auto) 0.1, Sodium Level 143, Potassium Level 3.9, Chloride Level 115H, Carbon Dioxide Level 17L, Anion Gap 11, Blood Urea Nitrogen 12, Creatinine 0.72, Estimat Glomerular Filtration Rate 82, BUN/Creatinine Ratio 17, Glucose Level 103, Calcium Level 8.3L, Corrected Calcium 8.9, Phosphorus Level 3.4, Magnesium Level 1.9, Total Bilirubin 0.4, Aspartate Amino Transf (AST/SGOT) 18, Alanine Aminotransferase (ALT/SGPT) 19, Alkaline Phosphatase 69, Total Protein 6.0L, Albumin 3.2 04/08/22 05:56: Glucometer 93 04/08/22 09:30: Blood Gas Puncture Site LEFT RADIAL, Blood Gas Patient Temperature 36.7, Arterial Blood pH 7.43, Arterial Blood Partial Pressure CO2 25L, Arterial Blood Partial Pressure O2 74L, Arterial Blood HCO3 17*L, Arterial Blood Total CO2 17.3L, Arterial Blood Oxygen Saturation 96, Arterial Blood Base Excess -7.0L, Dae Test POSITIVE, Blood Gas Ventilator Setting NO, Blood Gas Inspired Oxygen 5 L 04/08/22 10:07: Activated Partial Thromboplast Time 70H 04/08/22 10:38: Glucometer 92 04/08/22 15:53: Glucometer 95 04/08/22 16:28: Activated Partial Thromboplast Time 89H 04/08/22 20:09: Glucometer 119H 04/09/22 04:39: White Blood Count 9.6, Red Blood Count 2.48L, Hemoglobin 7.7L, Hematocrit 24L, Mean Corpuscular Volume 98, Mean Corpuscular Hemoglobin 31, Mean Corpuscular Hemoglobin Concent 32, Red Cell Distribution Width 15.5H, Platelet Count 286, Mean Platelet Volume 9.2, Immature Granulocyte % (Auto) 0, Neutrophils (%) (Auto) 73, Lymphocytes (%) (Auto) 15, Monocytes (%) (Auto) 8, Eosinophils (%) (Auto) 4, Basophils (%) (Auto) 0, Neutrophils # (Auto) 7.0, Lymphocytes # (Auto) 1.4, Monocytes # (Auto) 0.8, Eosinophils # (Auto) 0.4H, Basophils # (Auto) 0.0, Immature Granulocyte # (Auto) 0.0, Activated Partial Thromboplast Time 80H, Sodium Level 141, Potassium Level 3.8, Chloride Level 115H, Carbon Dioxide Level 14L, Anion Gap 12, Blood Urea Nitrogen 10, Creatinine 0.68, Estimat Glomerular Filtration Rate 86, BUN/Creatinine Ratio 15, Glucose Level 97, Calcium Level 8.0L, Corrected Calcium 8.7, Phosphorus Level 4.2, Magnesium Level 1.9, Total Bilirubin 0.4, Aspartate Amino Transf (AST/SGOT) 25, Alanine Aminotransferase (ALT/SGPT) 27, Alkaline Phosphatase 68, Total Protein 5.8L, Albumin 3.1L 04/09/22 09:07: Blood Gas Puncture Site RT RAD, Blood Gas Patient Temperature 36.9, Arterial Blood pH 7.38, Arterial Blood Partial Pressure CO2 28L, Arterial Blood Partial Pressure O2 73L, Arterial Blood HCO3 16*L, Arterial Blood Total CO2 17.0L, Arterial Blood Oxygen Saturation 97, Arterial Blood Base Excess -8.0L, Dae Test YES-POS, Blood Gas Ventilator Setting NO, Blood Gas Inspired Oxygen 5L 04/09/22 10:47: Glucometer 132H 04/09/22 16:53: Glucometer 108 04/09/22 20:32: Glucometer 87 04/10/22 04:30: White Blood Count 8.5, Red Blood Count 2.37L, Hemoglobin 7.3L, Hematocrit 23L, Mean Corpuscular Volume 98, Mean Corpuscular Hemoglobin 31, Mean Corpuscular Hemoglobin Concent 32, Red Cell Distribution Width 15.5H, Platelet Count 329, Mean Platelet Volume 8.9L, Immature Granulocyte % (Auto) 0, Neutrophils (%) (Auto) 70, Lymphocytes (%) (Auto) 17, Monocytes (%) (Auto) 8, Eosinophils (%) (Auto) 4, Basophils (%) (Auto) 0, Neutrophils # (Auto) 5.9, Lymphocytes # (Auto) 1.5, Monocytes # (Auto) 0.7, Eosinophils # (Auto) 0.4H, Basophils # (Auto) 0.0, Immature Granulocyte # (Auto) 0.0, Prothrombin Time 14.8H, INR Comment 1.1, Ac tivated Partial Thromboplast Time 64H, Sodium Level 141, Potassium Level 3.9, Chloride Level 117H, Carbon Dioxide Level 14L, Anion Gap 10, Blood Urea Nitrogen 12, Creatinine 0.71, Estimat Glomerular Filtration Rate 84, BUN/Creatinine Ratio 17, Glucose Level 100, Calcium Level 8.4L, Corrected Calcium 9.3, Phosphorus Level 4.1, Magnesium Level 1.8, Total Bilirubin 0.3, Aspartate Amino Transf (AST/SGOT) 24, Alanine Aminotransferase (ALT/SGPT) 29, Alkaline Phosphatase 62, Total Protein 5.7L, Albumin 2.9L 04/10/22 08:44: Stool Occult Blood Immunoassay NEGATIVE 04/10/22 09:00: Blood Gas Puncture Site L RAD, Blood Gas Patient Temperature 35.6, Arterial Blood pH 7.40, Arterial Blood Partial Pressure CO2 26L, Arterial Blood Partial Pressure O2 71L, Arterial Blood HCO3 16*L, Arterial Blood Total CO2 17.2L, Arterial Blood Oxygen Saturation 98, Arterial Blood Base Excess -7.8L, Dae Test YES-POS, Blood Gas Ventilator Setting NO, Blood Gas Inspired Oxygen 5% 04/10/22 11:36: Activated Partial Thromboplast Time 62H 04/10/22 15:16: Glucometer 89 04/10/22 19:27: Activated Partial Thromboplast Time 161*H, Hemoglobin 8.6L, Hematocrit 26L 04/10/22 20:12: Glucometer 112H 04/11/22 02:22: White Blood Count 7.9, Red Blood Count 2.69L, Hemoglobin 8.2L, Hematocrit 25L, Mean Corpuscular Volume 94, Mean Corpuscular Hemoglobin 31, Mean Corpuscular Hemoglobin Concent 33, Red Cell Distribution Width 16.6H, Platelet Count 328, Mean Platelet Volume 8.8L, Immature Granulocyte % (Auto) 1, Neutrophils (%) (Auto) 59, Lymphocytes (%) (Auto) 28, Monocytes (%) (Auto) 8, Eosinophils (%) (Auto) 4, Basophils (%) (Auto) 0, Neutrophils # (Auto) 4.7, Lymphocytes # (Auto) 2.2, Monocytes # (Auto) 0.6, Eosinophils # (Auto) 0.4H, Basophils # (Auto) 0.0, Immature Granulocyte # (Auto) 0.0, Prothrombin Time 14.7, INR Comment 1.1, Activated Partial Thromboplast Time 97H, Sodium Level 145, Potassium Level 3.8, Chloride Level 117H, Carbon Dioxide Level 15L, Anion Gap 13, Blood Urea Nitrogen 11, Creatinine 0.72, Estimat Glomerular Filtration Rate 82, BUN/Creatinine Ratio 15, Glucose Level 95, Calcium Level 8.3L, Corrected Calcium 9.3, Phosphorus Level 4.5, Magnesium Level 1.8, Total Bilirubin 0.5, Aspartate Amino Transf (AST/SGOT) 20, Alanine Aminotransferase (ALT/SGPT) 30, Alkaline Phosphatase 60, Total Protein 5.3L, Albumin 2.8L 04/11/22 03:55: Blood Gas Puncture Site LEFT RADIAL, Blood Gas Patient Temperature 37.0, Arterial Blood pH 7.41, Arterial Blood Partial Pressure CO2 28L, Arterial Blood Partial Pressure O2 62L, Arterial Blood HCO3 17*L, Arterial Blood Total CO2 18.2L, Arterial Blood Oxygen Saturation 94, Arterial Blood Base Excess -6.3L, Dae Test YES-POS, Blood Gas Ventilator Setting NO, Blood Gas Inspired Oxygen NA 04/11/22 08:25: Activated Partial Thromboplast Time 88H 04/11/22 11:19: Glucometer 88 04/11/22 13:11: Lab Scanned Report Transfusion Reaction Form 04/11/22 16:07: Glucometer 81 04/12/22 05:36: Glucometer 98, White Blood Count 9.2, Red Blood Count 2.73L, Hemoglobin 8.4L, Hematocrit 26L, Mean Corpuscular Volume 94, Mean Corpuscular Hemoglobin 31, Mean Corpuscular Hemoglobin Concent 33, Red Cell Distribution Width 15.9H, Platelet Count 435H, Mean Platelet Volume 9.2, Immature Granulocyte % (Auto) 0, Neutrophi ls (%) (Auto) 74, Lymphocytes (%) (Auto) 15, Monocytes (%) (Auto) 8, Eosinophils (%) (Auto) 3, Basophils (%) (Auto) 0, Neutrophils # (Auto) 6.8, Lymphocytes # (Auto) 1.4, Monocytes # (Auto) 0.7, Eosinophils # (Auto) 0.3, Basophils # (Auto) 0.0, Immature Granulocyte # (Auto) 0.0, Sodium Level 142, Potassium Level 3.6, Chloride Level 113H, Carbon Dioxide Level 18L, Anion Gap 11, Blood Urea Nitrogen 10, Creatinine 0.70, Estimat Glomerular Filtration Rate 85, BUN/Creatinine Ratio 14, Glucose Level 93, Calcium Level 9.0, Corrected Calcium 9.7, Magnesium Level 1.8, Total Bilirubin 0.4, Aspartate Amino Transf (AST/SGOT) 24, Alanine Aminotransferase (ALT/SGPT) 34, Alkaline Phosphatase 72, Total Protein 6.2L, Albumin 3.1L 04/12/22 10:53: Glucometer 101 04/12/22 15:48: Glucometer 86 04/12/22 20:46: Glucometer 97 04/13/22 05:30: White Blood Count 9.0, Red Blood Count 3.04L, Hemoglobin 9.4L, Hematocrit 29L, Mean Corpuscular Volume 94, Mean Corpuscular Hemoglobin 31, Mean Corpuscular Hemoglobin Concent 33, Red Cell Distribution Width 15.5H, Platelet Count 440H, Mean Platelet Volume 9.1, Immature Granulocyte % (Auto) 0, Neutrophils (%) (Auto) 72, Lymphocytes (%) (Auto) 15, Monocytes (%) (Auto) 8, Eosinophils (%) (Auto) 4, Basophils (%) (Auto) 0, Neutrophils # (Auto) 6.5, Lymphocytes # (Auto) 1.3, Monocytes # (Auto) 0.8, Eosinophils # (Auto) 0.4H, Basophils # (Auto) 0.0, Immature Granulocyte # (Auto) 0.0, Sodium Level 139, Potassium Level 4.0, Chloride Level 109H, Carbon Dioxide Level 17L, Anion Gap 13, Blood Urea Nitrogen 10, Creatinine 0.68, Estimat Glomerular Filtration Rate 86, BUN/Creatinine Ratio 15, Glucose Level 79, Calcium Level 8.8, Corrected Calcium 9.5, Magnesium Level 1.7, Total Bilirubin 0.5, Aspartate Amino Transf (AST/SGOT) 25, Alanine Aminotransferase (ALT/SGPT) 30, Alkaline Phosphatase 76, Total Protein 6.3L, Albumin 3.1L 04/13/22 05:44: Glucometer 91 04/13/22 11:06: Glucometer 127H 04/13/22 15:16: Glucometer 108 04/13/22 19:21: Glucometer 115H 04/14/22 05:20: White Blood Count 8.4, Red Blood Count 2.95L, Hemoglobin 8.9L, Hematocrit 28L, Mean Corpuscular Volume 95, Mean Corpuscular Hemoglobin 30, Mean Corpuscular Hemoglobin Concent 32, Red Cell Distribution Width 15.1H, Platelet Count 464H, Mean Platelet Volume 9.0, Immature Granulocyte % (Auto) 0, Neutrophils (%) (Auto) 69, Lymphocytes (%) (Auto) 18, Monocytes (%) (Auto) 8, Eosinophils (%) (Auto) 4, Basophils (%) (Auto) 0, Neutrophils # (Auto) 5.8, Lymphocytes # (Auto) 1.5, Monocytes # (Auto) 0.7, Eosinophils # (Auto) 0.4H, Basophils # (Auto) 0.0, Immature Granulocyte # (Auto) 0.0, Sodium Level 140, Potassium Level 4.0, Chloride Level 110H, Carbon Dioxide Level 19L, Anion Gap 11, Blood Urea Nitrogen 20H, Creatinine 0.83, Estimat Glomerular Filtration Rate 69, BUN/Creatinine Ratio 24, Glucose Level 98, Calcium Level 9.1, Corrected Calcium 9.8, Magnesium Level 1.8, Total Bilirubin 0.4, Aspartate Amino Transf (AST/SGOT) 30, Alanine Aminotransferase (ALT/SGPT) 43, Alkaline Phosphatase 78, Total Protein 6.3L, Albumin 3.1L 04/14/22 05:42: Glucometer 99 04/14/22 10:35: Glucometer 133H Microbiology 04/08/22 MRSA Screen - Final, Complete MRSA not isolated 04/07/22 Urine Culture - Final, Complete NO GROWTH 04/07/22 Blood Culture - Final, Complete Staphylococcus aureus Pending Labs Microbiology Date/Time Source Procedure Growth Status 04/08/22 00:30 Nasal MRSA Screen - Final MRSA not isolated Complete 04/07/22 16:14 Urine Clean Catch Urine Culture - Final NO GROWTH Complete 04/07/22 14:00 Peripheral Rt Ac Blood Culture - Final Staphylococcus aureus Complete 04/07/22 13:50 Peripheral Rt Ac Blood Culture - Final No growth Complete Laboratory Tests 04/07/22 14:00: Sodium Level 143, Potassium Level 4.0, Chloride Level 110, Carbon Dioxide Level 17, Anion Gap 16, Blood Urea Nitrogen 17, Creatinine 0.83, Estimat Glomerular Filtration Rate 69, BUN/Creatinine Ratio 20, Glucose Level 112, Lactic Acid Level 2.44, Calcium Level 8.6, Corrected Calcium 8.6, Total Bilirubin 0.2, Aspartate Amino Transf (AST/SGOT) 20, Alanine Aminotransferase (ALT/SGPT) 21, Alkaline Phosphatase 91, Pro-B-Type Natriuretic Peptide 284.0, Total Protein 7.0, Albumin 4.0 04/07/22 14:03: Influenza Type A (RT-PCR) Not Detected, Influenza Type B (RT-PCR) Not Detected, SARS-CoV-2 RNA (RT-PCR) Not Detected 04/07/22 14:19: White Blood Count 10.5, Red Blood Count 2.93, Hemoglobin 9.2, Hematocrit 28, Mean Corpuscular Volume 97, Mean Corpuscular Hemoglobin 31, Mean Corpuscular Hemoglobin Concent 32, Red Cell Distribution Width 15.7, Platelet Count 305, Mean Platelet Volume 8.7, Immature Granulocyte % (Auto) 1, Neutrophils (%) (Auto) 75, Lymphocytes (%) (Auto) 14, Monocytes (%) (Auto) 8, Eosinophils (%) (Auto) 2, Basophils (%) (Auto) 0, Neutrophils # (Auto) 7.9, Lymphocytes # (Auto) 1.5, Monocytes # (Auto) 0.9, Eosinophils # (Auto) 0.2, Basophils # (Auto) 0.0, Immature Granulocyte # (Auto) 0.1 04/07/22 14:37: Prothrombin Time 13.8, INR Comment 1.0, Activated Partial Thromboplast Time 28, D-Dimer >= 20.00 04/07/22 16:14: Urine Color YELLOW, Urine Clarity CLEAR, Urine pH 6.0, Urine Specific [place] 1.010, Urine Protein NEGATIVE, Urine Glucose (UA) NEGATIVE, Urine Ketones NEGATIVE, Urine Nitrite NEGATIVE, Urine Bilirubin NEGATIVE, Urine Urobilinogen 0.2, Urine Leukocyte Esterase TRACE, Urine RBC (Auto) TRACE-I, Urine RBC 0-2, Urine WBC 5-10, Urine Squamous Epithelial Cells 0-2, Urine Crystals NONE, Urine Bacteria TRACE, Urine Casts NONE, Urine Mucus NEGATIVE, Urine Culture Indicated CULTURE PENDING 04/07/22 16:24: Lactic Acid Level 2.98 04/07/22 18:20: Lactic Acid Level 2.03 04/08/22 01:03: Activated Partial Thromboplast Time 88 04/08/22 04:30: Blood Gas Puncture Site RR, Blood Gas Patient Temperature 37, Arterial Blood pH 7.37, Arterial Blood Partial Pressure CO2 34, Arterial Blood Partial Pressure O2 28, Arterial Blood HCO3 19, Arterial Blood Total CO2 20.3, Arterial Blood Oxygen Saturation 47, Arterial Blood Base Excess -5.0, Dae Test YES-POS, Blood Gas Ventilator Setting NO, Blood Gas Inspired Oxygen 5L 04/08/22 04:33: White Blood Count 9.6, Red Blood Count 2.53, Hemoglobin 7.8, Hematocrit 25, Mean Corpuscular Volume 97, Mean Corpuscular Hemoglobin 31, Mean Corpuscular Hemoglobin Concent 32, Red Cell Distribution Width 15.6, Platelet Count 297, Mean Platelet Volume 9.0, Immature Granulocyte % (Auto) 1, Neutrophils (%) (Auto) 71, Lymphocytes (%) (Auto) 18, Monocytes (%) (Auto) 8, Eosinophils (%) (Auto) 2, Basophils (%) (Auto) 0, Neutrophils # (Auto) 6.8, Lymphocytes # (Auto) 1.7, Monocytes # (Auto) 0.8, Eosinophils # (Auto) 0.2, Basophils # (Auto) 0.0, Immature Granulocyte # (Auto) 0.1, Sodium Level 143, Potassium Level 3.9, Chloride Level 115, Carbon Dioxide Level 17, Anion Gap 11, Blood Urea Nitrogen 12, Creatinine 0.72, Estimat Glomerular Filtration Rate 82, BUN/Creatinine Ratio 17, Glucose Level 103, Calcium Level 8.3, Corrected Calcium 8.9, Phosphorus Level 3.4, Magnesium Level 1.9, Total Bilirubin 0.4, Aspartate Amino Transf ( AST/SGOT) 18, Alanine Aminotransferase (ALT/SGPT) 19, Alkaline Phosphatase 69, Total Protein 6.0, Albumin 3.2 04/08/22 05:56: Glucometer 93 04/08/22 09:30: Blood Gas Puncture Site LEFT RADIAL, Blood Gas Patient Temperature 36.7, Arterial Blood pH 7.43, Arterial Blood Partial Pressure CO2 25, Arterial Blood Partial Pressure O2 74, Arterial Blood HCO3 17, Arterial Blood Total CO2 17.3, Arterial Blood Oxygen Saturation 96, Arterial Blood Base Excess -7.0, Dae Test POSITIVE, Blood Gas Ventilator Setting NO, Blood Gas Inspired Oxygen 5 L 04/08/22 10:07: Activated Partial Thromboplast Time 70 04/08/22 10:38: Glucometer 92 04/08/22 15:53: Glucometer 95 04/08/22 16:28: Activated Partial Thromboplast Time 89 04/08/22 20:09: Glucometer 119 04/09/22 04:39: White Blood Count 9.6, Red Blood Count 2.48, Hemoglobin 7.7, Hematocrit 24, Mean Corpuscular Volume 98, Mean Corpuscular Hemoglobin 31, Mean Corpuscular Hemoglobin Concent 32, Red Cell Distribution Width 15.5, Platelet Count 286, Mean Platelet Volume 9.2, Immature Granulocyte % (Auto) 0, Neutrophils (%) (Auto) 73, Lymphocytes (%) (Auto) 15, Monocytes (%) (Auto) 8, Eosinophils (%) (Auto) 4, Basophils (%) (Auto) 0, Neutrophils # (Auto) 7.0, Lymphocytes # (Auto) 1.4, Monocytes # (Auto) 0.8, Eosinophils # (Auto) 0.4, Basophils # (Auto) 0.0, Immature Granulocyte # (Auto) 0.0, Activated Partial Thromboplast Time 80, Sodium Level 141, Potassium Level 3.8, Chloride Level 115, Carbon Dioxide Level 14, Anion Gap 12, Blood Urea Nitrogen 10, Creatinine 0.68, Estimat Glomerular Filtration Rate 86, BUN/Creatinine Ratio 15, Glucose Level 97, Calcium Level 8.0, Corrected Calcium 8.7, Phosphorus Level 4.2, Magnesium Level 1.9, Total Bilirubin 0.4, Aspartate Amino Transf (AST/SGOT) 25, Alanine Aminotransferase (ALT/SGPT) 27, Alkaline Phosphatase 68, Total Protein 5.8, Albumin 3.1 04/09/22 09:07: Blood Gas Puncture Site RT RAD, Blood Gas Patient Temperature 36.9, Arterial Blood pH 7.38, Arterial Blood Partial Pressure CO2 28, Arterial Blood Partial Pressure O2 73, Arterial Blood HCO3 16, Arterial Blood Total CO2 17.0, Arterial Blood Oxygen Saturation 97, Arterial Blood Base Excess -8.0, Dae Test YES-POS, Blood Gas Ventilator Setting NO, Blood Gas Inspired Oxygen 5L 04/09/22 10:47: Glucometer 132 04/09/22 16:53: Glucometer 108 04/09/22 20:32: Glucometer 87 04/10/22 04:30: White Blood Count 8.5, Red Blood Count 2.37, Hemoglobin 7.3, Hematocrit 23, Mean Corpuscular Volume 98, Mean Corpuscular Hemoglobin 31, Mean Corpuscular Hemoglobin Concent 32, Red Cell Distribution Width 15.5, Platelet Count 329, Mean Platelet Volume 8.9, Immature Granulocyte % (Auto) 0, Neutrophils (%) (Auto) 70, Lymphocytes (%) (Auto) 17, Monocytes (%) (Auto) 8, Eosinophils (%) (Auto) 4, Basophils (%) (Auto) 0, Neutrophils # (Auto) 5.9, Lymphocytes # (Auto) 1.5, Monocytes # (Auto) 0.7, Eosinophils # (Auto) 0.4, Basophils # (Auto) 0.0, Immature Granulocyte # (Auto) 0.0, Prothrombin Time 14.8, INR Comment 1.1, Activated Partial Thromboplast Time 64, Sodium Level 141, Potassium Level 3.9, Chloride Level 117, Carbon Dioxide Level 14, Anion Gap 10, Blood Urea Nitrogen 12, Creatinine 0.71, Estimat Glomerular Filtration Rate 84, BUN/Creatinine Ratio 17, Glucose Level 100, Calcium Level 8.4, Corrected Calcium 9.3, Phosphorus Level 4.1, Magnesium Level 1.8, Total Bilirubin 0.3, Aspartate Amino Transf (AST/SGOT) 24, Alanine Aminotransferase (ALT/SGPT) 29, Alkaline Phosphatase 62, Total Protein 5.7, Albumin 2.9 04/10/22 08:44: Stool Occult Blood Immunoassay NEGATIVE 04/10/22 09:00: Blood Gas Puncture Site L RAD, Blood Gas Patient Temperature 35.6, Arterial Blood pH 7.40, Arterial Blood Partial Pressure CO2 26, Arterial Blood Partial Pressure O2 71, Arterial Blood HCO3 16, Arterial Blood Total CO2 17.2, Arterial Blood Oxygen Saturation 98, Arterial Blood Base Excess -7.8, Dae Test YES-POS, Blood Gas Ventilator Setting NO, Blood Gas Inspired Oxygen 5% 04/10/22 11:36: Activated Partial Thromboplast Time 62 04/10/22 15:16: Glucometer 89 04/10/22 19:27: Activated Partial Thromboplast Time 161, Hemoglobin 8.6, Hematocrit 26 04/10/22 20:12: Glucometer 112 04/11/22 02:22: White Blood Count 7.9, Red Blood Count 2.69, Hemoglobin 8.2, Hematocrit 25, Mean Corpuscular Volume 94, Mean Corpuscular Hemoglobin 31, Mean Corpuscular Hemoglobin Concent 33, Red Cell Distribution Width 16.6, Platelet Count 328, Mean Platelet Volume 8.8, Immature Granulocyte % (Auto) 1, Neutrophils (%) (Auto) 59, Lymphocytes (%) (Auto) 28, Monocytes (%) (Auto) 8, Eosinophils (%) (Auto) 4, Basophils (%) (Auto) 0, Neutrophils # (Auto) 4.7, Lymphocytes # (Auto) 2.2, Monocytes # (Auto) 0.6, Eosinophils # (Auto) 0.4, Basophils # (Auto) 0.0, Immature Granulocyte # (Auto) 0.0, Prothrombin Time 14.7, INR Comment 1.1, Activated Partial Thromboplast Time 97, Sodium Level 145, Potassium Level 3.8, Chloride Level 117, Carbon Dioxide Level 15, Anion Gap 13, Blood Urea Nitrogen 11, Creatinine 0.72, Estimat Glomerular Filtration Rate 82, BUN/Creatinine Ratio 15, Glucose Level 95, Calcium Level 8.3, Corrected Calcium 9.3, Phosphorus Level 4.5, Magnesium Level 1.8, Total Bilirubin 0.5, Aspartate Amino Transf (AST/SGOT) 20, Alanine Aminotransferase (ALT/SGPT) 30, Alkaline Phosphatase 60, Total Protein 5.3, Albumin 2.8 04/11/22 03:55: Blood Gas Puncture Site LEFT RADIAL, Blood Gas Patient Temperature 37.0, Arterial Blood pH 7.41, Arterial Blood Partial Pressure CO2 28, Arterial Blood Partial Pressure O2 62, Arterial Blood HCO3 17, Arterial Blood Total CO2 18.2, Arterial Blood Oxygen Saturation 94, Arterial Blood Base Excess -6.3, Dae Test YES-POS, Blood Gas Ventilator Setting NO, Blood Gas Inspired Oxygen NA 04/11/22 08:25: Activated Partial Thromboplast Time 88 04/11/22 11:19: Glucometer 88 04/11/22 13:11: Lab Scanned Report Transfusion Reaction Form 04/11/22 16:07: Glucometer 81 04/12/22 05:36: Glucometer 98, White Blood Count 9.2, Red Blood Count 2.73, Hemoglobin 8.4, Hematocrit 26, Mean Corpuscular Volume 94, Mean Corpuscular Hemoglobin 31, Mean Corpuscular Hemoglobin Concent 33, Red Cell Distribution Width 15.9, Platelet Count 435, Mean Platelet Volume 9.2, Immature Granulocyte % (Auto) 0, Neutrophils (%) (Auto) 74, Lymphocytes (%) (Auto) 15, Monocytes (%) (Auto) 8, Eosinophils (%) (Auto) 3, Basophils (%) (Auto) 0, Neutrophils # (Auto) 6.8, Lymphocytes # (Auto) 1.4, Monocytes # (Auto) 0.7, Eosinophils # (Auto) 0.3, Basophils # (Auto) 0.0, Immature Granulocyte # (Auto) 0.0, Sodium Level 142, Potassium Level 3.6, Chloride Level 113, Carbon Dioxide Level 18, Anion Gap 11, Blood Urea Nitrogen 10, Creatinine 0.70, Estimat Glomerular Filtration Rate 85, BUN/Creatinine Ratio 14, Glucose Level 93, Calcium Level 9.0, Corrected Calcium 9.7, Magnesium Level 1.8, Total Bilirubin 0.4, Aspartate Amino Transf (AST/SGOT) 24, Alanine Aminotransferase (ALT/SGPT) 34, Alkaline Phosphatase 72, Total Protein 6.2, Albumin 3.1 04/12/22 10:53: Glucometer 101 04/12/22 15:48: Glucometer 86 04/12/22 20:46: Glucometer 97 04/13/22 05:30: White Blood Count 9.0, Red Blood Count 3.04, Hemoglobin 9.4, Hematocrit 29, Mean Corpuscular Volume 94, Mean Corpuscular Hemoglobin 31, Mean Corpuscular Hemoglobin Concent 33, Red Cell Distribution Width 15.5, Platelet Count 440, Mean Platelet Volume 9.1, Immature Granulocyte % (Auto) 0, Neutrophils (%) (Auto) 72, Lymphocytes (%) (Auto) 15, Monocytes (%) (Auto) 8, Eosinophils (%) (Auto) 4, Basophils (%) (Auto) 0, Neutrophils # (Auto) 6.5, Lymphocytes # (Auto) 1.3, Monocytes # (Auto) 0.8, Eosinophils # (Auto) 0.4, Basophils # (Auto) 0.0, Immature Granulocyte # (Auto) 0.0, Sodium Level 139, Potassium Level 4.0, Chloride Level 109, Carbon Dioxide Level 17, Anion Gap 13, Blood Urea Nitrogen 10, Creatinine 0.68, Estimat Glomerular Filtration Rate 86, BUN/Creatinine Ratio 15, Glucose Level 79, Calcium Level 8.8, Corrected Calcium 9.5, Magnesium Level 1.7, Total Bilirubin 0.5, Aspartate Amino Transf (AST/SGOT) 25, Alanine Aminotransferase (ALT/SGPT) 30, Alkaline Phosphatase 76, Total Protein 6.3, Albumin 3.1 04/13/22 05:44: Glucometer 91 04/13/22 11:06: Glucometer 127 04/13/22 15:16: Glucometer 108 04/13/22 19:21: Glucometer 115 04/14/22 05:20: White Blood Count 8.4, Red Blood Count 2.95, Hemoglobin 8.9, Hematocrit 28, Mean Corpuscular Volume 95, Mean Corpuscular Hemoglobin 30, Mean Corpuscular Hemoglobin Concent 32, Red Cell Distribution Width 15.1, Platelet Count 464, Noemi n Platelet Volume 9.0, Immature Granulocyte % (Auto) 0, Neutrophils (%) (Auto) 69, Lymphocytes (%) (Auto) 18, Monocytes (%) (Auto) 8, Eosinophils (%) (Auto) 4, Basophils (%) (Auto) 0, Neutrophils # (Auto) 5.8, Lymphocytes # (Auto) 1.5, Monocytes # (Auto) 0.7, Eosinophils # (Auto) 0.4, Basophils # (Auto) 0.0, Immature Granulocyte # (Auto) 0.0, Sodium Level 140, Potassium Level 4.0, Chloride Level 110, Carbon Dioxide Level 19, Anion Gap 11, Blood Urea Nitrogen 20, Creatinine 0.83, Estimat Glomerular Filtration Rate 69, BUN/Creatinine Ratio 24, Glucose Level 98, Calcium Level 9.1, Corrected Calcium 9.8, Magnesium Level 1.8, Total Bilirubin 0.4, Aspartate Amino Transf (AST/SGOT) 30, Alanine Aminotransferase (ALT/SGPT) 43, Alkaline Phosphatase 78, Total Protein 6.3, Albumin 3.1 04/14/22 05:42: Glucometer 99 04/14/22 10:35: Glucometer 133 Discharge Home Medications: Active Scripts Active Eliquis (Apixaban) 5 Mg Tablet 5 Mg PO BID take 2 pills twice daily for 3 days then 1 pill twice daily until stopped by primary doctor Reported Gabapentin 100 Mg Capsule 100 Mg PO TID Tylenol Extra Strength (Acetaminophen) 500 Mg Tablet 500 Mg PO TID Melatonin 3 Mg Tablet 6 Mg PO HS Pravastatin Sodium 20 Mg Tablet 20 Mg PO HS Seroquel (Quetiapine Fumarate) 25 Mg Tablet 50 Mg PO TID Buspirone HCl 15 Mg Tablet 15 Mg PO TID Aldactone (Spironolactone) 25 Mg Tablet 25 Mg PO DAILY Losartan Potassium 25 Mg Tablet 25 Mg PO DAILY Aspirin 81 Mg Tab.chew 81 Mg PO DAILY Fluoxetine HCl 20 Mg Tablet 20 Mg PO DAILY Instructions to patient/family Please see electronic discharge instructions given to patient. Clinical Quality Measures DVT/VTE Risk/Contraindication: Contraindications-Mechi: Other *list below* Other: possible DVT SMITA MONTES DO Apr 14, 2022 10:40
--- NOTE | 2022-04-14 10:40 | Discharge Inst-Skilled Nursing ---
Discharge Inst-Skilled NF Reconcile Patient Problems Problems Reviewed?: Yes Chief Complaint CC: Acute respiratory failure due to saddle pulmonary emboli HPI: This is an 82 yr old female jail pt who is known to me from the [facility] unit. She presented to the ICU after [place] [facility] evaluation found to have sadd le pulmonary emboli in need of Heparin drip with right heart strain so an echocardiogram was ordered. She does have significant dementia and anxiety so we'll restart her home medication once reconciled. She is requiring oxygen. Patient Instructions Patient Problems: PE DVT Goal: [place] Consult/Follow Up/Orders Follow Up Appt.: PCP 1 week [facility]illed [facility] I certify that SNF services are required to be given on an inpatient basis because of the above named patient's need for retirement care on a continuing basis for the conditions(s) for which he/she was receiving inpatient hospital services prior to his/her transfer to the SNF. Senior Care Facility Order: Nursing Services, Cad Specialist-Evaluate & Treat, Physical Therapy-Evaluate & Treat, Speech Language-Evaluate & Treat Oxygen Delivery Method: Nasal Cannula Discharge Diet: No Restrictions Resuscitation Status: Full Code New & Resume Previous Orders New Medications: Apixaban (Eliquis) 5 Mg Tablet 5 MG PO BID, #63 TAB take 2 pills twice daily for 3 days then 1 pill twice daily until stopped by primary doctor Continued Medications: Acetaminophen (Tylenol Extra Strength) 500 Mg Tablet 500 MG PO TID, TAB Aspirin (Aspirin) 81 Mg Tab.chew 81 MG PO DAILY, TAB Buspirone HCl (Buspirone HCl) 15 Mg Tablet 15 MG PO TID, TAB Fluoxetine HCl (Fluoxetine HCl) 20 Mg Tablet 20 MG PO DAILY, TAB Gabapentin (Gabapentin) 100 Mg Capsule 100 MG PO TID, CAP Losartan Potassium (Losartan Potassium) 25 Mg Tablet 25 MG PO DAILY, TAB Melatonin (Melatonin) 3 Mg Tablet 6 MG PO HS, TAB Pravastatin Sodium (Pravastatin Sodium) 20 Mg Tablet 20 MG PO HS, TAB Quetiapine Fumarate (Seroquel) 25 Mg Tablet 50 MG PO TID, TAB Spironolactone (Aldactone) 25 Mg Tablet 25 MG PO DAILY, TAB Deborah Mera Apr 14, 2022 10:40 DEBORAH MERA DO Apr 14, 2022 10:40
--- NOTE | 2022-04-14 10:56 | Progress Note ---
ERENDIRA TRUONG 04/14/22 1056: Progress Note Patient is an 82-year-old female senior care pt with a history of HTN, HLD, and dementia who is known to Dr. Mera from the [facility] unit. She presented to the [place] ED from [facility] on 04/07 with chief complaint of shortness of breath. Patient was seen the day before in the ED and treated for a UTI. On 04/07, D- Dimer was measured at over [address] showed a moderate to large burden saddle pulmonary emboli with right ventricular strain. The patient was transferred to [place] ICU where she was started on a heparin drip. Echocardiogram on 04/08/22 showed LVEF 60-65%, AoV sclerosis, mod TR, PASP 50-55 mmHg. She was also found to have bilateral DVTs on lower extremity ultrasound. Her hemoglobin fell to 7.3 and she was given 1 unit PRBC on 04/10. Hgb subsequently increased to 8.6 and was 8.9 upon discharge. It was decided to keep her hgb above 8 given her cardiac risk factors. On 04/12, heparin drip was stopped and she was started on OAC with Eliquis and has taken 3 days of 10 mg BID. Continue 10 mg BID Eliquis for a total of 7 days and then plan to decrease to 5mg BID Eliquis. She does have significant dementia and anxiety so was maintained on her home medications. She is requiring oxygen and will be discharged to [facility] on supplemental oxygen via nasal cannula. DEBORAH MERA DO 04/15/22 0523: Supervisory-Addendum Brief Verification & Attestation Participated in pt care: history, MDM, physical Personally performed: exam, history, MDM, supervision of care Care discussed with: Medical Student Procedures: n/a Results interpretation: Verified all documentation Verification and Attestation of Medical Student E/M Service A medical student performed and documented this service in my presence. I reviewed and verified all information documented by the medical student and made modifications to such information, when appropriate. I personally performed the physical exam and medical decision making. Deborah Mera Apr 15, 2022,05:23 ERENDIRA TRUONG Apr 14, 2022 10:56 DEBORAH MERA DO Apr 15, 2022 05:23
[2022-04-14 11:57] VITALS: BP 119/59
[2022-04-14 12:24] VITALS: BP 119/59
--- NOTE | 2022-04-16 11:43 | Physician Query Clarification ---
PQ-Uncertain Diagnosis Admission/Discharge Admission Date: Apr 07, 2022 at 21:27 Discharge Date: Apr 14, 2022 at 12:24 Dr. Mera, The medical record reflects the following clinical scenario: History/Risk Factors: UTI Clinical Findings: lactic acid 2.44, T 36.2, P 120, R 28 Treatment: H&P states continue PO Cephalexin Question: Is Sepsis d/t UTI a clinically valid diagnosis? Sepsis d/t UTI was documented in the Thierno Erwin's consult with no further documentation in the medical record. Please document a response in Progress Note or Discharge Summary. 1. Yes, clinically valid, condition resolved. 2. No, condition ruled out. 3. Other, with explanation of clinical findings. 4. Undetermined, no explanation for clinical findings. PHYSICIAN RESPONSE Diagnosis clinically valid: No, conditon ruled out In responding to this query, please exercise your independent professional judgment. The purpose of this communication is to more accurately reflect the complexity of your patients condition. The fact that a question is asked does not imply that any particular answer is desired or expected. Thank you for your timely response to this clarification. Requestors name: Luna THIS PHYSICIAN QUERY FORM IS A PERMANENT PART OF THE MEDICAL RECORD LUNA HOLLOWAY Apr 16, 2022 11:43 SMITA MERA DO Apr 16, 2022 17:24
== END 2022-04-14 12:24 | DRG 175 ==
LOC: EDUNIT# 13:18 → ER FS 13:19 → ICU 21:27 → 4TH 04-11 13:45
PROVIDERS: ADMIT Internal Medicine; ATTEND Internal Medicine
PROC: 5A0935A Assistance with Respiratory Ventilation, Less than 24 Consecutive Hours, High Flow/Velocity Cannula (ICD-10-PCS; principal; 2022-04-14)
DX: I26.92 Saddle embolus of pulmonary artery without acute cor pulmonale (principal); J96.01 Acute respiratory failure with hypoxia; I82.413 Acute embolism and thrombosis of femoral vein, bilateral; I82.433 Acute embolism and thrombosis of popliteal vein, bilateral; I82.4Z3 Acute embolism and thrombosis of unspecified deep veins of distal lower extremity, bilateral; I50.810 Right heart failure, unspecified; Z20.822 Contact with and (suspected) exposure to COVID-19; F03.90 Unspecified dementia, unspecified severity, without behavioral disturbance, psychotic disturbance, mood disturbance, and anxiety; K59.09 Other constipation; I11.0 Hypertensive heart disease with heart failure; E78.00 Pure hypercholesterolemia, unspecified; F41.9 Anxiety disorder, unspecified; F32.A Depression, unspecified; I08.2 Rheumatic disorders of both aortic and tricuspid valves; D64.9 Anemia, unspecified; Z87.891 Personal history of nicotine dependence; Z79.82 Long term (current) use of aspirin
CPT/HCPCS: 36415; 36600; 71045; 71275; 74177; 80053; 81000; 82274; 82805; 82947; 83605; 83735; 83880; 84100; 85014; 85018; 85025; 85379; 85610; 85730; 86850; 86900; 86901; 86920; 87040; 87077; 87081; 87088; 87186; 87636; 93306; 93970; 94640; 94664; 94760; 94761; 96361; 96365; 96366; 96375; Q9967

== ENCOUNTER 2022-04-18 18:50 | Inpatient (IN) | payer MEDICARE ==
[~2022-04-18] VITALS: Ht 162 cm; Wt 78.2 kg
[~2022-04-18 18:50] MED LIST changes: +ACET-2267 PO; +APIX5TAB PO; +ASPI-999 PO; +FLUO20TA28 PO; +GABA-486 PO; +MELA3TAB39 PO; +QUET25TA PO; +SPIR25TA PO
[2022-04-18] MEDS ORDERED: RT-ALBUTEROL/IPRATROPIUM 3 ML (DUONEB) VIAL INH ONE ×2 (19:00→20:00)
[2022-04-18] MEDS ORDERED: ASPIRIN 81 MG CHEW (CHILDREN'S ASA) PO ONE (19:00)
[2022-04-18] MEDS ORDERED: methylPREDNISolone 125 MG (Solu-MEDROL) VIAL IVP ONE (19:00)
--- NOTE | 2022-04-18 19:10 | ED Chest Pain ---
General Chief Complaint: Respiratory Problems Stated Complaint: CHEST PAIN,SOA Nursing Triage Note: PT BROUGHT IN BY [facility] FROM [facility]. PT WAS RECENTLY DISCHARGED FOR PE. COMPLAINING OF SOA, CP, THIGH PAIN. PER EMS, IA STATED THAT PTS PLATELETS WERE HIGH ON BLOOD WORK TODAY. PT IS ALERT. VISIBLY SOA. EMS GAVE 1 DUONEB, WITH NO IMPROVEMENT. PT NORMALLY WEARS 2LNC AND HAS BEEN INCREASED TO 4LNC Source: patient, EMS, old records Exam Limitations: no limitations History of Present Illness Date Seen by Provider: Apr 18, 2022 Time Seen by Provider: 18:55 Initial Comments This 82-year-old woman presents to the emergency room via EMS from [facility] with chest pain and shortness of breath. She has an obvious obstructive pathology with tight wheezing and increased work of breathing on arrival. She received a DuoNeb treatment in route by EMS without significant improvement. She was recently admitted to the hospital from April 07 through April 14 with large pulmonary emboli. She is presently taking Eliquis. She had chest pain earlier in the evening that has since resolved. She complains of some left thigh pain. Her CODE STATUS is full code. She has been wearing 2 L oxygen by nasal cannula which was increased today to 4 L. Outpatient lab work obtained this morning was reviewed. Results were relatively unremarkable except for thrombocytosis with platelet count of 721,000. She is noted to have diagnoses of hypertension, pulmonary embolus, and dementia on her prior notes but no history of COPD. Patient was admitted on April 07 and started on a heparin drip after pulmonary embolus was identified on CT scan. Right heart strain was noted. An echocardiogram was performed the next day and revealed ejection fraction of 60%. She was converted to oral anticoagulation on Eliquis. She received a transfusion during her prior admission as well. Assigned to PCP on the usp paperwork is Dr. Cuca Land. Allergies and Home Medications Allergies Coded Allergies: patel (Verified Allergy, Intermediate, Diarrhea, 04/13/22) egg (Verified Allergy, Intermediate, Diarrhea, 04/13/22) metoclopramide (Unverified Allergy, Mild, 03/14/16) prochlorperazine (Unverified Allergy, Mild, 03/14/16) HIGH ANXIETY REACTION Patient Home Medication List Home Medication List Reviewed: Yes Acetaminophen (Tylenol Extra Strength) 500 Mg Tablet, 500 MG PO TID, (Reported) Entered as Reported by: ABDIRASHID PICHARDO on 04/08/22 152 Apixaban (Eliquis) 5 Mg Tablet, 5 MG PO BID Prescribed by: SMITA CRANE on 04/14/22 1040 Aspirin (Aspirin) 81 Mg Tab.chew, 81 MG PO DAILY, (Reported) Entered as Reported by: ABDIRASHID PICHARDO on 04/08/22 152 Buspirone HCl (Buspirone HCl) 15 Mg Tablet, 15 MG PO TID, (Reported) Entered as Reported by: ABDIRASHID PICHARDO on 04/08/22 152 Fluoxetine HCl (Fluoxetine HCl) 20 Mg Tablet, 20 MG PO DAILY, (Reported) Entered as Reported by: ABDIRASHID PICHARDO on 04/08/221520 Gabapentin (Gabapentin) 100 Mg Capsule, 100 MG PO TID, (Reported) Entered as Reported by: ABDIRASHID PICHARDO on 04/08/22 152 Losartan Potassium (Losartan Potassium) 25 Mg Tablet, 25 MG PO DAILY, (Reported) Entered as Reported by: ABDIRASHID PICHARDO on 04/08/221520 Melatonin (Melatonin) 3 Mg Tablet, 6 MG PO HS, (Reported) Entered as Reported by: ABDIRASHID PICHARDO on 04/08/221520 Pravastatin Sodium (Pravastatin Sodium) 20 Mg Tablet, 20 MG PO HS, (Reported) Entered as Reported by: ABDIRASHID PICHARDO on 04/08/221520 Quetiapine Fumarate (Seroquel) 25 Mg Tablet, 50 MG PO TID, (Reported) Entered as Reported by: ABDIRASHID PICHARDO on 04/08/221520 Spironolactone (Aldactone) 25 Mg Tablet, 25 MG PO DAILY, (Reported) Entered as Reported by: ABDIRASHID PICHARDO on 04/08/221520 Review of Systems Review of Systems Constitutional: no symptoms reported EENTM: No Symptoms Reported Respiratory: See HPI Cardiovascular: See HPI Gastrointestinal: No Symptoms Reported Genitourinary: No Symptoms Reported Musculoskeletal: no symptoms reported Skin: no symptoms reported Psychiatric/Neurological: No Symptoms Reported Endocrine: No Symptoms Reported Hematologic/Lymphatic: See HPI Past Vrqsooi-Exhsyu-Strxrq Hx Patient Social History Smoking Status: Unknown if Ever Smoked Smokeless Tobacco Frequency: Unknown if Ever Used Substance use?: Unable to obtain Alcohol Use?: Unable to obtain Pt feels they are or have been: No Immunizations Up To Date Tetanus Booster (TDap): Unknown First/Initial COVID19 Vaccinat: MAY 2020 Second COVID19 Vaccination Juan: JUN 2020 Third COVID19 Vaccination Date: APR 2021 Past Medical History Surgery/Hospitalization HX: DEMENTIA, HTN, HIGH CHOLESTEROLM, ANXIETY, DEPRESSION Surgeries: Yes Hysterectomy, Orthopedic Respiratory: Yes Pulmonary Embolism Cardiac: Yes High Cholesterol, Hypertension Neurological: Yes Dementia : No Genitourinary: No Gastrointestinal: Yes Chronic Constipation Musculoskeletal: No Endocrine: No HEENT: Yes Tinnitis Cancer: No Psychosocial: Yes Anxiety, Depression Family Medical History No Pertinent Family Hx Physical Exam Vital Signs Vital Signs - First Documented Capillary Refill : Less Than 3 Seconds Height, Weight, BMI Height: 5'2" Weight: 139lbs. oz. 63.269079si; 31.00 BMI Method:Stated General Appearance: WD/WN, Moderate Distress HEENT: PERRL/EOMI, Normal ENT Inspection Neck: Normal Inspection Respiratory: Accessory Muscle Use, Crackles (Left lung), Decreased Breath Sounds, Wheezing Cardiovascular: No Edema, No Murmur, Tachycardia Gastrointestinal: Soft; No Distended Extremity: Normal Inspection, No Pedal Edema Neurologic/Psychiatric: Alert Skin: Normal Color, Warm/Dry Focused Exam Sepsis Stage: Severe Sepsis Possible Source: Pulmonary Lactate Level 04/18/22 21:16: Lactic Acid Level 3.00*H Time of Focused Exam: 20:15 Respiratory: No Accessory Muscle Use, No Respiratory Distress, Wheezing, Other (On BiPAP) Cardiovascular: Regular Rate, Rhythm, No Edema, No Murmur, Normal Peripheral Pulses Skin: normal color, warm/dry Lactic Acid Level Laboratory Tests Test 04/18/22 19:00 04/18/22 21:16 Lactic Acid Level 2.11 MMOL/L (0.50-2.00) *H 3.00 MMOL/L (0.50-2.00) *H Within 3hrs of presentation: Admin fluids, Admin ABX, Blood cultures prior to ABX's, Focus exam, Lactate level Progress/Results/Core Measures Results/Orders Lab Results Laboratory Tests Test 04/18/22 19:00 04/18/22 19:09 04/18/22 20:12 04/18/22 20:47 Range/Units White Blood Count 16.5 H 4.3-11.0 10^3/uL Red Blood Count 2.76 L 3.80-5.11 10^6/uL Hemoglobin 8.2 L 11.5-16.0 g/dL Hematocrit 26 L 35-52 % Mean Corpuscular Volume 94 80-99 fL Mean Corpuscular Hemoglobin 30 25-34 pg Mean Corpuscular Hemoglobin Concent 32 32-36 g/dL Red Cell Distribution Width 14.7 H 10.0-14.5 % Platelet Count 668 H 130-400 10^3/uL Mean Platelet Volume 8.8 L 9.0-12.2 fL Immature Granulocyte % (Auto) 1 % Neutrophils (%) (Auto) 78 H 42-75 % Lymphocytes (%) (Auto) 11 L 12-44 % Monocytes (%) (Auto) 6 0-12 % Eosinophils (%) (Auto) 5 0-10 % Basophils (%) (Auto) 0 0-10 % Neutrophils # (Auto) 12.8 H 1.8-7.8 10^3/uL Lymphocytes # (Auto) 1.8 1.0-4.0 10^3/uL Monocytes # (Auto) 1.0 0.0-1.0 10^3/uL Eosinophils # (Auto) 0.7 H 0.0-0.3 10^3/uL Basophils # (Auto) 0.0 0.0-0.1 10^3/uL Immature Granulocyte # (Auto) 0.1 0.0-0.1 10^3/uL Neutrophils % (Manual) 77 % Lymphocytes % (Manual) 13 % Monocytes % (Manual) 4 % Eosinophils % (Manual) 6 % Blood Morphology Comment NORMAL Prothrombin Time 20.7 H 12.2-14.7 SEC INR Comment 1.7 H 0.8-1.4 Activated Partial Thromboplast Time 40 H 24-35 SEC Sodium Level 140 135-145 MMOL/L Potassium Level 3.6 3.6-5.0 MMOL/L Chloride Level 109 H 98-107 MMOL/L Carbon Dioxide Level 16 L 21-32 MMOL/L Anion Gap 15 H 5-14 MMOL/L Blood Urea Nitrogen 25 H 7-18 MG/DL Creatinine 1.05 0.60-1.30 MG/DL Estimat Glomerular Filtration Rate 52 BUN/Creatinine Ratio 24 Glucose Level 106 H 70-105 MG/DL Lactic Acid Level 2.11 *H 0.50-2.00 MMOL/L Calcium Level 9.0 8.5-10.1 MG/DL Corrected Calcium 9.5 8.5-10.1 MG/DL Magnesium Level 2.2 1.6-2.4 MG/DL Total Bilirubin 0.5 0.1-1.0 MG/DL Aspartate Amino Transf (AST/SGOT) 87 H 5-34 U/L Alanine Aminotransferase (ALT/SGPT) 96 H 0-55 U/L Alkaline Phosphatase 119 40-136 U/L Myoglobin 48.6 10.0-92.0 NG/ML Troponin I 0.033 H < 0.028 <0.028 NG/ML C-Reactive Protein High Sensitivity 12.55 H 0.00-0.50 MG/DL B-Type Natriuretic Peptide 85.6 <100.0 PG/ML Total Protein 7.4 6.4-8.2 GM/DL Albumin 3.4 3.2-4.5 GM/DL Procalcitonin 0.51 H <0.10 NG/ML Influenza Type A (RT-PCR) Not Detected Not Detecte Influenza Type B (RT-PCR) Not Detected Not Detecte SARS-CoV-2 RNA (RT-PCR) Not Detected Not Detecte Blood Gas Puncture Site RR Blood Gas Patient Temperature 36.1 Arterial Blood pH 7.40 7.37-7.43 Arterial Blood Partial Pressure CO2 28 L 35-45 MMHG Arterial Blood Partial Pressure O2 70 L 79-93 MMHG Arterial Blood HCO3 17 *L 23-27 MMOL/L Arterial Blood Total CO2 18.0 L 21.0-31.0 MMOL/L Arterial Blood Oxygen Saturation 97 94-100 % Arterial Blood Base Excess -7.0 L -2.5-2.5 MMOL/L Dae Test YES-POS Blood Gas Ventilator Setting NO Blood Gas Inspired Oxygen 5L Urine Color ALEXANDRE H Urine Clarity CLEAR Urine pH 5.0 5-9 Urine Specific [place] 1.025 H 1.016-1.022 Urine Protein 1+ H NEGATIVE Urine Glucose (UA) NEGATIVE NEGATIVE Urine Ketones TRACE H NEGATIVE Urine Nitrite NEGATIVE NEGATIVE Urine Bilirubin 1+ H NEGATIVE Urine Urobilinogen 2.0 < = 1.0 MG/DL Urine Leukocyte Esterase NEGATIVE NEGATIVE Urine RBC (Auto) NEGATIVE NEGATIVE Urine RBC 0-2 /HPF Urine WBC 2-5 /HPF Urine Squamous Epithelial Cells 2-5 /HPF Urine Crystals NONE /LPF Urine Bacteria TRACE /HPF Urine Casts PRESENT /LPF Urine Hyaline Casts 2-5 H /LPF Urine Mucus SMALL H /LPF Urine Culture Indicated CULTURE PENDING Test 04/18/22 21:16 Range/Units Lactic Acid Level 3.00 *H 0.50-2.00 MMOL/L My Orders Orders - ANTELMO CLIFFORD MD Ekg Tracing (04/18/22 18:56) Cbc With Automated Diff (04/18/22 18:57) Magnesium (04/18/22 18:57) Chest 1 View, Ap/Pa Only (04/18/22 18:57) Comprehensive Metabolic Panel (04/18/22 18:57) Myoglobin Serum (04/18/22 18:57) Protime With Inr (04/18/22 18:57) Partial Thromboplastin Time (04/18/22 18:57) O2 (04/18/22 18:57) Monitor-Rhythm Ecg Trace Only (04/18/22 18:57) Lipid Panel (04/19/22 06:00) Ed Iv/Invasive Line Start (04/18/22 18:57) Bnp Navarro (04/18/22 18:57) Troponin I Williamson (04/18/22 18:57) Methylprednisolone Sod Succ (Solu-Medrol (04/18/22 19:00) Covid 19 Inhouse Test (04/18/22 18:57) Influenza A And B By Pcr (04/18/22 18:57) Albuterol/Ipra Inhalation Soln (Duoneb I (04/18/22 19:00) Svn Small Volume Nebulizer (04/18/22 18:57) Arterial Blood Gas (04/18/22 18:57) Hs C Reactive Protein (04/18/22 18:57) Procalcitonin (Pct) (04/18/22 18:57) Aspirin Chewable Tablet (Baby Aspirin Ch (04/18/22 19:00) Arterial Blood Gas (04/18/22 19:09) Manual Differential (04/18/22 19:00) Albuterol Pre-Mix Nebs (Rt) (Proventil (04/18/22 19:54) Albuterol/Ipra Inhalation Soln (Duoneb I (04/18/22 20:00) Svn Small Volume Nebulizer (04/18/22 19:54) Svn Small Volume Nebulizer (04/18/22 19:54) Enoxaparin Injection (Lovenox Injection) (04/18/22 20:00) Blood Culture (04/18/22 19:58) Sputum Culture (04/18/22 19:58) Urinalysis (04/18/22 19:58) Urine Culture (04/18/22 19:58) Vital Signs Adult Sepsis Patie Q15M (04/18/22 19:58) Remove Rings In Anticipation O (04/18/22 19:58) Lactic Acid Analyzer (04/18/22 19:58) Cefepime Injection (Maxipime Injection) (04/18/22 20:00) Lactated Ringers (Lr 1000 Ml Iv Solution (04/18/22 20:15) Troponin I Navarro (04/18/22 21:00) Whyte Cath (04/18/22 20:08) Medications Given in ED Current Medications Medications Dose Ordered Sig/Heri Route Start Time Stop Time Status Last Admin Dose Admin Lactated Ringer's 1,000 ml @ 0 mls/hr Q0M ONCE IV 04/18/22 20:15 04/18/22 20:16 DC 04/18/22 20:29 1,000 MLS/HR Vital Signs/I&O 04/18/22 04/18/22 18:52 18:52 Pulse 93 Resp 28 B/P (MAP) 108/54 (72) Pulse Ox 94 O2 Delivery Nasal Cannula Nasal Cannula O2 Flow Rate 4.00 4.00 04/19/22 00:00 Intake Total 1050 ml Balance 1050 ml Blood Pressure Mean: 72 Progress Progress Note #1: Time: 19:18 Progress Note Patient was promptly evaluated upon arrival. She was noted to be in respiratory distress with wheezing and significant accessory muscle use on expiration. She also had some pulmonary crackles. BiPAP and DuoNeb are immediately being applied. Solu-Medrol 125 mg is being given. Aspirin 243. Progress Note #2: Time: 19:59 Progress Note Patient has improved after a DuoNeb treatment and BiPAP therapy but she is still wheezing. Crackles have decreased. Work-up has partially returned and reveals leukocytosis, elevated CRP, elevated procalcitonin, and x-ray results that suggest left pneumonia. Septic work-up will be pursued and antibiotic therapy will be initiated. IV hydration will be started as well. Nursing staff is not confident that she can safely swallow Eliquis, and she has not received her evening dose. In the lieu of this, we will give a Lovenox injection. Progress Note #3: Time: 22:17 Progress Note Patient completed 1 L of LR but still has systolic blood pressures in the 80s. A second liter is now being infused. Given her respiratory failure and hypotension, she may be slipping from severe sepsis into septic shock. Also, her lactic acid increased to 3.0. I have discussed these issues with the family and noted the worsening prognosis given these changes. We revisited the CODE STATUS conversation and I have advised resuscitation or intubation would not likely be successful in improving long-term outcome. Patient's son and [id number] are going to visit with the patient's to definitively determine CODE STATUS. I did discuss the case with Dr. Barton, flyer builder. She recommends adding vancomycin. This patient has respiratory failure, hypotension, and severe sepsis prompting critical care. At least 30 minutes of critical care time was provided with bedside care, evaluation of chart, communication with the attending physician and flyer builder, management of sepsis, and discussion with family. Patient did not complete a full 30 mL/kg fluid bolus in the emergency room. This large-volume fluid bolus may be continued in the ICU if she remains hypotensive after the second liter. Initial ECG Impression Date: Apr 18, 2022 Initial ECG Impression Time: 19:01 Initial ECG Rate: 103 Initial ECG Rhythm: S.Tach Comment Sinus tachycardia with no ST elevation or depression. Premature complex noted. Left axis deviation with LVH. No abnormal intervals. Diagnostic Imaging Diagonstic Imaging: Xray Plain Films/CT/US/NM/MRI: chest Comments Chest x-ray viewed by me and report reviewed. See report below: NAME: ASAD HARRELL MED REC#: [id number] PT STATUS: REG ER : 1940 PHYSICIAN: ANTELMO CLIFFORD MD ADMIT DATE: 04/18/22/ER Signed Date of Exam:04/18/22 CHEST 1 VIEW, AP/PA ONLY INDICATION: Chest pain Comparison is made with prior examination of 04/07/2022. FINDINGS: The heart size is normal. There is some venous congestion. There is some diffuse infiltrate in the left lung. There is no pleural effusion or pneumothorax. The mediastinum is unremarkable. IMPRESSION: Diffuse infiltrate in the left lung suspect for pneumonia. Central pulmonary venous congestion. Dictated by: Dictated on workstation # [id number] Dict: 04/18/221925 Trans: 04/18/221942 [facility] [id number] Interpreted by: GLENIS MARROQUIN MD Electronically signed by: GLENIS MARROQUIN MD 04/18/221942 Departure Communication (Admissions) Time/Spoke to Admitting Phy: 21:15 Dr. Linares Impression Primary Impression: Acute hypoxemic respiratory failure Additional Impressions: Bronchospasm Saddle pulmonary embolus Qualified Codes: I26.92 - Saddle embolus of pulmonary artery without acute cor pulmonale Dementia Qualified Codes: F03.90 - Unspecified dementia, unspecified severity, without behavioral disturbance, psychotic disturbance, mood disturbance, and anxiety Pneumonia involving left lung Qualified Codes: J18.9 - Pneumonia, unspecified organism Severe sepsis Disposition: 01 HOME, SELF-CARE Condition: Improved Admissions Decision to Admit Reason: Admit from ER (General) Decision to Admit/Date: Apr 18, 2022 Time/Decision to Admit Time: 21:15 Departure-Patient Inst. Referrals: MARILIN TERRY MD (PCP) Primary Care Physician HAILEY GARCIA MD (Family) Primary Care Physician Copy Copies To 1: MARYBETH LAND MD, JOSHUA T MD Apr 18, 2022 19:10
[2022-04-18 19:14] LABS: BASOPHILS % (AUTO) 0 % (0-10); EOSINOPHILS # (AUTO) 0.7 10^3/uL (0.0-0.3); EOSINOPHILS % (AUTO) 5 % (0-10); HEMATOCRIT 26 % (35-52); HEMOGLOBIN 8.2 g/dL (11.5-16.0); LYMPHOCYTES # (AUTO) 1.8 10^3/uL (1.0-4.0); LYMPHOCYTES % (AUTO) 11 % (12-44); MEAN CORPUSCULAR HEMOGLOBIN 30 pg (25-34); MEAN CORPUSCULAR HGB CONC 32 g/dL (32-36); MEAN CORPUSCULAR VOLUME 94 fL (80-99); MEAN PLATELET VOLUME 8.8 fL (9.0-12.2); MONOCYTES % (AUTO) 6 % (0-12); NEUTROPHILS # (AUTO) 12.8 10^3/uL (1.8-7.8); NEUTROPHILS % (AUTO) 78 % (42-75); PLATELET COUNT 668 10^3/uL (130-400); WHITE BLOOD COUNT 16.5 10^3/uL (4.3-11.0)
[2022-04-18 19:15] LABS: ABG OXYGEN SATURATION 97 % (94-100); ABG PCO2 28 MMHG (35-45); ABG PO2 70 MMHG (79-93)
[2022-04-18 19:18] LABS: ALLENS TEST YES-POS
[2022-04-18 19:19] LABS: INSPIRED O2 5L; PATIENT TEMP 36.1; VENTILATOR NO
[2022-04-18 19:27] LABS: INR 1.7 (0.8-1.4); PROTHROMBIN TIME PATIENT 20.7 SEC (12.2-14.7)
--- NOTE | 2022-04-18 19:29 | Diagnostic Imaging Report ---
INDICATION: Chest pain Comparison is made with prior examination of 04/07/2022. FINDINGS: The heart size is normal. There is some venous congestion. There is some diffuse infiltrate in the left lung. There is no pleural effusion or pneumothorax. The mediastinum is unremarkable. IMPRESSION: Diffuse infiltrate in the left lung suspect for pneumonia. Central pulmonary venous congestion. Dictated by: Dictated on workstation # [id number]
[2022-04-18 19:40] LABS: EOSINOPHILS % (MANUAL) 6 %; LYMPHOCYTES % (MANUAL) 13 %; MONOCYTES % (MANUAL) 4 %; NEUTROPHILS % (MANUAL) 77 %; RBC MORPH NORMAL
[2022-04-18] MEDS ORDERED: RT-ALBUTEROL SULF 2.5 MG/3 ML PRE-MIX VIAL INH STA (19:54)
[2022-04-18 19:57] LABS: ALBUMIN 3.4 GM/DL (3.2-4.5); BILIRUBIN,TOTAL 0.5 MG/DL (0.1-1.0); CREATININE SERUM 1.05 MG/DL (0.60-1.30); MAGNESIUM 2.2 MG/DL (1.6-2.4); POTASSIUM 3.6 MMOL/L (3.6-5.0); TOTAL PROTEIN 7.4 GM/DL (6.4-8.2)
[2022-04-18] MEDS ORDERED: CEFEPIME INJECTION 2,000 MG in NS (IVPB) 50 ML IV ONE (20:00)
[2022-04-18] MEDS ORDERED: ENOXAPARIN 80 MG/0.8 ML (LOVENOX) SYR SC ONE (20:00)
[2022-04-18] MEDS ORDERED: LACTATED RINGERS 1,000 ML IV ONE ×3 (20:15→23:43)
[2022-04-18 20:18] LABS: BILIRUBIN,URINE 1+ (NEGATIVE); CLARITY,URINE CLEAR; COLOR,URINE AMBER; GLUCOSE, URINE (UA) NEGATIVE (NEGATIVE); KETONES,URINE TRACE (NEGATIVE); LEUKOCYTE ESTERASE ,URINE NEGATIVE (NEGATIVE); NITRITE,URINE NEGATIVE (NEGATIVE); PROTEIN,URINE 1+ (NEGATIVE)
[2022-04-18 20:45] LABS: BACTERIA,URINE TRACE /HPF; RBC,URINE 0-2 /HPF
[2022-04-18] MEDS ORDERED: VANCOMYCIN INJECTION 1,000 MG in NS (IVPB) 250 ML IV ONE (22:15)
[2022-04-18] MEDS ORDERED: VANCOMYCIN INJECTION 750 MG in NS (IVPB) 250 ML IV ONE (23:15)
[2022-04-18] MEDS ORDERED: ONDANSETRON 4 MG/2 ML (SDV) Z0FRAN IV PRN (23:45)
[2022-04-18] MEDS ORDERED: ACETAMINOPHEN 650 MG SUPP (TYLENOL) PR PRN (23:45)
[2022-04-18] MEDS ORDERED: ACETAMINOPHEN 325 MG TABLET PO PRN (23:45)
[2022-04-19] MEDS ORDERED: EPINEPHrine 1 MG INJECTION 4 MG in NS (IVPB) 248 ML IV SCH ×2
[2022-04-19] MEDS: NOREPINEPHRINE 8 MG/250 ML 250 ML IV SCH ×2 (00:23→14:57)
[2022-04-19] MEDS: LACTATED RINGERS 1,000 ML IV SCH ×4 (00:23→20:07)
[2022-04-19] MEDS: VASOPRESSIN INJECTION 20 UNIT in NS (IVPB) 100 ML IV SCH ×3 (00:23→21:58)
[2022-04-19] MEDS ORDERED: RT-ALBUTEROL/IPRATROPIUM 3 ML (DUONEB) VIAL INH PRN (00:30)
[2022-04-19] MEDS ORDERED: guaiFENesin/CODEINE (ROBITUSSIN AC) 10ML UDC PO PRN (00:30)
--- NOTE | 2022-04-19 00:37 | Tele-ICU Progress Note ---
Progress Note 82F HTN, HLD, dementia, admitted 04/07-04/14 for saddle PE on eliquis sent back from [place] today for significantly worsening dypnea and wheezing. Found to have left infiltrate on CXR. Improved in ED with BiPap, duoneb and continuous neb. Did have some BPs in the 80s, but has responded to volume resuscitation. Now with BP 125/60, HR 89. - sepsis: secondary to pneumonia. Cultures pending. Mild intermittent hypotension, responsive to fluids so far. May need initiation of levophed. - pnuemonia: cefepime given, vanco added given recent admission. Respiratory status improved with BiPap. Continue scheduled and PRN nebs. Not known to have underlying COPD, will hold off on further solumedrol for now. If she worsens as the steroids are wearing off, will reasses need. - metabolic acidosis: ABG with metabolic acidosis, respiratory compensation (just after BiPap placed). Anion gap 15, lactic from 2.1 to 3.0. Currently well compensated. Repeat ABG in AM or sooner if there are any clinical concerns. - PE: missed PM eliquis dose. Given therapuetic lovenox in ED and continued on admission to ICU. - AMS: normally conversant at baseline, now essentially nonverbal. Probably septic encephalopathy. Will monitor. Avoid deliriogenic medications. - family is at bedside, requesting DNR status after discussion with ER MD. However, would like to continue with medical care, including CVL placement and pressor support if needed. Diagnosis: ___ patient provided consent for the telehealth visit _X__patient is not able to provide consent for the telehealth visit, service provided to critically care patient using implied consent doctrine. A total of 14 minutes of critical care time was devoted to this patient, including reviewing this patient's available data, including medical history, events of note and test results. I have overseen the activities of other members of the care team under my direct supervision during events of the note . This was required to treat and/or prevent further deterioration of critical care conditions ( as above ). Service provided to a patient admitted to ICU bed via interactive E-CARE system with real-time audio and video telecommunications from [facility] hub located in [place], [place] Focused Exam Lactate Level 04/18/22 19:00: Lactic Acid Level 2.11*H 04/18/22 21:16: Lactic Acid Level 3.00*H Height, Weight, BMI Height: 5'2" Weight: 139lbs. oz. 63.011438cr; 31.00 BMI Method:Stated Time of Focused Exam: 20:15 Lactic Acid Level Laboratory Tests Test 04/18/22 21:16 Lactic Acid Level 3.00 MMOL/L (0.50-2.00) *H MIKAYLA CONWAY MD Apr 19, 2022 00:37
[2022-04-19] MEDS ORDERED: LACTATED RINGERS 1,000 ML IV ONE (02:15)
[2022-04-19] MEDS: RT-ALBUTEROL/IPRATROPIUM 3 ML (DUONEB) VIAL INH SCH ×6 (02:42→21:56)
[2022-04-19] MEDS: CEFEPIME INJECTION 1,000 MG in NS (IVPB) 50 ML IV SCH ×3 (04:12→20:07)
[2022-04-19 05:37] LABS: BASOPHILS % (AUTO) 0 % (0-10); EOSINOPHILS % (AUTO) 0 % (0-10); HEMATOCRIT 21 % (35-52); LYMPHOCYTES # (AUTO) 0.4 10^3/uL (1.0-4.0); LYMPHOCYTES % (AUTO) 4 % (12-44); MEAN CORPUSCULAR HEMOGLOBIN 30 pg (25-34); MEAN CORPUSCULAR HGB CONC 32 g/dL (32-36); MEAN CORPUSCULAR VOLUME 94 fL (80-99); MEAN PLATELET VOLUME 9.3 fL (9.0-12.2); MONOCYTES # (AUTO) 0.1 10^3/uL (0.0-1.0); MONOCYTES % (AUTO) 1 % (0-12); NEUTROPHILS # (AUTO) 8.7 10^3/uL (1.8-7.8); NEUTROPHILS % (AUTO) 94 % (42-75); PLATELET COUNT 570 10^3/uL (130-400); WHITE BLOOD COUNT 9.2 10^3/uL (4.3-11.0)
[2022-04-19 05:39] LABS: ALBUMIN 2.7 GM/DL (3.2-4.5); BILIRUBIN,TOTAL 0.4 MG/DL (0.1-1.0); CREATININE SERUM 0.75 MG/DL (0.60-1.30); MAGNESIUM 1.9 MG/DL (1.6-2.4); PHOSPHORUS 3.9 MG/DL (2.3-4.7); TOTAL PROTEIN 5.7 GM/DL (6.4-8.2)
[2022-04-19 05:40] LABS: CHOLESTEROL 100 MG/DL (< 200); HDL CHOLESTEROL 21 MG/DL (40-60); TRIGLYCERIDES 84 MG/DL (<150); VLDL CHOLESTEROL 17 MG/DL (5-40)
[2022-04-19 05:43] LABS: HEMOGLOBIN 6.8 g/dL (11.5-16.0)
[2022-04-19 06:15] LABS: ABG BASE EXCESS -4.9 MMOL/L (-2.5-2.5); ABG OXYGEN SATURATION 95 % (94-100); ABG PCO2 29 MMHG (35-45); ABG PH 7.43 (7.37-7.43); ABG PO2 66 MMHG (79-93); ABG TCO2 19.5 MMOL/L (21.0-31.0)
[2022-04-19] MEDS ORDERED: NS IV 500 ML 500 ML IV SCH ×2 (06:15)
[2022-04-19 06:41] LABS: ALLENS TEST YES-POS; INSPIRED O2 30%; PATIENT TEMP 37; VENTILATOR NO
[2022-04-19] MEDS: ENOXAPARIN 80 MG/0.8 ML (LOVENOX) SYR SC SCH ×3 (08:24→20:07)
[2022-04-19] MEDS ORDERED: LORazepam INJ 2 MG/ML (ATIVAN) VIAL IVP PRN (09:00)
[2022-04-19 10:13] VITALS: BP 114/64
--- NOTE | 2022-04-19 10:14 | History & Physical-Hospitalist ---
History of Present Illness HPI/Chief Complaint This 82-year-old woman presents to the emergency room via EMS from [facility] with chest pain and shortness of breath. She has an obvious obstructive pathology with tight wheezing and increased work of breathing on arrival. She received a DuoNeb treatment in route by EMS without significant improvement. She was recently admitted to the hospital from April 07 through April 14 with large pulmonary emboli. She is presently taking Eliquis. She had chest pain earlier in the evening that has since resolved. She complains of some left thigh pain. Her CODE STATUS is full code. She has been wearing 2 L oxygen by nasal cannula which was increased today to 4 L. Outpatient lab work obtained this morning was reviewed. Results were relatively unremarkable except for thrombocytosis with platelet count of 721,000. She is noted to have diagnoses of hypertension, pulmonary embolus, and dementia on her prior notes but no history of COPD. Patient was admitted on April 07 and started on a heparin drip after pulmonary embolus was identified on CT scan. Right heart strain was noted. An echocardiogram was performed the next day and revealed ejection fraction of 60%. She was converted to oral anticoagulation on Eliquis. She received a transfusion during her prior admission as well. Assigned to PCP on the [facility] paperwork is Dr. Cuca Land. Upon my arrival the patient was on BiPAP not tolerating nasal cannula secondary to shortness of breath. She was tolerating BiPAP and able to answer simple questions appearing to be anxious. She denied pain. This is a significant improvement as the patient was unresponsive on arrival. Assuming due to underlying dementia patient was unable to give any much of a history denying any current pain just feeling short of breath at rest. Date Seen 04/19/22 Time Seen by a Provider: 10:00 Attending Physician Betito Land MD PCP Admitting Physician: Daniel Holcomb MD Attending Physician: Daniel Holcomb MD Referring Physician Date of Admission Apr 18, 2022 at 21:22 Home Medications & Allergies Home Medications Reviewed patient Home Medication Reconciliation performed by pharmacy medication reconciliations office equipment technician and/or nursing. Patients Allergies have been reviewed. Allergies Allergies Coded Allergies patel (Verified Allergy, Intermediate, Diarrhea, 04/13/22) egg (Verified Allergy, Intermediate, Diarrhea, 04/13/22) metoclopramide (Unverified Allergy, Mild, 03/14/16) prochlorperazine (Unverified Allergy, Mild, 03/14/16) HIGH ANXIETY REACTION Past Iecqgzy-Ipvkcz-Dfwkje Hx Patient Social History Smoking Status: Unknown if Ever Smoked Smokeless Tobacco Frequency: Unknown if Ever Used Substance use?: Unable to obtain Alcohol Use?: Unable to obtain Pt feels they are or have been: No Immunizations Up To Date Date of Influenza Vaccine: Feb 06, 2022 First/Initial COVID19 Vaccinat: MAY 2020 Second COVID19 Vaccination Juan: JUN 2020 Tetanus Booster (TDap): Unknown Date of Pneumonia Vaccine: Mar 11, 2016 Current Status Advance Directives: Unable to obtain Primary Language: Gibraltarian Preferred Spoken Language: [place]tarian Past Medical History Surgeries: Hysterectomy, Orthopedic Pulmonary Embolism High Cholesterol, Hypertension Dementia Chronic Constipation Tinnitis Anxiety, Depression Family Medical History No Pertinent Family Hx Review of Systems Constitutional: see HPI Physical Exam Physical Exam Vital Signs Vital Signs - First Documented 04/18/22 04/18/22 23:00 23:30 Temp 37.0 FiO2 30 Capillary Refill : Less Than 3 Seconds Height, Weight, BMI Height: 5'2" Weight: 139lbs. oz. 63.560059cx; 31.00 BMI Method:Stated General Appearance: Anxious Respiratory: Other (Tachypneic diminished breath sounds on the left some scattered rhonchi bilaterally no wheezing noted mild accessory muscle usage.) Cardiovascular: Regular Rate, Rhythm, No Edema, No Gallop, No JVD, No Murmur, Normal Peripheral Pulses Gastrointestinal: Normal Bowel Sounds, No Organomegaly, No Pulsatile Mass, Non Tender, Soft Extremity: No Calf Tenderness, No Pedal Edema Results Results/Procedures Labs Laboratory Tests 04/18/22 19:00 04/19/22 04:34 Patient resulted labs reviewed. Assessment/Plan Admission Diagnosis 1. Acute respiratory failure secondary to left lower lobe pneumonia with secondary sepsis continue broad-spectrum antibiotic usage per sepsis protocol. 2. Dementia presumed history of agitated behavior considering Seroquel usage with current anxiety secondary to #1. Will initiate as needed IV Ativan continue BiPAP. 3. No evidence for acute bleeding will continue Lovenox holding Eliquis for now as the patient is on BiPAP and is at increased risk for aspiration. 4. Recent pulmonary embolism with saddle embolus see #3. 5. Normocytic anemia patient received another unit of packed cells this is not of new onset noted on blood test going back several months will obtain iron studies and B12 level Admission Status: Inpatient Order (span 2 midnights) Reason for Inpatient Admission: See admission diagnosis Critical Care Critically Ill Patient DANIEL HOLCOMB MD Apr 19, 2022 10:14
[2022-04-19 10:27] LABS: RETICULOCYTE % 2.76 % (0.50-2.40)
[2022-04-19 10:33] VITALS: BP 118/65
[2022-04-19 14:00] VITALS: BP 136/68
[2022-04-19] MEDS ORDERED: LORazepam INJ 2 MG/ML (ATIVAN) VIAL ONE (14:09)
[2022-04-19] MEDS: LORazepam INJ 2 MG/ML (ATIVAN) VIAL IVP PRN (14:13)
[2022-04-19 15:28] LABS: HEMOGLOBIN 8.3 g/dL (11.5-16.0)
[2022-04-19] MEDS: VANCOMYCIN 1250 MG/NS 250 ML IVPB IV SCH ×2 (15:34)
[2022-04-19] MEDS: DexMEDEtomidine 250 ML DRIP 250 ML IV SCH (17:09)
[2022-04-19 19:03] VITALS: BP 116/72
[2022-04-19 21:56] VITALS: BP 137/78
[2022-04-20] MEDS: RT-ALBUTEROL/IPRATROPIUM 3 ML (DUONEB) VIAL INH SCH ×6 (02:11→21:38)
[2022-04-20 02:12] VITALS: BP 150/82
[2022-04-20] MEDS: LACTATED RINGERS 1,000 ML IV SCH ×4 (02:58→18:33)
[2022-04-20] MEDS: CEFEPIME INJECTION 1,000 MG in NS (IVPB) 50 ML IV SCH ×3 (03:00→20:12)
[2022-04-20 03:48] LABS: BASOPHILS % (AUTO) 0 % (0-10); EOSINOPHILS % (AUTO) 0 % (0-10); HEMATOCRIT 28 % (35-52); HEMOGLOBIN 9.3 g/dL (11.5-16.0); LYMPHOCYTES # (AUTO) 0.9 10^3/uL (1.0-4.0); LYMPHOCYTES % (AUTO) 6 % (12-44); MEAN CORPUSCULAR HEMOGLOBIN 30 pg (25-34); MEAN CORPUSCULAR HGB CONC 33 g/dL (32-36); MEAN CORPUSCULAR VOLUME 91 fL (80-99); MONOCYTES # (AUTO) 0.7 10^3/uL (0.0-1.0); MONOCYTES % (AUTO) 5 % (0-12); NEUTROPHILS # (AUTO) 13.8 10^3/uL (1.8-7.8); NEUTROPHILS % (AUTO) 89 % (42-75); PLATELET COUNT 630 10^3/uL (130-400); WHITE BLOOD COUNT 15.6 10^3/uL (4.3-11.0)
[2022-04-20 04:09] LABS: ALBUMIN 2.9 GM/DL (3.2-4.5); BILIRUBIN,TOTAL 0.6 MG/DL (0.1-1.0); CALCIUM 8.4 MG/DL (8.5-10.1); CREATININE SERUM 0.73 MG/DL (0.60-1.30); MAGNESIUM 1.9 MG/DL (1.6-2.4); PHOSPHORUS 3.2 MG/DL (2.3-4.7); POTASSIUM 4.4 MMOL/L (3.6-5.0); TOTAL PROTEIN 6.2 GM/DL (6.4-8.2)
[2022-04-20] MEDS: NOREPINEPHRINE 8 MG/250 ML 250 ML IV SCH ×2 (07:28→20:18)
[2022-04-20] MEDS: VASOPRESSIN INJECTION 20 UNIT in NS (IVPB) 100 ML IV SCH ×2 (07:29→20:13)
[2022-04-20 08:45] VITALS: BP 130/72
[2022-04-20] MEDS: ENOXAPARIN 80 MG/0.8 ML (LOVENOX) SYR SC SCH ×2 (08:52→20:12)
--- NOTE | 2022-04-20 09:15 | Tele-ICU Progress Note ---
Progress Note video rounds completed 82 y/o female who was recently hospitalized for a DVT and PE with rightheart strain Was on Eliquis. Now presents with SOB and breath and PNA. Comes from a [place] [facility] and B is negative. Covid Negative On BIPAP for resp failure Focused Exam Lactate Level 04/18/22 21:16: Lactic Acid Level 3.00*H 04/18/22 23:29: Lactic Acid Level 3.17*H 04/19/22 01:50: Lactic Acid Level 1.53 Height, Weight, BMI Height: 5'2" Weight: 139lbs. oz. 63.974802re; 31.00 BMI Method:Stated Time of Focused Exam: 20:15 Labs Laboratory Tests 04/19/22 15:20 04/20/22 03:38 Results Results/Procedures Lab Laboratory Tests 04/18/22 19:00 04/19/22 04:34 04/19/22 15:20 04/20/22 03:38 Results Labs Labs Laboratory Tests 04/19/22 15:20: Hemoglobin 8.3#L, Hematocrit 25L 04/20/22 03:38: Hemoglobin 9.3L, Hematocrit 28L, White Blood Count 15.6H, Red Blood Count 3.11L, Mean Corpuscular Volume 91, Mean Corpuscular Hemoglobin 30, Mean Corpuscular Hemoglobin Concent 33, Red Cell Distribution Width 15.3H, Platelet Count 630H, Mean Platelet Volume 9.0, Immature Granulocyte % (Auto) 1, Neutrophils (%) (Auto) 89H, Lymphocytes (%) (Auto) 6L, Monocytes (%) (Auto) 5, Eosinophils (%) (Auto) 0, Basophils (%) (Auto) 0, Neutrophils # (Auto) 13.8H, Lymphocytes # (Auto) 0.9L, Monocytes # (Auto) 0.7, Eosinophils # (Auto) 0.0, Basophils # (Auto) 0.0, Immature Granulocyte # (Auto) 0.1, Sodium Level 139, Potassium Level 4.4, Chloride Level 114H, Carbon Dioxide Level 16L, Anion Gap 9, Blood Urea Nitrogen 20H, Creatinine 0.73, Estimat Glomerular Filtration Rate 81, BUN/Creatinine Ratio 27, Glucose Level 162H, Calcium Level 8.4L, Corrected Calcium 9.3, Phosphorus Level 3.2, Magnesium Level 1.9, Total Bilirubin 0.6, Aspartate Amino Transf (AST/SGOT) 36H, Alanine Aminotransferase (ALT/SGPT) 73H, Alkaline Phosphatase 97, Total Protein 6.2L, Albumin 2.9L Microbiology 04/18/22 MRSA Screen - Final, Complete MRSA not isolated 04/18/22 Blood Culture - Preliminary, Resulted No growth 04/18/22 Urine Culture - Final, Complete NO GROWTH Review of Systems Review of Systems Constitutional: see HPI Impression & Plan Impression & Plan respiratory failtre Sepsis and PNA PLAN: continue BIPAP and antibiotics Eloquis held on therapeutic lovenox Time spent 20 minutes AMBER CONNOR MD Apr 20, 2022 09:15
--- NOTE | 2022-04-20 09:27 | Progress Note - Hospitalist ---
Subjective HPI/CC On Admission Date Seen by Provider: Apr 20, 2022 Time Seen by Provider: 07:00 This 82-year-old woman presents to the emergency room via EMS from [facility] with chest pain and shortness of breath. She has an obvious obstructive pathology with tight wheezing and increased work of breathing on arrival. She received a DuoNeb treatment in route by EMS without significant improvement. She was recently admitted to the hospital from April 07 through April 14 with large pulmonary emboli. She is presently taking Eliquis. She had chest pain earlier in the evening that has since resolved. She complains of some left thigh pain. Her CODE STATUS is full code. She has been wearing 2 L oxygen by nasal cannula which was increased today to 4 L. Outpatient lab work obtained this morning was reviewed. Results were relatively unremarkable except for thrombocytosis with platelet count of 721,000. She is noted to have diagnoses of hypertension, pulmonary embolus, and dementia on her prior notes but no history of COPD. Patient was admitted on April 07 and started on a heparin drip after pulmonary embolus was identified on CT scan. Right heart strain was noted. An echocardiogram was performed the next day and revealed ejection fraction of 60%. She was converted to oral anticoagulation on Eliquis. She received a transfusion during her prior admission as well. Assigned to PCP on the half-way paperwork is Dr. Cuca Land. Upon my arrival the patient was on BiPAP not tolerating nasal cannula secondary to shortness of breath. She was tolerating BiPAP and able to answer simple questions appearing to be anxious. She denied pain. This is a significant improvement as the patient was unresponsive on arrival. Assuming due to underlying dementia patient was unable to give any much of a history denying any current pain just feeling short of breath at rest. Subjective/Events-last exam Due to agitation Precedex was initiated as the patient would not keep BiPAP or nasal cannula on with desaturations into the 80s off oxygen. She was given a sedation vacation this morning but while I was in the room it took the nurse and I to keep the patient from removing oxygen with reinitiation of Precedex. For now the patient is on 7 L maintaining oxygen levels predominantly in the 90 to 93% range. There have been no other care problems per nursing staff. Focused Exam Lactate Level 04/18/22 21:16: Lactic Acid Level 3.00*H 04/18/22 23:29: Lactic Acid Level 3.17*H 04/19/22 01:50: Lactic Acid Level 1.53 Time of Focused Exam: 20:15 Objective Exam Vital Signs Vital Signs Date Time Temp Pulse Resp B/P (MAP) Pulse Ox O2 Delivery O2 Flow Rate FiO2 04/20/22 09:20 93 High Flow N/C 6.00 04/20/22 08:45 64 27 04/20/22 08:00 118/72 (87) 04/20/22 04:00 40 04/19/22 23:52 36.1 Capillary Refill : Less Than 3 Seconds General Appearance: Anxious, Chronically ill Respiratory: Other (Tachypnea with fine rales throughout the left lung right chest is clear) Cardiovascular: Regular Rate, Rhythm, No Murmur Extremity: No Pedal Edema Results/Procedures Lab Laboratory Tests 04/19/22 15:20 04/20/22 03:38 Patient resulted labs reviewed. Assessment/Plan Assessment and Plan Assess & Plan/Chief Complaint 1. Extensive left lower lobe pneumonia with secondary respiratory failure continue oxygen supplementation and antibiotics. 2. Delirium in an individual with baseline dementia continue Precedex. Critical Care Critically Ill Patient DANIEL HOLCOMB MD Apr 20, 2022 09:27
[2022-04-20 11:21] VITALS: BP 117/75
[2022-04-20] MEDS: DexMEDEtomidine 250 ML DRIP 250 ML IV SCH ×2 (12:43→22:59)
[2022-04-20 15:10] VITALS: BP 132/74
[2022-04-20] MEDS: VANCOMYCIN 1250 MG/NS 250 ML IVPB IV SCH ×2 (15:17)
[2022-04-20] MEDS: methylPREDNISolone 40 MG/ML (Solu-MEDROL) VIAL IV SCH ×2 (15:57→23:00)
[2022-04-20 18:40] VITALS: BP 118/77
[2022-04-20] MEDS: LORazepam INJ 2 MG/ML (ATIVAN) VIAL IVP PRN (20:56)
[2022-04-20 21:38] VITALS: BP 165/86
--- NOTE | 2022-04-20 21:54 | Tele-ICU Progress Note ---
Progress Note Called with Pt getting agitated and received Ativan. RN requesting some more medications to calm Pt. On bipap. Viewed Pt on camera and Pt is calm and on BIPAP , sedated. D/W the RN to obtain ABG Pt is DNR. will evaluate if Pt gets agitated again. No orders given except ABG. Interventions Minor-Other: Agitation Focused Exam Lactate Level 04/18/22 21:16: Lactic Acid Level 3.00*H 04/18/22 23:29: Lactic Acid Level 3.17*H 04/19/22 01:50: Lactic Acid Level 1.53 Height, Weight, BMI Height: 5'2" Weight: 139lbs. oz. 63.710040jd; 31.00 BMI Method:Stated Time of Focused Exam: 20:15 JANELL RAHMAN MD Apr 20, 2022 21:54
[2022-04-20 21:58] LABS: ABG BASE EXCESS -6.3 MMOL/L (-2.5-2.5); ABG OXYGEN SATURATION 97 % (94-100); ABG PCO2 31 MMHG (35-45); ABG PH 7.38 (7.37-7.43); ABG PO2 78 MMHG (79-93); ABG TCO2 18.9 MMOL/L (21.0-31.0)
[2022-04-20] MEDS ORDERED: methylPREDNISolone 40 MG/ML (Solu-MEDROL) VIAL IV SCH (22:00)
[2022-04-20 22:07] LABS: ALLENS TEST YES-POS; INSPIRED O2 50%; PATIENT TEMP 36.6; VENTILATOR NO
[2022-04-21] MEDS: LACTATED RINGERS 1,000 ML IV SCH ×4 (02:10→23:54)
[2022-04-21 02:20] VITALS: BP 172/124
[2022-04-21] MEDS: RT-ALBUTEROL/IPRATROPIUM 3 ML (DUONEB) VIAL INH SCH ×6 (02:20→21:59)
[2022-04-21] MEDS: LORazepam INJ 2 MG/ML (ATIVAN) VIAL IVP PRN ×4 (02:59→21:29)
[2022-04-21] MEDS: CEFEPIME INJECTION 1,000 MG in NS (IVPB) 50 ML IV SCH ×3 (03:00→20:26)
[2022-04-21] MEDS ORDERED: hydrALAZINE (APESOLINE) 20 MG/ML VIAL IV ONE (03:45)
[2022-04-21 05:37] LABS: BASOPHILS % (AUTO) 0 % (0-10); EOSINOPHILS % (AUTO) 0 % (0-10); HEMATOCRIT 28 % (35-52); HEMOGLOBIN 9.4 g/dL (11.5-16.0); LYMPHOCYTES # (AUTO) 0.6 10^3/uL (1.0-4.0); LYMPHOCYTES % (AUTO) 4 % (12-44); MEAN CORPUSCULAR HEMOGLOBIN 30 pg (25-34); MEAN CORPUSCULAR HGB CONC 34 g/dL (32-36); MEAN CORPUSCULAR VOLUME 90 fL (80-99); MEAN PLATELET VOLUME 9.2 fL (9.0-12.2); MONOCYTES # (AUTO) 0.3 10^3/uL (0.0-1.0); MONOCYTES % (AUTO) 2 % (0-12); NEUTROPHILS # (AUTO) 13.6 10^3/uL (1.8-7.8); NEUTROPHILS % (AUTO) 92 % (42-75); PLATELET COUNT 654 10^3/uL (130-400); WHITE BLOOD COUNT 14.7 10^3/uL (4.3-11.0)
[2022-04-21 06:01] LABS: ALBUMIN 2.7 GM/DL (3.2-4.5); BILIRUBIN,TOTAL 0.5 MG/DL (0.1-1.0); CALCIUM 8.4 MG/DL (8.5-10.1); CREATININE SERUM 0.71 MG/DL (0.60-1.30); PHOSPHORUS 3.4 MG/DL (2.3-4.7); POTASSIUM 4.7 MMOL/L (3.6-5.0); TOTAL PROTEIN 6.5 GM/DL (6.4-8.2)
[2022-04-21 07:06] VITALS: BP 156/71
[2022-04-21] MEDS: ENOXAPARIN 80 MG/0.8 ML (LOVENOX) SYR SC SCH ×2 (07:55→20:26)
[2022-04-21] MEDS: methylPREDNISolone 40 MG/ML (Solu-MEDROL) VIAL IV SCH ×3 (07:55→23:55)
[2022-04-21] MEDS: DexMEDEtomidine 250 ML DRIP 250 ML IV SCH ×3 (07:56→23:55)
--- NOTE | 2022-04-21 08:50 | Tele-ICU Progress Note ---
Subjective Date Seen by a Provider: Apr 21, 2022 Time Seen by a Provider: 08:44 Subjective/Events-last exam 82 yo F re admitted for extensive left sided PNA, started on IV Vancomycin and Cefepime, IV Vanco stopped Lives in [place], was recently admitted for large pulm emb and has been on Eliquis At present on BiPAP 04/15, FiO2 50%, ABG from last night 7.38//78 Spont RR 20's, 30's confused Hb 6.8 on admission, now 9.4, BP 150/80 BC are negative so far On IV Precedex @ 1.5 and PRN IV Ativan for agitation On clear liquid diet but intake is poor, may need TF, will talk to hospitalist Sepsis Event Evaluation Height, Weight, BMI Height: 5'2" Weight: 139lbs. oz. 63.999242cp; 29.79 BMI Method:Stated Focused Exam Lactate Level 04/18/22 21:16: Lactic Acid Level 3.00*H 04/18/22 23:29: Lactic Acid Level 3.17*H 04/19/22 01:50: Lactic Acid Level 1.53 Time of Focused Exam: 20:15 Exam Exam Patient acknowledged, consented, and participated in this virtual visit which was conducted using real time audio/video Vital Signs Date Time Temp Pulse Resp B/P (MAP) Pulse Ox O2 Delivery O2 Flow Rate FiO2 04/21/22 08:13 94 NIV Bilevel 50.00 04/21/22 08:00 86 13 150/80 (103) 94 NIV Bilevel 50.00 04/21/22 08:00 36.0 04/21/22 07:56 160/75 04/21/22 07:06 84 38 96 45.00 04/21/22 07:05 75 04/21/22 07:00 76 27 156/71 (99) 98 NIV Bilevel 50.00 04/21/22 06:00 78 36 156/70 (98) 98 NIV Bilevel 50.00 04/21/22 05:00 83 141/61 (87) 96 NIV Bilevel 50.00 04/21/22 04:00 85 135/61 (85) 95 NIV Bilevel 50.00 04/21/22 04:00 99 NIV Bilevel 40 04/21/22 03:01 89 18 175/90 (118) 97 NIV Bilevel 50.00 04/21/22 02:20 79 31 100 50.00 04/21/22 02:00 78 30 165/93 (117) 100 NIV Bilevel 50.00 04/21/22 01:03 79 19 161/79 (106) 99 NIV Bilevel 50.00 04/21/22 01:00 80 04/21/22 00:00 83 17 165/87 (113) 100 NIV Bilevel 50.00 04/20/22 23:59 99 NIV Bilevel 40 04/20/22 23:59 36.6 04/20/22 23:00 86 31 161/83 (109) 100 NIV Bilevel 50.00 04/20/22 22:59 87 160/86 04/20/22 22:00 90 29 156/82 (106) 99 NIV Bilevel 50.00 04/20/22 21:38 81 31 98 50.00 04/20/22 21:07 36.6 04/20/22 21:00 85 30 163/90 (114) 99 NIV Bilevel 50.00 04/20/22 20:15 85 13 153/78 (103) 100 NIV Bilevel 50.00 04/20/22 20:00 88 34 147/109 (122) 100 NIV Bilevel 50.00 04/20/22 20:00 99 NIV Bilevel 40 04/20/22 19:27 36.6 04/20/22 19:00 89 04/20/22 19:00 89 20 150/77 (101) 99 NIV Bilevel 50.00 04/20/22 18:40 81 33 98 50.00 04/20/22 18:00 81 34 144/83 (103) 97 NIV Bilevel 50.00 04/20/22 17:00 83 134/73 (93) 94 NIV Bilevel 50.00 04/20/22 17:00 83 127/63 04/20/22 16:00 99 23 131/104 (113) 91 NIV Bilevel 50.00 04/20/22 15:50 93 NIV Bilevel 50 04/20/22 15:40 NIV Bilevel 50.00 04/20/22 15:18 36.2 04/20/22 15:10 73 29 95 40.00 04/20/22 15:00 75 25 109/86 (94) 96 NIV Bilevel 40.00 04/20/22 14:00 73 28 139/74 (95) 96 NIV Bilevel 40.00 04/20/22 13:00 79 25 138/67 (90) 95 NIV Bilevel 40.00 04/20/22 12:54 84 04/20/22 12:43 140/75 04/20/22 12:00 85 23 142/75 (97) 94 NIV Bilevel 40.00 04/20/22 11:26 36.2 04/20/22 11:21 NIV Bilevel 40 04/20/22 11:21 76 28 96 40.00 04/20/22 11:19 NIV Bilevel 40.00 04/20/22 11:00 81 10 117/75 (89) 94 High Flow N/C 7.00 04/20/22 10:00 87 115/57 (76) 92 High Flow N/C 7.00 04/20/22 09:30 91 High Flow N/C 7.00 04/20/22 09:20 93 High Flow N/C 6.00 04/20/22 09:00 84 115/57 (76) 95 NIV Bilevel 40.00 04/20/22 08:45 64 27 92 40.00 I & O 04/21/22 07:00 Intake Total 1000 ml Output Total 1825 ml Balance -825 ml Height & Weight Height: 5'2" Weight: 139lbs. oz. 63.422130bc; 29.79 BMI Method:Stated General Appearance: Anxious, Chronically ill HEENT: PERRL/EOMI, Normal ENT Inspection Neck: Normal Inspection Respiratory: Decreased Breath Sounds, Rhonci, Other (Tachypnea with fine rales throughout the left lung right chest is clear) Cardiovascular: Regular Rate, Rhythm, No Murmur Capillary Refill: Less Than 3 Seconds Gastrointestinal: normal bowel sounds, non tender, soft Extremity: No Pedal Edema Neurologic/Psychiatric: Alert Skin: Normal Color, Warm/Dry Results Lab Laboratory Tests 04/19/22 15:20 04/20/22 03:38 04/21/22 05:15 Assessment/Plan Assessment/Plan Large left sided PNA, will continue abx, await cultures, continue on BiPAP, continue Eliquis for pulm emb Pt is DNR/DNI May need feedings, spoke with hospitalist, she will talk to family about goals of care, Does not sound congested but increased WOB Critical Care: Critically Ill Patient Time spent with patient (mins): 25 AMBER SANTANA MD Apr 21, 2022 08:50
--- NOTE | 2022-04-21 10:35 | Progress Note - Hospitalist ---
Subjective HPI/CC On Admission Date Seen by Provider: Apr 21, 2022 This 82-year-old woman presents to the emergency room via EMS from [facility] with chest pain and shortness of breath. She has an obvious obstructive pathology with tight wheezing and increased work of breathing on arrival. She received a DuoNeb treatment in route by EMS without significant improvement. She was recently admitted to the hospital from April 07 through April 14 with large pulmonary emboli. She is presently taking Eliquis. She had chest pain earlier in the evening that has since resolved. She complains of some left thigh pain. Her CODE STATUS is full code. She has been wearing 2 L oxygen by nasal cannula which was increased today to 4 L. Outpatient lab work obtained this morning was reviewed. Results were relatively unremarkable except for thrombocytosis with platelet count of 721,000. She is noted to have diagnoses of hypertension, pulmonary embolus, and dementia on her prior notes but no history of COPD. Patient was admitted on April 07 and started on a heparin drip after pulmonary embolus was identified on CT scan. Right heart strain was noted. An echocardiogram was performed the next day and revealed ejection fraction of 60%. She was converted to oral anticoagulation on Eliquis. She received a transfusion during her prior admission as well. Assigned to PCP on the residential paperwork is Dr. Cuca Land. Upon my arrival the patient was on BiPAP not tolerating nasal cannula secondary to shortness of breath. She was tolerating BiPAP and able to answer simple questions appearing to be anxious. She denied pain. This is a significant improvement as the patient was unresponsive on arrival. Assuming due to un derlying dementia patient was unable to give any much of a history denying any current pain just feeling short of breath at rest. Subjective/Events-last exam Pt laying in bed and quite tachypneic. Maxed on precedex. Opens eyes but does not otherwise respond. Discussed with RN that ativan only lasting about 4 hours. No family at bedside. Focused Exam Lactate Level 04/18/22 21:16: Lactic Acid Level 3.00*H 04/18/22 23:29: Lactic Acid Level 3.17*H 04/19/22 01:50: Lactic Acid Level 1.53 Time of Focused Exam: 20:15 Objective Exam Vital Signs Vital Signs Date Time Temp Pulse Resp B/P (MAP) Pulse Ox O2 Delivery O2 Flow Rate FiO2 04/21/22 13:00 80 33 171/84 (113) 95 NIV Bilevel 50.00 04/21/22 11:54 36.7 04/21/22 11:18 35 Capillary Refill : Less Than 3 Seconds General Appearance: Chronically ill, Moderate Distress Respiratory: Accessory Muscle Use, Decreased Breath Sounds; No Wheezing Cardiovascular: Regular Rate, Rhythm, No Murmur Gastrointestinal: Normal Bowel Sounds, Non Tender, Soft Extremity: Pedal Edema Neurologic/Psychiatric: Other (opens eyes when spoken to otherwise did not respond) Results/Procedures Lab Laboratory Tests 04/21/22 05:15 Patient resulted labs reviewed. Assessment/Plan Assessment and Plan Assess & Plan/Chief Complaint Acute Hypoxic Respiratory failure- POA Severe sepsis due to left lobar pneumonia- POA Recent saddle PE Currently on BiPAP Is a DNR/DNI Maxed on precedex Attempts to pull BiPAP off at time Ativan prn Continue Cefepime, DC Vanc as MRSA screen negative Lovenox Continue SoluMedrol Will attempt to talk with family today regarding goals of care as no impro vement on BiPAP and days of IV abx and she is quite intolerant of BiPAP without heavy sedation Dementia Advanced at baseline Reorient as able DVT ppx: Lovenox as able Critical Care Critically Ill Patient ESAU ORELLANA MD Apr 21, 2022 10:35
[2022-04-21 10:56] VITALS: BP 169/77
[2022-04-21] MEDS ORDERED: NITR-65 PO (13:25)
--- NOTE | 2022-04-21 13:51 | Tele-ICU Progress Note ---
Subjective Date Seen by a Provider: Apr 21, 2022 Time Seen by a Provider: 13:50 Subjective/Events-last exam called for SBP 170, will order IV hydralazine, 10 mg Nitesh Santana MD Sepsis Event Evaluation Height, Weight, BMI Height: 5'2" Weight: 139lbs. oz. 63.592256ni; 29.79 BMI Method:Stated Focused Exam Lactate Level 04/18/22 21:16: Lactic Acid Level 3.00*H 04/18/22 23:29: Lactic Acid Level 3.17*H 04/19/22 01:50: Lactic Acid Level 1.53 Time of Focused Exam: 20:15 Exam Exam Patient acknowledged, consented, and participated in this virtual visit which was conducted using real time audio/video Vital Signs Date Time Temp Pulse Resp B/P (MAP) Pulse Ox O2 Delivery O2 Flow Rate FiO2 04/21/22 13:00 80 33 171/84 (113) 95 NIV Bilevel 50.00 04/21/22 12:13 108 04/21/22 12:00 80 34 169/83 (111) 93 NIV Bilevel 50.00 04/21/22 11:54 36.7 04/21/22 11:18 93 NIV Bilevel 35 04/21/22 11:00 77 33 161/72 (101) 95 NIV Bilevel 50.00 04/21/22 10:56 76 32 96 35.00 04/21/22 10:00 78 36 163/83 (109) 97 NIV Bilevel 50.00 04/21/22 09:00 80 37 160/80 (106) 97 NIV Bilevel 50.00 04/21/22 08:13 94 NIV Bilevel 50.00 04/21/22 08:00 86 13 150/80 (103) 94 NIV Bilevel 50.00 04/21/22 08:00 36.0 04/21/22 07:56 160/75 04/21/22 07:06 84 38 96 45.00 04/21/22 07:05 75 04/21/22 07:00 76 27 156/71 (99) 98 NIV Bilevel 50.00 04/21/22 06:00 78 36 156/70 (98) 98 NIV Bilevel 50.00 04/21/22 05:00 83 141/61 (87) 96 NIV Bilevel 50.00 04/21/22 04:00 85 135/61 (85) 95 NIV Bilevel 50.00 04/21/22 04:00 99 NIV Bilevel 40 04/21/22 03:01 89 18 175/90 (118) 97 NIV Bilevel 50.00 04/21/22 02:20 79 31 100 50.00 04/21/22 02:00 78 30 165/93 (117) 100 NIV Bilevel 50.00 04/21/22 01:03 79 19 161/79 (106) 99 NIV Bilevel 50.00 04/21/22 01:00 80 04/21/22 00:00 83 17 165/87 (113) 100 NIV Bilevel 50.00 04/20/22 23:59 99 NIV Bilevel 40 04/20/22 23:59 36.6 04/20/22 23:00 86 31 161/83 (109) 100 NIV Bilevel 50.00 04/20/22 22:59 87 160/86 04/20/22 22:00 90 29 156/82 (106) 99 NIV Bilevel 50.00 04/20/22 21:38 81 31 98 50.00 04/20/22 21:07 36.6 04/20/22 21:00 85 30 163/90 (114) 99 NIV Bilevel 50.00 04/20/22 20:15 85 13 153/78 (103) 100 NIV Bilevel 50.00 04/20/22 20:00 88 34 147/109 (122) 100 NIV Bilevel 50.00 04/20/22 20:00 99 NIV Bilevel 40 04/20/22 19:27 36.6 04/20/22 19:00 89 04/20/22 19:00 89 20 150/77 (101) 99 NIV Bilevel 50.00 04/20/22 18:40 81 33 98 50.00 04/20/22 18:00 81 34 144/83 (103) 97 NIV Bilevel 50.00 04/20/22 17:00 83 134/73 (93) 94 NIV Bilevel 50.00 04/20/22 17:00 83 127/63 04/20/22 16:00 99 23 131/104 (113) 91 NIV Bilevel 50.00 04/20/22 15:50 93 NIV Bilevel 50 04/20/22 15:40 NIV Bilevel 50.00 04/20/22 15:18 36.2 04/20/22 15:10 73 29 95 40.00 04/20/22 15:00 75 25 109/86 (94) 96 NIV Bilevel 40.00 04/20/22 14:00 73 28 139/74 (95) 96 NIV Bilevel 40.00 I & O 04/21/22 07:00 Intake Total 1000 ml Output Total 1825 ml Balance -825 ml Height & Weight Height: 5'2" Weight: 139lbs. oz. 63.822757kd; 29.79 BMI Method:Stated General Appearance: Chronically ill, Moderate Distress HEENT: PERRL/EOMI, Normal ENT Inspection Neck: Normal Inspection Respiratory: Accessory Muscle Use, Decreased Breath Sounds; No Wheezing Cardiovascular: Regular Rate, Rhythm, No Murmur Capillary Refill: Less Than 3 Seconds Gastrointestinal: normal bowel sounds, non tender, soft Extremity: Pedal Edema Neurologic/Psychiatric: Other (opens eyes when spoken to otherwise did not respond) Skin: Normal Color, Warm/Dry Results Lab Laboratory Tests 04/19/22 15:20 04/20/22 03:38 04/21/22 05:15 Assessment/Plan Assessment/Plan HTN, give hydralzaine 10 mg Critical Care: Critically Ill Patient Time spent with patient (mins): 10 AMBER SANTANA MD Apr 21, 2022 13:51
[2022-04-21] MEDS ORDERED: hydrALAZINE (APESOLINE) 20 MG/ML VIAL IV NR (14:00)
[2022-04-21 14:42] VITALS: BP 167/90
[2022-04-21] MEDS: NOREPINEPHRINE 8 MG/250 ML 250 ML IV SCH (16:00)
[2022-04-21 18:46] VITALS: BP 154/78
[2022-04-21] MEDS: VASOPRESSIN INJECTION 20 UNIT in NS (IVPB) 100 ML IV SCH (19:45)
[2022-04-21] MEDS: QUEtiapine 25 MG (SEROquel) TAB IMMEDIATE RELEASE PO SCH (20:26)
[2022-04-21] MEDS: busPIRone 15 MG (BUSPAR) TABLET PO SCH (20:26)
[2022-04-21 21:59] VITALS: BP 136/72
[2022-04-22] MEDS: CEFEPIME INJECTION 1,000 MG in NS (IVPB) 50 ML IV SCH ×3 (02:35→20:10)
[2022-04-22] MEDS: LORazepam INJ 2 MG/ML (ATIVAN) VIAL IVP PRN ×2 (02:35→07:42)
[2022-04-22 02:48] VITALS: BP 137/94
[2022-04-22] MEDS: RT-ALBUTEROL/IPRATROPIUM 3 ML (DUONEB) VIAL INH SCH ×6 (02:48→22:22)
[2022-04-22] MEDS ORDERED: morphine INJ 4 MG/ML 1 ML (VIAL/SYRINGE) ONE (04:34)
[2022-04-22] MEDS ORDERED: morphine INJ 4 MG/ML 1 ML (VIAL/SYRINGE) IVP STA (04:35)
[2022-04-22] MEDS: VASOPRESSIN INJECTION 20 UNIT in NS (IVPB) 100 ML IV SCH ×2 (05:07→15:41)
[2022-04-22 05:42] LABS: BASOPHILS % (AUTO) 0 % (0-10); EOSINOPHILS % (AUTO) 0 % (0-10); HEMATOCRIT 28 % (35-52); HEMOGLOBIN 9.2 g/dL (11.5-16.0); LYMPHOCYTES # (AUTO) 0.5 10^3/uL (1.0-4.0); LYMPHOCYTES % (AUTO) 3 % (12-44); MEAN CORPUSCULAR HEMOGLOBIN 30 pg (25-34); MEAN CORPUSCULAR HGB CONC 33 g/dL (32-36); MEAN CORPUSCULAR VOLUME 91 fL (80-99); MEAN PLATELET VOLUME 9.1 fL (9.0-12.2); MONOCYTES # (AUTO) 0.6 10^3/uL (0.0-1.0); MONOCYTES % (AUTO) 4 % (0-12); NEUTROPHILS # (AUTO) 13.9 10^3/uL (1.8-7.8); NEUTROPHILS % (AUTO) 91 % (42-75); PLATELET COUNT 626 10^3/uL (130-400); WHITE BLOOD COUNT 15.2 10^3/uL (4.3-11.0)
[2022-04-22 06:13] LABS: ALBUMIN 2.7 GM/DL (3.2-4.5); BILIRUBIN,TOTAL 0.5 MG/DL (0.1-1.0); CALCIUM 8.3 MG/DL (8.5-10.1); CREATININE SERUM 0.65 MG/DL (0.60-1.30); PHOSPHORUS 3.7 MG/DL (2.3-4.7); POTASSIUM 3.4 MMOL/L (3.6-5.0); TOTAL PROTEIN 5.8 GM/DL (6.4-8.2)
[2022-04-22] MEDS ORDERED: NS IV 500 ML 500 ML IV PRN (06:30)
[2022-04-22] MEDS: MAGNESIUM 1 GM/100 ML IVPB 100 ML IV SCH (06:40)
[2022-04-22] MEDS: KCL 20 MEQ TAB (K-DUR) PO SCH (06:40)
[2022-04-22] MEDS: POTASSIUM CL 10MEQ/50ML IVPB 50 ML IV SCH ×3 (06:40→06:47)
[2022-04-22] MEDS: LACTATED RINGERS 1,000 ML IV SCH ×3 (06:47→20:10)
[2022-04-22 07:26] VITALS: BP 141/76
[2022-04-22] MEDS: ENOXAPARIN 80 MG/0.8 ML (LOVENOX) SYR SC SCH ×2 (07:42→20:10)
[2022-04-22] MEDS: methylPREDNISolone 40 MG/ML (Solu-MEDROL) VIAL IV SCH ×3 (07:42→23:50)
[2022-04-22] MEDS: NOREPINEPHRINE 8 MG/250 ML 250 ML IV SCH ×2 (07:43→22:45)
[2022-04-22] MEDS: busPIRone 15 MG (BUSPAR) TABLET PO SCH ×3 (07:43→20:11)
[2022-04-22] MEDS: QUEtiapine 25 MG (SEROquel) TAB IMMEDIATE RELEASE PO SCH ×3 (07:43→20:11)
--- NOTE | 2022-04-22 08:15 | Diagnostic Imaging Report ---
CHEST 1 VIEW, AP/PA ONLY Indication: Pneumonia Comparison: 04/18/2022 Findings: Consolidations throughout the left lung remain unchanged. New right upper lobe consolidations. Cardiac silhouette remains mildly enlarged. No new pneumothorax or pleural effusion. Impression: 1. New right upper lobe consolidations could be due to developing pneumonia. Asymmetric pulmonary edema is also a possibility. 2. Left lung consolidations remain unchanged. Dictated by: Dictated on workstation # [id number]
[2022-04-22] MEDS: FLUoxetine HCL 20 MG (PROzac) CAP PO SCH (09:39)
[2022-04-22] MEDS: morphine INJ 4 MG/ML 1 ML (VIAL/SYRINGE) IVP PRN ×3 (09:40→20:11)
[2022-04-22] MEDS: DexMEDEtomidine 250 ML DRIP 250 ML IV SCH ×2 (09:40→17:52)
--- NOTE | 2022-04-22 10:04 | Progress Note - Hospitalist ---
Subjective HPI/CC On Admission Date Seen by Provider: Apr 22, 2022 This 82-year-old woman presents to the emergency room via EMS from [facility] with chest pain and shortness of breath. She has an obvious obstructive pathology with tight wheezing and increased work of breathing on arrival. She received a DuoNeb treatment in route by EMS without significant improvement. She was recently admitted to the hospital from April 07 through April 14 with large pulmonary emboli. She is presently taking Eliquis. She had chest pain earlier in the evening that has since resolved. She complains of some left thigh pain. Her CODE STATUS is full code. She has been wearing 2 L oxygen by nasal cannula which was increased today to 4 L. Outpatient lab work obtained this morning was reviewed. Results were relatively unremarkable except for thrombocytosis with platelet count of 721,000. She is noted to have diagnoses of hypertension, pulmonary embolus, and dementia on her prior notes but no history of COPD. Patient was admitted on April 07 and started on a heparin drip after pulmonary embolus was identified on CT scan. Right heart strain was noted. An echocardiogram was performed the next day and revealed ejection fraction of 60%. She was converted to oral anticoagulation on Eliquis. She received a transfusion during her prior admission as well. [facility]CP [facility] is Dr. Cuca Land. Upon my arrival the patient was on BiPAP not tolerating nasal cannula secondary to shortness of breath. She was tolerating BiPAP and able to answer simple questions appearing to be anxious. She denied pain. This is a significant improvement as the patient was unresponsive on arrival. Assuming due to un derlying dementia patient was unable to give any much of a history denying any current pain just feeling short of breath at rest. Subjective/Events-last exam Pt in bed on BiPAP and appears more calm than yesterday. Had received morphine overnight and RN reports breathing improved with that. No family at bedside. I did meet with family yesterday (, son, daughter, and daughter in law) and updated them on her current condition and expected trajectory and my concern for her lack of improvement in the past 4 days with IV antibiotics and BiPAP. Discussed options to continue current course, transition to comfort care, or even rescind the DNR/DNI and intubate if needed though I thought the likelihood of her surviving this illness would still be minimal even with that. Family requested time to think about their options. Focused Exam Time of Focused Exam: 20:15 Objective Exam Vital Signs Vital Signs Date Time Temp Pulse Resp B/P (MAP) Pulse Ox O2 Delivery O2 Flow Rate FiO2 04/22/22 12:00 91 NIV Bilevel 50 04/22/22 11:36 36.6 04/22/22 11:04 76 32 50.00 04/22/22 11:00 144/78 (100) Capillary Refill : Less Than 3 Seconds General Appearance: Chronically ill, Other (appears comforable today) Respiratory: Crackles, Other (on BiPAP) Cardiovascular: Regular Rate, Rhythm, No Murmur Gastrointestinal: Normal Bowel Sounds, Non Tender, Soft Neurologic/Psychiatric: Other Results/Procedures Lab Laboratory Tests 04/22/22 05:00 Patient resulted labs reviewed. Assessment/Plan Assessment and Plan Assess & Plan/Chief Complaint Acute Hypoxic Respiratory failure- POA Severe sepsis due to left lobar pneumonia- POA Recent saddle PE Currently on BiPAP Is a DNR/DNI at this time Continue precedex and prn ativan and morphine restarted home fluoxetine, buspar, and seroquel Attempts to pull BiPAP off at times but was resting comfortably this morning Continue Cefepime Lovenox Continue SoluMedrol Dementia Advanced at baseline Reorient as able DVT ppx: Lovenox as able Critical Care Critically Ill Patient ESAU ORELLANA MD Apr 22, 2022 10:04
[2022-04-22 11:04] VITALS: BP 144/78
--- NOTE | 2022-04-22 12:14 | Tele-ICU Progress Note ---
Subjective Date Seen by a Provider: Apr 22, 2022 Time Seen by a Provider: 12:14 Subjective/Events-last exam (Tele-ICU Physician , Progress Note ) Service provided via interactive audio and video telecommunications E-CARE system to a patient admitted to ICU bed in [facility]. Available chart/ vitals / labs / Images reviewed Video assessment done using teleICU camera, rest of exam as per RN Discussed with RN Events overnight : Afebrile hemodynamically stable Respiratory - I/O =lr 50 Drips: Pressors- no Consultants: Hospital course: Patient is seen today due to persistent and new A/P Acute hypoxic resp failure - on bipap 04/15 50 % rr 490 TV 500 MV 22 L - not tolerates off Bipap as per bedside report - needs precedex 05/15 to be able to tolerate bipap - SM 60 - to cont now - as per RN - ongoing discussion with family regarding goals of care and intubation status Recent saddle PE - on julienne full dose bid Left PNA - cont abx nutritions - NPO now - readress tomorrow - ? NG with TF Lines : , (Central Line Necessity Reviewed) Whyte: + OG: Nutrition: Analgesia: Anxiety/ delirium VTE Prophylaxis: full dose julienne Stress Ulcer Prophylaxis: ppi Plans in collaboration with bedside consultants and IM MDs. Discussed with RN to reach out if any questions or concerns A total of 31 minutes of critical care time was devoted to this patient today, required to treat and/or prevent further deterioration of critical care condition ( as above ) . I am remotely monitoring this patient from another state. I am unable to do the bedside exam, and history/physical and pertinent information is taken from other notes in the computer and bedside staff. + Sepsis Event Evaluation Height, Weight, BMI Height: 5'2" Weight: 139lbs. oz. 63.259634os; 30.55 BMI Method:Stated Focused Exam Time of Focused Exam: 20:15 Exam Exam Patient acknowledged, consented, and participated in this virtual visit which was conducted using real time audio/video Vital Signs Date Time Temp Pulse Resp B/P (MAP) Pulse Ox O2 Delivery O2 Flow Rate FiO2 04/22/22 11:36 36.6 04/22/22 11:04 76 32 93 50.00 04/22/22 11:00 75 34 144/78 (100) 96 NIV Bilevel 60.00 04/22/22 10:45 36.5 04/22/22 10:00 78 33 146/81 (102) 96 NIV Bilevel 60.00 04/22/22 09:40 79 142/75 04/22/22 09:00 82 35 140/73 (95) 95 NIV Bilevel 60.00 04/22/22 08:00 90 39 141/73 (95) 94 NIV Bilevel 60.00 04/22/22 07:53 36.6 04/22/22 07:51 93 NIV Bilevel 60 04/22/22 07:51 NIV Bilevel 60.00 04/22/22 07:26 73 36 90 50.00 04/22/22 07:00 112 33 141/77 (98) 93 NIV Bilevel 50.00 04/22/22 07:00 75 04/22/22 06:00 76 36 146/76 (99) 94 NIV Bilevel 50.00 04/22/22 05:07 79 137/94 04/22/22 05:00 85 31 140/76 (97) 94 NIV Bilevel 50.00 04/22/22 04:08 91 NIV Bilevel 50 04/22/22 04:00 82 33 138/72 (94) 94 NIV Bilevel 50.00 04/22/22 03:00 87 34 135/74 (94) 94 NIV Bilevel 50.00 04/22/22 02:48 79 33 93 50.00 04/22/22 02:45 37.0 NIV Bilevel 50.00 04/22/22 02:00 75 33 141/70 (93) 96 NIV Bilevel 50.00 04/22/22 01:00 76 31 141/76 (97) 95 NIV Bilevel 50.00 04/22/22 01:00 76 04/22/22 00:09 93 NIV Bilevel 50 04/22/22 00:00 81 34 132/75 (94) 94 NIV Bilevel 50.00 04/21/22 23:57 36.8 04/21/22 23:55 78 136/72 04/21/22 23:07 NIV Bilevel 50.00 04/21/22 23:00 87 36 138/71 (93) 94 NIV Bilevel 50.00 04/21/22 22:00 78 33 139/72 (94) 97 NIV Bilevel 50.00 04/21/22 21:59 78 34 97 40.00 04/21/22 21:00 80 33 139/77 (97) 97 NIV Bilevel 50.00 04/21/22 20:31 NIV Bilevel 50.00 04/21/22 20:00 92 NIV Bilevel 50 04/21/22 20:00 89 25 148/74 (98) 92 NIV Bilevel 50.00 04/21/22 19:47 36.4 04/21/22 19:45 74 154/78 04/21/22 19:02 90 04/21/22 19:00 82 25 158/78 (104) 88 NIV Bilevel 50.00 04/21/22 18:46 74 29 93 40.00 04/21/22 18:00 74 36 147/69 (95) 92 NIV Bilevel 100.00 04/21/22 17:37 78 147/72 04/21/22 17:00 79 32 148/66 (93) 91 NIV Bilevel 100.00 04/21/22 16:00 36.1 04/21/22 16:00 81 30 155/74 (101) 100 NIV Bilevel 100.00 04/21/22 16:00 94 NIV Bilevel 35 04/21/22 15:00 80 27 183/98 (126) 100 NIV Bilevel 100.00 04/21/22 14:42 77 32 96 35.00 04/21/22 14:00 77 35 177/97 (123) 96 NIV Bilevel 50.00 04/21/22 13:00 80 33 171/84 (113) 95 NIV Bilevel 50.00 I & O 04/22/22 07:00 Intake Total 2750 ml Output Total 1750 ml Balance 1000 ml Height & Weight Height: 5'2" Weight: 139lbs. oz. 63.415275uk; 30.55 BMI Method:Stated General Appearance: Chronically ill, Other (appears comforable today) HEENT: PERRL/EOMI, Normal ENT Inspection Neck: Normal Inspection Respiratory: Crackles, Other (on BiPAP) Cardiovascular: Regular Rate, Rhythm, No Murmur Capillary Refill: Less Than 3 Seconds Gastrointestinal: normal bowel sounds, non tender, soft Extremity: No Pedal Edema Neurologic/Psychiatric: Other Skin: Normal Color, Warm/Dry Results Lab Laboratory Tests 04/21/22 05:15 04/22/22 05:00 Assessment/Plan Assessment/Plan 1 OSCAR HALLMAN MD Apr 22, 2022 12:14
[2022-04-22 14:31] VITALS: BP 144/80
[2022-04-22 18:51] VITALS: BP 125/71
[2022-04-22] MEDS ORDERED: FUROSEMIDE 40 MG/4 ML INJ (LASIX) IVP ONE (21:30)
[2022-04-22] MEDS ORDERED: FUROSEMIDE 40 MG/4 ML INJ (LASIX) ONE (21:43)
[2022-04-22 22:22] VITALS: BP 149/86
[2022-04-23] MEDS: DexMEDEtomidine 250 ML DRIP 250 ML IV SCH ×3 (02:25→19:30)
[2022-04-23 03:01] VITALS: BP 126/69
[2022-04-23] MEDS: RT-ALBUTEROL/IPRATROPIUM 3 ML (DUONEB) VIAL INH SCH ×10 (03:01→23:03)
[2022-04-23] MEDS: CEFEPIME INJECTION 1,000 MG in NS (IVPB) 50 ML IV SCH ×3 (03:17→19:27)
[2022-04-23] MEDS: morphine INJ 4 MG/ML 1 ML (VIAL/SYRINGE) IVP PRN ×5 (03:17→23:16)
[2022-04-23] MEDS: VASOPRESSIN INJECTION 20 UNIT in NS (IVPB) 100 ML IV SCH ×2 (04:02→15:30)
[2022-04-23 05:54] LABS: BASOPHILS % (AUTO) 0 % (0-10); EOSINOPHILS % (AUTO) 0 % (0-10); HEMATOCRIT 30 % (35-52); HEMOGLOBIN 9.6 g/dL (11.5-16.0); LYMPHOCYTES # (AUTO) 0.3 10^3/uL (1.0-4.0); LYMPHOCYTES % (AUTO) 2 % (12-44); MEAN CORPUSCULAR HEMOGLOBIN 30 pg (25-34); MEAN CORPUSCULAR HGB CONC 32 g/dL (32-36); MEAN CORPUSCULAR VOLUME 91 fL (80-99); MEAN PLATELET VOLUME 9.3 fL (9.0-12.2); MONOCYTES # (AUTO) 0.5 10^3/uL (0.0-1.0); MONOCYTES % (AUTO) 3 % (0-12); NEUTROPHILS # (AUTO) 17.5 10^3/uL (1.8-7.8); NEUTROPHILS % (AUTO) 95 % (42-75); PLATELET COUNT 599 10^3/uL (130-400); WHITE BLOOD COUNT 18.6 10^3/uL (4.3-11.0)
[2022-04-23] MEDS ORDERED: POTASSIUM CL 10MEQ/50ML IVPB 50 ML IV SCH (06:00)
[2022-04-23] MEDS ORDERED: KCL 20 MEQ TAB (K-DUR) PO SCH (06:00)
[2022-04-23] MEDS ORDERED: MAGNESIUM 1 GM/100 ML IVPB 100 ML IV SCH (06:00)
[2022-04-23] MEDS: KCL 20 MEQ TAB (K-DUR) PO SCH (06:31)
[2022-04-23 06:35] LABS: ALBUMIN 2.8 GM/DL (3.2-4.5); BILIRUBIN,TOTAL 0.6 MG/DL (0.1-1.0); CALCIUM 8.2 MG/DL (8.5-10.1); CREATININE SERUM 0.64 MG/DL (0.60-1.30); POTASSIUM 3.5 MMOL/L (3.6-5.0)
[2022-04-23] MEDS: MAGNESIUM 1 GM/100 ML IVPB 100 ML IV SCH (06:40)
[2022-04-23] MEDS: POTASSIUM CL 10MEQ/50ML IVPB 50 ML IV SCH ×3 (06:41→06:53)
[2022-04-23 07:04] VITALS: BP 141/86
[2022-04-23] MEDS: FAMOTIDINE 20MG/2ML IV (PEPCID) IVP SCH (08:16)
[2022-04-23] MEDS: methylPREDNISolone 40 MG/ML (Solu-MEDROL) VIAL IV SCH ×3 (08:16→23:16)
[2022-04-23] MEDS: busPIRone 15 MG (BUSPAR) TABLET PO SCH ×3 (08:16→19:28)
[2022-04-23] MEDS: FLUoxetine HCL 20 MG (PROzac) CAP PO SCH (08:16)
[2022-04-23] MEDS: QUEtiapine 25 MG (SEROquel) TAB IMMEDIATE RELEASE PO SCH ×3 (08:16→19:28)
[2022-04-23] MEDS: ENOXAPARIN 80 MG/0.8 ML (LOVENOX) SYR SC SCH ×2 (08:16→19:27)
[2022-04-23] MEDS ORDERED: FUROSEMIDE 40 MG/4 ML INJ (LASIX) IVP NR (08:30)
--- NOTE | 2022-04-23 08:31 | Progress Note - Hospitalist ---
Subjective HPI/CC On Admission Date Seen by Provider: Apr 23, 2022 This 82-year-old woman presents to the emergency room via EMS from [facility] with chest pain and shortness of breath. She has an obvious obstructive pathology with tight wheezing and increased work of breathing on arrival. She received a DuoNeb treatment in route by EMS without significant improvement. She was recently admitted to the hospital from April 07 through April 14 with large pulmonary emboli. She is presently taking Eliquis. She had chest pain earlier in the evening that has since resolved. She complains of some left thigh pain. Her CODE STATUS is full code. She has been wearing 2 L oxygen by nasal cannula which was increased today to 4 L. Outpatient lab work obtained this morning was reviewed. Results were relatively unremarkable except for thrombocytosis with platelet count of 721,000. She is noted to have diagnoses of hypertension, pulmonary embolus, and dementia on her prior notes but no history of COPD. Patient was admitted on April 07 and started on a heparin drip after pulmonary embolus was identified on CT scan. Right heart strain was noted. An echocardiogram was performed the next day and revealed ejection fraction of 60%. She was converted to oral anticoagulation on Eliquis. She received a transfusion during her prior admission as well. Assigned to PCP on the [facility] paperwork is Dr. Cuca Land. Upon my arrival the patient was on BiPAP not tolerating nasal cannula secondary to shortness of breath. She was tolerating BiPAP and able to answer simple questions appearing to be anxious. She denied pain. This is a significant improvement as the patient was unresponsive on arrival. Assuming due to un derlying dementia patient was unable to give any much of a history denying any current pain just feeling short of breath at rest. Subjective/Events-last exam Pt remains on BiPAP and sedated. No ROS possible. No family at bedside this AM. Focused Exam Time of Focused Exam: 20:15 Objective Exam Vital Signs Vital Signs Date Time Temp Pulse Resp B/P (MAP) Pulse Ox O2 Delivery O2 Flow Rate FiO2 04/24/22 18:00 86 20 155/77 (103) 91 NIV Bilevel 100.00 04/24/22 16:00 36.7 04/24/22 15:37 95 Capillary Refill : Less Than 3 Seconds General Appearance: Chronically ill Respiratory: Crackles, Other (on BiPAP, tachypneic) Cardiovascular: Regular Rate, Rhythm, No Murmur Gastrointestinal: Non Tender, Soft Neurologic/Psychiatric: Alert (eyes open but did not track) Results/Procedures Lab Laboratory Tests 04/24/22 04:27 Patient resulted labs reviewed. Assessment/Plan Assessment and Plan Assess & Plan/Chief Complaint Acute Hypoxic Respiratory failure- POA Severe sepsis due to left lobar pneumonia- POA Recent saddle PE Currently on BiPAP, increasing oxygen requirement overnight Is a DNR/DNI at this time- family considering options Continue precedex and prn ativan and morphine Continue home fluoxetine, buspar, and seroquel Continue Cefepime Lovenox Continue SoluMedrol but decrease dose Likely source of leukocytosis Needs nutrition addressed today but needs central line for TPN- will discussed with family Dementia Advanced at baseline Reorient as able Continue meds as above DVT ppx: Lovenox as able Critical Care Critically Ill Patient ESAU ORELLANA MD Apr 23, 2022 08:31
--- NOTE | 2022-04-23 10:23 | Tele-ICU Progress Note ---
Subjective Date Seen by a Provider: Apr 23, 2022 Time Seen by a Provider: 10:23 Subjective/Events-last exam (Tele-ICU Physician , Progress Note ) Service provided via interactive audio and video telecommunications E-CARE system to a patient admitted to ICU bed in [facility]. Available chart/ vitals / labs / Images reviewed Video assessment done using teleICU camera, rest of exam as per RN Discussed with RN Events overnight : Afebrile hemodynamically stable Respiratory - I/O =lr 50 Drips: lr 50 - to stop Pressors- no Consultants: Hospital course: Patient is seen today due to persistent and new A/P Acute hypoxic resp failure - on bipap 04/15 85% % rr 27 TV 500 MV 22 L - FIo2 WORSENING - not tolerates off Bipap as per bedside report - needs precedex 1.5 to be able to tolerate bipap - SM 60 - to cont now - cont diuresis - as per RN - ongoing discussion with family regarding goals of care and intubation status Recent saddle PE - on julienne full dose bid Left PNA - cont abx nutritions - NPO now - readress- ? NG with TF vs TPN ONGOING DISCUSSION WITH FAMILY REGARDING GOALS OF CARE IF CONTINUE AGRESSIVE CARE , WILL NEED TO REPEAT XR , ABG AND DECIDE ON NUTRITIONS Lines : , (Central Line Necessity Reviewed) Whyte: + OG: Nutrition: Analgesia: Anxiety/ delirium VTE Prophylaxis: full dose juleinne Stress Ulcer Prophylaxis: ppi Plans in collaboration with bedside consultants and IM MDs, discussed with Dr Flores Discussed with RN to reach out if any questions or concerns A total of 31 minutes of critical care time was devoted to this patient today, required to treat and/or prevent further deterioration of critical care condition ( as above ) . I am remotely monitoring this patient from another state. I am unable to do the bedside exam, and history/physical and pertinent information is taken from other notes in the computer and bedside staff. Sepsis Event Evaluation Height, Weight, BMI Height: 5'2" Weight: 139lbs. oz. 63.770385ph; 29.98 BMI Method:Stated Focused Exam Time of Focused Exam: 20:15 Exam Exam Patient acknowledged, consented, and participated in this virtual visit which was conducted using real time audio/video Vital Signs Date Time Temp Pulse Resp B/P (MAP) Pulse Ox O2 Delivery O2 Flow Rate FiO2 04/23/22 10:00 77 27 149/84 (105) 92 NIV Bilevel 85.00 04/23/22 09:00 78 36 147/81 (103) 91 NIV Bilevel 85.00 04/23/22 08:00 84 42 135/81 (99) 91 NIV Bilevel 85.00 04/23/22 08:00 92 NIV Bilevel 85 04/23/22 08:00 36.2 04/23/22 07:04 74 36 94 85.00 04/23/22 07:00 89 04/23/22 07:00 89 44 132/75 (94) 90 NIV Bilevel 85.00 04/23/22 06:00 76 27 138/85 (102) 91 NIV Bilevel 85.00 04/23/22 05:00 79 25 138/83 (101) 91 NIV Bilevel 85.00 04/23/22 04:03 36.2 NIV Bilevel 85.00 04/23/22 04:03 92 NIV Bilevel 85 04/23/22 04:00 86 25 144/83 (103) 93 NIV Bilevel 85.00 04/23/22 03:01 66 33 92 85.00 04/23/22 03:00 65 126/69 (88) 92 NIV Bilevel 85.00 04/23/22 02:25 72 147/69 04/23/22 02:00 70 31 142/89 (106) 93 NIV Bilevel 85.00 04/23/22 01:00 72 27 147/69 (95) 93 NIV Bilevel 85.00 04/23/22 01:00 72 04/23/22 00:00 74 25 146/82 (103) 94 NIV Bilevel 85.00 04/22/22 23:57 93 NIV Bilevel 85 04/22/22 23:00 77 28 153/83 (106) 92 NIV Bilevel 85.00 04/22/22 22:45 75 149/86 04/22/22 22:43 36.4 NIV Bilevel 85.00 04/22/22 22:22 75 28 91 85.00 04/22/22 22:00 77 30 150/78 (102) 91 NIV Bilevel 80.00 04/22/22 21:00 82 32 139/77 (97) 92 NIV Bilevel 80.00 04/22/22 20:00 90 40 128/64 (85) 94 NIV Bilevel 80.00 04/22/22 20:00 92 NIV Bilevel 80 04/22/22 20:00 36.2 04/22/22 19:00 81 33 135/68 (90) 95 NIV Bilevel 80.00 04/22/22 19:00 81 04/22/22 19:00 NIV Bilevel 80.00 04/22/22 18:51 75 27 95 80.00 04/22/22 18:49 78 NIV Bilevel 100.00 04/22/22 18:00 79 32 129/77 (94) 92 NIV Bilevel 60.00 04/22/22 17:52 82 133/70 04/22/22 17:00 82 32 133/70 (91) 93 NIV Bilevel 60.00 04/22/22 16:00 36.4 04/22/22 16:00 83 47 128/77 (94) 88 NIV Bilevel 60.00 04/22/22 16:00 91 NIV Bilevel 50 04/22/22 15:00 89 32 138/75 (96) 92 NIV Bilevel 60.00 04/22/22 14:31 79 31 93 50.00 04/22/22 14:00 78 32 147/74 (98) 92 NIV Bilevel 60.00 04/22/22 13:00 82 33 139/76 (97) 91 NIV Bilevel 60.00 04/22/22 13:00 83 04/22/22 12:00 89 33 139/77 (97) 91 NIV Bilevel 60.00 04/22/22 12:00 91 NIV Bilevel 50 04/22/22 11:36 36.6 04/22/22 11:04 76 32 93 50.00 04/22/22 11:00 75 34 144/78 (100) 96 NIV Bilevel 60.00 04/22/22 10:45 36.5 I & O 04/23/22 07:00 Intake Total 900 ml Output Total 2645 ml Balance -1745 ml Height & Weight Height: 5'2" Weight: 139lbs. oz. 63.990042ct; 29.98 BMI Method:Stated General Appearance: Chronically ill HEENT: PERRL/EOMI, Normal ENT Inspection Neck: Normal Inspection Respiratory: Crackles, Other (on BiPAP, tachypneic) Cardiovascular: Regular Rate, Rhythm, No Murmur Capillary Refill: Less Than 3 Seconds Gastrointestinal: normal bowel sounds, non tender, soft Extremity: No Pedal Edema Neurologic/Psychiatric: Alert (eyes open but did not track) Skin: Normal Color, Warm/Dry Results Lab Laboratory Tests 04/22/22 05:00 04/23/22 05:00 Assessment/Plan Assessment/Plan ` OSCAR HALLMAN MD Apr 23, 2022 10:23
[2022-04-23 10:37] VITALS: BP 140/78
[2022-04-23 15:29] VITALS: BP 145/81
[2022-04-23] MEDS: NOREPINEPHRINE 8 MG/250 ML 250 ML IV SCH (17:14)
[2022-04-23 19:12] VITALS: BP 133/73
[2022-04-23] MEDS: LORazepam INJ 2 MG/ML (ATIVAN) VIAL IVP PRN (20:19)
[2022-04-23] MEDS ORDERED: RT-HYPERTONIC SALINE 3% 4 ML NEB INH SCH (21:30)
[2022-04-23 22:15] VITALS: BP 133/73
[2022-04-24 02:04] VITALS: BP 130/71
[2022-04-24] MEDS: RT-ALBUTEROL/IPRATROPIUM 3 ML (DUONEB) VIAL INH SCH ×6 (02:04→23:56)
[2022-04-24] MEDS: CEFEPIME INJECTION 1,000 MG in NS (IVPB) 50 ML IV SCH ×3 (03:01→21:00)
[2022-04-24] MEDS: VASOPRESSIN INJECTION 20 UNIT in NS (IVPB) 100 ML IV SCH ×2 (03:01→11:02)
[2022-04-24] MEDS: DexMEDEtomidine 250 ML DRIP 250 ML IV SCH ×3 (03:55→23:10)
[2022-04-24 05:00] LABS: BASOPHILS % (AUTO) 0 % (0-10); EOSINOPHILS % (AUTO) 0 % (0-10); HEMATOCRIT 29 % (35-52); HEMOGLOBIN 9.3 g/dL (11.5-16.0); LYMPHOCYTES # (AUTO) 0.2 10^3/uL (1.0-4.0); LYMPHOCYTES % (AUTO) 1 % (12-44); MEAN CORPUSCULAR HEMOGLOBIN 30 pg (25-34); MEAN CORPUSCULAR HGB CONC 33 g/dL (32-36); MEAN CORPUSCULAR VOLUME 92 fL (80-99); MEAN PLATELET VOLUME 9.7 fL (9.0-12.2); MONOCYTES # (AUTO) 0.3 10^3/uL (0.0-1.0); MONOCYTES % (AUTO) 2 % (0-12); NEUTROPHILS # (AUTO) 18.2 10^3/uL (1.8-7.8); NEUTROPHILS % (AUTO) 96 % (42-75); PLATELET COUNT 584 10^3/uL (130-400)
[2022-04-24 05:17] LABS: ALBUMIN 2.8 GM/DL (3.2-4.5); LYMPHOCYTES % (MANUAL) 1 %; MONOCYTES % (MANUAL) 1 %; NEUTROPHILS % (MANUAL) 98 %; POTASSIUM 3.6 MMOL/L (3.6-5.0)
[2022-04-24 05:18] LABS: CALCIUM 8.3 MG/DL (8.5-10.1); PLATELET ESTIMATE INCREASED; RBC MORPH NORMAL
[2022-04-24 05:19] LABS: TOTAL PROTEIN 5.8 GM/DL (6.4-8.2)
[2022-04-24] MEDS: KCL 20 MEQ TAB (K-DUR) PO SCH (05:20)
[2022-04-24] MEDS: POTASSIUM CL 10MEQ/50ML IVPB 50 ML IV SCH ×2 (05:20→05:31)
[2022-04-24 05:21] LABS: BILIRUBIN,TOTAL 0.6 MG/DL (0.1-1.0)
[2022-04-24 05:23] LABS: CREATININE SERUM 0.72 MG/DL (0.60-1.30); PHOSPHORUS 2.9 MG/DL (2.3-4.7)
[2022-04-24 05:26] LABS: MAGNESIUM 2.2 MG/DL (1.6-2.4)
[2022-04-24] MEDS: MAGNESIUM 1 GM/100 ML IVPB 100 ML IV SCH (05:27)
[2022-04-24 06:45] VITALS: BP 134/70
[2022-04-24] MEDS: busPIRone 15 MG (BUSPAR) TABLET PO SCH ×3 (07:37→22:30)
[2022-04-24] MEDS: NOREPINEPHRINE 8 MG/250 ML 250 ML IV SCH (07:37)
[2022-04-24] MEDS: FLUoxetine HCL 20 MG (PROzac) CAP PO SCH (07:38)
[2022-04-24] MEDS: QUEtiapine 25 MG (SEROquel) TAB IMMEDIATE RELEASE PO SCH ×3 (07:38→22:30)
[2022-04-24] MEDS: FAMOTIDINE 20MG/2ML IV (PEPCID) IVP SCH (08:09)
[2022-04-24] MEDS: ENOXAPARIN 80 MG/0.8 ML (LOVENOX) SYR SC SCH ×2 (08:09→22:30)
[2022-04-24] MEDS: methylPREDNISolone 40 MG/ML (Solu-MEDROL) VIAL IV SCH ×2 (08:09→15:56)
--- NOTE | 2022-04-24 08:31 | Progress Note - Hospitalist ---
Subjective HPI/CC On Admission Date Seen by Provider: Apr 24, 2022 This 82-year-old woman presents to the emergency room via EMS from [facility] with chest pain and shortness of breath. She has an obvious obstructive pathology with tight wheezing and increased work of breathing on arrival. She received a DuoNeb treatment in route by EMS without significant improvement. She was recently admitted to the hospital from April 07 through April 14 with large pulmonary emboli. She is presently taking Eliquis. She had chest pain earlier in the evening that has since resolved. She complains of some left thigh pain. Her CODE STATUS is full code. She has been wearing 2 L oxygen by nasal cannula which was increased today to 4 L. Outpatient lab work obtained this morning was reviewed. Results were relatively unremarkable except for thrombocytosis with platelet count of 721,000. She is noted to have diagnoses of hypertension, pulmonary embolus, and dementia on her prior notes but no history of COPD. Patient was admitted on April 07 and started on a heparin drip after pulmonary embolus was identified on CT scan. Right heart strain was noted. An echocardiogram was performed the next day and revealed ejection fraction of 60%. She was converted to oral anticoagulation on Eliquis. She received a transfusion during her prior admission as well. Assigned to PCP on the [facility] paperwork is Dr. Cuca Land. Upon my arrival the patient was on BiPAP not tolerating nasal cannula secondary to shortness of breath. She was tolerating BiPAP and able to answer simple questions appearing to be anxious. She denied pain. This is a significant improvement as the patient was unresponsive on arrival. Assuming due to un derlying dementia patient was unable to give any much of a history denying any current pain just feeling short of breath at rest. Subjective/Events-last exam Pt remainssedated on BiPAP. No ROS possible. No Family at bedside. RN Reports family to be here this afternoon to discuss goals of care again. Focused Exam Time of Focused Exam: 20:15 Objective Exam Vital Signs Vital Signs Date Time Temp Pulse Resp B/P (MAP) Pulse Ox O2 Delivery O2 Flow Rate FiO2 04/24/22 18:00 86 20 155/77 (103) 91 NIV Bilevel 100.00 04/24/22 16:00 36.7 04/24/22 15:37 95 Capillary Refill : Less Than 3 Seconds General Appearance: Chronically ill Respiratory: Crackles, Other (tachypneic, on BiPAP) Cardiovascular: Regular Rate, Rhythm, No Murmur Gastrointestinal: Normal Bowel Sounds, Non Tender, Soft Neurologic/Psychiatric: Alert (opened eyes and moved toes when touched, otherwise did not participate in exam) Results/Procedures Lab Laboratory Tests 04/24/22 04:27 Patient resulted labs reviewed. Assessment/Plan Assessment and Plan Assess & Plan/Chief Complaint Acute Hypoxic Respiratory failure- POA Severe sepsis due to left lobar pneumonia- POA Recent saddle PE Currently on BiPAP, increasing oxygen requirement overnight Is a DNR/DNI at this time- family considering options Continue precedex and prn ativan and morphine Continue home fluoxetine, buspar, and seroquel Continue Cefepime Lovenox Continue SoluMedrol Family discussion had yesterday and they again are requesting more time to discuss They informed nurse they will be here this afternoon to continue discussions Dementia Advanced at baseline Reorient as able Continue meds as above DVT ppx: Lovenox as able Returned to room around 630pm to discuss with family. They are wanting to pursue comfort measures only once another family member gets here. Daughter asks again if there is any other medications that could help her mom. Discussed how she has been on broad spectrum antibiotics the whole stay and has worsened. She expressed understanding. Stated they know they want to go [employer] but no one wants to make the decision to take the mask off. Updated RN. Comfort Care orderset place when family ready. Critical Care Critically Ill Patient ESAU ORELLANA MD Apr 24, 2022 08:31
--- NOTE | 2022-04-24 09:43 | Tele-ICU Progress Note ---
Subjective Date Seen by a Provider: Apr 24, 2022 Time Seen by a Provider: 09:43 Subjective/Events-last exam (Tele-ICU Physician , Progress Note ) Service provided via interactive audio and video telecommunications E-CARE system to a patient admitted to ICU bed in [facility]. Available chart/ vitals / labs / Images reviewed Video assessment done using teleICU camera, rest of exam as per RN Discussed with RN Events overnight : left pupil increased , on precedex not follow commands but very restless , moves all 4 Afebrile hemodynamically stable Respiratory - I/O =lr 50 Drips: lr 50 - to stop Pressors- no Consultants: Hospital course: Patient is seen today due to persistent and new A/P Acute hypoxic resp failure - on bipap 04/15 90 % % rr 33 TV 500 MV 22 L - FIo2 WORSENING - not tolerates off Bipap as per bedside report - needs precedex 1.5 to be able to tolerate bipap- decreased to 0.7 - SM 60 q 8 h - to cont today - cont diuresis - negative balance 2L - still on 90FIo2 - as per RN - ongoing discussion with family regarding goals of care and intubation status Recent saddle PE - on julienne full dose bid - on hold today with left pupil increased Left PNA - cont abx last day ? nutritions - NPO now - readress- ? NG with TF vs TPN ONGOING DISCUSSION WITH FAMILY REGARDING GOALS OF CARE IF CONTINUE AGRESSIVE CARE , WILL NEED TO REPEAT XR , ABG AND DECIDE ON NUTRITIONS Lines : , (Central Line Necessity Reviewed) Hwyte: + OG: Nutrition: Analgesia: Anxiety/ delirium VTE Prophylaxis: full dose julienne Stress Ulcer Prophylaxis: ppi Plans in collaboration with bedside consultants and IM MDs, discussed with Dr Flores Discussed with RN to reach out if any questions or concerns A total of 31 minutes of critical care time was devoted to this patient today, required to treat and/or prevent further deterioration of critical care condition ( as above ) . I am remotely monitoring this patient from another state. I am unable to do the bedside exam, and history/physical and pertinent information is taken from other notes in the computer and bedside staff. Sepsis Event Evaluation Height, Weight, BMI Height: 5'2" Weight: 139lbs. oz. 63.307661kt; 29.60 BMI Method:Stated Focused Exam Time of Focused Exam: 20:15 Exam Exam Patient acknowledged, consented, and participated in this virtual visit which was conducted using real time audio/video Vital Signs Date Time Temp Pulse Resp B/P (MAP) Pulse Ox O2 Delivery O2 Flow Rate FiO2 04/24/22 08:00 98 146/71 04/24/22 08:00 96 26 141/69 (93) 93 NIV Bilevel 90.00 04/24/22 07:50 NIV Bilevel 90.00 04/24/22 07:50 91 NIV Bilevel 90 04/24/22 07:25 NIV Bilevel 90.00 04/24/22 07:08 86 04/24/22 07:00 88 24 138/67 (90) 91 NIV Bilevel 85.00 04/24/22 06:00 89 23 144/72 (96) 91 NIV Bilevel 85.00 04/24/22 05:00 92 21 143/71 (95) 91 NIV Bilevel 85.00 04/24/22 04:00 92 17 140/70 (93) 91 NIV Bilevel 85.00 04/24/22 04:00 85 NIV Bilevel 91 04/24/22 03:55 93 130/71 04/24/22 03:02 NIV Bilevel 85.00 04/24/22 03:00 94 21 132/67 (88) 92 NIV Bilevel 90.00 04/24/22 02:04 93 21 91 85.00 04/24/22 02:00 92 21 134/76 (95) 92 NIV Bilevel 90.00 04/24/22 01:00 95 04/24/22 01:00 96 30 132/70 (90) 93 NIV Bilevel 90.00 04/24/22 00:26 90 NIV Bilevel 92 04/24/22 00:25 NIV Bilevel 90.00 04/24/22 00:00 97 22 134/67 (89) 93 NIV Bilevel 100.00 04/23/22 23:17 36.5 NIV Bilevel 100.00 04/23/22 23:00 94 30 132/70 (90) 90 NIV Bilevel 100.00 04/23/22 22:26 NIV Bilevel 100.00 04/23/22 22:15 78 34 90 100.00 04/23/22 22:00 85 30 127/77 (94) 90 NIV Bilevel 85.00 04/23/22 21:22 36.0 04/23/22 21:00 89 37 141/75 (97) 90 NIV Bilevel 85.00 04/23/22 20:48 36.0 04/23/22 20:28 90 NIV Bilevel 85 04/23/22 20:00 95 37 135/89 (104) 90 NIV Bilevel 85.00 04/23/22 19:30 36.9 NIV Bilevel 85.00 04/23/22 19:30 78 133/73 04/23/22 19:12 78 34 92 85.00 04/23/22 19:00 98 30 133/65 (87) 92 NIV Bilevel 85.00 04/23/22 19:00 82 04/23/22 18:00 82 26 146/76 (99) 93 NIV Bilevel 85.00 04/23/22 17:00 86 24 131/76 (94) 92 NIV Bilevel 85.00 04/23/22 16:16 36.1 04/23/22 16:00 92 55 146/78 (100) 94 NIV Bilevel 85.00 04/23/22 16:00 91 NIV Bilevel 85 04/23/22 15:29 78 24 94 85.00 04/23/22 15:00 80 31 121/75 (90) 94 NIV Bilevel 85.00 04/23/22 14:00 80 39 142/110 (121) 93 NIV Bilevel 85.00 04/23/22 13:00 82 24 140/87 (104) 93 NIV Bilevel 85.00 04/23/22 13:00 83 04/23/22 12:00 93 NIV Bilevel 85 04/23/22 12:00 36.0 04/23/22 12:00 85 27 142/77 (98) 93 NIV Bilevel 85.00 04/23/22 11:00 89 25 153/78 (103) 92 NIV Bilevel 85.00 04/23/22 10:37 79 32 92 85.00 04/23/22 10:00 77 27 149/84 (105) 92 NIV Bilevel 85.00 I & O 04/24/22 07:00 Intake Total 650 ml Output Total 1675 ml Balance -1025 ml Height & Weight Height: 5'2" Weight: 139lbs. oz. 63.021148mh; 29.60 BMI Method:Stated General Appearance: Chronically ill HEENT: PERRL/EOMI, Normal ENT Inspection Neck: Normal Inspection Respiratory: Crackles, Other (tachypneic, on BiPAP) Cardiovascular: Regular Rate, Rhythm, No Murmur Capillary Refill: Less Than 3 Seconds Gastrointestinal: normal bowel sounds, non tender, soft Extremity: No Pedal Edema Neurologic/Psychiatric: Alert (opened eyes and moved toes when touched, otherwise did not participate in exam) Skin: Normal Color, Warm/Dry Results Lab Laboratory Tests 04/23/22 05:00 04/24/22 04:27 Assessment/Plan Assessment/Plan 1 OSCAR HALLMAN MD Apr 24, 2022 09:43
[2022-04-24 10:14] VITALS: BP 133/67
[2022-04-24] MEDS: morphine INJ 4 MG/ML 1 ML (VIAL/SYRINGE) IVP PRN ×2 (11:24→15:56)
[2022-04-24 14:00] VITALS: BP 149/60
[2022-04-24] MEDS: LORazepam INJ 2 MG/ML (ATIVAN) VIAL IVP PRN (17:19)
[2022-04-24] MEDS ORDERED: SALIVA SUBSTITUTE 60 ML SPRAY(MOUTHKOTE) MM PRN (18:30)
[2022-04-24] MEDS ORDERED: SCOPOLAMINE 1.5 MG (TRANSDERM-SCOP) PATCH TOP SCH (18:30)
[2022-04-24] MEDS ORDERED: LORazepam 1 MG (ATIVAN) TAB SL PRN (18:30)
[2022-04-24] MEDS ORDERED: BISACODYL 10 MG SUPP (DULCOLAX) PR PRN (18:30)
[2022-04-24] MEDS ORDERED: LORazepam ORAL CONCENTRATE 2 MG/ML 30 ML (ATIVAN) PO PRN (18:30)
[2022-04-24] MEDS ORDERED: ACETAMINOPHEN 650 MG SUPP (TYLENOL) PR PRN (18:30)
[2022-04-24] MEDS ORDERED: LORazepam INJ 2 MG/ML (ATIVAN) VIAL IVP PRN (18:30)
[2022-04-24] MEDS ORDERED: RT-ALBUTEROL/IPRATROPIUM 3 ML (DUONEB) VIAL INH PRN (18:30)
[2022-04-24] MEDS ORDERED: GLYCOPYRROLATE 0.2 MG/ML (ROBINUL) 2 ML VIAL IV PRN (18:30)
[2022-04-24] MEDS ORDERED: ARTIFICAL TEARS 0.4 ML UNIT DOSE (REFRESH PLUS) OU PRN (18:30)
[2022-04-24] MEDS ORDERED: ONDANSETRON 4 MG/2 ML (SDV) Z0FRAN IVP PRN (18:30)
[2022-04-24] MEDS ORDERED: morphine (ROXINOL) 10 MG/0.5 ML oral conc 0.5 ML PO PRN (18:30)
[2022-04-24] MEDS ORDERED: ATROPINE 1% OPHTHALMIC SOLN 2 ML SL PRN (18:30)
[2022-04-24] MEDS: morphine INJ 4 MG/ML 1 ML (VIAL/SYRINGE) IV PRN (22:30)
[2022-04-24 23:56] VITALS: BP 149/60
[2022-04-25] MEDS: NOREPINEPHRINE 8 MG/250 ML 250 ML IV SCH (00:12)
[2022-04-25] MEDS: methylPREDNISolone 40 MG/ML (Solu-MEDROL) VIAL IV SCH ×2 (00:12→08:20)
[2022-04-25] MEDS: VASOPRESSIN INJECTION 20 UNIT in NS (IVPB) 100 ML IV SCH (01:04)
[2022-04-25] MEDS: LORazepam INJ 2 MG/ML (ATIVAN) VIAL IVP PRN ×2 (01:43→13:11)
[2022-04-25] MEDS: morphine INJ 4 MG/ML 1 ML (VIAL/SYRINGE) IV PRN ×3 (03:11→14:00)
[2022-04-25] MEDS: CEFEPIME INJECTION 1,000 MG in NS (IVPB) 50 ML IV SCH (03:12)
[2022-04-25] MEDS: POTASSIUM CL 10MEQ/50ML IVPB 50 ML IV SCH (05:29)
[2022-04-25] MEDS: MAGNESIUM 1 GM/100 ML IVPB 100 ML IV SCH (05:29)
[2022-04-25] MEDS: KCL 20 MEQ TAB (K-DUR) PO SCH (05:30)
[2022-04-25] MEDS: RT-ALBUTEROL/IPRATROPIUM 3 ML (DUONEB) VIAL INH SCH ×2 (07:02→10:57)
[2022-04-25 07:03] VITALS: BP 140/82
[2022-04-25] MEDS: QUEtiapine 25 MG (SEROquel) TAB IMMEDIATE RELEASE PO SCH (08:21)
[2022-04-25] MEDS: FLUoxetine HCL 20 MG (PROzac) CAP PO SCH (08:21)
[2022-04-25] MEDS: FAMOTIDINE 20MG/2ML IV (PEPCID) IVP SCH (08:21)
[2022-04-25] MEDS: busPIRone 15 MG (BUSPAR) TABLET PO SCH ×2 (08:21→14:27)
[2022-04-25] MEDS: ENOXAPARIN 80 MG/0.8 ML (LOVENOX) SYR SC SCH (08:21)
[2022-04-25] MEDS: DexMEDEtomidine 250 ML DRIP 250 ML IV SCH (08:28)
[2022-04-25 10:57] VITALS: BP 145/77
[2022-04-25] MEDS ORDERED: morphine INJ 10 MG/ML 1ML (SYR OR VIAL) IVP PRN (14:00)
[2022-04-25] MEDS ORDERED: morphine INJ 10 MG/ML 1ML (SYR OR VIAL) IVP STA (14:31)
--- NOTE | 2022-04-25 14:34 | Discharge Summary ---
Diagnosis/Chief Complaint Date of Admission Apr 18, 2022 at 21:22 Date of Discharge Admission Diagnosis 1. Acute respiratory failure secondary to left lower lobe pneumonia with sec ondary sepsis continue broad-spectrum antibiotic usage per sepsis protocol. 2. Dementia presumed history of agitated behavior considering Seroquel usage with current anxiety secondary to #1. Will initiate as needed IV Ativan continue BiPAP. 3. No evidence for acute bleeding will continue Lovenox holding Eliquis for now as the patient is on BiPAP and is at increased risk for aspiration. 4. Recent pulmonary embolism with saddle embolus see #3. 5. Normocytic anemia patient received another unit of packed cells this is not of new onset noted on blood test going back several months will obtain iron studies and B12 level Primary Care Betito Land MD Discharge Summary Discharge Physical Exam Allergies: Coded Allergies: patel (Verified Allergy, Intermediate, Diarrhea, 04/13/22) egg (Verified Allergy, Intermediate, Diarrhea, 04/13/22) metoclopramide (Unverified Allergy, Mild, 03/14/16) prochlorperazine (Unverified Allergy, Mild, 03/14/16) HIGH ANXIETY REACTION Vitals & I&Os Vital Signs Date Time Temp Pulse Resp B/P (MAP) Pulse Ox O2 Delivery O2 Flow Rate FiO2 04/25/22 12:00 84 25 144/72 (96) 91 NIV Bilevel 100.00 04/25/22 11:39 37.5 04/25/22 08:00 100 General Appearance: Other () Hospital Course She was admitted to the hospital secondary to sepsis due to pneumonia. She was treated with broad-spectrum IV antibiotics and was placed on BiPAP. Despite many days of aggressive treatment she continued to worsen and was on max support with BiPAP. She had recently had COVID and a saddle pulmonary embolism within the past few weeks. Multiple discussions were had with her family regarding goals of care and ultimately they elected to transition to comfort care only. She passed with her family at her bedside. Labs (last 24 hrs) Microbiology 04/18/22 MRSA Screen - Final, Complete MRSA not isolated 04/18/22 Blood Culture - Final, Complete No growth 04/18/22 Urine Culture - Final, Complete NO GROWTH Patient resulted labs reviewed. Discussion & Recommendations Discharge Planning: >30 minutes discharge planning Discharge Home Medications: Active Scripts Active Eliquis (Apixaban) 5 Mg Tablet 5 Mg PO BID take 2 pills twice daily for 3 days then 1 pill twice daily until stopped by primary doctor Reported Macrobid 100 mg Capsule (Nitrofurantoin Monohyd/M-Cryst) 100 Mg Capsule 1 Tab PO BID [facility] FILLED IT FOR A 15 DAY SUPPLY ON 04-18-2022- THE PT DID NOT START AT THE FACILITY PRIOR TO BRING RE-ADMITTED Gabapentin 100 Mg Capsule 100 Mg PO TID Tylenol Extra Strength (Acetaminophen) 500 Mg Tablet 500 Mg PO TID Melatonin 3 Mg Tablet 6 Mg PO HS Pravastatin Sodium 20 Mg Tablet 20 Mg PO HS Seroquel (Quetiapine Fumarate) 25 Mg Tablet 50 Mg PO TID Buspirone HCl 15 Mg Tablet 15 Mg PO TID Aldactone (Spironolactone) 25 Mg Tablet 25 Mg PO DAILY Losartan Potassium 25 Mg Tablet 25 Mg PO DAILY Aspirin 81 Mg Tab.chew 81 Mg PO DAILY Fluoxetine HCl 20 Mg Tablet 20 Mg PO DAILY Instructions to patient/family Please see electronic discharge instructions given to patient. ESAU ORELLANA MD Apr 25, 2022 14:34
[2022-04-27] MEDS ORDERED: SCOPOLAMINE PATCH REMOVAL TP SCH (18:29)
== END 2022-04-25 14:22 | disposition expired | DRG 871 ==
LOC: EDUNIT# 18:50 → ER 18:53 → ICU 21:22
PROVIDERS: ADMIT Internal Medicine; ATTEND Family Medicine
PROC: 5A09557 Assistance with Respiratory Ventilation, Greater than 96 Consecutive Hours, Continuous Positive Airway Pressure (ICD-10-PCS; principal; 2022-04-19)
PROC: 5A0935A Assistance with Respiratory Ventilation, Less than 24 Consecutive Hours, High Flow/Velocity Cannula (ICD-10-PCS; 2022-04-19)
DX: A41.9 Sepsis, unspecified organism (principal); J18.9 Pneumonia, unspecified organism; J96.01 Acute respiratory failure with hypoxia; F03.94 Unspecified dementia, unspecified severity, with anxiety; E87.20 Acidosis, unspecified; D64.9 Anemia, unspecified; Z66 Do not resuscitate; Z51.5 Encounter for palliative care; Z86.16 Personal history of COVID-19; Z86.711 Personal history of pulmonary embolism; Z79.01 Long term (current) use of anticoagulants; Z79.82 Long term (current) use of aspirin; Z79.899 Other long term (current) drug therapy; I10 Essential (primary) hypertension; E78.00 Pure hypercholesterolemia, unspecified; F32.A Depression, unspecified; Z20.822 Contact with and (suspected) exposure to COVID-19; D75.839 Thrombocytosis, unspecified
CPT/HCPCS: 36415; 51702; 71045; 80053; 80061; 81000; 82607; 82728; 82805; 83540; 83550; 83605; 83735; 83874; 83880; 84100; 84145; 84484; 85007; 85014; 85018; 85025; 85027; 85045; 85610; 85730; 86141; 86850; 86900; 86901; 86922; 87040; 87081; 87088; 87636; 93005; 93041; 94640; 94660